=== PATIENT | male | born 1940 | race Caucasian/White ===

== ENCOUNTER 2016-07-12 20:13 | Inpatient (IN) | payer OTHER ==
[~2016-07-12] VITALS: Ht 172.7 cm; Wt 91.6 kg
[~2016-07-12 20:13] MED LIST: ALBUAER2 INH; ASPCH81X PO; ATV5X PO; CLOP1TAB15 PO; DOCU100C31 PO; DULO-24 PO; FLUD0.1T10 PO; FLUT1INH INH; GABA-112 PO; HYDR500C PO; IPRA1AER2 INH; LORA-741 PO; LPT/20 PO; MOML PO; NITR0.4S UT; OMEP20CA9 PO; ONDA8TAB6 PO; OXGN; OXYC-57 PO; PRAM0.129 PO; PROC1TAB5 PO; SALI0.657 NAE; SENN8.6T13 PO; SODIENE PR; SYMIN/8045 INH; TAMS0.4C38 PO; TIOTCAP INH; TRAZ100T29 PO; TRL150 PO; [UNRECOGNIZED DRUG - CODE] PO; dulcolax suppository RE
[2016-07-12] MEDS ORDERED: KETOROLAC TROMETHAMINE 30 MG/ML VIAL IV STA (20:27)
[2016-07-12] MEDS ORDERED: SODIUM CHLORIDE 0.9% 1000ML 500 ML IV STA (20:27)
--- NOTE | 2016-07-12 20:36 | EMERGENCY ROOM VISIT NOTE ---
History Report prepared by Maria Elena: Jennifer Camejo Under the Supervision of: Dr. Jay Jay Carcamo M.D. First contact with patient: 20:21 Chief Complaint: FLANK PAIN Stated Complaint: FLANK PAIN History of Present Illness The patient is a 75 year old male who presents to the Emergency Room with complaints of worsening right-sided flank pain for the past 3 days. He reports that his pain has been mild for the past 3 days, but it worsened today after he lifted some boxes. He rates his current pain as a 9.5/10 in severity. His pain is worse with movement and taking a deep breath. The patient denies shortness of breath, cough, urinary symptoms, chills, and any recent trauma or falls. He denies his pain radiating into his abdomen. He has not felt feverish. He denies any personal history of kidney stones. The patient has been staying at [facility] for rehab for the past 10 months. He was discharged home from there today. He states that he was at home for 3 hours today before his pain became severe. He called an ambulance. 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 He wears 4L of O2 at night. Source of History: patient Onset: 3 days ago Position: other (right flank) Symptom Intensity: 9.5/10 Timing: worsening Modifying Factors (Worsening): breathing, movement Modifying Factors (Relieving): narcotics (Percocet) Associated Symptoms: + fevers, No SOB, No abdominal pain, No chills, No cough, No urinary symptoms Review of Systems See HPI for pertinent positives & negatives. A total of 10 systems reviewed and were otherwise negative. Past Medical & Surgical Medical Problems: (1) ASTHMA, UNSPECIFIED (2) CHRONIC OBSTRUCTIVE ASTHMA, NOS (3) CHRONIC PAIN SYNDROME (4) CORONARY ATHEROSCLEROSIS OF [place] CORONARY VESSEL (5) DEPRESSIVE DISORDER NEC (6) DIAB W NEURO MANIFEST, TYPE II OR UNSPEC TYPE, NOT UNCNTRLD (7) DIVERTICULOSIS COLON (W/O MENT OF HEMORRHAGE) (8) ESOPHAGEAL REFLUX (9) HIP JOINT REPLACEMENT STATUS (10) HYPERTROPHY (BENIGN) OF PROSTATE W/O URINARY OBST & OTH LUTS (11) IRRITABLE BOWEL SYNDROME (12) Lumbar compression fracture (13) LUMBOSACRAL NEURITIS NOS (14) NEUROPATHY IN DIABETES (15) PURE HYPERCHOLESTEROLEM (16) SPINAL STENOSIS, LUMBAR REG, W/OUT NEUROGENIC CLAUDICATION (17) TOBACCO USE DISORDER Family History No pertinent family history Social History Smoking Status: Current Every Day Smoker Alcohol Use: heavy Drug Use: none Marital Status: Housing Status: lives alone Occupation Status: retired Current/Historical Medications Scheduled Aspirin (Aspirin Chewable), 81 MG PO DAILY Atorvastatin (Lipitor), 40 MG PO DAILY Bisacodyl (Dulcolax), 1 SUPP TX PRN UD Clopidogrel (Plavix), 75 MG PO DAILY Duloxetine HCl (Cymbalta), 30 MG PO BID Fluticasone Furoate-Vilanterol (Breo Ellipta), 1 INHA INH DAILY Gabapentin (Neurontin), 600 MG PO TID Ipratropium-Albuterol (Combivent Respimat), 1 PUFFS INH QID Lorazepam (Ativan), 0.5 MG PO TID Oxcarbazepine (Trileptal), 300 MG PO BID Oxycodone/Acetaminophen 5MG/325MG (Percocet 5MG/325MG), 1 TAB PO TID Pramipexole Dihydrochloride (Pramipexole Dihydrochlori), 0.5 MG PO HS Ranitidine (Zantac), 150 MG PO DAILY Senna/Docusate Sod (Senokot S), 2 TABS PO BID Tamsulosin Hcl (Flomax), 0.4 MG PO HS Tiotropium [place] (Spiriva Handihaler), 1 CAP INH DAILY Trazodone Hcl (Trazodone), 100 MG PO HS Scheduled PRN Bismuth Subsalicylate ([place] Bismuth), 30 ML PO Q4 PRN for Indigestion Guaifenesin (Guaifenesin), 20 Q4 PRN for Cough Magnesium Hydroxide (Milk Of Magnesia), 30 ML PO DAILY PRN for Constipation Saline (Sea Soft Nasal Mist), 1 SPRAY HELIO PRN PRN for DRYNESS Sodium Phosphate/Biphosphate (Fleet Enema), 1 EA TX PRN UD PRN for Constipation [Magic Mouthwash], 15-20 ML PO HS PRN for COUGH/SORETHROAT Allergies Coded Allergies: No Known Allergies (Unverified , 05/28/16) Physical Exam Vital Signs Date Time Temp Pulse Resp B/P Pulse Ox O2 Delivery O2 Flow Rate FiO2 1/6/17 23:32 73 20 158/87 95 Room Air 07/12/16 22:07 73 20 166/69 97 Nasal Cannula 4.0 07/12/16 21:33 95 Nasal Cannula 4.0 07/12/16 21:33 89 Room Air 07/12/16 20:54 80 07/12/16 20:32 90 Room Air 07/12/16 20:32 90 Room Air 07/12/16 20:19 37.6 84 128/72 90 Room Air Physical Exam GENERAL: Patient is in no acute distress. HEENT: No acute trauma, normocephalic atraumatic, mucous membranes dry, no nasal congestion, no scleral icterus. NECK: No stridor, no adenopathy, no meningismus, trachea is midline. LUNGS: Clear to auscultation bilaterally, no wheeze, no rhonchi, breath sounds equal. HEART: Irregular without any murmurs, regular rate. ABDOMEN: Soft, nontender, bowel sounds positive, no hernias, no peritonitis. BACK: Right flank pain worsens with movement. EXTREMITIES: Mild bilateral pedal edema. No cyanosis, full range of motion of all the joints without pain or difficulty, no signs for acute trauma. NEUROLOGIC: Oriented x 3, no acute motor or sensory deficits, no focal weakness. SKIN: No rash, no jaundice, no diaphoresis. Medical Decision & Procedures ER Provider Diagnostic Interpretation: Radiology results as stated below per my review and radiologist interpretation: CHEST ONE VIEW PORTABLE CLINICAL HISTORY: Altered mental status. Weakness. Lung cancer. COMPARISON STUDY: Chest CT May 06, 2016. FINDINGS: A left shoulder arthroplasty is incidentally noted. Elevation of the right hemidiaphragm is unchanged. Moderate cardiomegaly is unchanged. There is no pneumothorax. An anterior cervical spine fusion is incidentally noted. Low lung interstitial thickening is unchanged and is likely chronic. There is no lobar consolidation. A 1.6 cm nodular density within the left midlung is noted. This is indeterminate. IMPRESSION: 1. No acute cardiopulmonary findings. 2. 1.6 cm nodular density within the left midlung. This could represent normal structures although a pulmonary nodule could appear similar and attention to this finding on subsequent studies recommended. 2. Stable lower lung interstitial thickening which is likely chronic. 3. Stable mild mediastinal widening. Electronically signed by: Suraj Calhoun M.D. 07/12/2016 9:17 PM Dictated Date/Time: 07/12/2016 9:[address] OF THE ABDOMEN AND PELVIS WITHOUT CONTRAST, STONE PROTOCOL CLINICAL HISTORY: Flank pain. Hematuria. COMPARISON STUDY: CT of the abdomen and pelvis May 06, 2016. TECHNIQUE: Helical axial images of the abdomen and pelvis were obtained without IV or oral contrast according to renal stone protocol. FINDINGS: Visualized portions of the lower lungs demonstrate suspected atelectasis. There is multifocal mucus plugging within the right lower lobe as well as the right middle lobe. No pneumatosis, free air or portal venous gas is present. A 3 mm calcification within the left renal pelvis likely is vascular in etiology. No renal, ureteral or bladder calculi are present with there is no hydronephrosis. Evaluation of the remainder of the abdomen and pelvis is suboptimal on this unenhanced exam. Unenhanced images of liver, adrenal glands and pancreas are unremarkable. There are calcified granulomas within the spleen. There is no evidence for a bowel obstruction. The appendix is not visualized. There is left colon diverticulosis without evidence for acute diverticulitis. Postsurgical findings within the spine as well as the right hip arthroplasty are noted. No suspicious osseous lesions are present. The previously described hepatic metastasis is not well visualized on this unenhanced exam. IMPRESSION: 1. No urinary calculi or hydronephrosis. 2. No acute process within the abdomen or pelvis on unenhanced exam. 3. Left colon diverticulosis without evidence for acute diverticulitis. 4. Airspace opacities within visualized portions of the lungs. Atelectasis is favored although an infectious process would be difficult to exclude. Electronically signed by: Suraj Calhoun M.D. 07/12/2016 9:49 PM Dictated Date/Time: 07/12/2016 9:34 PM Laboratory Results 07/12/16 20:30 Red Blood Count 4.05, Mean Corpuscular Volume 85.7, Mean Corpuscular Hemoglobin 28.1, Mean Corpuscular Hemoglobin Concent 32.9, Mean Platelet Volume 8.9 07/12/16 20:30 Test 07/12/16 20:30 07/12/16 20:31 07/12/16 20:45 White Blood Count 13.93 K/uL (4.8-10.8) Red Blood Count 4.05 M/uL (4.7-6.1) Hemoglobin 11.4 g/dL (14.0-18.0) Hematocrit 34.7 % (42-52) Mean Corpuscular Volume 85.7 fL (80-100) Mean Corpuscular Hemoglobin 28.1 pg (25-34) Mean Corpuscular Hemoglobin Concent 32.9 g/dl (32-36) Platelet Count 266 K/uL (130-400) Mean Platelet Volume 8.9 fL (7.4-10.4) RDW Standard Deviation 63.6 fL (36.4-46.3) RDW Coefficient of Variation 20.4 % (11.5-14.5) Neutrophils % (Manual) 74.8 % Lymphocytes % (Manual) 4.3 % Monocytes % (Manual) 9.6 % Eosinophils % (Manual) 0.9 % Basophils % (Manual) 2.6 % (0-2) Metamyelocytes % 1.7 % Myelocytes % 6.1 % Neutrophils # (Manual) 10.42 K/uL (1.4-6.5) Total Absolute Neutrophils 10.42 K/uL (1.4-6.5) Lymphocytes # (Manual) 0.60 K/uL (1.2-3.4) Total Absolute Lymphocytes 0.60 K/uL (1.2-3.4) Monocytes # (Manual) 1.34 K/uL (0.11-0.59) Eosinophils # (Manual) 0.13 K/uL (0-0.5) Basophils # (Manual) 0.36 K/uL (0-0.2) Metamyelocytes # 0.24 K/uL (0-0) Myelocytes # 0.85 K/uL (0-0) Anisocytosis PRESENT Anion Gap 11.0 mmol/L (3-11) Est Creatinine Clear Calc Drug Dose 102.0 ml/min Estimated GFR () 106.1 Estimated GFR (Non- 91.6 BUN/Creatinine Ratio 12.9 (10-20) Calcium Level 8.9 mg/dl (8.5-10.1) Total Bilirubin 0.5 mg/dl (0.2-1) Aspartate Amino Transf (AST/SGOT) 21 U/L (15-37) Alanine Aminotransferase (ALT/SGPT) 13 U/L (12-78) Alkaline Phosphatase 93 U/L (45-117) Troponin I < 0.015 ng/ml (0-0.045) Total Protein 7.4 gm/dl (6.4-8.2) Albumin 3.5 gm/dl (3.4-5.0) Globulin 3.9 gm/dl (2.5-4.0) Albumin/Globulin Ratio 0.9 (0.9-2) Bedside Lactic Acid Venous 1.23 mmol/L (0.90-1.70) Urine Color YELLOW Urine Appearance CLOUDY (CLEAR) Urine pH 8.5 (4.5-7.5) Urine Specific [place] 1.009 (1.000-1.030) Urine Protein NEG (NEG) Urine Glucose (UA) NEG (NEG) Urine Ketones NEG (NEG) Urine Occult Blood 1+ (NEG) Urine Nitrite POS (NEG) Urine Bilirubin NEG (NEG) Urine Urobilinogen NEG (NEG) Urine Leukocyte Esterase LARGE (NEG) Urine WBC (Auto) >30 /hpf (0-5) Urine RBC (Auto) 5-10 /hpf (0-4) Urine Hyaline Casts (Auto) 1-5 /lpf (0-5) Urine Epithelial Cells (Auto) 0-5 /lpf (0-5) Urine Bacteria (Auto) 4+ (NEG) Laboratory results reviewed by me. Medications Administered Medications (Trade) Dose Ordered Sig/Imtiaz Route Start Time Stop Time Status Last Admin Dose Admin Sodium Chloride (Nss 1000ml) 500 ml @ 999 mls/hr Q31M STAT IV 07/12/16 20:27 07/12/16 20:57 DC 07/12/16 20:57 999 MLS/HR Ketorolac Tromethamine (Toradol Inj) 30 mg NOW STAT IV 07/12/16 20:27 07/12/16 20:31 DC 07/12/16 20:57 30 MG Ceftriaxone Sodium (Rocephin Inj) 1 gm NOW STAT IV 07/12/16 21:45 07/12/16 21:46 DC 07/12/16 22:03 1 GM Morphine Sulfate (MoRPHine SULFATE INJ) 4 mg NOW STAT IV 07/12/16 22:26 07/12/16 22:27 DC 07/12/16 22:39 4 MG ECG Indication: back/shoulder pain Rate (beats per minute): 82 Rhythm: normal sinus Findings: RBBB, no acute ischemic change, no ectopy ED Course 2020: The patient was evaluated in room A9B. A complete history and physical exam was performed. 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 2212: I reassessed the patient at this time. He is resting comfortably. I discussed the results and treatment plan with the patient. I answered all pertaining questions that he had. He expressed understanding and verbalized agreement. 2236: I spoke with Dr. Gama. We discussed the patients results and treatment plan. The patient will be evaluated by the [facility] for further management. Medical Decision Differential diagnoses includes dehydration, weakness, renal failure, electrolyte imbalance, UTI, renal stone, pneumonia, debilitation, musculoskeletal pain. There is a mild leukocytosis which could be consistent with infection. No concerning anemia. No significant electrolyte abnormality, kidney failure or hepatitis. Urinalysis does suggest infection. Urine culture is pending. Lactic acid level is not elevated making severe sepsis less likely. Chest x- ray does not show free air or pneumonia. Abdominal and pelvis CT shows no ureteral obstruction, there was no evidence for an acute surgical process by CT scan. The patient received IV morphine for pain, he received IV saline and IV Toradol. He was given a dose of IV ceftriaxone for antibiotic coverage. I suspect the patient has pyelonephritis, this has caused his right flank pain. Given his findings and situation, admission/observation was warranted. I spoke to the patient and case management. The on-call hospitalist was consulted. Consults Time Called: 2225 Consulting Physician: Dr. Gama Returned Call: [address] Gama. We discussed the patients results and treatment plan. The patient will be evaluated by the [facility] for further management. Impression Primary Impression: Pyelonephritis Additional Impressions: Right flank pain, Leukocytosis Scribe Attestation The scribe's documentation has been prepared under my direction and personally reviewed by me in its entirety. I confirm that the note above accurately reflects all work, treatment, procedures, and medical decision making performed by me. Departure Information Dispostion Being Evaluated By Hospitalist Referrals Eileen Pahceco M.D. (PCP) Patient Instructions A Signature Page, My [facility]
[2016-07-12 20:43] LABS: HEMATOCRIT 34.7 % (42-52); MEAN CELL VOLUME 85.7 fL (80-100); MEAN CORPUSCULAR HEMOGLOBIN 28.1 pg (25-34); MEAN CORPUSCULAR HGB CONC 32.9 g/dl (32-36); MEAN PLATELET VOLUME 8.9 fL (7.4-10.4); PLATELET COUNT 266 K/uL (130-400); RED BLOOD COUNT 4.05 M/uL (4.7-6.1); WHITE BLOOD COUNT 13.93 K/uL (4.8-10.8)
[2016-07-12 21:01] LABS: ALT/SGPT 13 U/L (12-78); BLOOD UREA NITROGEN 9 mg/dl (7-18); BUN/CREATININE RATIO 12.9 (10-20); CALCIUM 8.9 mg/dl (8.5-10.1); CARBON DIOXIDE 30 mmol/L (21-32); CHLORIDE 91 mmol/L (98-107); CREATININE 0.69 mg/dl (0.60-1.40); GLUCOSE 108 mg/dl (70-99); POTASSIUM 4.4 mmol/L (3.5-5.1); SODIUM 132 mmol/L (136-145)
[2016-07-12 21:06] LABS: ALB/GLOB RATIO 0.9 (0.9-2); ALKALINE PHOSPHATASE 93 U/L (45-117); AST/SGOT 21 U/L (15-37)
[2016-07-12] MEDS ORDERED: ATOR-24 PO (21:17)
[2016-07-12] MEDS ORDERED: OXCA300T PO (21:17)
[2016-07-12] MEDS ORDERED: CYM/30 PO (21:17)
[2016-07-12] MEDS ORDERED: PRAM0.5T10 PO (21:17)
[2016-07-12] MEDS ORDERED: ZNTT/150 PO (21:17)
[2016-07-12] MEDS ORDERED: SENN-65 PO (21:17)
[2016-07-12] MEDS ORDERED: MOML PO (21:17)
[2016-07-12 21:19] LABS: ANISOCYTOSIS PRESENT; BASO ABS # 0.36 K/uL (0-0.2); BASOPHIL % 2.6 % (0-2); COMPLETE YES; EOSINOPHIL % 0.9 %; LYMPHOCYTE % 4.3 %; META ABS # 0.24 K/uL (0-0); METAMYELOCYTE % 1.7 %; MYELOCYTE % 6.1 %; NEUTROPHILS % 74.8 %
--- NOTE | 2016-07-12 21:19 | DIAGNOSTIC IMAGING REPORT ---
CHEST ONE VIEW PORTABLE CLINICAL HISTORY: Altered mental status. Weakness. Lung cancer. COMPARISON STUDY: Chest CT May 06, 2016. FINDINGS: A left shoulder arthroplasty is incidentally noted. Elevation of the right hemidiaphragm is unchanged. Moderate cardiomegaly is unchanged. There is no pneumothorax. An anterior cervical spine fusion is incidentally noted. Low lung interstitial thickening is unchanged and is likely chronic. There is no lobar consolidation. A 1.6 cm nodular density within the left midlung is noted. This is indeterminate. IMPRESSION: 1. No acute cardiopulmonary findings. 2. 1.6 cm nodular density within the left midlung. This could represent normal structures although a pulmonary nodule could appear similar and attention to this finding on subsequent studies recommended. 2. Stable lower lung interstitial thickening which is likely chronic. 3. Stable mild mediastinal widening. Electronically signed by: Suraj Calhoun M.D. 07/12/2016 9:17 PM Dictated Date/Time: 07/12/2016 9:13 PM
[2016-07-12 21:22] LABS: URINE APPEARANCE CLOUDY (CLEAR); URINE BILIRUBIN NEG (NEG); URINE COLOR YELLOW; URINE EPITHELIAL CELL AUTO 0-5 /lpf (0-5); URINE NITRITE POS (NEG); URINE PH 8.5 (4.5-7.5); URINE SPECIFIC GRAVITY 1.009 (1.000-1.030); UROBILINOGEN NEG (NEG); ZZUR CULT IF INDIC CLEAN CATCH YES
[2016-07-12 21:23] LABS: MANUAL MICROSCOPIC REQUIRED? NO; REVIEW REQ? NO
[2016-07-12] MEDS ORDERED: GUAI100S16 (21:24)
[2016-07-12] MEDS ORDERED: [UNRECOGNIZED DRUG - CODE] NAE (21:24)
[2016-07-12] MEDS ORDERED: MAGIC MOUTHWASH PO (21:24)
[2016-07-12] MEDS ORDERED: BISA10SU3 PR (21:28)
[2016-07-12] MEDS ORDERED: CEFTRIAXONE SOD INJ 1 GM ADDVIAL IV STA (21:45)
--- NOTE | 2016-07-12 21:52 | DIAGNOSTIC IMAGING REPORT ---
CT OF THE ABDOMEN AND PELVIS WITHOUT CONTRAST, STONE PROTOCOL CLINICAL HISTORY: Flank pain. Hematuria. COMPARISON STUDY: CT of the abdomen and pelvis May 06, 2016. TECHNIQUE: Helical axial images of the abdomen and pelvis were obtained without IV or oral contrast according to renal stone protocol. FINDINGS: Visualized portions of the lower lungs demonstrate suspected atelectasis. There is multifocal mucus plugging within the right lower lobe as well as the right middle lobe. No pneumatosis, free air or portal venous gas is present. A 3 mm calcification within the left renal pelvis likely is vascular in etiology. No renal, ureteral or bladder calculi are present with there is no hydronephrosis. Evaluation of the remainder of the abdomen and pelvis is suboptimal on this unenhanced exam. Unenhanced images of liver, adrenal glands and pancreas are unremarkable. There are calcified granulomas within the spleen. There is no evidence for a bowel obstruction. The appendix is not visualized. There is left colon diverticulosis without evidence for acute diverticulitis. Postsurgical findings within the spine as well as the right hip arthroplasty are noted. No suspicious osseous lesions are present. The previously described hepatic metastasis is not well visualized on this unenhanced exam. IMPRESSION: 1. No urinary calculi or hydronephrosis. 2. No acute process within the abdomen or pelvis on unenhanced exam. 3. Left colon diverticulosis without evidence for acute diverticulitis. 4. Airspace opacities within visualized portions of the lungs. Atelectasis is favored although an infectious process would be difficult to exclude. Electronically signed by: Suraj Calhoun M.D. 07/12/2016 9:49 PM Dictated Date/Time: 07/12/2016 9:34 PM
[2016-07-12] MEDS ORDERED: MoRPHine SULFATE 4 MG/ML 1 ML CARP\\VIAL IV STA (22:26)
[2016-07-13] MEDS ORDERED: MoRPHine SULFATE 4 MG/ML 1 ML CARP\\VIAL IV STA (00:39)
[2016-07-13] MEDS ORDERED: ACETAMINOPHEN 325 MG TAB PO PRN (01:00)
[2016-07-13] MEDS ORDERED: MAGIC MOUTHWASH PO PRN (01:00)
[2016-07-13] MEDS ORDERED: ALUMINUM/MAGNESIUM/SIMETH (MAALOX MAX) 30 ML UDC PO PRN (01:00)
[2016-07-13] MEDS ORDERED: ONDANSETRON INJ 2 MG/ML 2 ML VIAL IV PRN (01:00)
[2016-07-13] MEDS ORDERED: SODIUM CHLORIDE 0.9% 1000ML 1,000 ML IV SCH (01:00)
[2016-07-13] MEDS ORDERED: POLYETHYLENE (MIRALAX) 17 GM PACK PO PRN (01:00)
[2016-07-13] MEDS ORDERED: MAGNESIUM HYDROXIDE SUSP 30 ML UDC PO PRN ×2 (01:00)
[2016-07-13] MEDS ORDERED: SODIUM CHLORIDE 0.65% NA SOLN 45 ML (OCEAN) NAE PRN (01:00)
--- NOTE | 2016-07-13 01:20 | History and Physical ---
History & Physical Date & Time of Service: Jul 13, 2016 at 01:17 Chief Complaint: Flank Pain Primary Care Physician: Balbir Ma M.D. History of Present Illness Source: patient 75 y/o M w/Hx CAD, Lung adenocarcinoma, COPD(3l 02), Spinal stenosis and recent L2 fracture. Pt was D/Cd from rehab earlier in the day and developed R flank pain, fever and weakness. He presented to the ER where a + UA was confirmed. He denies SOB, CP, vomiting. The pt is significantly tender at the R flank with intractable pain and will be admitted for presumed pyelonephritis. He had been at rehab for several months due to back pain and an inability to ambulate independently. He states that he had chemotherapy last 3 weeks prior and is due for a PET scan to reassess his CA. Past Medical/Surgical History Medical Problems: (1) ASTHMA, UNSPECIFIED Status: Chronic (2) CHRONIC OBSTRUCTIVE ASTHMA, NOS Status: Chronic (3) CHRONIC PAIN SYNDROME Status: Chronic (4) CORONARY ATHEROSCLEROSIS OF [place] CORONARY VESSEL Status: Chronic (5) DEPRESSIVE DISORDER NEC Status: Chronic (6) DIAB W NEURO MANIFEST, TYPE II OR UNSPEC TYPE, NOT UNCNTRLD Status: Chronic (7) DIVERTICULOSIS COLON (W/O MENT OF HEMORRHAGE) Status: Chronic (8) ESOPHAGEAL REFLUX Status: Chronic (9) HIP JOINT REPLACEMENT STATUS Status: Chronic (10) HYPERTROPHY (BENIGN) OF PROSTATE W/O URINARY OBST & OTH LUTS Status: Chronic (11) IRRITABLE BOWEL SYNDROME Status: Chronic (12) LUMBOSACRAL NEURITIS NOS Status: Chronic (13) NEUROPATHY IN DIABETES Status: Chronic (14) PURE HYPERCHOLESTEROLEM Status: Chronic (15) SPINAL STENOSIS, LUMBAR REG, W/OUT NEUROGENIC CLAUDICATION Status: Chronic (16) TOBACCO USE DISORDER Status: Chronic 17) Adenocarcinoma L lung - recent chemo/radiation - due for PET scan to reassess - he describes a solitary liver metastasis. Family History No pertinent family history Social History Smoking Status: Current Some Day Smoker Drug Use: none Marital Status: Housing status: lives alone Occupational Status: retired Immunizations History of Influenza Vaccine: N/A Influenza Vaccine Date: Jul 07, 2009 History of Tetanus Vaccine?: Yes Tetanus Immunization Date: Jan 17, 2009 History of Pneumococcal: Yes Pneumococcal Date: Jan 17, 2011 History of Hepatitis B Vaccine: No Allergies Coded Allergies: No Known Allergies (Unverified , 05/28/16) Home Medications Scheduled Aspirin (Aspirin Chewable), 81 MG PO DAILY Atorvastatin (Lipitor), 40 MG PO DAILY Bisacodyl (Dulcolax), [address] PRN UD Clopidogrel (Plavix), 75 MG PO DAILY Duloxetine HCl (Cymbalta), 30 MG PO BID Fluticasone Furoate-Vilanterol (Breo Ellipta), 1 INHA INH DAILY Gabapentin (Neurontin), 600 MG PO TID Ipratropium-Albuterol (Combivent Respimat), 1 PUFFS INH QID Lorazepam (Ativan), 0.5 MG PO TID Oxcarbazepine (Trileptal), 300 MG PO BID Oxycodone/Acetaminophen 5MG/325MG (Percocet 5MG/325MG), 1 TAB PO TID Pramipexole Dihydrochloride (Pramipexole Dihydrochlori), 0.5 MG PO HS Ranitidine (Zantac), 150 MG PO DAILY Senna/Docusate Sod (Senokot S), 2 TABS PO BID Tamsulosin Hcl (Flomax), 0.4 MG PO HS Tiotropium [place] (Spiriva Handihaler), 1 CAP INH DAILY Trazodone Hcl (Trazodone), 100 MG PO HS Scheduled PRN Bismuth Subsalicylate ([place] Bismuth), 30 ML PO Q4 PRN for Indigestion Guaifenesin (Guaifenesin), 20 Q4 PRN for Cough Magnesium Hydroxide (Milk Of Magnesia), 30 ML PO DAILY PRN for Constipation Saline (Sea Soft Nasal Mist), 1 SPRAY HELIO PRN PRN for DRYNESS Sodium Phosphate/Biphosphate (Fleet Enema), [address] PRN UD PRN for Constipation [Magic Mouthwash], 15-20 ML PO HS PRN for COUGH/SORETHROAT Review of Systems Constitutional: + chills, + fever, + sweats, + weakness Eyes: No worsening of vision ENT: No hearing loss, No nasal symptoms, No unusual epistaxis Respiratory: No cough, No shortness of breath, No sputum, No wheezing Cardiovascular: + chest pain, No orthopnea Abdomen: + nausea, + pain, + problem reported (R flank pain - severe) Musculoskeletal: + joint pain, + problem reported (Chronic narcotic-dependent back pain) Genitourinary - Male: + problem reported (Chronic incontenence), No dysuria, No hematuria Neurologic: No memory loss Psychiatric: No depression symptoms Endocrine: + fatigue Hematologic / Lymphatic: No abnormal bleeding/bruising Integumentary: No rash Allergic / Immunologic: No environmental allergies Physical Exam Vital Signs Date Time Temp Pulse Resp B/P Pulse Ox O2 Delivery O2 Flow Rate FiO2 07/13/16 01:04 75 20 153/97 93 Room Air 07/12/16 23:32 73 20 158/87 95 Room Air 07/12/16 22:07 73 20 166/69 97 Nasal Cannula 4.0 07/12/16 21:33 95 Nasal Cannula 4.0 07/12/16 21:33 89 Room Air 07/12/16 20:54 80 07/12/16 20:32 90 Room Air 07/12/16 20:32 90 Room Air 07/12/16 20:19 37.6 84 128/72 90 Room Air General Appearance: WD/WN, no apparent distress, + pertinent finding (PLeasant elderly male - sugnificant discomfort due to back and flank pain - no distress) Head: normocephalic, atraumatic Eyes: normal inspection ENT: normal ENT inspection, hearing grossly normal Neck: supple, no JVD Respiratory/Chest: chest non-tender, lungs clear, + pertinent finding (Poor b/ l air entry - no crackles or wheezing noted) Cardiovascular: regular rate, rhythm, no edema, no gallop, no JVD, no murmur, normal peripheral pulses Abdomen/GI: normal bowel sounds, non tender, soft, + pertinent finding (Severe tenderness to palpation of R flank) Genitourinary - Male: + pertinent finding (Severe tenderness to palpation of R flank - poor mobility) Extremities/Musculoskelatal: normal inspection, no calf tenderness, normal capillary refill 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, no motor/sensory deficits, alert, normal mood/affect, oriented x 3, + pertinent finding (Chronic LE weakness - decreased light touch) Diagnostics Laboratory Results Results Past 24 Hours Test 07/12/16 20:30 07/12/16 20:31 07/12/16 20:45 Range/Units White Blood Count 13.93 4.8-10.8 K/uL Red Blood Count 4.05 4.7-6.1 M/uL Hemoglobin 11.4 14.0-18.0 g/dL Hematocrit 34.7 42-52 % Mean Corpuscular Volume 85.7 80-100 fL Mean Corpuscular Hemoglobin 28.1 25-34 pg Mean Corpuscular Hemoglobin Concent 32.9 32-36 g/dl Platelet Count 266 130-400 K/uL Mean Platelet Volume 8.9 7.4-10.4 fL RDW Standard Deviation 63.6 36.4-46.3 fL RDW Coefficient of Variation 20.4 11.5-14.5 % Neutrophils % (Manual) 74.8 % Lymphocytes % (Manual) 4.3 % Monocytes % (Manual) 9.6 % Eosinophils % (Manual) 0.9 % Basophils % (Manual) 2.6 0-2 % Metamyelocytes % 1.7 % Myelocytes % 6.1 % Neutrophils # (Manual) 10.42 1.4-6.5 K/uL Total Absolute Neutrophils 10.42 1.4-6.5 K/uL Lymphocytes # (Manual) 0.60 1.2-3.4 K/uL Total Absolute Lymphocytes 0.60 1.2-3.4 K/uL Monocytes # (Manual) 1.34 0.11-0.59 K/uL Eosinophils # (Manual) 0.13 0-0.5 K/uL Basophils # (Manual) 0.36 0-0.2 K/uL Metamyelocytes # 0.24 0-0 K/uL Myelocytes # 0.85 0-0 K/uL Anisocytosis PRESENT Sodium Level 132 136-145 mmol/L Potassium Level 4.4 3.5-5.1 mmol/L Chloride Level 91 98-107 mmol/L Carbon Dioxide Level 30 21-32 mmol/L Anion Gap 11.0 3-11 mmol/L Blood Urea Nitrogen 9 7-18 mg/dl Creatinine 0.69 0.60-1.40 mg/dl Est Creatinine Clear Calc Drug Dose 102.0 ml/min Estimated GFR () 106.1 Estimated GFR (Non- 91.6 BUN/Creatinine Ratio 12.9 10-20 Random Glucose 108 70-99 mg/dl Calcium Level 8.9 8.5-10.1 mg/dl Total Bilirubin 0.5 0.2-1 mg/dl Aspartate Amino Transf (AST/SGOT) 21 15-37 U/L Alanine Aminotransferase (ALT/SGPT) 13 12-78 U/L Alkaline Phosphatase 93 45-117 U/L Troponin I < 0.015 0-0.045 ng/ml Total Protein 7.4 6.4-8.2 gm/dl Albumin 3.5 3.4-5.0 gm/dl Globulin 3.9 2.5-4.0 gm/dl Albumin/Globulin Ratio 0.9 0.9-2 Bedside Lactic Acid Venous 1.23 0.90-1.70 mmol/L Urine Color YELLOW Urine Appearance CLOUDY CLEAR Urine pH 8.5 4.5-7.5 Urine Specific [place] 1.009 1.000-1.030 Urine Protein NEG NEG Urine Glucose (UA) NEG NEG Urine Ketones NEG NEG Urine Occult Blood 1+ NEG Urine Nitrite POS NEG Urine Bilirubin NEG NEG Urine Urobilinogen NEG NEG Urine Leukocyte Esterase LARGE NEG Urine WBC (Auto) >30 0-5 /hpf Urine RBC (Auto) 5-10 0-4 /hpf Urine Hyaline Casts (Auto) 1-5 0-5 /lpf Urine Epithelial Cells (Auto) 0-5 0-5 /lpf Urine Bacteria (Auto) 4+ NEG Microbiology Results 07/12/16 Blood Culture, Received Pending 07/12/16 Blood Culture, Received Pending 07/12/16 Urine Culture, Received Pending Diagnostic Radiology No evidence of pfelo on CT Impression Assessment and Plan 75 y/o M w/Hx CAD, Lung adenocarcinoma, COPD(3l 02), Spinal stenosis and recent L2 fracture. Pt was D/Cd from rehab earlier in the day and developed R flank pain, fever and weakness. He presented to the ER where a + UA was confirmed. He denies SOB, CP, vomiting. The pt is significantly tender at the R flank with intractable pain and will be admitted for presumed pyelonephritis. 1) Pyelonephritis - clinical diagnosis despite normal CT - pt placed on Ceftriaxone pending culture results. Provided with IVF, antiemetics and narcotics PRN. 2) Back pain - will receive home dose of Percocet in addition to IV narcotics PRN - we will request a PT/OT eval as he was D/Cd from rehab one day prior. 3) COPD - cont home inhalers and 3L 02 - no evidence of acute exacerbation. 4) DM - not currently treated - may have been steroid related 5) Lung adenocarcinoma - F/U as outpt 6) CAD - no evidence of ACS - cont ASA, statin Full code - heparin prophylaxis Total time for this admit including chart review - review of meds, imaging, labs - discussion with ER attending and pt - 38 min Level of Care Med/Surg Resuscitation Status FULL RESUSCITATION VTE Prophylaxis VTE Risk Assessment Done? Y/N: Yes Risk Level: Moderate Given or contraindicated: Unfractionated heparin SQ
[2016-07-13 01:45] VITALS: BP 175/78; PULSE 73; TEMP 36.6; O2SAT 98
[2016-07-13 02:10] VITALS: Ht 172.7 cm; Wt 91.6 kg
[2016-07-13 02:39] VITALS: BP 143/80
[2016-07-13] MEDS ORDERED: DEXAMETHASONE CONC SOLN 3.75 MG, NYSTATIN SUSP 30 ML, DiphenhydrAMINE HCL SYRUP 300 MG,... PO PRN ×5 (03:00)
[2016-07-13] MEDS ORDERED: LORAZEPAM 0.5 MG TAB ONE (03:09)
[2016-07-13] MEDS: LORAZEPAM 0.5 MG TAB PO SCH ×4 (03:11→20:28)
[2016-07-13] MEDS ORDERED: OXYCODONE/ACETAMINOPHEN 5-325 TAB PO PRN ×2 (03:30→09:00)
[2016-07-13] MEDS ORDERED: PNEUMOCOCCAL POLYSACCHARIDES 25 MCG/0.5 ML VIAL/SYR IM. ONE (05:45)
[2016-07-13] MEDS ORDERED: PNEUMOCOCCAL ADMINISTRATION CHARGE ONE (05:45)
[2016-07-13] MEDS: HYDROmorphone INJ 0.5 MG/0.5 ML SYR IV PRN ×3 (06:18→13:23)
[2016-07-13 06:58] VITALS: BP 147/69; PULSE 74; TEMP 36.4; O2SAT 91
[2016-07-13 07:15] LABS: PROTHROMBIN TIME (PATIENT) 10.4 SECONDS (9.0-12.0)
[2016-07-13] MEDS ORDERED: KETOROLAC TROMETHAMINE 30 MG/ML VIAL IV STA (08:28)
[2016-07-13] MEDS ORDERED: OXYCODONE HCL IR 5 MG TAB (IMMEDIATE RELEASE) PO PRN (08:30)
[2016-07-13] MEDS ORDERED: KETOROLAC TROMETHAMINE 30 MG/ML VIAL ONE (08:35)
[2016-07-13] MEDS: IPRATROPIUM BROMIDE/ALBUTEROL respimat INH INH SCH ×4 (08:46→20:30)
[2016-07-13] MEDS: TIOTROPIUM BROMIDE 5 PUFF/90 MCG INH INH SCH (08:48)
[2016-07-13] MEDS: DULOXETINE (CYMBALTA) 30 MG CAP PO SCH ×2 (08:50→20:29)
[2016-07-13] MEDS: ASPIRIN 81 MG ECTAB PO SCH (08:51)
[2016-07-13] MEDS: ATORVASTATIN 40 MG TAB PO SCH (08:51)
[2016-07-13] MEDS: DOCUSATE SODIUM/SENNA 50/8.6MG TAB PO SCH ×2 (08:52→20:29)
[2016-07-13] MEDS: GABAPENTIN 600 MG TAB PO SCH ×3 (08:52→20:30)
[2016-07-13] MEDS: CLOPIDOGREL BISULFATE 75 MG TAB PO SCH (08:52)
[2016-07-13] MEDS: RANITIDINE HCL 150 MG TAB PO SCH (08:54)
[2016-07-13] MEDS: OXCARBAZEPINE 150 MG TAB PO SCH ×2 (08:54→20:32)
[2016-07-13] MEDS: ACETAMINOPHEN 500 MG TAB PO SCH ×2 (08:55→17:38)
[2016-07-13] MEDS: HEPARIN SOD 5000 UNIT/0.5 ML CARP SQ SCH ×2 (13:43→21:32)
[2016-07-13 14:55] LABS: BUN/CREATININE RATIO 15.3 (10-20); CALCIUM 8.5 mg/dl (8.5-10.1); CREATININE 0.69 mg/dl (0.60-1.40); POTASSIUM 4.4 mmol/L (3.5-5.1)
[2016-07-13 15:20] VITALS: BP 126/69; PULSE 74; TEMP 36.8; O2SAT 94
[2016-07-13 15:29] VITALS: O2SAT 91
[2016-07-13] MEDS ORDERED: OXYCODONE HCL IR 5 MG TAB (IMMEDIATE RELEASE) ONE (15:29)
[2016-07-13] MEDS ORDERED: OPTIRAY 320 IV PRN (16:30)
--- NOTE | 2016-07-13 16:59 | Progress Note ---
Subjective Date of Service: Jul 13, 2016. Subjective Pt evaluation today including: conversation w/ patient, physical exam, chart review, lab review, review of studies (CT abd/pelvis ), review of inpatient medication list Pain: right flank/right lower back, slightly pleuritic PO Intake: improved today Voiding: voiding difficulty (slow stream, takes a while for it to start; no dysuria ) Problem List Medical Problems: (1) Fall Status: Acute (2) Head injury Status: Acute (3) Intractable pain Status: Acute (4) Leg swelling Status: Acute (5) Leukocytosis Status: Acute (6) Pyelonephritis Status: Acute (7) Right flank pain Status: Acute (8) Thoracolumbar back pain Status: Acute (9) Vertebral fracture Status: Acute Review of Systems Constitutional: No chills, No fever Respiratory: + dyspnea on exertion (baseline), No dyspnea at rest Cardiac: + chest pain, + see HPI, No orthopnea Abdomen: + pain, No nausea, No vomiting Objective Vital Signs Date Time Temp Pulse Resp B/P Pulse Ox O2 Delivery O2 Flow Rate FiO2 07/13/16 15:29 91 07/13/16 15:20 36.8 74 18 126/69 94 Room Air 07/13/16 07:31 Room Air 07/13/16 06:58 36.4 74 17 147/69 91 Room Air 07/13/16 02:39 143/80 07/13/16 02:10 Nasal Cannula 4.0 07/13/16 01:45 36.6 73 18 175/78 98 Room Air 07/13/16 01:04 75 20 153/97 93 Room Air 07/12/16 23:32 73 20 158/87 95 Room Air 07/12/16 22:07 73 20 166/69 97 Nasal Cannula 4.0 07/12/16 21:33 95 Nasal Cannula 4.0 07/12/16 21:33 89 Room Air 07/12/16 20:54 80 07/12/16 20:32 90 Room Air 07/12/16 20:32 90 Room Air 07/12/16 20:19 37.6 84 128/72 90 Room Air Physical Exam General Appearance: no apparent distress ENT: pharynx normal Neck: no JVD Respiratory/Chest: no respiratory distress, no accessory muscle use, + decreased breath sounds (left base) Cardiovascular: regular rate, rhythm, no gallop, no murmur Abdomen: normal bowel sounds, soft, no organomegaly, + tenderness (right flank/ CVA) Extremities: no pedal edema Neurologic/Psychiatric: alert, oriented x 3 Skin: no rash, + pallor Laboratory Results Last 24 Hours Test 07/12/16 20:30 07/12/16 20:31 07/12/16 20:45 07/13/16 05:55 White Blood Count 13.93 K/uL Red Blood Count 4.05 M/uL Hemoglobin 11.4 g/dL Hematocrit 34.7 % Mean Corpuscular Volume 85.7 fL Mean Corpuscular Hemoglobin 28.1 pg Mean Corpuscular Hemoglobin Concent 32.9 g/dl Platelet Count 266 K/uL Mean Platelet Volume 8.9 fL RDW Standard Deviation 63.6 fL RDW Coefficient of Variation 20.4 % Neutrophils % (Manual) 74.8 % Lymphocytes % (Manual) 4.3 % Monocytes % (Manual) 9.6 % Eosinophils % (Manual) 0.9 % Basophils % (Manual) 2.6 % Metamyelocytes % 1.7 % Myelocytes % 6.1 % Neutrophils # (Manual) 10.42 K/uL Total Absolute Neutrophils 10.42 K/uL Lymphocytes # (Manual) 0.60 K/uL Total Absolute Lymphocytes 0.60 K/uL Monocytes # (Manual) 1.34 K/uL Eosinophils # (Manual) 0.13 K/uL Basophils # (Manual) 0.36 K/uL Metamyelocytes # 0.24 K/uL Myelocytes # 0.85 K/uL Anisocytosis PRESENT Sodium Level 132 mmol/L Potassium Level 4.4 mmol/L Chloride Level 91 mmol/L Carbon Dioxide Level 30 mmol/L Anion Gap 11.0 mmol/L Blood Urea Nitrogen 9 mg/dl Creatinine 0.69 mg/dl Est Creatinine Clear Calc Drug Dose 102.0 ml/min Estimated GFR () 106.1 Estimated GFR (Non- 91.6 BUN/Creatinine Ratio 12.9 Random Glucose 108 mg/dl Calcium Level 8.9 mg/dl Total Bilirubin 0.5 mg/dl Aspartate Amino Transf (AST/SGOT) 21 U/L Alanine Aminotransferase (ALT/SGPT) 13 U/L Alkaline Phosphatase 93 U/L Troponin I < 0.015 ng/ml Total Protein 7.4 gm/dl Albumin 3.5 gm/dl Globulin 3.9 gm/dl Albumin/Globulin Ratio 0.9 Bedside Lactic Acid Venous 1.23 mmol/L Urine Color YELLOW Urine Appearance CLOUDY Urine pH 8.5 Urine Specific [place] 1.009 Urine Protein NEG Urine Glucose (UA) NEG Urine Ketones NEG Urine Occult Blood 1+ Urine Nitrite POS Urine Bilirubin NEG Urine Urobilinogen NEG Urine Leukocyte Esterase LARGE Urine WBC (Auto) >30 /hpf Urine RBC (Auto) 5-10 /hpf Urine Hyaline Casts (Auto) 1-5 /lpf Urine Epithelial Cells (Auto) 0-5 /lpf Urine Bacteria (Auto) 4+ Prothrombin Time 10.4 SECONDS Prothromb Time International Ratio 1.0 Test 07/13/16 08:43 07/13/16 11:46 07/13/16 14:23 Bedside Glucose 118 mg/dl 140 mg/dl Sodium Level 129 mmol/L Potassium Level 4.4 mmol/L Chloride Level 95 mmol/L Carbon Dioxide Level 28 mmol/L Anion Gap 6.0 mmol/L Blood Urea Nitrogen 11 mg/dl Creatinine 0.69 mg/dl Est Creatinine Clear Calc Drug Dose 98.5 ml/min Estimated GFR () 106.1 Estimated GFR (Non- 91.6 BUN/Creatinine Ratio 15.3 Random Glucose 150 mg/dl Calcium Level 8.5 mg/dl Assessment and Plan 75yo male with: 1. UTI, with suspected right-sided pyelonephritis - urine culture already with e. coli. Continue rocephin. Check ADRIAN tomorrow to exclude prostatitis as well. 2. right flank/back pain - hopefully all the pain is due to pyelonephritis. However, in light of his cancer, will check CTA chest to exclude PE. 3. left lung adenocarcinoma - s/p chemo/xrt. CXR yesterday pm with 1.6cm left lung nodule. CTA chest will determine if he has cancer recurrence. 4. chronic resp failure - on home O2. 5. hyponatremia - despite hydration his Na is not any better. SIADH from #3? check serum osm, urine osm, urine Na. 6. chronic leukocytosis - myeloproliferative disorder? 7. chronic pain syndrome - continue outpatient meds; adjust as needed. 8. COPD - not in exacerbation. Cont home inhalers, etc. 9. CAD - no ischemic symptoms at this time. 10. DVT proph - heparin TID. PT, OT sarah (he had been in [facility] for 3 months, then returned home just yesterday!). Continued [facility] stay due to: multiple IV medications needed Discharge planning: uncertain
--- NOTE | 2016-07-13 17:18 | DIAGNOSTIC IMAGING REPORT ---
CHEST CTA for PULMONARY ARTERIES CT DOSE: 767.83 mGy.cm HISTORY: Short of breath. TECHNIQUE: Multiaxial CT images of the chest were performed following the intravenous administration of contrast to evaluate the pulmonary arteries. Maximal intensity projection images were also obtained. COMPARISON STUDY: Chest CT 05/06/2016. FINDINGS: Punctate calcified granulomas within the spleen. The visualized liver and adrenal glands are unremarkable. No pleural or pericardial effusions. A few small calcified left pleural plaques. Anterior cervical spine fusion is again noted. The heart is normal in size. Normal caliber thoracic aorta with no evidence for dissection. The mediastinal lymphadenopathy has improved in the interval. Dominant prevascular lymph node previously measured 2.3 cm and currently measures 1 cm in short axis diameter. Additional mediastinal lymph nodes have also decreased in size. There is mild soft tissue thickening at the right hilum. Trace mucoid material within the trachea and right middle lobe bronchi. Calcified granuloma the left lower lobe. Moderate emphysema. No pneumothorax. Right basilar densities. The lingular density is continue to decrease in size. The surrounding a small linear focus remaining. No suspicious lytic or blastic osseous lesions. Old right ninth and 10th rib fractures. No filling defects within the pulmonary arteries to suggest pulmonary embolus. IMPRESSION: 1. No evidence for pulmonary embolus. 2. Continued improvement in the mediastinal lymphadenopathy with near complete resolution of the lingular density/mass. 3. Right basilar densities have progressed. There is also mild soft tissue thickening at the right hilum. This could be due to a pneumonia. However, one month chest CT follow-up is recommended to ensure resolution of these findings and exclude the possibility of developing neoplasm. 4. Emphysema. Electronically signed by: Jorge Fine M.D. 07/13/2016 5:16 PM Dictated Date/Time: 07/13/2016 5:05 PM
[2016-07-13] MEDS: TAMSULOSIN HCL 0.4 MG CAP PO SCH (20:28)
[2016-07-13] MEDS: PRAMIPEXOLE DIHYDROCHLORIDE 0.5 MG TAB PO SCH (20:30)
[2016-07-13] MEDS: TRAZODONE HCL 100 MG TAB PO SCH (20:31)
[2016-07-13] MEDS: OXYCODONE HCL IR 5 MG TAB (IMMEDIATE RELEASE) PO PRN (20:33)
[2016-07-13] MEDS: CEFTRIAXONE SOD INJ 1 GM in DEXTROSE 5% ADD-VANTAGE 50ML 50 ML IV SCH (21:31)
[2016-07-13 23:34] VITALS: BP 135/73; PULSE 98; TEMP 37.7; O2SAT 93
[2016-07-14] MEDS ORDERED: LORAZEPAM INJ 0.5 MG in SYRINGE 0.25 ML IV STA (01:16)
[2016-07-14] MEDS: ACETAMINOPHEN 500 MG TAB PO SCH ×3 (01:29→17:14)
[2016-07-14 05:43] LABS: HEMATOCRIT 30.7 % (42-52); MEAN CORPUSCULAR HEMOGLOBIN 28.6 pg (25-34); MEAN CORPUSCULAR HGB CONC 33.2 g/dl (32-36); MEAN PLATELET VOLUME 8.4 fL (7.4-10.4); PLATELET COUNT 189 K/uL (130-400); RED BLOOD COUNT 3.57 M/uL (4.7-6.1); WHITE BLOOD COUNT 11.71 K/uL (4.8-10.8)
[2016-07-14] MEDS: HEPARIN SOD 5000 UNIT/0.5 ML CARP SQ SCH ×3 (06:04→20:59)
[2016-07-14 06:14] LABS: ANISOCYTOSIS PRESENT; BASO ABS # 0.11 K/uL (0-0.2); BASOPHIL % 0.9 % (0-2); COMPLETE YES; LYMPH ABS # 0.61 K/uL (1.2-3.4); LYMPHOCYTE % 5.2 %; METAMYELOCYTE % 2.6 %; MYELOCYTE % 1.7 %; NEUTROPHILS % 83.6 %
[2016-07-14 06:27] LABS: BUN/CREATININE RATIO 13.6 (10-20); CALCIUM 8.6 mg/dl (8.5-10.1); CREATININE 0.68 mg/dl (0.60-1.40); POTASSIUM 4.3 mmol/L (3.5-5.1)
[2016-07-14 07:36] VITALS: BP 112/73; PULSE 84; TEMP 36.5; O2SAT 91
[2016-07-14] MEDS ORDERED: NURSING DECISION MEDICATION ORDER SCH (08:00)
[2016-07-14] MEDS: CLOPIDOGREL BISULFATE 75 MG TAB PO SCH (08:32)
[2016-07-14] MEDS: RANITIDINE HCL 150 MG TAB PO SCH (08:32)
[2016-07-14] MEDS: DOCUSATE SODIUM/SENNA 50/8.6MG TAB PO SCH ×2 (08:32→20:53)
[2016-07-14] MEDS: ASPIRIN 81 MG ECTAB PO SCH (08:32)
[2016-07-14] MEDS: ATORVASTATIN 40 MG TAB PO SCH (08:32)
[2016-07-14] MEDS: TIOTROPIUM BROMIDE 5 PUFF/90 MCG INH INH SCH (08:32)
[2016-07-14] MEDS: GABAPENTIN 600 MG TAB PO SCH ×3 (08:33→20:54)
[2016-07-14] MEDS: OXCARBAZEPINE 150 MG TAB PO SCH ×2 (08:33→20:54)
[2016-07-14] MEDS: DULOXETINE (CYMBALTA) 30 MG CAP PO SCH ×2 (08:33→20:54)
[2016-07-14] MEDS: IPRATROPIUM BROMIDE/ALBUTEROL respimat INH INH SCH ×4 (08:34→20:52)
[2016-07-14] MEDS: OXYCODONE HCL IR 5 MG TAB (IMMEDIATE RELEASE) PO PRN ×4 (08:39→22:21)
[2016-07-14] MEDS: LORAZEPAM 0.5 MG TAB PO SCH ×3 (08:39→21:00)
[2016-07-14] MEDS ORDERED: AZITHROMYCIN 250 MG TAB PO ONE (10:15)
[2016-07-14] MEDS: GUAIFENESIN SUGAR FREE 100 MG/5 ML UDC PO PRN ×3 (12:15→20:51)
[2016-07-14 14:45] VITALS: BP 100/61; PULSE 80; TEMP 36.4; O2SAT 93
[2016-07-14 16:00] VITALS: O2SAT 93
--- NOTE | 2016-07-14 20:03 | Progress Note ---
Subjective Date of Service: Jul 14, 2016. Subjective Pt evaluation today including: conversation w/ patient, physical exam, chart review, lab review, review of studies (CTA chest ), review of inpatient medication list Pain: right flank pain is improved PO Intake: improved today Voiding: no voiding problems Pt "feels much better today" with improved appetite & energy. Right flank pain is better. He is, however, now coughing and it is productive of sputum (started late yesterday pm). Requests cough syrup for such. Denies sob or dyspnea. Problem List Medical Problems: (1) Fall Status: Acute (2) Head injury Status: Acute (3) Intractable pain Status: Acute (4) Leg swelling Status: Acute (5) Leukocytosis Status: Acute (6) Pyelonephritis Status: Acute (7) Right flank pain Status: Acute (8) Thoracolumbar back pain Status: Acute (9) Vertebral fracture Status: Acute Review of Systems Constitutional: No fever Respiratory: + cough, + sputum, No shortness of breath, No wheezing Cardiac: No chest pain, No orthopnea Abdomen: + see HPI, No nausea, No vomiting Objective Vital Signs Date Time Temp Pulse Resp B/P Pulse Ox O2 Delivery O2 Flow Rate FiO2 07/14/16 16:00 93 Nasal Cannula 2.0 07/14/16 14:45 36.4 80 18 100/61 93 Nasal Cannula 2.0 07/14/16 08:12 Nasal Cannula 4.0 07/14/16 07:36 36.5 84 18 112/73 91 Nasal Cannula 2.0 07/13/16 23:34 37.7 98 18 135/73 93 Room Air 07/13/16 20:20 Room Air 4.0 Physical Exam General Appearance: no apparent distress ENT: pharynx normal Neck: no JVD Respiratory/Chest: no respiratory distress, no accessory muscle use, + rales ( fine, right base only), + wheezing (scant end-exp) Cardiovascular: regular rate, rhythm, no gallop, no murmur Abdomen: normal bowel sounds, soft, no organomegaly, + tenderness (minimal, right flank ) Extremities: no pedal edema Neurologic/Psychiatric: alert, oriented x 3 Laboratory Results Last 24 Hours Test 07/13/16 20:53 07/13/16 22:00 07/14/16 05:05 07/14/16 08:28 Bedside Glucose 108 mg/dl 129 mg/dl Urine Osmolality 318 mOms/kg Urine Random Sodium 96 mEq/L White Blood Count 11.71 K/uL Red Blood Count 3.57 M/uL Hemoglobin 10.2 g/dL Hematocrit 30.7 % Mean Corpuscular Volume 86.0 fL Mean Corpuscular Hemoglobin 28.6 pg Mean Corpuscular Hemoglobin Concent 33.2 g/dl Platelet Count 189 K/uL Mean Platelet Volume 8.4 fL RDW Standard Deviation 62.9 fL RDW Coefficient of Variation 20.1 % Neutrophils % (Manual) 83.6 % Lymphocytes % (Manual) 5.2 % Monocytes % (Manual) 6.0 % Basophils % (Manual) 0.9 % Metamyelocytes % 2.6 % Myelocytes % 1.7 % Neutrophils # (Manual) 9.79 K/uL Total Absolute Neutrophils 9.79 K/uL Lymphocytes # (Manual) 0.61 K/uL Total Absolute Lymphocytes 0.61 K/uL Monocytes # (Manual) 0.70 K/uL Basophils # (Manual) 0.11 K/uL Metamyelocytes # 0.30 K/uL Myelocytes # 0.20 K/uL Anisocytosis PRESENT Sodium Level 136 mmol/L Potassium Level 4.3 mmol/L Chloride Level 98 mmol/L Carbon Dioxide Level 29 mmol/L Anion Gap 9.0 mmol/L Blood Urea Nitrogen 9 mg/dl Creatinine 0.68 mg/dl Est Creatinine Clear Calc Drug Dose 100.0 ml/min Estimated GFR () 106.8 Estimated GFR (Non- 92.1 BUN/Creatinine Ratio 13.6 Random Glucose 112 mg/dl Osmolality 276 mOsm/kg Calcium Level 8.6 mg/dl Test 07/14/16 12:14 07/14/16 16:45 Bedside Glucose 118 mg/dl 127 mg/dl Assessment and Plan 75yo male with: 1. e. coli UTI, with suspected right-sided pyelonephritis - e. coli sens to rocephin and ancef. Continue rocephin for now. day # 3 . Check ADRIAN while here to exclude prostatitis as well. 2. right flank/back pain - could be combination of pyelonephritis and RLL pneumonia. CTA chest with right basilar opacities, and now he has cough productive of sputum. Either way the pain is improved. 3. left lung adenocarcinoma - s/p chemo/xrt. CTA chest done to exclude PE -- neg for such. however, shows RLL opacities. If these do not clear in 4-6 weeks this would be concerning for cancer recurrence. original left-sided lingular lung ca is essentially absent on imaging now. 4. chronic resp failure - on home O2. Stable. 5. hyponatremia - resolved. checked serum osm, urine osm, urine Na - could be suggestive of SIADH, but his Na corrected with fluids arguing against SIADH. Monitor serum Na every few days for stability. 6. chronic leukocytosis - myeloproliferative disorder? 7. chronic pain syndrome - continue outpatient meds; pain is controlled today. 8. COPD - might have very, very early exacerbation but hold off on steroids for now. Cont home inhalers, etc. 9. CAD - no ischemic symptoms at this time. 10. DVT proph - heparin TID. 11. possible RLL pneumonia - he technically should be treated for gram negatives/nosocomial etiology but he is clinically improving with community- acquired antibiotic coverage only. will leave rocephin as is; add zithromax for atypicals. broaden the rocephin if he worsens. PT, OT sarah (he had been in [facility] for 3 months, then returned home on the day of hospital admission!). Continued [facility] stay due to: multiple IV medications needed Discharge planning: uncertain
[2016-07-14] MEDS: TRAZODONE HCL 100 MG TAB PO SCH (20:53)
[2016-07-14] MEDS: PRAMIPEXOLE DIHYDROCHLORIDE 0.5 MG TAB PO SCH (20:53)
[2016-07-14] MEDS: OLANZAPINE ZYDIS 5 MG ORALLY DIS. TAB PO SCH (20:54)
[2016-07-14] MEDS: TAMSULOSIN HCL 0.4 MG CAP PO SCH (20:55)
[2016-07-14] MEDS: CEFTRIAXONE SOD INJ 1 GM in DEXTROSE 5% ADD-VANTAGE 50ML 50 ML IV SCH (20:56)
[2016-07-14 22:52] VITALS: BP 131/67; PULSE 69; TEMP 36.4; O2SAT 94
[2016-07-15] MEDS: ACETAMINOPHEN 500 MG TAB PO SCH ×3 (00:05→18:30)
[2016-07-15] MEDS: OXYCODONE HCL IR 5 MG TAB (IMMEDIATE RELEASE) PO PRN ×4 (04:21→18:33)
[2016-07-15] MEDS: HEPARIN SOD 5000 UNIT/0.5 ML CARP SQ SCH ×3 (05:47→21:34)
[2016-07-15 06:55] VITALS: BP 135/89; PULSE 74; TEMP 36.3; O2SAT 91
[2016-07-15] MEDS: GUAIFENESIN SUGAR FREE 100 MG/5 ML UDC PO PRN ×2 (06:58→20:14)
[2016-07-15 08:20] LABS: BUN/CREATININE RATIO 13.2 (10-20); CALCIUM 9.1 mg/dl (8.5-10.1); CREATININE 0.82 mg/dl (0.60-1.40); POTASSIUM 4.3 mmol/L (3.5-5.1)
[2016-07-15] MEDS: ATORVASTATIN 40 MG TAB PO SCH (08:34)
[2016-07-15] MEDS: IPRATROPIUM BROMIDE/ALBUTEROL respimat INH INH SCH ×4 (08:34→21:31)
[2016-07-15] MEDS: DULOXETINE (CYMBALTA) 30 MG CAP PO SCH ×2 (08:35→20:18)
[2016-07-15] MEDS: OXCARBAZEPINE 150 MG TAB PO SCH ×2 (08:35→20:16)
[2016-07-15] MEDS: GABAPENTIN 600 MG TAB PO SCH ×3 (08:35→20:17)
[2016-07-15] MEDS: RANITIDINE HCL 150 MG TAB PO SCH (08:35)
[2016-07-15] MEDS: ASPIRIN 81 MG ECTAB PO SCH (08:36)
[2016-07-15] MEDS: CLOPIDOGREL BISULFATE 75 MG TAB PO SCH (08:36)
[2016-07-15] MEDS: TIOTROPIUM BROMIDE 5 PUFF/90 MCG INH INH SCH (08:36)
[2016-07-15] MEDS: DOCUSATE SODIUM/SENNA 50/8.6MG TAB PO SCH ×2 (08:36→20:18)
[2016-07-15] MEDS: LORAZEPAM 0.5 MG TAB PO SCH ×3 (08:41→20:21)
[2016-07-15] MEDS: AZITHROMYCIN 250 MG TAB PO SCH (09:26)
[2016-07-15 15:13] VITALS: BP 114/69; PULSE 82; TEMP 36.2; O2SAT 95
--- NOTE | 2016-07-15 16:11 | Progress Note ---
Subjective Date of Service: Jul 15, 2016. Subjective pt states he feels improved but has some concerns about walking with walker, less cough and less weakness Problem List Medical Problems: (1) Fall Status: Acute (2) Head injury Status: Acute (3) Intractable pain Status: Acute (4) Leg swelling Status: Acute (5) Leukocytosis Status: Acute (6) Pyelonephritis Status: Acute (7) Right flank pain Status: Acute (8) Thoracolumbar back pain Status: Acute (9) Vertebral fracture Status: Acute Review of Systems Constitutional: No chills, No fever Respiratory: + cough, + dyspnea on exertion, + shortness of breath, No sputum Cardiac: No PND, No chest pain, No edema Abdomen: No diarrhea, No nausea, No pain, No vomiting Psychiatric: No anhedonism, No depression symptoms Objective Vital Signs Date Time Temp Pulse Resp B/P Pulse Ox O2 Delivery O2 Flow Rate FiO2 07/15/16 07:27 Nasal Cannula 3.0 07/14/16 23:50 Nasal Cannula 2.0 07/14/16 22:52 36.4 69 16 131/67 94 Nasal Cannula 2.0 07/14/16 16:00 93 Nasal Cannula 2.0 07/14/16 14:45 36.4 80 18 100/61 93 Nasal Cannula 2.0 Physical Exam General Appearance: WD/WN, + mild distress Neck: supple, no JVD Respiratory/Chest: chest non-tender, lungs clear, normal breath sounds Cardiovascular: regular rate, rhythm, no murmur Abdomen: normal bowel sounds, non tender, soft Extremities: no pedal edema, no calf tenderness Neurologic/Psychiatric: alert, oriented x 3 Laboratory Results Last 24 Hours Test 07/14/16 12:14 07/14/16 16:45 07/14/16 20:32 07/15/16 07:02 Bedside Glucose 118 mg/dl 127 mg/dl 215 mg/dl 106 mg/dl Test 07/15/16 07:27 Sodium Level 141 mmol/L Potassium Level 4.3 mmol/L Chloride Level 101 mmol/L Carbon Dioxide Level 31 mmol/L Anion Gap 9.0 mmol/L Blood Urea Nitrogen 11 mg/dl Creatinine 0.82 mg/dl Est Creatinine Clear Calc Drug Dose 82.9 ml/min Estimated GFR () 98.9 Estimated GFR (Non- 85.3 BUN/Creatinine Ratio 13.2 Random Glucose 109 mg/dl Calcium Level 9.1 mg/dl Assessment and Plan 75yo male with flank pain and E Coli uti, copd and lung cancer, developed pulmonary symptoms for pneumonia E. coli UTI, with suspected right-sided pyelonephritis - e. coli sens to rocephin and ancef. Continue rocephin for now. continue 14 days total Right flank/back pain - could be combination of pyelonephritis and RLL pneumonia. CTA chest with right basilar opacities, and now he has cough productive of sputum add zithromax for atypicals.. Left lung adenocarcinoma - s/p chemo/xrt. CTA chest done to exclude PE -- neg for such will have follow up CT once infection resolves COPD/chronic resp failure - on home O2. Stable. hyponatremia - resolved. chronic leukocytosis - myeloproliferative disorder? DVT proph - heparin TID. Continued [facility] stay due to: multiple IV medications needed Discharge planning: uncertain
[2016-07-15 16:30] VITALS: O2SAT 94
[2016-07-15] MEDS: TRAZODONE HCL 100 MG TAB PO SCH (20:16)
[2016-07-15] MEDS: OLANZAPINE ZYDIS 5 MG ORALLY DIS. TAB PO SCH (20:17)
[2016-07-15] MEDS: PRAMIPEXOLE DIHYDROCHLORIDE 0.5 MG TAB PO SCH (20:17)
[2016-07-15] MEDS: TAMSULOSIN HCL 0.4 MG CAP PO SCH (20:22)
[2016-07-15] MEDS: CEFTRIAXONE SOD INJ 1 GM in DEXTROSE 5% ADD-VANTAGE 50ML 50 ML IV SCH (21:31)
[2016-07-16 00:12] VITALS: BP 121/70; PULSE 101; TEMP 36.3; O2SAT 97
[2016-07-16] MEDS: ACETAMINOPHEN 500 MG TAB PO SCH ×3 (00:19→18:35)
[2016-07-16] MEDS: GUAIFENESIN SUGAR FREE 100 MG/5 ML UDC PO PRN ×2 (04:35→21:10)
[2016-07-16] MEDS: OXYCODONE HCL IR 5 MG TAB (IMMEDIATE RELEASE) PO PRN ×3 (04:35→18:41)
[2016-07-16] MEDS: HEPARIN SOD 5000 UNIT/0.5 ML CARP SQ SCH ×3 (05:32→21:17)
[2016-07-16 07:21] LABS: HEMATOCRIT 35.1 % (42-52); MEAN CORPUSCULAR HEMOGLOBIN 27.4 pg (25-34); MEAN CORPUSCULAR HGB CONC 30.5 g/dl (32-36); MEAN PLATELET VOLUME 8.7 fL (7.4-10.4); PLATELET COUNT 171 K/uL (130-400); WHITE BLOOD COUNT 11.89 K/uL (4.8-10.8)
[2016-07-16 07:23] VITALS: BP 136/67; PULSE 82; TEMP 36.3; O2SAT 93
[2016-07-16] MEDS: LORAZEPAM 0.5 MG TAB PO SCH ×3 (07:43→21:10)
[2016-07-16] MEDS: AZITHROMYCIN 250 MG TAB PO SCH (08:49)
[2016-07-16] MEDS: OXCARBAZEPINE 150 MG TAB PO SCH ×2 (08:50→21:11)
[2016-07-16] MEDS: GABAPENTIN 600 MG TAB PO SCH ×3 (08:50→21:13)
[2016-07-16] MEDS: DULOXETINE (CYMBALTA) 30 MG CAP PO SCH ×2 (08:50→21:15)
[2016-07-16] MEDS: ASPIRIN 81 MG ECTAB PO SCH (08:52)
[2016-07-16] MEDS: RANITIDINE HCL 150 MG TAB PO SCH (08:52)
[2016-07-16] MEDS: ATORVASTATIN 40 MG TAB PO SCH (08:52)
[2016-07-16] MEDS: TIOTROPIUM BROMIDE 5 PUFF/90 MCG INH INH SCH (08:54)
[2016-07-16] MEDS: IPRATROPIUM BROMIDE/ALBUTEROL respimat INH INH SCH ×4 (08:55→21:10)
[2016-07-16] MEDS: CLOPIDOGREL BISULFATE 75 MG TAB PO SCH (08:56)
[2016-07-16] MEDS: DOCUSATE SODIUM/SENNA 50/8.6MG TAB PO SCH ×2 (08:56→21:16)
--- NOTE | 2016-07-16 11:23 | Discharge Instructions ---
Discharge Instructions Admission Reason for Admission: Pyelonephritis Discharge Discharge Diagnosis / Problem: pneumonia Discharge Goals Goal(s): Diagnostic testing, Therapeutic intervention Activity Recommendations Activity Limitations: resume your previous activity . Current Hospital Diet Patient's current hospital diet: Diabetes Type 2 Diet Discharge Diet Recommended Diet: Regular Diet Pending Studies Studies pending at discharge: no Medical Emergencies . Who to Call and When: Medical Emergencies: If at any time you feel your situation is an emergency, please call 911 immediately. . Non-Emergent Contact Non-Emergency issues call your: Primary Care Provider Call Non-Emergent contact if: you have a fever . . "Provider Documentation" section prepared by Jose Grant. VTE Core Measure Inpt VTE Proph given/why not?: Unfractionated heparin SQ
[2016-07-16] MEDS ORDERED: CEFU250T15 PO (11:26)
[2016-07-16] MEDS ORDERED: OXGN (11:26)
[2016-07-16] MEDS ORDERED: BISACODYL 10 MG SUPP PR PRN (11:30)
[2016-07-16 14:37] VITALS: BP 130/70; PULSE 62; TEMP 36.7; O2SAT 95
--- NOTE | 2016-07-16 15:49 | Progress Note ---
Subjective Date of Service: Jul 16, 2016. Subjective pt is constipated, otherwise is stable with chronically respiratory failure, requiring oxygen Problem List Medical Problems: (1) Fall Status: Acute (2) Head injury Status: Acute (3) Intractable pain Status: Acute (4) Leg swelling Status: Acute (5) Leukocytosis Status: Acute (6) Pyelonephritis Status: Acute (7) Right flank pain Status: Acute (8) Thoracolumbar back pain Status: Acute (9) Vertebral fracture Status: Acute Review of Systems Constitutional: + fatigue, + weakness, No chills, No fever Respiratory: + cough, + dyspnea on exertion, + shortness of breath, No sputum Cardiac: No chest pain, No edema Abdomen: No diarrhea, No nausea, No pain, No vomiting Male : No dysuria, No incontinence, No urinary frequency Psychiatric: No anhedonism, No depression symptoms Objective Vital Signs Date Time Temp Pulse Resp B/P Pulse Ox O2 Delivery O2 Flow Rate FiO2 07/16/16 14:37 36.7 62 17 130/70 95 Nasal Cannula 4.0 07/16/16 07:36 Nasal Cannula 4.0 07/16/16 07:23 36.3 82 16 136/67 93 Nasal Cannula 4.0 07/16/16 00:15 Nasal Cannula 4.0 07/16/16 00:12 36.3 101 20 121/70 97 Nasal Cannula 4.0 07/15/16 16:30 94 Nasal Cannula 4.0 Physical Exam General Appearance: WD/WN, + mild distress Neck: supple, no JVD Respiratory/Chest: + decreased breath sounds, + accessory muscle use, + rhonchi Cardiovascular: regular rate, rhythm, + systolic murmur Abdomen: normal bowel sounds, non tender, soft Extremities: + pedal edema, + swelling Neurologic/Psychiatric: alert, oriented x 3 Laboratory Results Last 24 Hours Test 07/15/16 16:48 07/15/16 20:54 07/16/16 06:24 07/16/16 07:26 Bedside Glucose 141 mg/dl 131 mg/dl 119 mg/dl White Blood Count 11.89 K/uL Red Blood Count 3.90 M/uL Hemoglobin 10.7 g/dL Hematocrit 35.1 % Mean Corpuscular Volume 90.0 fL Mean Corpuscular Hemoglobin 27.4 pg Mean Corpuscular Hemoglobin Concent 30.5 g/dl RDW Standard Deviation 65.9 fL RDW Coefficient of Variation 20.4 % Platelet Count 171 K/uL Mean Platelet Volume 8.7 fL Nucleated RBC Absolute Count (auto) 0.04 K/uL Nucleated Red Blood Cells % 0.3 % Test 07/16/16 11:22 Bedside Glucose 178 mg/dl Assessment and Plan 75yo male with flank pain and E Coli uti, copd and lung cancer, developed pulmonary symptoms for pneumonia E. coli UTI, with suspected right-sided pyelonephritis - e. coli sens to rocephin and ancef. Continue rocephin for now. continue 14 days total will use ceftin at discharge Right flank/back pain - could be combination of pyelonephritis and RLL pneumonia. CTA chest with right basilar opacities, and now he has cough productive of sputum .. Left lung adenocarcinoma - s/p chemo/xrt. CTA chest done to exclude PE -- neg for such will have follow up CT once infection resolves COPD/chronic resp failure - on home O2. 2 step reveals 2 liters at rest, 4 liters with ambulation hyponatremia - resolved. chronic leukocytosis - myeloproliferative disorder? DVT proph - heparin TID. Continued [facility] stay due to: multiple IV medications needed Discharge planning: uncertain
[2016-07-16] MEDS: PRAMIPEXOLE DIHYDROCHLORIDE 0.5 MG TAB PO SCH (21:12)
[2016-07-16] MEDS: TAMSULOSIN HCL 0.4 MG CAP PO SCH (21:13)
[2016-07-16] MEDS: OLANZAPINE ZYDIS 5 MG ORALLY DIS. TAB PO SCH (21:14)
[2016-07-16] MEDS: TRAZODONE HCL 100 MG TAB PO SCH (21:15)
[2016-07-16] MEDS: CEFTRIAXONE SOD INJ 1 GM in DEXTROSE 5% ADD-VANTAGE 50ML 50 ML IV SCH (21:18)
[2016-07-16 23:03] VITALS: BP 136/72; PULSE 77; TEMP 36.8; O2SAT 97
[2016-07-17] MEDS: ACETAMINOPHEN 500 MG TAB PO SCH ×2 (00:14→09:38)
[2016-07-17] MEDS: HEPARIN SOD 5000 UNIT/0.5 ML CARP SQ SCH ×2 (05:14→13:38)
[2016-07-17] MEDS: TIOTROPIUM BROMIDE 5 PUFF/90 MCG INH INH SCH (09:37)
[2016-07-17] MEDS: LORAZEPAM 0.5 MG TAB PO SCH ×2 (09:37→13:38)
[2016-07-17] MEDS: IPRATROPIUM BROMIDE/ALBUTEROL respimat INH INH SCH ×2 (09:37→13:38)
[2016-07-17] MEDS: OXCARBAZEPINE 150 MG TAB PO SCH (09:37)
[2016-07-17] MEDS: AZITHROMYCIN 250 MG TAB PO SCH (09:38)
[2016-07-17] MEDS: GABAPENTIN 600 MG TAB PO SCH ×2 (09:38→13:38)
[2016-07-17] MEDS: DULOXETINE (CYMBALTA) 30 MG CAP PO SCH (09:39)
[2016-07-17] MEDS: RANITIDINE HCL 150 MG TAB PO SCH (09:39)
[2016-07-17] MEDS: DOCUSATE SODIUM/SENNA 50/8.6MG TAB PO SCH (09:39)
[2016-07-17] MEDS: CLOPIDOGREL BISULFATE 75 MG TAB PO SCH (09:39)
[2016-07-17] MEDS: ATORVASTATIN 40 MG TAB PO SCH (09:39)
[2016-07-17] MEDS: ASPIRIN 81 MG ECTAB PO SCH (09:39)
[2016-07-17 10:46] VITALS: O2SAT 95
--- NOTE | 2016-07-17 11:04 | Discharge Summary ---
Discharge Summary Admission Date: Jul 13, 2016 at 01:03 Discharge Date: Jul 17, 2016 Discharge Disposition: Home with services Principal Diagnosis: pneumonia, chronic hypoxic respiratory failure Immunizations: Have You Had Influenza Vaccine: N/A Influenza Vaccine Date: Jul 07, 2009 History of Tetanus Vaccine?: Yes Tetanus Immunization Date: Jan 17, 2009 History of Pneumococcal: Yes Pneumococcal Date: Jan 17, 2011 History of Hepatitis B Vaccine: No Medication Reconciliation New Medications: Cefuroxime Axetil (Ceftin) 250 Mg Tab 250 MG PO BID, #14 TAB Oxygen (Oxygen) Gas 2 LITERS NA CONTINOUS for 365 Days, #1 Continued Medications: Aspirin (Aspirin Chewable) 81 Mg Chew 81 MG PO DAILY Atorvastatin (Lipitor) 40 Mg Tab 40 MG PO DAILY, TAB Bisacodyl (Dulcolax) 10 Mg Sup 1 SUPP PA PRN UD, SUP PRN IF NO RESULTS FROM MOM Bismuth Subsalicylate ([place] Bismuth) 262 Mg/15 Ml Isabel 30 ML PO Q4 PRN for Indigestion Clopidogrel (Plavix) 75 Mg Tab 75 MG PO DAILY, TAB Duloxetine HCl (Cymbalta) 30 Mg Cap 30 MG PO BID, CAP Fluticasone Furoate-Vilanterol (Breo Ellipta) 1 Inh Inh 1 INHA INH DAILY Gabapentin (Neurontin) 100 Mg Cap 600 MG PO TID, CAP Guaifenesin (Guaifenesin) 100 Mg/5 Ml Syp 20 Q4 PRN for Cough Ipratropium-Albuterol (Combivent Respimat) 1 Aer Aer 1 PUFFS INH QID, INH Lorazepam (Ativan) 0.5 Mg Tab 0.5 MG PO TID, TAB Magnesium Hydroxide (Milk Of Magnesia) 30 Ml Susp 30 ML PO DAILY PRN for Constipation, ML Oxcarbazepine (Trileptal) 300 Mg Tab 300 MG PO BID, TAB Oxycodone/Acetaminophen 5MG/325MG (Percocet 5MG/325MG) Tab 1 TAB PO TID for 30 Days, #90 TAB PAIN Pramipexole Dihydrochloride (Pramipexole Dihydrochlori) 0.5 Mg Tab 0.5 MG PO HS Ranitidine (Zantac) 150 Mg Tab 150 MG PO DAILY, TAB Saline (Sea Soft Nasal Mist) 0.65 % Spr 1 SPRAY HELIO PRN PRN for DRYNESS Senna/Docusate Sod (Senokot S) 1 Tab Tab 2 TABS PO BID, TAB Sodium Phosphate/Biphosphate (Fleet Enema) Kristine 1 EA PA PRN UD PRN for Constipation, BTL PRN IF NO RESULTS BAILEY DULCOLAX Tamsulosin Hcl (Flomax) 0.4 Mg Cap 0.4 MG PO HS, CAP Tiotropium Guston (Spiriva Handihaler) 18 Mcg/ Aerp 1 CAP INH DAILY, INHALER Trazodone Hcl (Trazodone) 100 Mg Tab 100 MG PO HS, TAB [Magic Mouthwash] () 15-20 ML PO HS PRN for COUGH/SORETHROAT Discharge Exam Review of Systems: Constitutional: + weakness, No chills, No fever Respiratory: + cough, + dyspnea on exertion, No dyspnea at rest, No shortness of breath, No sputum, No wheezing Cardiovascular: No chest pain, No orthopnea Abdomen: + constipation, No nausea, No pain, No vomiting Physical Exam: General Appearance: WD/WN, + mild distress Eyes: PERRL, EOMI Neck: supple, no JVD Respiratory/Chest: + decreased breath sounds, + accessory muscle use Cardiovascular: regular rate, rhythm, + systolic murmur Abdomen / GI: normal bowel sounds, non tender, soft Neurologic/Psychiatric: alert, oriented x 3 Hospital Course 75yo male with flank pain and E Coli uti, copd and lung cancer, developed pulmonary symptoms for pneumonia E. coli UTI, with suspected right-sided pyelonephritis - e. coli sens to rocephin and ancef. 14 days total will use ceftin at discharge Right flank/back pain - could be combination of pyelonephritis and RLL pneumonia. CTA chest with right basilar opacities, and now he has cough productive of sputum .. Left lung adenocarcinoma - s/p chemo/xrt. CTA chest done to exclude PE -- neg for such will have follow up CT once infection resolves COPD/chronic hypoxic respiratory failure - on home O2. 2 step reveals 2 liters at rest, 4 liters with ambulation. Pt needs head of bed elevated 30 degrees for breathing due to respiratory failure, will need hospital bed to meet criteria hyponatremia - resolved. chronic leukocytosis - myeloproliferative disorder? pt will need wheelchair to help increase his MRADL's at home, as has mobility limitation that cannot be sufficiently resolved with walker Total Time Spent: Greater than 30 minutes This includes examination of the patient, discharge planning, medication reconciliation, and communication with other providers. Discharge Instructions Please refer to the electronic Patient Visit Report (Discharge Instructions) for additional information.
[2016-07-17 14:58] VITALS: BP 160/73; PULSE 90; TEMP 37; O2SAT 98
[2016-09-10] MEDS ORDERED: DIVA250T PO (11:03)
[2016-09-10] MEDS ORDERED: HYDR25CA PO (11:03)
[2016-09-10] MEDS ORDERED: TRAZ50TA35 PO (11:03)
== END 2016-07-17 15:17 | disposition home health service (06) | DRG 689 ==
LOC: ENRESERVTM → ENRESERVDT → EDBD 20:13 → C.EDA 20:14 → C.MSN 07-13 01:03 → C.MSW 07-13 20:38
PROVIDERS: ADMIT Internal Medicine; ATTEND Internal Medicine
DX: N39.0 Urinary tract infection, site not specified (principal); J18.9 Pneumonia, unspecified organism; J96.11 Chronic respiratory failure with hypoxia; E22.2 Syndrome of inappropriate secretion of antidiuretic hormone; J44.1 Chronic obstructive pulmonary disease with (acute) exacerbation; C34.90 Malignant neoplasm of unspecified part of unspecified bronchus or lung; C96.4 Sarcoma of dendritic cells (accessory cells); N12 Tubulo-interstitial nephritis, not specified as acute or chronic; K21.9 Gastro-esophageal reflux disease without esophagitis; N40.0 Benign prostatic hyperplasia without lower urinary tract symptoms; M48.06 Spinal stenosis, lumbar region; G89.4 Chronic pain syndrome; M54.9 Dorsalgia, unspecified; B96.20 Unspecified Escherichia coli [E. coli] as the cause of diseases classified elsewhere; I25.10 Atherosclerotic heart disease of native coronary artery without angina pectoris; E78.00 Pure hypercholesterolemia, unspecified; R91.1 Solitary pulmonary nodule; F17.210 Nicotine dependence, cigarettes, uncomplicated; E11.40 Type 2 diabetes mellitus with diabetic neuropathy, unspecified; F41.9 Anxiety disorder, unspecified; Y95 Nosocomial condition; K59.00 Constipation, unspecified; Z92.21 Personal history of antineoplastic chemotherapy; Z92.3 Personal history of irradiation; Z99.81 Dependence on supplemental oxygen; Z23 Encounter for immunization; Z87.19 Personal history of other diseases of the digestive system; Z79.82 Long term (current) use of aspirin; Z79.02 Long term (current) use of antithrombotics/antiplatelets; Z79.899 Other long term (current) drug therapy; Z79.891 Long term (current) use of opiate analgesic; Z79.51 Long term (current) use of inhaled steroids

== ENCOUNTER → 2016-07-25 | Outpatient (CLI) | payer OTHER ==
[~2016-07-25] MED LIST changes: +ACET-1311 PO; -ALBUAER2 INH; +ATOR-24 PO; -ATV5X PO; +BISA10SU3 PR; +BISA10SU38 PR; +CEFT1INJ57 IM; +CEFU250T15 PO; +CYM/30 PO; +DIVA250T PO; -DOCU100C31 PO; +DPKSR500 PO; -DULO-24 PO; +FLM4 PO; -FLUD0.1T10 PO; +GUAI100S16; +HALO0.5T9 PO; +HLD1 PO; +HYDR25CA PO; -HYDR500C PO; +KFL500 PO; -LPT/20 PO; +MAGIC MOUTHWASH PO; -NITR0.4S UT; -OMEP20CA9 PO; -ONDA8TAB6 PO; +OXCA300T PO; +OXYC1TAB3 PO; -PRAM0.129 PO; +PRAM0.5T10 PO; +PRED50TA PO; -PROC1TAB5 PO; +PRS5 PO; +RANI1TAB13 PO; -SALI0.657 NAE; +SENN-65 PO; -SENN8.6T13 PO; +SENN8.6T9 PO; +SPRIN/30 INH; -SYMIN/8045 INH; +TRAZ50TA35 PO; -TRL150 PO; +VNCS125 PO; +ZNTT/150 PO; +[UNRECOGNIZED DRUG - CODE] NAE; -dulcolax suppository RE
--- NOTE | 2016-07-25 11:56 | DIAGNOSTIC IMAGING REPORT ---
CT OF THE CHEST WITH IV CONTRAST CLINICAL HISTORY: Lung carcinoma COMPARISON STUDY: 07/13/2016 TECHNIQUE: Following the IV administration of 92 mL of Optiray-320, CT of the thorax was performed from the thoracic inlet to the lung bases. Images are reviewed in the axial, sagittal, and coronal planes. IV contrast was administered without complication. CT DOSE: FINDINGS: Thyroid: Imaged portions of the thyroid gland are normal in appearance. Thoracic aorta: There is mild ectasia of the a sitting thoracic aorta which measures 4 cm. Pulmonary vasculature: The pulmonary trunk is normal in caliber. There are no central filling defects identified to suggest pulmonary embolus. Note that this examination was not protocoled for the evaluation of pulmonary emboli. HEART: The heart is normal in size and configuration, without pericardial effusion. Lungs and pleural spaces: There is pulmonary emphysema. There are right middle and lower lobe opacities, likely atelectatic. There is a calcified left lower lobe granuloma. There is thickening of the right lower lobe bronchovascular bundles. There is right lower lobe mucus plugging. Mediastinum: There is mild mediastinal lymphadenopathy. The largest right paratracheal lymph node measures 14 mm in diameter. Denise: Hilar lymph nodes are at the upper limits of normal in size Axilla: Clear. Upper abdomen: Partially visualized upper abdominal viscera is within normal limits. Skeletal structures: The right 10th rib fractures again visualized. There is an old right ninth rib fracture. There are postsurgical changes present within the cervical spine. There are postsurgical changes involving the left shoulder. IMPRESSION: 1. Mild mediastinal lymphadenopathy similar to the prior study 2. Moderately severe emphysema 3. Right middle and lower lobe atelectasis with mild thickening of the right lower lobe bronchovascular bundle and right lower lobe mucus plugging. There is a small amount of debris within the bronchus intermedius. Electronically signed by: Eladio Gee M.D. 07/25/2016 11:54 AM Dictated Date/Time: 07/25/2016 11:47 AM
--- NOTE | 2016-07-25 12:56 | DIAGNOSTIC IMAGING REPORT ---
CT ABD/PELVIS IV AND ORAL CONT CLINICAL HISTORY: Lung carcinoma COMPARISON STUDY: 07/12/2016, 05/06/2016 TECHNIQUE: Following the IV administration of 92 mL of Optiray-320, CT scan of the abdomen and pelvis was performed from the lung bases to the proximal femurs. Images are reviewed in the axial, sagittal, and coronal planes. IV contrast was administered without complication. CT DOSE: 1196.75 mGy.cm FINDINGS: Lower chest: There is respiratory motion artifact. There are bibasilar opacities, likely atelectatic. There is mild thickening of the right lower lobe bronchovascular bundles. Liver: The contrast-enhanced liver is normal in size, contour, and attenuation. There is no intrahepatic biliary ductal dilatation. The hepatic veins and portal veins are patent. Gallbladder: Unremarkable. Spleen: There is mild splenomegaly. The spleen measures 14 cm in length. Pancreas: Unremarkable. Adrenal glands: Unremarkable. Kidneys: There is a nonobstructing 2.5 mm left renal calculus. Bowel: There are no transition zones indicate bowel obstruction. There are scattered colonic diverticula present. There are no acute peridiverticular inflammatory changes. Peritoneum: There is no intraperitoneal free air or abdominal ascites. Vasculature: The abdominal aorta is normal in course and caliber. Adenopathy: None. Pelvic viscera: The bladder, and pelvic viscera are unremarkable. Skeletal structures: There are postsurgical changes of a total right hip arthroplasty. There are postsurgical changes of the spine. IMPRESSION: 1. The previously identified right lobe hepatic mass is no longer visualized 2. Mild splenomegaly 3. No visible metastatic disease within the abdomen or pelvis Electronically signed by: Eladio Gee M.D. 07/25/2016 12:54 PM Dictated Date/Time: 07/25/2016 12:49 PM
== END | disposition home or self-care (01) ==
LOC: C.CTS 09:30
PROVIDERS: ATTEND Internal Medicine Hematology & Oncology
DX: C34.32 Malignant neoplasm of lower lobe, left bronchus or lung (principal); J43.9 Emphysema, unspecified

== ENCOUNTER → 2016-09-04 | Outpatient (CLI) | payer OTHER ==
[~2016-09-04] MED LIST changes: -CEFU250T15 PO
--- NOTE | 2016-09-04 12:32 | DIAGNOSTIC IMAGING REPORT ---
TWO VIEW CHEST CLINICAL HISTORY: Small cell lung cancer. FINDINGS: PA and lateral chest radiographs are compared to study dated 07/12/2016 and correlated with chest CT dated 07/25/2016. The heart is mildly enlarged and there is atherosclerotic calcification of the thoracic aorta. The pulmonary vasculature is noncongested. Emphysema and chronic interstitial thickening is similar to previous. There are bibasilar airspace opacities. No pleural effusion is seen. Apical scarring is observed. A large calcified granuloma is noted at the left lung base. There is no pneumothorax. The skeletal structures are osteopenic. Degenerative change is noted throughout the thoracic spine. Fusion hardware is seen in the lower cervical spine. A Left shoulder arthroplasty is partially imaged. IMPRESSION: 1. Cardiomegaly and emphysema. 2. There are bibasilar airspace opacities. This findings is nonspecific, and could represent atelectasis, scarring/fibrosis, and/or an infectious/inflammatory pneumonitis. Clinical correlation will be required. Electronically signed by: Jay Jay Caro M.D. 09/04/2016 12:31 PM Dictated Date/Time: 09/04/2016 12:28 PM
== END | disposition home or self-care (01) ==
LOC: C.RAD 11:37
PROVIDERS: ATTEND Internal Medicine Hematology & Oncology
DX: C34.90 Malignant neoplasm of unspecified part of unspecified bronchus or lung (principal); I51.7 Cardiomegaly; J43.9 Emphysema, unspecified; R91.8 Other nonspecific abnormal finding of lung field; D75.81 Myelofibrosis

== ENCOUNTER → 2016-09-30 | Outpatient (CLI) | payer OTHER ==
[~2016-09-30] MED LIST changes: +GADAVIST IV PRN; -TRAZ100T29 PO
--- NOTE | 2016-09-30 22:10 | DIAGNOSTIC IMAGING REPORT ---
MRI OF THE BRAIN WITHOUT AND WITH IV CONTRAST CLINICAL HISTORY: *THIN SLICE*HX OF LUNG CA COMPARISON STUDY: 03/08/2016 TECHNIQUE: Utilizing a 1.5 [place] magnet and dedicated coil, multiplanar, multiecho imaging of the brain was performed pre and postcontrast administration. IV administration of 10 mL of Gadavist contrast was uneventful. FINDINGS: Similar study compared to the prior exam. 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 This is unchanged. Signal characteristics otherwise indicate a component of mild chronic small vessel change. No evidence for acute intracranial hemorrhage. No midline shift. No significant postcontrast enhancement. Sella and parasellar regions are noted are unremarkable internal artery canals are symmetric. IMPRESSION: 1. Unchanged exam compared to the prior study dated 03/08/2016. 2. 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 This is unchanged. 3. Mild chronic small vessel change of aging. 4. Study is otherwise negative UNCHANGED FROM THE PRIOR STUDY. Electronically signed by: Ab Sotomayor M.D. 09/30/2016 10:08 PM Dictated Date/Time: 09/30/2016 10:02 PM
== END | disposition home or self-care (01) ==
LOC: C.MRI 19:21
PROVIDERS: ATTEND Physician Assistant Medical
DX: C34.32 Malignant neoplasm of lower lobe, left bronchus or lung (principal)

== ENCOUNTER 2016-11-20 11:43 | Emergency (ER) | payer OTHER ==
[~2016-11-20] VITALS: Ht 167.6 cm; Wt 86.5 kg
[~2016-11-20 11:43] MED LIST changes: -ACET-1311 PO; -BISA10SU38 PR; -CEFT1INJ57 IM; -DPKSR500 PO; -FLM4 PO; -GADAVIST IV PRN; -HALO0.5T9 PO; -HLD1 PO; -KFL500 PO; -OXYC1TAB3 PO; -PRED50TA PO; -PRS5 PO; -RANI1TAB13 PO; -SENN8.6T9 PO; -SPRIN/30 INH; -VNCS125 PO
[2016-11-20 11:59] VITALS: TEMP 36.5; Ht 167.6 cm; Wt 86.5 kg
[2016-11-20] MEDS ORDERED: ALBUT/IPRATROP 3MG/0.5MG NEB 3 ML VIAL INH STA ×2 (12:38→13:14)
[2016-11-20 12:41] VITALS: O2SAT 95
[2016-11-20 12:52] LABS: BASO % 0.5 %; BASO ABS # 0.05 K/uL (0-0.2); EOS % 0.5 %; HEMATOCRIT 43.8 % (42-52); IG% 1.5 %; LYMPH % 13.1 %; LYMPH ABS # 1.22 K/uL (1.2-3.4); MEAN CELL VOLUME 85.7 fL (80-100); MEAN CORPUSCULAR HEMOGLOBIN 27.8 pg (25-34); MEAN CORPUSCULAR HGB CONC 32.4 g/dl (32-36); MEAN PLATELET VOLUME 8.8 fL (7.4-10.4); NEUT % 78.4 %; PLATELET COUNT 179 K/uL (130-400); RED BLOOD COUNT 5.11 M/uL (4.7-6.1); WHITE BLOOD COUNT 9.34 K/uL (4.8-10.8)
[2016-11-20 13:07] LABS: CREATININE 0.85 mg/dl (0.60-1.40); PARTIAL THROMBOPLASTIN RATIO 1.1; POTASSIUM 3.8 mmol/L (3.5-5.1); PROTHROMBIN TIME (PATIENT) 10.9 SECONDS (9.0-12.0)
[2016-11-20 13:08] LABS: CALCIUM 9.1 mg/dl (8.5-10.1)
--- NOTE | 2016-11-20 13:10 | DIAGNOSTIC IMAGING REPORT ---
CHEST ONE VIEW PORTABLE CLINICAL HISTORY: Shortness of breath COMPARISON STUDY: 09/04/2016 FINDINGS: There is mild elevation right hemidiaphragm. There are bibasilar opacities likely atelectatic. There is no failure. There are no pleural effusions.[ IMPRESSION: Bibasilar opacities, likely representing atelectasis/scarring. Electronically signed by: Eladio Gee M.D. 11/20/2016 1:09 PM Dictated Date/Time: 11/20/2016 1:08 PM
[2016-11-20] MEDS ORDERED: METHYLPREDNISOLONE 125 MG VIAL IV STA (13:14)
[2016-11-20] MEDS ORDERED: SODIUM CHLORIDE 0.9% 500ML 500 ML IV STA (13:21)
[2016-11-20 13:24] LABS: ANISOCYTOSIS PRESENT; COMPLETE YES; OVALOCYTES 1+
--- NOTE | 2016-11-20 14:22 | DIAGNOSTIC IMAGING REPORT ---
LUMBAR SPINE 5 VIEWS HISTORY: Pain 10/11/2014 COMPARISON: 10/11/2014 FINDINGS: There is no fracture. No subluxation. Moderate degenerative disc changes throughout. Stable posterior laminectomy and fusion from L3 through L5. No evidence for subluxation. IMPRESSION: Stable degenerative and postoperative change. No acute process. Electronically signed by: Ab Sotomayor M.D. 11/20/2016 2:20 PM Dictated Date/Time: 11/20/2016 2:19 PM
[2016-11-20] MEDS ORDERED: SPRIN/30 INH (14:30)
[2016-11-20] MEDS ORDERED: PRS5 PO (14:30)
[2016-11-20] MEDS ORDERED: FLM4 PO (14:30)
[2016-11-20] MEDS ORDERED: SENN8.6T9 PO (14:30)
[2016-11-20] MEDS ORDERED: RANI1TAB13 PO (14:30)
[2016-11-20] MEDS ORDERED: PRED50TA PO (16:57)
[2016-11-20 17:15] VITALS: BP 127/77; PULSE 78; O2SAT 96
--- NOTE | 2016-11-20 20:21 | EMERGENCY ROOM VISIT NOTE ---
History Report prepared by Maria Elena: Ra Robbins Under the Supervision of: Dr. Zach Sow M.D. First contact with patient: 12:53 Chief Complaint: SHORTNESS OF BREATH Stated Complaint: SHORTNESS OF BREATH Nursing Triage Summary: Patient arrived via ALS from home with complaints of worsening SOB that started first thing this morning. Patient was diagnosed 1 year ago with lung cancer and has been getting treatments over the past year. Lungs diminished. Patient typically uses 2-4L NC O2 at home History of Present Illness The patient is a 76 year old male who presents to the Emergency Room with complaints of constant spinal pain beginning a few years ago. The patient states that his pain starts in his lower back and works its way to his legs. He complains of shortness of breath beginning prior to arrival that has not changed yet. The patient states that his pain has worsened since he has arrived. He reports that he has not taken his pain medication yet, and states that he takes Percocet. The patient notes that he just finished radiation for lung cancer and the cancer did not spread to his bones. He reports that he has a history of COPD and back surgery, but denies a history of emphysema. He also notes that he has neck pain and a decreased appetite. Pt denies LOC, headache, fevers, chills, diaphoresis, visual changes, chest pain, nausea, vomiting, abdominal pain, melena, hematochezia, urinary symptoms, numbness, weakness, lymphadenopathy, rash, or other complaints. Source of History: patient Onset: a few years ago Position: back (lower) Timing: constant Associated Symptoms: + SOB, + neck pain Note: Associated symptoms: decreased appetite Review of Systems See HPI for pertinent positives and negatives. A total of ten systems were reviewed and were otherwise negative. Past Medical & Surgical Medical Problems: (1) ASTHMA, UNSPECIFIED (2) CHRONIC OBSTRUCTIVE ASTHMA, NOS (3) CHRONIC PAIN SYNDROME (4) CORONARY ATHEROSCLEROSIS OF HOPI CORONARY VESSEL (5) DEPRESSIVE DISORDER NEC (6) DIAB W NEURO MANIFEST, TYPE II OR UNSPEC TYPE, NOT UNCNTRLD (7) DIVERTICULOSIS COLON (W/O MENT OF HEMORRHAGE) (8) ESOPHAGEAL REFLUX (9) HIP JOINT REPLACEMENT STATUS (10) HYPERTROPHY (BENIGN) OF PROSTATE W/O URINARY OBST & OTH LUTS (11) IRRITABLE BOWEL SYNDROME (12) Lumbar compression fracture (13) LUMBOSACRAL NEURITIS NOS (14) NEUROPATHY IN DIABETES (15) PURE HYPERCHOLESTEROLEM (16) SPINAL STENOSIS, LUMBAR REG, W/OUT NEUROGENIC CLAUDICATION (17) TOBACCO USE DISORDER Family History No pertinent family history Social History Smoking Status: Former Smoker Alcohol Use: heavy Drug Use: none Marital Status: Housing Status: lives alone Occupation Status: retired Current/Historical Medications Scheduled Aspirin (Aspirin Chewable), 81 MG PO DAILY Atorvastatin (Lipitor), 40 MG PO DAILY Clopidogrel (Plavix), 75 MG PO DAILY Divalproex Sodium (Depakote Er), 1 TAB PO HS Duloxetine HCl (Cymbalta), 30 MG PO BID Finasteride (Finasteride), 1 TAB PO DAILY Fluticasone Furoate-Vilanterol (Breo Ellipta), 1 INHA INH DAILY Gabapentin (Neurontin), 600 MG PO TID Ipratropium-Albuterol (Combivent Respimat), 1 PUFFS INH QID Lorazepam (Ativan), 0.5 MG PO TID Oxcarbazepine (Trileptal), 300 MG PO BID Oxycodone/Acetaminophen 5MG/325MG (Percocet 5MG/325MG), 1 TAB PO QID Oxygen (Oxygen), 2 LITERS NA CONTINOUS Pramipexole Dihydrochloride (Pramipexole Dihydrochlori), 0.5 MG PO HS Prednisone (Prednisone), 50 MG PO DAILY Ranitidine (Zantac), 150 MG PO DAILY Ranitidine Hcl (Acid All Terrain Vehicle Racer), 1 TAB PO Q12 Sennosides (Senexon), 1-2 TAB PO BID Tamsulosin HCl (Tamsulosin HCl), 1 TAB PO HS Tiotropium [place] (Spiriva Handihaler), 1 CAP INH DAILY Scheduled PRN Guaifenesin (Guaifenesin), 20 Q4 PRN for Cough Hydroxyzine Pamoate (Vistaril), 1 CAP PO HS PRN for Insomnia Magnesium Hydroxide (Milk Of Magnesia), 30 ML PO DAILY PRN for Constipation Miscellaneous Medications Trazodone Hcl (Trazodone), 50 MG PO Allergies Coded Allergies: No Known Allergies (Unverified , 11/20/16) Physical Exam Vital Signs Date Time Temp Pulse Resp B/P Pulse Ox O2 Delivery O2 Flow Rate FiO2 11/20/16 17:15 78 18 127/77 96 11/20/16 16:32 105 20 157/111 95 Nasal Cannula 4.0 11/20/16 15:33 91 20 159/84 96 Room Air 11/20/16 15:01 90 20 148/82 97 Nasal Cannula 4.0 11/20/16 14:26 92 18 140/82 95 Nasal Cannula 4.0 11/20/16 13:46 88 22 129/78 97 Nasal Cannula 4.0 11/20/16 12:41 95 Nasal Cannula 2.0 11/20/16 12:40 95 Nasal Cannula 2.0 11/20/16 12:14 102 11/20/16 11:59 94 Nasal Cannula 2.0 11/20/16 11:59 36.5 89 20 158/66 91 Room Air 11/20/16 11:59 94 Nasal Cannula 2.0 Physical Exam GENERAL: Awake, alert, well-appearing, mildly anxious HENT: Normocephalic, atraumatic. Oropharynx unremarkable. EYES: Normal conjunctiva. Sclera non-icteric. NECK: Supple. No nuchal rigidity. FROM. No JVD. RESPIRATORY: Scattered bronchi. CARDIAC: Regular rate, normal rhythm. Extremities warm and well perfused. Pulses equal. ABDOMEN: Soft, non-distended. No tenderness to palpation. No rebound or guarding. No masses. RECTAL: Deferred. MUSCULOSKELETAL: Chest examination reveals no tenderness. The back is symmetrical on inspection without obvious abnormality. There is no CVA tenderness to palpation. No joint edema. LOWER EXTREMITIES: Calves are equal size bilaterally and non-tender. No edema. No discoloration. NEURO: Normal sensorium. No sensory or motor deficits noted. SKIN: No rash or jaundice noted. Medical Decision & Procedures ER Provider Diagnostic Interpretation: X-ray: Per my interpretation, radiologist review. CHEST ONE VIEW PORTABLE CLINICAL HISTORY: Shortness of breath COMPARISON STUDY: 09/04/2016 FINDINGS: There is mild elevation right hemidiaphragm. There are bibasilar opacities likely atelectatic. There is no failure. There are no pleural effusions.[ IMPRESSION: Bibasilar opacities, likely representing atelectasis/scarring. Electronically signed by: Eladio Gee M.D. 11/20/2016 1:09 PM Dictated Date/Time: 11/20/2016 1:08 PM LUMBAR SPINE 5 VIEWS HISTORY: Pain 10/11/2014 COMPARISON: 10/11/2014 FINDINGS: There is no fracture. No subluxation. Moderate degenerative disc changes throughout. Stable posterior laminectomy and fusion from L3 through L5. No evidence for subluxation. IMPRESSION: Stable degenerative and postoperative change. No acute process. Electronically signed by: Ab Sotomayor M.D. 11/20/2016 2:20 PM Dictated Date/Time: 11/20/2016 2:19 PM Laboratory Results 11/20/16 12:21 Red Blood Count 5.11, Mean Corpuscular Volume 85.7, Mean Corpuscular Hemoglobin 27.8, Mean Corpuscular Hemoglobin Concent 32.4, Mean Platelet Volume 8.8, Neutrophils (%) (Auto) 78.4, Lymphocytes (%) (Auto) 13.1, Monocytes (%) (Auto) 6.0, Eosinophils (%) (Auto) 0.5, Basophils (%) (Auto) 0.5, Neutrophils # (Auto) 7.32, Lymphocytes # (Auto) 1.22, Monocytes # (Auto) 0.56, Eosinophils # (Auto) 0.05, Basophils # (Auto) 0.05 11/20/16 12:21 Test 11/20/16 12:21 11/20/16 12:44 White Blood Count 9.34 K/uL (4.8-10.8) Red Blood Count 5.11 M/uL (4.7-6.1) Hemoglobin 14.2 g/dL (14.0-18.0) Hematocrit 43.8 % (42-52) Mean Corpuscular Volume 85.7 fL (80-100) Mean Corpuscular Hemoglobin 27.8 pg (25-34) Mean Corpuscular Hemoglobin Concent 32.4 g/dl (32-36) Platelet Count 179 K/uL (130-400) Mean Platelet Volume 8.8 fL (7.4-10.4) Neutrophils (%) (Auto) 78.4 % Lymphocytes (%) (Auto) 13.1 % Monocytes (%) (Auto) 6.0 % Eosinophils (%) (Auto) 0.5 % Basophils (%) (Auto) 0.5 % Neutrophils # (Auto) 7.32 K/uL (1.4-6.5) Lymphocytes # (Auto) 1.22 K/uL (1.2-3.4) Monocytes # (Auto) 0.56 K/uL (0.11-0.59) Eosinophils # (Auto) 0.05 K/uL (0-0.5) Basophils # (Auto) 0.05 K/uL (0-0.2) RDW Standard Deviation 64.6 fL (36.4-46.3) RDW Coefficient of Variation 20.7 % (11.5-14.5) Immature Granulocyte % (Auto) 1.5 % Immature Granulocyte # (Auto) 0.14 K/uL (0.00-0.02) Anisocytosis PRESENT Ovalocytes 1+ Prothrombin Time 10.9 SECONDS (9.0-12.0) Prothromb Time International Ratio 1.0 (0.9-1.1) Activated Partial Thromboplast Time 27.3 SECONDS (21.0-31.0) Partial Thromboplastin Ratio 1.1 Anion Gap 8.0 mmol/L (3-11) Est Creatinine Clear Calc Drug Dose 73.8 ml/min Estimated GFR () 96.7 Estimated GFR (Non- 83.5 BUN/Creatinine Ratio 16.0 (10-20) Calcium Level 9.1 mg/dl (8.5-10.1) Total Bilirubin 0.7 mg/dl (0.2-1) Aspartate Amino Transf (AST/SGOT) 21 U/L (15-37) Alanine Aminotransferase (ALT/SGPT) 16 U/L (12-78) Alkaline Phosphatase 71 U/L (45-117) Total Protein 7.5 gm/dl (6.4-8.2) Albumin 3.8 gm/dl (3.4-5.0) Globulin 3.7 gm/dl (2.5-4.0) Albumin/Globulin Ratio 1.0 (0.9-2) Bedside Troponin I 0.000 ng/ml (0-0.045) Laboratory results reviewed by me Medications Administered Medications (Trade) Dose Ordered Sig/Imtiaz Route Start Time Stop Time Status Last Admin Dose Admin Albuterol/ Ipratropium (Duoneb) 3 ml NOW STAT INH 11/20/16 12:38 11/20/16 12:40 DC 11/20/16 12:51 3 ML Albuterol/ Ipratropium (Duoneb) 3 ml NOW STAT INH 11/20/16 13:14 11/20/16 13:16 DC 11/20/16 14:25 3 ML Methylprednisolone Sodium Succinate 125 mg 125 mg NOW STAT IV 11/20/16 13:14 11/20/16 13:16 DC 11/20/16 13:46 125 MG Sodium Chloride (Nss 500ml) 500 ml @ 999 mls/hr Q31M STAT IV 11/20/16 13:21 11/20/16 13:51 DC 11/20/16 13:46 999 MLS/HR Prednisone (PredniSONE TAB) 60 mg NOW STAT PO 11/20/16 16:57 11/20/16 16:59 DC 11/20/16 17:11 60 MG ECG Indication: chest pain Rate (beats per minute): 87 Rhythm: normal sinus Findings: RBBB, no acute ischemic change, no ectopy ED Course 1238: Ordered Duoneb 3ml INH 1310: The patient was evaluated in room C11B. A complete history and physical exam was performed. 1314: Ordered Solu-Medrol IV 125mg IV, Duoneb 3ml INH 1321: Ordered Sodium Chloride 500 ml @ 999 mls/hr IV 1405: I reevaluated the patient and he is doing better 1525: I reevaluated the patient and he is resting easy. He asked to stay in the hospital because he would feel better in the event he would have another anxiety attack. Case management is going to speak with him. 1557: Case management spoke with the patient and discussed options for at home treatment. 1600: I spoke with his nephew and he will make arrangements with the patient's PCP for his follow up. 1657: Ordered Prednisone 60mg PO 1721: I reevaluated the patient and he verbalized complete understanding of the treatment plan. He is ready to go home. Medical Decision Triage Nursing notes reviewed. The patient's presentation and history were concerning for shortness of breath. Etiologies such as pneumonia, COPD, reactive airway disease, anxiety, CHF, cardiac ischemia, pulmonary embolism, pneumothorax, musculoskeletal, infections , gastrointestinal, as well as others were entertained. The patient was evaluated. He has a history of COPD and is being treated with radiation for lung cancer. He is a former smoker. His ECG was nonischemic. The patient's CBC, coags, troponin, and LFTs were unremarkable. The patient took his regular home medications. He was given a DuoNeb treatment here. On reassessment he was feeling better. He was given a second treatment and Solu- Medrol. The patient states that he feels anxious. His family notes that he has had episodes like this in the past when he becomes anxious and has COPD issues they feet off each other and he gets worse. The patient was reassured and his favorable results on testing. He initially requested to stay in the hospital as she was fearful he may have another anxiety like issue. At this point there is not a clear indication to keep them in the hospital but I did offer him to be with case management. After meeting with case management the patient felt more relieved and feels comfortable going home. I did discuss this with his nephew who helps the patient out at his home residence. Patient and family feel comfortable with him being at home as he has been through a lot lately and they would like to try to keep him home as opposed to any other place or in the hospital. By the evaluation outlined above other emergent etiologies such as those listed in the differential, as well as others, were deemed relatively unlikely. The patient and family were informed about the findings as listed above. All questions were answered and they were pleased with the treatment. Return instructions were outlined and the patient was discharged in stable condition. The patient was referred to his primary physician for follow-up for a recheck of the current condition. The chart was completed utilizing [employer] Speech voice recognition software. Grammatical errors, random word insertions, pronoun errors, and incomplete sentences are an occasional consequence of this system due to software limitations, ambient noise, and hardware issues. Any formal questions or concerns about the content, text, or information contained within the body of this dictation should be directly addressed to the physician for clarification. Impression Primary Impression: Shortness of breath Additional Impression: Anxiety Scribe Attestation The scribe's documentation has been prepared under my direction and personally reviewed by me in its entirety. I confirm that the note above accurately reflects all work, treatment, procedures, and medical decision making performed by me. Departure Information Dispostion Home / Self-Care Prescriptions Prednisone (Prednisone) 50 Mg Tab 50 MG PO DAILY for 4 Days, #4 TAB Prov: Zach Sow MD 5/17/17 Referrals Balbir Ma M.D. (PCP) Forms HOME CARE DOCUMENTATION FORM, IMPORTANT VISIT INFORMATION Patient Instructions My [facility] Additional Instructions Continue current medications including oxygen and breathing inhalers Prednisone 50 Mg: Once daily until the prescription is finished. Call Dr. Ma's office tomorrow to discuss a follow-up. Follow-up with cancer treatment as scheduled. Return to the ER for worsening anxiety, chest pain, difficulty breathing, fevers , vomiting, worsening of your condition, or as needed. Problem Qualifiers
== END 2016-11-20 17:21 | disposition home or self-care (01) ==
LOC: EDBD 11:43 → C.EDC 11:45
DX: R06.02 Shortness of breath (principal); F41.9 Anxiety disorder, unspecified; M54.5 Low back pain; M79.604 Pain in right leg; M79.605 Pain in left leg; M54.2 Cervicalgia; I45.10 Unspecified right bundle-branch block; I25.10 Atherosclerotic heart disease of native coronary artery without angina pectoris; E11.9 Type 2 diabetes mellitus without complications; F32.9 Major depressive disorder, single episode, unspecified; K21.9 Gastro-esophageal reflux disease without esophagitis; C34.90 Malignant neoplasm of unspecified part of unspecified bronchus or lung; J44.9 Chronic obstructive pulmonary disease, unspecified; Z79.82 Long term (current) use of aspirin; Z79.02 Long term (current) use of antithrombotics/antiplatelets; Z79.899 Other long term (current) drug therapy; Z99.81 Dependence on supplemental oxygen

== ENCOUNTER 2016-11-27 17:24 | Inpatient (IN) | payer OTHER ==
[~2016-11-27] VITALS: Ht 175.3 cm; Wt 81.5 kg
[~2016-11-27 17:24] MED LIST changes: -BISA10SU3 PR; +FLM4 PO; -MAGIC MOUTHWASH PO; +PRS5 PO; +RANI1TAB13 PO; -SENN-65 PO; +SENN8.6T9 PO; -SODIENE PR; +SPRIN/30 INH; -TAMS0.4C38 PO; -TIOTCAP INH; -[UNRECOGNIZED DRUG - CODE] NAE; -[UNRECOGNIZED DRUG - CODE] PO
[2016-11-27] MEDS ORDERED: SODIUM CHLORIDE 0.9% 1000ML 1,000 ML IV STA (17:42)
[2016-11-27] MEDS ORDERED: SODIUM CHLORIDE 0.9% 1000ML 500 ML IV STA (17:42)
[2016-11-27 17:53] LABS: HEMATOCRIT 47.9 % (42-52); MEAN CELL VOLUME 86.3 fL (80-100); MEAN CORPUSCULAR HEMOGLOBIN 28.8 pg (25-34); MEAN CORPUSCULAR HGB CONC 33.4 g/dl (32-36); PLATELET COUNT 192 K/uL (130-400); RED BLOOD COUNT 5.55 M/uL (4.7-6.1); WHITE BLOOD COUNT 13.92 K/uL (4.8-10.8)
--- NOTE | 2016-11-27 17:54 | EMERGENCY ROOM VISIT NOTE ---
History Report prepared by Maria Elena: Abdirahman Harvey Under the Supervision of: Dr. Jay Jay Carcamo M.D. First contact with patient: 17:36 Chief Complaint: LETHARGIC Stated Complaint: LETHARGIC/POSS. PRESCIBED DRUG OVERDOSE History of Present Illness The patient is a 76 year old male who presents to the Emergency Room with complaints of an overdose occurring prior to arrival at an unknown time. Per the nursing staff, the patient lives alone, and his nurse came for a scheduled visit. She found him lethargic, and his medications for the rest of the week were gone, and they think that he might have taken them. The nursing staff states that his glucose was 124, and he had normal vitals when he was first found. The patient states that he did not vomit, and he denies any pain. History is limited secondary to change in mental status. Source of History: patient, nursing staff History Limited By: AMS Onset: prior to arrival at an unknown time Position: other (global) Quality: other (overdose) Associated Symptoms: No vomiting Note: Associated symptoms: Lethargic Review of Systems ROS is limited secondary to change in mental status Past Medical & Surgical Medical Problems: (1) ASTHMA, UNSPECIFIED (2) CHRONIC OBSTRUCTIVE ASTHMA, NOS (3) CHRONIC PAIN SYNDROME (4) CORONARY ATHEROSCLEROSIS OF [place] CORONARY VESSEL (5) DEPRESSIVE DISORDER NEC (6) DIAB W NEURO MANIFEST, TYPE II OR UNSPEC TYPE, NOT UNCNTRLD (7) DIVERTICULOSIS COLON (W/O MENT OF HEMORRHAGE) (8) ESOPHAGEAL REFLUX (9) HIP JOINT REPLACEMENT STATUS (10) HYPERTROPHY (BENIGN) OF PROSTATE W/O URINARY OBST & OTH LUTS (11) Intentional overdose of drug in tablet form (12) IRRITABLE BOWEL SYNDROME (13) Lumbar compression fracture (14) LUMBOSACRAL NEURITIS NOS (15) NEUROPATHY IN DIABETES (16) PURE HYPERCHOLESTEROLEM (17) SPINAL STENOSIS, LUMBAR REG, W/OUT NEUROGENIC CLAUDICATION (18) TOBACCO USE DISORDER Family History No pertinent family history Social History Smoking Status: Former Smoker Alcohol Use: heavy Drug Use: none Marital Status: Housing Status: lives alone Occupation Status: retired Current/Historical Medications Scheduled Aspirin (Aspirin Chewable), 81 MG PO DAILY Atorvastatin (Lipitor), 40 MG PO DAILY Clopidogrel (Plavix), 75 MG PO DAILY Divalproex Sodium (Depakote Er), 1 TAB PO HS Duloxetine HCl (Cymbalta), 30 MG PO BID Finasteride (Finasteride), 1 TAB PO DAILY Fluticasone Furoate-Vilanterol (Breo Ellipta), 1 INHA INH DAILY Gabapentin (Neurontin), 600 MG PO TID Ipratropium-Albuterol (Combivent Respimat), 1 PUFFS INH QID Lorazepam (Ativan), 0.5 MG PO TID Oxcarbazepine (Trileptal), 300 MG PO BID Oxycodone/Acetaminophen 5MG/325MG (Percocet 5MG/325MG), 1 TAB PO QID Oxygen (Oxygen), 2 LITERS NA CONTINOUS Pramipexole Dihydrochloride (Pramipexole Dihydrochlori), 0.5 MG PO HS Ranitidine (Zantac), 150 MG PO DAILY Ranitidine Hcl (Acid Acquisition Manager), 1 TAB PO Q12 Sennosides (Senexon), 1-2 TAB PO BID Tamsulosin HCl (Tamsulosin HCl), 1 TAB PO HS Tiotropium [place] (Spiriva Handihaler), 1 CAP INH DAILY Scheduled PRN Guaifenesin (Guaifenesin), 20 Q4 PRN for Cough Hydroxyzine Pamoate (Vistaril), 1 CAP PO HS PRN for Insomnia Magnesium Hydroxide (Milk Of Magnesia), 30 ML PO DAILY PRN for Constipation Miscellaneous Medications Trazodone Hcl (Trazodone), 50 MG PO Allergies Coded Allergies: No Known Allergies (Unverified , 11/20/16) Physical Exam Vital Signs Date Time Temp Pulse Resp B/P Pulse Ox O2 Delivery O2 Flow Rate FiO2 11/27/16 19:43 78 14 93 11/27/16 19:38 159/86 97 Room Air 11/27/16 19:31 11/27/16 19:30 73 20 98 Room Air 11/27/16 19:01 149/77 11/27/16 19:00 68 19 98 11/27/16 18:28 76 20 140/87 97 Room Air 11/27/16 18:24 74 20 94 11/27/16 17:59 96 Room Air 11/27/16 17:59 96 Room Air 11/27/16 17:54 36 11/27/16 17:38 88 5/24/17 17:32 127/97 11/27/16 17:24 37.1 86 20 127/97 96 Room Air Physical Exam GENERAL: Patient is in no acute distress. HEENT: Mucous membranes are dry. Abrasion to the frontal scalp with mild redness. Concerning for possible early cellulitis. Pupils are equal, normal size , and reactive. NECK: No stridor, no adenopathy, no meningismus, trachea is midline. LUNGS: Clear to auscultation bilaterally, no wheeze, no rhonchi, breath sounds equal. HEART: Without murmurs gallops or rubs, regular rate and rhythm. ABDOMEN: Soft, nontender, bowel sounds positive, no hernias, no peritonitis. EXTREMITIES: Mild bilateral pedal edema. No cyanosis, full range of motion of all the joints without pain or difficulty, no signs for acute trauma. NEUROLOGIC: Awake, somewhat confused. Moving all extremities. Seemed somewhat somnolent. No focal motor deficits. SKIN: No rash, no jaundice, no diaphoresis. Medical Decision & Procedures ER Provider Diagnostic Interpretation: Radiology results as stated below per my review and radiologist interpretation: CT OF THE HEAD WITHOUT CONTRAST CLINICAL HISTORY: Altered mental status. Weakness. COMPARISON STUDY: Head CT October 30, 2015 and MRI of the brain September 30, 2016. CT DOSE: 729.78 mGycm TECHNIQUE: Helical axial images of the head were obtained without IV contrast. Automated exposure control was utilized for the study. FINDINGS: No acute intracranial hemorrhage, midline shift or mass effect is present. Ventricular system is stable. Basilar cisterns are patent. There are no extra axial collections. White matter hypodensity suggests small vessel disease. There are no findings to suggest acute dural sinus thrombosis or acute territorial infarct. 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 There are no significant calvarial abnormalities. Visualized portions of the sinuses and mastoid air cells are clear. IMPRESSION: 1. No acute intracranial findings. 2. 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 Electronically signed by: Suraj Calhoun M.D. 11/27/2016 6:22 PM Dictated Date/Time: 11/27/2016 6:16 PM CHEST ONE VIEW PORTABLE CLINICAL HISTORY: Altered mental status. Weakness. COMPARISON STUDY: Chest CT July 25, 2016 and chest radiograph November 20, 2016. FINDINGS: Left shoulder arthroplasty is incidentally noted. There is no pneumothorax or pleural effusion. There is no evidence of pulmonary edema. Lung volumes are diminished. Bibasilar opacities are present. IMPRESSION: Diminished lung volumes with bibasilar opacities which favor atelectasis over pneumonia. Electronically signed by: Suraj Calhoun M.D. 11/27/2016 6:08 PM Dictated Date/Time: 11/27/2016 6:06 PM Laboratory Results Test 11/27/16 17:38 11/27/16 18:00 11/27/16 18:22 11/27/16 19:52 RDW Standard Deviation 64.8 fL (36.4-46.3) RDW Coefficient of Variation 20.6 % (11.5-14.5) White Blood Count 13.92 K/uL (4.8-10.8) Red Blood Count 5.55 M/uL (4.7-6.1) Hemoglobin 16.0 g/dL (14.0-18.0) Hematocrit 47.9 % (42-52) Mean Corpuscular Volume 86.3 fL (80-100) Mean Corpuscular Hemoglobin 28.8 pg (25-34) Mean Corpuscular Hemoglobin Concent 33.4 g/dl (32-36) Platelet Count 192 K/uL (130-400) Mean Platelet Volume 9.0 fL (7.4-10.4) Neutrophils % (Manual) 81.8 % Lymphocytes % (Manual) 6.9 % Monocytes % (Manual) 5.2 % Basophils % (Manual) 0.9 % (0-2) Metamyelocytes % 1.7 % Myelocytes % 1.7 % Promyelocytes % 0.9 % Blast Cells % 0.9 % Neutrophils # (Manual) 11.39 K/uL (1.4-6.5) Total Absolute Neutrophils 11.39 K/uL (1.4-6.5) Lymphocytes # (Manual) 0.96 K/uL (1.2-3.4) Total Absolute Lymphocytes 0.96 K/uL (1.2-3.4) Monocytes # (Manual) 0.72 K/uL (0.11-0.59) Basophils # (Manual) 0.13 K/uL (0-0.2) Metamyelocytes # 0.24 K/uL (0-0) Myelocytes # 0.24 K/uL (0-0) Promyelocytes # 0.13 K/uL (0-0) Blast Cells # 0.13 K/uL (0-0) Blood Smear Review Polychromasia 1+ Anisocytosis PRESENT Prothrombin Time 10.9 SECONDS (9.0-12.0) Prothromb Time International Ratio 1.0 (0.9-1.1) Activated Partial Thromboplast Time 22.8 SECONDS (21.0-31.0) Partial Thromboplastin Ratio 0.9 Total Creatine Kinase 358 U/L (39-308) Troponin I < 0.015 ng/ml (0-0.045) Globulin 3.5 gm/dl (2.5-4.0) Albumin/Globulin Ratio 1.1 (0.9-2) Thyroid Stimulating Hormone (TSH) 0.684 uIu/ml (0.300-4.500) Free Thyroxine 0.91 ng/dl (0.80-1.60) Salicylates Level 2.4 mg/dl (2.8-20) Acetaminophen Level < 2 ug/ml (10-30) Valproic Acid (Depakene) Level 26 mcg/ml (50-100) Urine Color YELLOW Urine Appearance CLEAR (CLEAR) Urine pH 8.0 (4.5-7.5) Urine Specific [place] 1.019 (1.000-1.030) Urine Protein NEG (NEG) Urine Glucose (UA) NEG (NEG) Urine Ketones TRACE (NEG) Urine Occult Blood NEG (NEG) Urine Nitrite NEG (NEG) Urine Bilirubin NEG (NEG) Urine Urobilinogen NEG (NEG) Urine Leukocyte Esterase NEG (NEG) Urine Opiates Screen POS (NEG) Urine Methadone, Qualitative NEG (NEG) Urine Barbiturates NEG (NEG) Urine Phencyclidine (PCP) Level NEG (NEG) Ur Amphetamine/Methamphetamine NEG (NEG) MDMA (Ecstasy) Screen NEG (NEG) Urine Benzodiazepines Screen NEG (NEG) Urine Cocaine Metabolite NEG (NEG) Urine Marijuana (THC) NEG (NEG) Ethyl Alcohol mg/dL < 3.0 mg/dl (0-3) Venous Blood pH 7.42 (7.36-7.41) Venous Blood Partial Pressure CO2 49 mmHg (38.0-50.0) Venous Blood Partial Pressure O2 36 mmHg Venous Blood HCO3 31 mmol/L Venous Blood Oxygen Saturation 66.5 % Venous Blood Base Excess 5.1 mmol/L Laboratory results reviewed by me. Medications Administered Medications (Trade) Dose Ordered Sig/Imtiaz Route Start Time Stop Time Status Last Admin Dose Admin Sodium Chloride 500 ml @ 999 mls/hr Q31M STAT IV 11/27/16 17:42 11/27/16 18:12 DC 11/27/16 18:25 999 MLS/HR Sodium Chloride (Nss 1000ml) 1,000 ml @ 125 mls/hr Q8H STAT IV 11/27/16 17:42 11/27/16 21:22 DC 11/27/16 18:25 125 MLS/HR ECG Indication: other (overdose) Rate (beats per minute): 70 Rhythm: normal sinus Findings: RBBB, no acute ischemic change, no ectopy Comparison ECG Date: 11/20/16 Change: no significant change ED Course 1735: The patient was evaluated in room B1. A complete history and physical exam was performed. 1741: Sodium Chloride 1000 ml @ 125 mls/hr IV, Sodium Chloride 500 ml @ 999 mls/ hr IV 1914: I discussed the patient's case with Dr. Gama, [facility]. He is going to evaluate the patient for further treatment. Medical Decision The patient is a 76 year old male who presents to the ED with complaints of an overdose. Differential diagnoses considered include medication overdose, infection, dehydration, intracranial bleed, stroke, electrolyte imbalance, and anemia. There is a mild leukocytosis, there is a left shift-this could be consistent with infection or possibly his malignancy. No worrisome anemia. No significant electrolyte abnormality, kidney failure or hepatitis. The patient is not in rhabdomyolysis. The patient appears to be in a euthyroid state. There is no coagulopathy. Brain CT shows no acute bleed or mass effect. Chest x-ray does not show CHF or pneumonia. EKG shows a normal sinus rhythm with a right bundle-branch block, no acute ischemia. Cardiac enzyme testing times one is not consistent with acute cardiac injury. Urine tox shows opiates. Aspirin , Tylenol and alcohol levels are basically undetectable. Valproic acid level was low. Blood gas did not show evidence for acidosis or CO2 retention. The patient presents with a possible intentional or accidental overdose of medication. Infection was thought a possibility for his presentation as well, stroke was thought possible. The patient received IV saline, he has remained arousable to stimulation, his airway is intact. Admission/observation is warranted. I spoke to case management. The on-call hospitalist was consulted. Consults Time Called: [id number] Consulting Physician: Dr. Gama Returned Call: [phone] I discussed the patient's case with Dr. Gama, [facility]. He is going to evaluate the patient for further treatment Impression Primary Impression: Change in mental status Scribe Attestation The scribe's documentation has been prepared under my direction and personally reviewed by me in its entirety. I confirm that the note above accurately reflects all work, treatment, procedures, and medical decision making performed by me. Departure Information Dispostion Being Evaluated By Hospitalist Referrals Balbir Ma M.D. (PCP) Patient Instructions [facility]
[2016-11-27 18:04] LABS: PARTIAL THROMBOPLASTIN RATIO 0.9; PROTHROMBIN TIME (PATIENT) 10.9 SECONDS (9.0-12.0)
[2016-11-27 18:10] LABS: URINE APPEARANCE CLEAR (CLEAR); URINE BILIRUBIN NEG (NEG); URINE COLOR YELLOW; URINE NITRITE NEG (NEG); URINE SPECIFIC GRAVITY 1.019 (1.000-1.030); UROBILINOGEN NEG (NEG); ZZURINE CULT IF INDIC CATH NO
--- NOTE | 2016-11-27 18:10 | DIAGNOSTIC IMAGING REPORT ---
CHEST ONE VIEW PORTABLE CLINICAL HISTORY: Altered mental status. Weakness. COMPARISON STUDY: Chest CT July 25, 2016 and chest radiograph November 20, 2016. FINDINGS: Left shoulder arthroplasty is incidentally noted. There is no pneumothorax or pleural effusion. There is no evidence of pulmonary edema. Lung volumes are diminished. Bibasilar opacities are present. IMPRESSION: Diminished lung volumes with bibasilar opacities which favor atelectasis over pneumonia. Electronically signed by: Suraj Calhoun M.D. 11/27/2016 6:08 PM Dictated Date/Time: 11/27/2016 6:06 PM
[2016-11-27 18:12] LABS: MANUAL MICROSCOPIC REQUIRED? NO; REVIEW REQ? NO
--- NOTE | 2016-11-27 18:23 | DIAGNOSTIC IMAGING REPORT ---
CT OF THE HEAD WITHOUT CONTRAST CLINICAL HISTORY: Altered mental status. Weakness. COMPARISON STUDY: Head CT October 30, 2015 and MRI of the brain September 30, 2016. CT DOSE: 729.78 mGycm TECHNIQUE: Helical axial images of the head were obtained without IV contrast. Automated exposure control was utilized for the study. FINDINGS: No acute intracranial hemorrhage, midline shift or mass effect is present. Ventricular system is stable. Basilar cisterns are patent. There are no extra axial collections. White matter hypodensity suggests small vessel disease. There are no findings to suggest acute dural sinus thrombosis or acute territorial infarct. 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 There are no significant calvarial abnormalities. Visualized portions of the sinuses and mastoid air cells are clear. IMPRESSION: 1. No acute intracranial findings. 2. 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 Electronically signed by: Suraj Calhoun M.D. 11/27/2016 6:22 PM Dictated Date/Time: 11/27/2016 6:16 PM
[2016-11-27 18:24] LABS: ALB/GLOB RATIO 1.1 (0.9-2); ALKALINE PHOSPHATASE 68 U/L (45-117); ALT/SGPT 19 U/L (12-78); AST/SGOT 23 U/L (15-37); BLOOD UREA NITROGEN 16 mg/dl (7-18); BUN/CREATININE RATIO 20.5 (10-20); CALCIUM 9.1 mg/dl (8.5-10.1); CARBON DIOXIDE 33 mmol/L (21-32); CHLORIDE 101 mmol/L (98-107); CREATININE 0.78 mg/dl (0.60-1.40); GLUCOSE 116 mg/dl (70-99); MAGNESIUM 2.3 mg/dl (1.8-2.4); POTASSIUM 4.2 mmol/L (3.5-5.1); SODIUM 140 mmol/L (136-145)
[2016-11-27 18:26] LABS: ACETAMINOPHEN < 2 ug/ml (10-30); THYROID STIMULATING HORMONE 0.684 uIu/ml (0.300-4.500)
[2016-11-27 18:42] LABS: ANISOCYTOSIS PRESENT; POLYCHROMASIA 1+
[2016-11-27 18:50] LABS: BASO ABS # 0.13 K/uL (0-0.2); BASOPHIL % 0.9 % (0-2); LYMPH ABS # 0.96 K/uL (1.2-3.4); LYMPHOCYTE % 6.9 %; META ABS # 0.24 K/uL (0-0); METAMYELOCYTE % 1.7 %; MYELOCYTE % 1.7 %; NEUTROPHILS % 81.8 %
[2016-11-27 19:07] LABS: BENZODIAZEPINE, URINE NEG (NEG); COCAINE,URINE NEG (NEG); PHENCYCLIDINE, URINE NEG (NEG)
--- NOTE | 2016-11-27 19:45 | History and Physical ---
History & Physical Date & Time of Service: November 27, 2016 at 19:41 Chief Complaint: Lethargic/Poss. Prescibed Drug Overdose Primary Care Physician: Balbir Ma M.D. History of Present Illness Source: hospital records, EMS, other 75 y/o M w/Hx CAD, Lung adenocarcinoma, COPD(3l 02), Spinal stenosis and recent L2 fracture. He was recently being treated with chemotherapy and radiation. He had been at rehab for several months due to back pain and an inability to ambulate independently. The pt is currently home with home care. His visiting nurse entered the house today and noted that the pt was very lethargic and that his medication bottles were empty. It was suspected that he might have taken all of them and he was sent to the hospital. The pt is lethargic at the time of admission and unable to provide an adequate history or confirm the above. Past Medical/Surgical History Past Medical/Surgical History (1) ASTHMA, UNSPECIFIED Status: Chronic (2) CHRONIC OBSTRUCTIVE ASTHMA, NOS Status: Chronic (3) CHRONIC PAIN SYNDROME Status: Chronic (4) CORONARY ATHEROSCLEROSIS OF [place] CORONARY VESSEL Status: Chronic (5) DEPRESSIVE DISORDER NEC Status: Chronic (6) DIAB W NEURO MANIFEST, TYPE II OR UNSPEC TYPE, NOT UNCNTRLD Status: Chronic (7) DIVERTICULOSIS COLON (W/O MENT OF HEMORRHAGE) Status: Chronic (8) ESOPHAGEAL REFLUX Status: Chronic (9) HIP JOINT REPLACEMENT STATUS Status: Chronic (10) HYPERTROPHY (BENIGN) OF PROSTATE W/O URINARY OBST & OTH LUTS Status: Chronic (11) IRRITABLE BOWEL SYNDROME Status: Chronic (12) LUMBOSACRAL NEURITIS NOS Status: Chronic (13) NEUROPATHY IN DIABETES Status: Chronic (14) PURE HYPERCHOLESTEROLEM Status: Chronic (15) SPINAL STENOSIS, LUMBAR REG, W/OUT NEUROGENIC CLAUDICATION Status: Chronic (16) TOBACCO USE DISORDER Status: Chronic 17) Adenocarcinoma L lung - recent chemo/radiation - he describes a solitary liver metastasis. Family History No pertinent family history Cannot obtain Social History Smoking Status: Former Smoker Drug Use: none Marital Status: Housing status: lives alone Occupational Status: retired Immunizations History of Influenza Vaccine: N/A Influenza Vaccine Date: Jul 07, 2009 History of Tetanus Vaccine?: Yes Tetanus Immunization Date: Jan 17, 2009 History of Pneumococcal: Yes Pneumococcal Date: Jan 17, 2011 History of Hepatitis B Vaccine: No Allergies Coded Allergies: No Known Allergies (Unverified , 11/20/16) Home Medications Scheduled Aspirin (Aspirin Chewable), 81 MG PO DAILY Atorvastatin (Lipitor), 40 MG PO DAILY Clopidogrel (Plavix), 75 MG PO DAILY Divalproex Sodium (Depakote Er), 1 TAB PO HS Duloxetine HCl (Cymbalta), 30 MG PO BID Finasteride (Finasteride), 1 TAB PO DAILY Fluticasone Furoate-Vilanterol (Breo Ellipta), 1 INHA INH DAILY Gabapentin (Neurontin), 600 MG PO TID Ipratropium-Albuterol (Combivent Respimat), 1 PUFFS INH QID Lorazepam (Ativan), 0.5 MG PO TID Oxcarbazepine (Trileptal), 300 MG PO BID Oxycodone/Acetaminophen 5MG/325MG (Percocet 5MG/325MG), 1 TAB PO QID Oxygen (Oxygen), 2 LITERS NA CONTINOUS Pramipexole Dihydrochloride (Pramipexole Dihydrochlori), 0.5 MG PO HS Ranitidine (Zantac), 150 MG PO DAILY Ranitidine Hcl (Acid Director Of Distribution), 1 TAB PO Q12 Sennosides ([place]), 1-2 TAB PO BID Tamsulosin HCl (Tamsulosin HCl), 1 TAB PO HS Tiotropium [place] (Spiriva Handihaler), 1 CAP INH DAILY Scheduled PRN Guaifenesin (Guaifenesin), 20 Q4 PRN for Cough Hydroxyzine Pamoate (Vistaril), 1 CAP PO HS PRN for Insomnia Magnesium Hydroxide (Milk Of Magnesia), 30 ML PO DAILY PRN for Constipation Miscellaneous Medications Trazodone Hcl (Trazodone), 50 MG PO Review of Systems Cannot obtain Physical Exam Vital Signs Date Time Temp Pulse Resp B/P Pulse Ox O2 Delivery O2 Flow Rate FiO2 11/27/16 18:28 76 20 140/87 97 Room Air 11/27/16 18:24 74 20 94 11/27/16 17:59 96 Room Air 11/27/16 17:59 96 Room Air 11/27/16 17:54 36 11/27/16 17:38 88 11/27/16 17:32 127/97 11/27/16 17:24 37.1 86 20 127/97 96 Room Air General Appearance: + pertinent finding (Lthargic elderly male - cannot respnd to questioning or assist in exam at present- no distress ids apparent) Head: normocephalic, atraumatic Eyes: normal inspection, EOMI ENT: + pertinent finding (thrush is present over tongue) Neck: supple, no JVD Respiratory/Chest: chest non-tender, lungs clear, + pertinent finding (poor effirt - no audible crackles or wheezing) Cardiovascular: regular rate, rhythm, no edema, no JVD Abdomen/GI: normal bowel sounds, non tender, soft Back: normal inspection, no CVA tenderness, no muscle spasm, normal range of motion Extremities/Musculoskelatal: normal inspection, normal range of motion Neurologic/Psych: + pertinent finding (Exam is limited - pupils are equal - he moves all extremeties occasionally and begins to answer questions) Skin: normal color, warm/dry, no rash Diagnostics Laboratory Results Results Past 24 Hours Test 11/27/16 17:38 11/27/16 17:53 11/27/16 18:00 11/27/16 18:22 Range/Units White Blood Count 13.92 4.8-10.8 K/uL Red Blood Count 5.55 4.7-6.1 M/uL Hemoglobin 16.0 14.0-18.0 g/dL Hematocrit 47.9 42-52 % Mean Corpuscular Volume 86.3 80-100 fL Mean Corpuscular Hemoglobin 28.8 25-34 pg Mean Corpuscular Hemoglobin Concent 33.4 32-36 g/dl Platelet Count 192 130-400 K/uL Mean Platelet Volume 9.0 7.4-10.4 fL RDW Standard Deviation 64.8 36.4-46.3 fL RDW Coefficient of Variation 20.6 11.5-14.5 % Neutrophils % (Manual) 81.8 % Lymphocytes % (Manual) 6.9 % Monocytes % (Manual) 5.2 % Basophils % (Manual) 0.9 0-2 % Metamyelocytes % 1.7 % Myelocytes % 1.7 % Promyelocytes % 0.9 % Blast Cells % 0.9 % Neutrophils # (Manual) 11.39 1.4-6.5 K/uL Total Absolute Neutrophils 11.39 1.4-6.5 K/uL Lymphocytes # (Manual) 0.96 1.2-3.4 K/uL Total Absolute Lymphocytes 0.96 1.2-3.4 K/uL Monocytes # (Manual) 0.72 0.11-0.59 K/uL Basophils # (Manual) 0.13 0-0.2 K/uL Metamyelocytes # 0.24 0-0 K/uL Myelocytes # 0.24 0-0 K/uL Promyelocytes # 0.13 0-0 K/uL Blast Cells # 0.13 0-0 K/uL Polychromasia 1+ Anisocytosis PRESENT Prothrombin Time 10.9 9.0-12.0 SECONDS Prothromb Time International Ratio 1.0 0.9-1.1 Activated Partial Thromboplast Time 22.8 21.0-31.0 SECONDS Partial Thromboplastin Ratio 0.9 Sodium Level 140 136-145 mmol/L Potassium Level 4.2 3.5-5.1 mmol/L Chloride Level 101 98-107 mmol/L Carbon Dioxide Level 33 21-32 mmol/L Anion Gap 6.0 3-11 mmol/L Blood Urea Nitrogen 16 7-18 mg/dl Creatinine 0.78 0.60-1.40 mg/dl Est Creatinine Clear Calc Drug Dose 84.8 ml/min Estimated GFR () 100.2 Estimated GFR (Non- 86.5 BUN/Creatinine Ratio 20.5 10-20 Random Glucose 116 70-99 mg/dl Calcium Level 9.1 8.5-10.1 mg/dl Magnesium Level 2.3 1.8-2.4 mg/dl Total Bilirubin 0.9 0.2-1 mg/dl Aspartate Amino Transf (AST/SGOT) 23 15-37 U/L Alanine Aminotransferase (ALT/SGPT) 19 12-78 U/L Alkaline Phosphatase 68 45-117 U/L Total Creatine Kinase 358 39-308 U/L Troponin I < 0.015 0-0.045 ng/ml Total Protein 7.4 6.4-8.2 gm/dl Albumin 3.9 3.4-5.0 gm/dl Globulin 3.5 2.5-4.0 gm/dl Albumin/Globulin Ratio 1.1 0.9-2 Thyroid Stimulating Hormone (TSH) 0.684 0.300-4.500 uIu/ml Free Thyroxine 0.91 0.80-1.60 ng/dl Salicylates Level 2.4 2.8-20 mg/dl Acetaminophen Level < 2 10-30 ug/ml Valproic Acid (Depakene) Level 26 50-100 mcg/ml Urine Color YELLOW Urine Appearance CLEAR CLEAR Urine pH 8.0 4.5-7.5 Urine Specific [place] 1.019 1.000-1.030 Urine Protein NEG NEG Urine Glucose (UA) NEG NEG Urine Ketones TRACE NEG Urine Occult Blood NEG NEG Urine Nitrite NEG NEG Urine Bilirubin NEG NEG Urine Urobilinogen NEG NEG Urine Leukocyte Esterase NEG NEG Urine Opiates Screen POS NEG Urine Methadone, Qualitative NEG NEG Urine Barbiturates NEG NEG Urine Phencyclidine (PCP) Level NEG NEG Ur Amphetamine/Methamphetamine NEG NEG MDMA (Ecstasy) Screen NEG NEG Urine Benzodiazepines Screen NEG NEG Urine Cocaine Metabolite NEG NEG Urine Marijuana (THC) NEG NEG Ethyl Alcohol mg/dL < 3.0 0-3 mg/dl Microbiology Results 11/27/16 Blood Culture, Received Pending 11/27/16 Blood Culture, Received Pending Diagnostic Radiology CT head 1. No acute intracranial findings. 2. 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 He was recently being treated with chemotherapy and radiation. He had been at rehab for several months due to back pain and an inability to ambulate independently. The pt is currently home with home care. His visiting nurse entered the house today and noted that the pt was very lethargic and that his medication bottles were empty. It was suspected that he might have taken all of them and he was sent to the hospital. The pt is lethargic at the time of admission and unable to provide an adequate history or confirm the above. 1) AMS - suspected overdose - unclear if this was intentional although it appears he was not discriminating with what he ingested. He cannot currently confirm the above. The time frame for the ingestion is also unclear. Pt placed on telemetry with one to one precautions. Psychiatry service consulted. Will provide IVF overnight, avoid sedating medications aside from narcotics to be provided as needed. Weather or not this ingestion was intentional, the pt may be better off in a care facility for the time being. 2) COPD - cont o2 protocol - duonebs Q6H as needed in addition to his home inhalers. 3) CAD - no evidence of ACS - monitor on telemetry. Resume Statin, ASA, Plavix. 4) AdenoCA - f/u as outpt - no recent staging in chart 5) Thrush - impressive degree of thrush on exam - PO Diflucan x 3 days provided. Full code - Heparin prophylaxis Total time for this admit including review of labs, meds, EKG, imaging - discussion with pt and ER MD - 38 min Level of Care Telemetry Resuscitation Status FULL RESUSCITATION VTE Prophylaxis Given or contraindicated: Unfractionated heparin SQ
[2016-11-27] MEDS ORDERED: ONDANSETRON INJ 2 MG/ML 2 ML VIAL IV PRN (20:00)
[2016-11-27] MEDS ORDERED: POLYETHYLENE (MIRALAX) 17 GM PACK PO PRN (20:00)
[2016-11-27] MEDS ORDERED: ALUMINUM/MAGNESIUM/SIMETH (MAALOX MAX) 30 ML UDC PO PRN (20:00)
[2016-11-27] MEDS ORDERED: ACETAMINOPHEN 325 MG TAB PO PRN (20:00)
[2016-11-27] MEDS ORDERED: MAGNESIUM HYDROXIDE SUSP 30 ML UDC PO PRN (20:00)
[2016-11-27 20:03] LABS: VEN BLD GAS O2 SATURATION 66.5 %; VEN BLOOD GAS BASE EXCESS 5.1 mmol/L
[2016-11-27 20:40] LABS: COMPLETE YES
[2016-11-27] MEDS: OXCARBAZEPINE 150 MG TAB PO SCH (21:00)
[2016-11-27] MEDS: SENNA 8.6 MG TAB PO SCH (21:00)
[2016-11-27] MEDS: TAMSULOSIN HCL 0.4 MG CAP PO SCH (21:00)
[2016-11-27] MEDS: GABAPENTIN 600 MG TAB PO SCH (21:00)
[2016-11-27] MEDS: PRAMIPEXOLE DIHYDROCHLORIDE 0.5 MG TAB PO SCH (21:00)
[2016-11-27 21:21] VITALS: BP 121/82; PULSE 73; TEMP 36.6; O2SAT 99; Ht 175.3 cm; Wt 81.5 kg
[2016-11-27] MEDS: SODIUM CHLORIDE 0.9% 1000ML 1,000 ML IV SCH (22:45)
[2016-11-27] MEDS: HEPARIN SOD 5000 UNIT/0.5 ML CARP SQ SCH (22:59)
[2016-11-27 23:00] VITALS: BP 167/82; PULSE 85; TEMP 37.1; O2SAT 97
[2016-11-28 00:01] VITALS: O2SAT 99
[2016-11-28 03:05] VITALS: BP 125/61; PULSE 89; TEMP 36.9; O2SAT 97
[2016-11-28] MEDS: SODIUM CHLORIDE 0.9% 1000ML 1,000 ML IV SCH (05:27)
[2016-11-28] MEDS: HEPARIN SOD 5000 UNIT/0.5 ML CARP SQ SCH ×3 (05:31→21:41)
[2016-11-28 07:29] LABS: BUN/CREATININE RATIO 19.3 (10-20); CALCIUM 8.7 mg/dl (8.5-10.1); CREATININE 0.63 mg/dl (0.60-1.40); POTASSIUM 3.8 mmol/L (3.5-5.1)
[2016-11-28 07:47] VITALS: BP 140/91; PULSE 101; TEMP 37; O2SAT 97
[2016-11-28] MEDS: TIOTROPIUM BROMIDE 5 PUFF/90 MCG INH INH SCH (07:50)
[2016-11-28] MEDS: RANITIDINE HCL 150 MG TAB PO SCH (07:50)
[2016-11-28] MEDS: PRAMIPEXOLE DIHYDROCHLORIDE 0.5 MG TAB PO SCH (07:50)
[2016-11-28] MEDS: SENNA 8.6 MG TAB PO SCH ×2 (07:50→19:40)
[2016-11-28] MEDS: FINASTERIDE 5 MG TAB PO SCH (07:50)
[2016-11-28] MEDS: ASPIRIN 81 MG ECTAB PO SCH (07:51)
[2016-11-28] MEDS: OXCARBAZEPINE 150 MG TAB PO SCH ×2 (07:51→19:42)
[2016-11-28] MEDS: ATORVASTATIN 40 MG TAB PO SCH (07:51)
[2016-11-28] MEDS: GABAPENTIN 600 MG TAB PO SCH ×3 (07:51→19:42)
[2016-11-28] MEDS: FLUCONAZOLE 100 MG TAB PO SCH (07:51)
[2016-11-28] MEDS: CLOPIDOGREL BISULFATE 75 MG TAB PO SCH (07:51)
--- NOTE | 2016-11-28 08:19 | Clinical Documentation Query ---
LÓPEZ Jensen : CLINICAL DOCUMENTATION QUERY Patient is a 76 year old male admitted for evaluation of an altered mental status in the setting of suspected multidrug overdose. An alteration in mental status is the hallmark symptom of encephalopathy. He had a CT scan of his head, is being monitored on telemetry with 1:1 observation, IVF, holding of sedating medications, and psychiatric consultation. In your clinical opinion is this patient being managed for: ( x ) Toxic encephalopathy secondary to multidrug overdose ( ) Other explanation of clinical findings (Please Explain) ( ) Unable to determine (Please Define) ( ) Need to Discuss ( ) Not Agree The medical record reflects the following clinical findings, treatment, and risk factors. Clinical Indicators: AMS in the setting of multidrug overdose Treatment:He had a CT scan of his head, is being monitored on telemetry with 1:1 observation, IVF, holding of sedating medications, and psychiatric consultation. Risk Factors: Multidrug overdose Please clarify and document your clinical opinion in the progress notes and discharge summary. Terms such as "probable", "suspected", "likely", "questionable", "possible", or "still to be ruled out" are acceptable. IF IN AGREEMENT, YOU MUST DOCUMENT ABOVE DIAGNOSTIC STATEMENT IN DAILY PROGRESS NOTES AND DISCHARGE SUMMARY. This document is not part of the patient's record. Thank You, Darius Shelton RN [phone]
[2016-11-28 11:30] VITALS: BP 128/77; PULSE 85; O2SAT 96
[2016-11-28] MEDS ORDERED: HALOPERIDOL 1 MG TAB PO PRN (12:15)
[2016-11-28 12:51] LABS: BASO % 0.6 %; BASO ABS # 0.07 K/uL (0-0.2); EOS % 0.5 %; HEMATOCRIT 43.5 % (42-52); IG% 4.4 %; LYMPH % 8.1 %; LYMPH ABS # 0.93 K/uL (1.2-3.4); MEAN CELL VOLUME 85.5 fL (80-100); MEAN CORPUSCULAR HEMOGLOBIN 28.7 pg (25-34); MEAN CORPUSCULAR HGB CONC 33.6 g/dl (32-36); MEAN PLATELET VOLUME 9.9 fL (7.4-10.4); MONO % 11.5 %; NEUT % 74.9 %; PLATELET COUNT 194 K/uL (130-400); RED BLOOD COUNT 5.09 M/uL (4.7-6.1); WHITE BLOOD COUNT 11.46 K/uL (4.8-10.8)
--- NOTE | 2016-11-28 13:00 | Hospitalist Progress Note ---
Hospitalist Progress Note Date of Service November 28, 2016. (Charlotte Farfan PA-C) Subjective Pt evaluation today including: conversation w/ patient, conversation w/ family (cousin at bedside), physical exam, chart review, lab review, review of studies , review of inpatient medication list Voiding: flores catheter in place Unable to obtain reliable ROS from patient due to mental status. Per nursing, pt has been combative and hostile, cursing and throwing punches at staff and attempting to pull out Flores. Additional Comments: Unable to obtain reliable ROS from patient due to mental status. (Charlotte Farfan PA-C) Objective Vital Signs Date Time Temp Pulse Resp B/P Pulse Ox O2 Delivery O2 Flow Rate FiO2 11/28/16 12:00 Room Air 11/28/16 11:30 85 20 128/77 96 Room Air 11/28/16 08:00 Room Air 11/28/16 07:47 37.0 101 20 140/91 97 Room Air 11/28/16 04:00 Room Air 11/28/16 03:05 36.9 89 20 125/61 97 Room Air 11/28/16 00:01 99 Room Air 11/27/16 23:00 37.1 85 18 167/82 97 Room Air 11/27/16 21:21 36.6 73 16 121/82 99 Room Air 11/27/16 20:46 143/99 11/27/16 20:43 83 27 95 11/27/16 20:13 73 19 98 11/27/16 19:43 78 14 93 11/27/16 19:38 159/86 97 Room Air 11/27/16 19:31 11/27/16 19:30 73 20 98 Room Air 11/27/16 19:01 149/77 11/27/16 19:00 68 19 98 11/27/16 18:28 76 20 140/87 97 Room Air 11/27/16 18:24 74 20 94 11/27/16 17:59 96 Room Air 11/27/16 17:59 96 Room Air 11/27/16 17:54 36 11/27/16 17:38 88 11/27/16 17:32 127/97 11/27/16 17:24 37.1 86 20 127/97 96 Room Air (Farfan, Charlotte ., PA-C) Physical Exam Notes: General appearance: +Restless. Well-developed, well-nourished, no apparent distress Head: Normocephalic, atraumatic Eyes: Normal inspection, PERRL, EOMI ENT: +Exam limited as pt uncooperative. Normal ENT inspection, hearing grossly normal, pharynx normal Neck: Supple, no JVD, trachea midline Respiratory/Chest: +Exam limited by poor respiratory effort. Lungs clear to auscultation, normal breath sounds, no respiratory distress Cardiovascular: Regular rate & rhythm, no gallop, no murmur Abdomen/GI: Normal bowel sounds, non-tender, soft Extremities/Musculoskeletal: Normal inspection, no calf tenderness, no pedal edema Neurological/Psych: Alert, normal mood/affect, oriented x 3 Skin: Normal color, warm/dry, no rash (Charlotte Farfan ., PA-C) Laboratory Results Last 24 Hours Test 11/27/16 17:38 11/27/16 18:00 11/27/16 18:22 11/27/16 19:52 White Blood Count 13.92 K/uL Red Blood Count 5.55 M/uL Hemoglobin 16.0 g/dL Hematocrit 47.9 % Mean Corpuscular Volume 86.3 fL Mean Corpuscular Hemoglobin 28.8 pg Mean Corpuscular Hemoglobin Concent 33.4 g/dl Platelet Count 192 K/uL Mean Platelet Volume 9.0 fL RDW Standard Deviation 64.8 fL RDW Coefficient of Variation 20.6 % Neutrophils % (Manual) 81.8 % Lymphocytes % (Manual) 6.9 % Monocytes % (Manual) 5.2 % Basophils % (Manual) 0.9 % Metamyelocytes % 1.7 % Myelocytes % 1.7 % Promyelocytes % 0.9 % Blast Cells % 0.9 % Neutrophils # (Manual) 11.39 K/uL Total Absolute Neutrophils 11.39 K/uL Lymphocytes # (Manual) 0.96 K/uL Total Absolute Lymphocytes 0.96 K/uL Monocytes # (Manual) 0.72 K/uL Basophils # (Manual) 0.13 K/uL Metamyelocytes # 0.24 K/uL Myelocytes # 0.24 K/uL Promyelocytes # 0.13 K/uL Blast Cells # 0.13 K/uL Blood Smear Review Polychromasia 1+ Anisocytosis PRESENT Prothrombin Time 10.9 SECONDS Prothromb Time International Ratio 1.0 Activated Partial Thromboplast Time 22.8 SECONDS Partial Thromboplastin Ratio 0.9 Sodium Level 140 mmol/L Potassium Level 4.2 mmol/L Chloride Level 101 mmol/L Carbon Dioxide Level 33 mmol/L Anion Gap 6.0 mmol/L Blood Urea Nitrogen 16 mg/dl Creatinine 0.78 mg/dl Est Creatinine Clear Calc Drug Dose 84.8 ml/min Estimated GFR () 100.2 Estimated GFR (Non- 86.5 BUN/Creatinine Ratio 20.5 Random Glucose 116 mg/dl Calcium Level 9.1 mg/dl Magnesium Level 2.3 mg/dl Total Bilirubin 0.9 mg/dl Aspartate Amino Transf (AST/SGOT) 23 U/L Alanine Aminotransferase (ALT/SGPT) 19 U/L Alkaline Phosphatase 68 U/L Total Creatine Kinase 358 U/L Troponin I < 0.015 ng/ml Total Protein 7.4 gm/dl Albumin 3.9 gm/dl Globulin 3.5 gm/dl Albumin/Globulin Ratio 1.1 Thyroid Stimulating Hormone (TSH) 0.684 uIu/ml Free Thyroxine 0.91 ng/dl Salicylates Level 2.4 mg/dl Acetaminophen Level < 2 ug/ml Valproic Acid (Depakene) Level 26 mcg/ml Urine Color YELLOW Urine Appearance CLEAR Urine pH 8.0 Urine Specific [place] 1.019 Urine Protein NEG Urine Glucose (UA) NEG Urine Ketones TRACE Urine Occult Blood NEG Urine Nitrite NEG Urine Bilirubin NEG Urine Urobilinogen NEG Urine Leukocyte Esterase NEG Urine Opiates Screen POS Urine Methadone, Qualitative NEG Urine Barbiturates NEG Urine Phencyclidine (PCP) Level NEG Ur Amphetamine/Methamphetamine NEG MDMA (Ecstasy) Screen NEG Urine Benzodiazepines Screen NEG Urine Cocaine Metabolite NEG Urine Marijuana (THC) NEG Ethyl Alcohol mg/dL < 3.0 mg/dl Venous Blood pH 7.42 Venous Blood Partial Pressure CO2 49 mmHg Venous Blood Partial Pressure O2 36 mmHg Venous Blood HCO3 31 mmol/L Venous Blood Oxygen Saturation 66.5 % Venous Blood Base Excess 5.1 mmol/L Test 11/28/16 06:25 Sodium Level 141 mmol/L Potassium Level 3.8 mmol/L Chloride Level 104 mmol/L Carbon Dioxide Level 28 mmol/L Anion Gap 9.0 mmol/L Blood Urea Nitrogen 12 mg/dl Creatinine 0.63 mg/dl Est Creatinine Clear Calc Drug Dose 96.7 ml/min Estimated GFR () 109.4 Estimated GFR (Non- 94.4 BUN/Creatinine Ratio 19.3 Random Glucose 96 mg/dl Calcium Level 8.7 mg/dl Magnesium Level 2.0 mg/dl Total Bilirubin 1.1 mg/dl Direct Bilirubin 0.2 mg/dl Aspartate Amino Transf (AST/SGOT) 41 U/L Alanine Aminotransferase (ALT/SGPT) 18 U/L Alkaline Phosphatase 58 U/L Total Protein 6.3 gm/dl Albumin 3.3 gm/dl (Charlotte Farfan ., [place]) Assessment and Plan 75 y/o male with a history CAD, 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 The patient was found by his cousin lethargic and with empty pillboxes. The cousin called the patient's home health agency who is nurse then sent the patient to the hospital. It unclear if the patient overdosed on his medications/which medications. Altered mental status--overdose vs metabolic encephalopathy. Per patient's cousin, the patient is usually alert and oriented and able to carry conversation , although he has been altered/combative in the past when he was in the long term in [place] -Admit to telemetry. Patient remained in sinus rhythm with heart rate between 80s to 90s -Continue one-to-one sitter -Psychiatry consult appreciate recs -Start Haldol 2 mg PO TID prn agitation -H/o lung cancer with liver mets. Had received prophylactic radiation to head -Check MRI of the brain combo -Consult neurology appreciate recs COPD--stable. On chronic O2 at home, but oxygenating 96% on room air here -O2 by protocol -Continue Spiriva and Combivent Oral candidiasis--could not appreciate as pt not cooperative with exam -Continue Diflucan 100 mg PO x 3 days. Day #1 CAD -Continue atorvastatin 40 mg PO qd, ASA, Plavix Small cell lung cancer -Consult heme/onc, appreciate recs Anxiety/depression -Continue Cymbalta 30 mg PO BID H/o seizures -Continue Depakote 250 mg PO qhs and Trileptal 300 mg PO BID DVT prophylaxis -Heparin 5000 units SC q8h Code Status -Level I, FULL RESUSCITATION STATUS (Charlotte Farfan PA-C) Reviewed: Pt Seen/Exam by Me (María Nair MD) History Physician Machine Fastener Supervision Note: I interviewed and examined the patient. Discussed with EDY Farfan and agree with findings and plan as documented in the note. Any exceptions or clarifications are listed here: Pt was less agitated when I saw him today after receiving some po Haldol. He apparently has become more confused over the course of the last 1-2 months as per Heme/Onc notes as pt is known to them. He completed whole brain radiation 2 months ago. It is unclear how many pills he took of his meds but cousin thinks it was about 1-2 days worth as reported to the RN. Pt awake and talking, follow most commands, but still confused. Most likely Toxic encephalopathy superimposed on background dementia, need to r/ o acute CVA. Agitation may be limiting to obtaining MRI. RRR no mgr CTAB breathing unlabored follows commands, confused, disoriented, moving all extremities, no facial droop , EOMI, PERRL Abd +BS soft NT ND Ext no edema -repeated ECG to assess for prolonged QT given overdose possibility of multiple meds that could cause this -repeat APAP, salicylate, valproic acid levels, as well as LFTs and PRP--> all normal -needs repeat MRI brain to assess for mass vs acute CVA as cause of his encephalopathy -continue ASA, Plavix, statin -Consult to Neuro and Stroke orders placed -PT/OT/ST evals -continue telemetry monitoring -Seizure precautions Documented By: María Nair (María Nair MD)
[2016-11-28 13:39] LABS: ANISOCYTOSIS PRESENT; COMPLETE YES
[2016-11-28 15:06] VITALS: BP 163/73; PULSE 96; TEMP 37.2; O2SAT 93
--- NOTE | 2016-11-28 15:54 | Oncology Consultation ---
Oncology/Heme Consultation Date of Consultation: November 28, 2016. Attending Physician: María Nair MD Reason for Consultation: History of small cell lung carcinoma History of Present Illness Mr. Perez was admitted and has been confused and combative. He has a history of 2 neoplastic processes. I first met Mr. 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 He's really never needed any sort of therapy for this other than a brief course of eyedrops urea More recently in 2015 he was found to have a lung carcinoma status post resection and he was felt to be a small cell lung carcinoma. By the time we were able to treat him with carboplatinum atop aside he was found to have liver metastasis. He is finished systemic chemotherapy in June of last year with CT scans done in July showed resolution of the known recently found liver metastasis. He is also completed prophylactic cranial radiation. He is now admitted with confusion and change in mentation. I'm not able to really gather an accurate review of systems. We have noticed however in phone calls and such with Mr. Perez over the past month or 2 that there has been an impression of marked increased confusion. Past Medical/Surgical History Medical Problems: (1) Change in mental status Status: Acute (2) Fall Status: Acute (3) Head injury Status: Acute (4) Intractable pain Status: Acute (5) Leg swelling Status: Acute (6) Leukocytosis Status: Acute (7) Pyelonephritis Status: Acute (8) Right flank pain Status: Acute (9) Thoracolumbar back pain Status: Acute (10) Vertebral fracture Status: Acute Family History No pertinent family history Social History Smoking Status: Former Smoker Drug Use: none Marital Status: Housing Status: lives alone Occupation Status: retired Allergies Coded Allergies: No Known Allergies (Unverified , 11/20/16) Home Medications Scheduled Aspirin (Aspirin Chewable), 81 MG PO DAILY Atorvastatin (Lipitor), 40 MG PO DAILY Clopidogrel (Plavix), 75 MG PO DAILY Divalproex Sodium (Depakote Er), 1 TAB PO HS Duloxetine HCl (Cymbalta), 30 MG PO BID Finasteride (Finasteride), 1 TAB PO DAILY Fluticasone Furoate-Vilanterol (Breo Ellipta), 1 INHA INH DAILY Gabapentin (Neurontin), 600 MG PO TID Ipratropium-Albuterol (Combivent Respimat), 1 PUFFS INH QID Lorazepam (Ativan), 0.5 MG PO TID Oxcarbazepine (Trileptal), 300 MG PO BID Oxycodone/Acetaminophen 5MG/325MG (Percocet 5MG/325MG), 1 TAB PO QID Oxygen (Oxygen), 2 LITERS NA CONTINOUS Pramipexole Dihydrochloride (Pramipexole Dihydrochlori), 0.5 MG PO HS Ranitidine (Zantac), 150 MG PO DAILY Ranitidine Hcl (Acid Emt Basic), 1 TAB PO Q12 Sennosides (Senexon), 1-2 TAB PO BID Tamsulosin HCl (Tamsulosin HCl), 1 TAB PO HS Tiotropium [place] (Spiriva Handihaler), 1 CAP INH DAILY Scheduled PRN Guaifenesin (Guaifenesin), 20 Q4 PRN for Cough Hydroxyzine Pamoate (Vistaril), 1 CAP PO HS PRN for Insomnia Magnesium Hydroxide (Milk Of Magnesia), 30 ML PO DAILY PRN for Constipation Miscellaneous Medications Trazodone Hcl (Trazodone), 50 MG PO Current Inpatient Medications Current Inpatient Medications Medications (Trade) Dose Ordered Sig/Imtiaz Route Start Time Stop Time Status Last Admin Dose Admin Aspirin (Ecotrin Tab) 81 mg DAILY PO 11/28/16 09:00 12/28/16 08:59 11/28/16 07:51 81 MG Atorvastatin Calcium (Lipitor Tab) 40 mg DAILY PO 11/28/16 09:00 12/28/16 08:59 11/28/16 07:51 40 MG Clopidogrel Bisulfate (plAVix TAB) 75 mg DAILY PO 11/28/16 09:00 12/28/16 08:59 11/28/16 07:51 75 MG Finasteride (Proscar Tab) 5 mg DAILY PO 11/28/16 09:00 12/28/16 08:59 11/28/16 07:50 5 MG Gabapentin (Neurontin Tab) 600 mg TID PO 11/27/16 21:00 12/27/16 20:59 11/28/16 14:14 600 MG Oxcarbazepine (Trileptal Tab) 300 mg BID PO 11/27/16 21:00 12/27/16 20:59 11/28/16 07:51 300 MG Pramipexole Dihydrochloride (miraPEX TAB) 0.5 mg HS PO 11/27/16 21:00 12/27/16 20:59 11/28/16 07:50 0.5 MG Ranitidine HCl (zANTac TAB) 150 mg DAILY PO 11/28/16 09:00 12/28/16 08:59 11/28/16 07:50 150 MG Senna (Senokot Tab) 8.6 mg BID PO 11/27/16 21:00 12/27/16 20:59 11/28/16 07:50 8.6 MG Tamsulosin HCl (Flomax Cap) 0.4 mg HS PO 11/27/16 21:00 12/27/16 20:59 Tiotropium [place] (Spiriva Handihaler Inhaler) 1 puff DAILY INH 11/28/16 09:00 12/28/16 08:59 11/28/16 07:50 1 PUFF Miscellaneous Information (Order Awaiting Action) 1 ea QS N/A 11/28/16 08:00 12/28/16 07:59 Heparin Sodium (Porcine) (Heparin Sq 5000 Unit/0.5ml) 5,000 unit Q8 SQ 11/27/16 22:00 12/27/16 21:59 11/28/16 14:14 5,000 UNIT Acetaminophen (Tylenol Tab) 650 mg Q4H PRN PO 11/27/16 20:00 12/27/16 19:59 Al Hydrox/Mg Hydrox/Simethicone (Maalox Max Susp) 15 ml Q4H PRN PO 11/27/16 20:00 12/27/16 19:59 Magnesium Hydroxide (Milk Of Magnesia Susp) 30 ml Q12H PRN PO 11/27/16 20:00 12/27/16 19:59 Ondansetron HCl (Zofran Inj) 4 mg Q6H PRN IV 11/27/16 20:00 12/27/16 19:59 Polyethylene (Miralax Powder Packet) 17 gm DAILY PRN PO 11/27/16 20:00 12/27/16 19:59 Morphine Sulfate (MoRPHine SULFATE INJ) 4 mg Q3H PRN IV 11/27/16 20:15 12/11/16 20:14 Fluconazole (Diflucan Tab) 100 mg QAM PO 11/28/16 09:00 12/08/16 08:59 11/28/16 07:51 100 MG Haloperidol (Haldol Tab) 2 mg TID PRN PO 11/28/16 12:15 12/28/16 12:14 11/28/16 14:14 2 MG Divalproex Sodium (Depakote Extended Rel Tab) 250 mg HS PO 11/28/16 21:00 12/28/16 20:59 Duloxetine HCl (Cymbalta Cap) 30 mg BID PO 11/28/16 21:00 12/28/16 20:59 Review of Systems Unable to really obtain and accurate review of systems. He does complain of pain within his abdomen but then he points also to his chest. Physical Exam Date Time Temp Pulse Resp B/P Pulse Ox O2 Delivery O2 Flow Rate FiO2 11/28/16 15:06 37.2 96 19 163/73 93 Room Air 11/28/16 12:00 Room Air 11/28/16 11:30 85 20 128/77 96 Room Air 11/28/16 08:00 Room Air 11/28/16 07:47 37.0 101 20 140/91 97 Room Air 11/28/16 04:00 Room Air 11/28/16 03:05 36.9 89 20 125/61 97 Room Air 11/28/16 00:01 99 Room Air 11/27/16 23:00 37.1 85 18 167/82 97 Room Air 11/27/16 21:21 36.6 73 16 121/82 99 Room Air 11/27/16 20:46 143/99 11/27/16 20:43 83 27 95 11/27/16 20:13 73 19 98 11/27/16 19:43 78 14 93 11/27/16 19:38 159/86 97 Room Air 11/27/16 19:31 11/27/16 19:30 73 20 98 Room Air 11/27/16 19:01 149/77 11/27/16 19:00 68 19 98 11/27/16 18:28 76 20 140/87 97 Room Air 11/27/16 18:24 74 20 94 11/27/16 17:59 96 Room Air 11/27/16 17:59 96 Room Air 11/27/16 17:54 36 11/27/16 17:38 88 11/27/16 17:32 127/97 11/27/16 17:24 37.1 86 20 127/97 96 Room Air Constitutional: vitals are stable. He knew me as "Doctor" but otherwise it's unclear as to how oriented he is Eyes: Eyes are TOR EOMI without conjuctival erythema or icterus. ENT: External examination was negative for masses. Neck: Negative for masses or palpable thyromegaly Respiratory: Lung sounds were generally clear bilaterally Cardiovascular: Heart was RRR without significant murmur, gallops aoe rubs Gastrointestinal: No palpable hepatic or splenomegaly. The abdomen was soft with normal bowel sounds. Lymphatic system: there was no palpable peripheral lymphadenopathy Musculoskeletal System: The musculoskeletal system seemed concordant with age. Skin: The skin was negative for jaundice. Neurologic exam: The exam was negative for any focal findings. Deep tendon reflexes were equal and symmetrical. Psychiatric exam: Marked confusion. Extremities: Negative for significant edema erythema Laboratory Results Last 24 Hours Test 11/27/16 17:38 11/27/16 18:00 11/27/16 18:22 11/27/16 19:52 White Blood Count 13.92 K/uL Red Blood Count 5.55 M/uL Hemoglobin 16.0 g/dL Hematocrit 47.9 % Mean Corpuscular Volume 86.3 fL Mean Corpuscular Hemoglobin 28.8 pg Mean Corpuscular Hemoglobin Concent 33.4 g/dl Platelet Count 192 K/uL Mean Platelet Volume 9.0 fL RDW Standard Deviation 64.8 fL RDW Coefficient of Variation 20.6 % Neutrophils % (Manual) 81.8 % Lymphocytes % (Manual) 6.9 % Monocytes % (Manual) 5.2 % Basophils % (Manual) 0.9 % Metamyelocytes % 1.7 % Myelocytes % 1.7 % Promyelocytes % 0.9 % Blast Cells % 0.9 % Neutrophils # (Manual) 11.39 K/uL Total Absolute Neutrophils 11.39 K/uL Lymphocytes # (Manual) 0.96 K/uL Total Absolute Lymphocytes 0.96 K/uL Monocytes # (Manual) 0.72 K/uL Basophils # (Manual) 0.13 K/uL Metamyelocytes # 0.24 K/uL Myelocytes # 0.24 K/uL Promyelocytes # 0.13 K/uL Blast Cells # 0.13 K/uL Blood Smear Review Polychromasia 1+ Anisocytosis PRESENT Prothrombin Time 10.9 SECONDS Prothromb Time International Ratio 1.0 Activated Partial Thromboplast Time 22.8 SECONDS Partial Thromboplastin Ratio 0.9 Sodium Level 140 mmol/L Potassium Level 4.2 mmol/L Chloride Level 101 mmol/L Carbon Dioxide Level 33 mmol/L Anion Gap 6.0 mmol/L Blood Urea Nitrogen 16 mg/dl Creatinine 0.78 mg/dl Est Creatinine Clear Calc Drug Dose 84.8 ml/min Estimated GFR () 100.2 Estimated GFR (Non- 86.5 BUN/Creatinine Ratio 20.5 Random Glucose 116 mg/dl Calcium Level 9.1 mg/dl Magnesium Level 2.3 mg/dl Total Bilirubin 0.9 mg/dl Aspartate Amino Transf (AST/SGOT) 23 U/L Alanine Aminotransferase (ALT/SGPT) 19 U/L Alkaline Phosphatase 68 U/L Total Creatine Kinase 358 U/L Troponin I < 0.015 ng/ml Total Protein 7.4 gm/dl Albumin 3.9 gm/dl Globulin 3.5 gm/dl Albumin/Globulin Ratio 1.1 Thyroid Stimulating Hormone (TSH) 0.684 uIu/ml Free Thyroxine 0.91 ng/dl Salicylates Level 2.4 mg/dl Acetaminophen Level < 2 ug/ml Valproic Acid (Depakene) Level 26 mcg/ml Urine Color YELLOW Urine Appearance CLEAR Urine pH 8.0 Urine Specific [place] 1.019 Urine Protein NEG Urine Glucose (UA) NEG Urine Ketones TRACE Urine Occult Blood NEG Urine Nitrite NEG Urine Bilirubin NEG Urine Urobilinogen NEG Urine Leukocyte Esterase NEG Urine Opiates Screen POS Urine Methadone, Qualitative NEG Urine Barbiturates NEG Urine Phencyclidine (PCP) Level NEG Ur Amphetamine/Methamphetamine NEG MDMA (Ecstasy) Screen NEG Urine Benzodiazepines Screen NEG Urine Cocaine Metabolite NEG Urine Marijuana (THC) NEG Ethyl Alcohol mg/dL < 3.0 mg/dl Venous Blood pH 7.42 Venous Blood Partial Pressure CO2 49 mmHg Venous Blood Partial Pressure O2 36 mmHg Venous Blood HCO3 31 mmol/L Venous Blood Oxygen Saturation 66.5 % Venous Blood Base Excess 5.1 mmol/L Test 11/28/16 06:25 White Blood Count 11.46 K/uL Red Blood Count 5.09 M/uL Hemoglobin 14.6 g/dL Hematocrit 43.5 % Mean Corpuscular Volume 85.5 fL Mean Corpuscular Hemoglobin 28.7 pg Mean Corpuscular Hemoglobin Concent 33.6 g/dl Platelet Count 194 K/uL Mean Platelet Volume 9.9 fL Neutrophils (%) (Auto) 74.9 % Lymphocytes (%) (Auto) 8.1 % Monocytes (%) (Auto) 11.5 % Eosinophils (%) (Auto) 0.5 % Basophils (%) (Auto) 0.6 % Neutrophils # (Auto) 8.58 K/uL Lymphocytes # (Auto) 0.93 K/uL Monocytes # (Auto) 1.32 K/uL Eosinophils # (Auto) 0.06 K/uL Basophils # (Auto) 0.07 K/uL RDW Standard Deviation 64.4 fL RDW Coefficient of Variation 20.5 % Immature Granulocyte % (Auto) 4.4 % Immature Granulocyte # (Auto) 0.50 K/uL Anisocytosis PRESENT Sodium Level 141 mmol/L Potassium Level 3.8 mmol/L Chloride Level 104 mmol/L Carbon Dioxide Level 28 mmol/L Anion Gap 9.0 mmol/L Blood Urea Nitrogen 12 mg/dl Creatinine 0.63 mg/dl Est Creatinine Clear Calc Drug Dose 96.7 ml/min Estimated GFR () 109.4 Estimated GFR (Non- 94.4 BUN/Creatinine Ratio 19.3 Random Glucose 96 mg/dl Calcium Level 8.7 mg/dl Magnesium Level 2.0 mg/dl Total Bilirubin 1.1 mg/dl Direct Bilirubin 0.2 mg/dl Aspartate Amino Transf (AST/SGOT) 41 U/L Alanine Aminotransferase (ALT/SGPT) 18 U/L Alkaline Phosphatase 58 U/L Total Protein 6.3 gm/dl Albumin 3.3 gm/dl Assessment & Plan The patient has a history of small cell lung carcinoma with liver metastasis. He was treated to radiographic resolution (by an abdominal scan dated July 25 of this year). He also has a history of underlying myeloproliferative syndrome primary thrombocythemia that has not been a clinical issue. 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 Head CT scan was really unremarkable. His lab work is really unremarkable. At this time we have little to offer as far as any care recommendations beyond supportive care. I don't believe that this confusion represents or is a result of leptomeningeal disease. Cranial nerves appear to be intact. There is no other focal neurologic deficit. If possible it would be warranted to update a CT of his abdomen while he is in the hospital but I don't believe he would be able to cooperate for that at this juncture and frankly he doesn't appear to be someone who we would give further systemic therapy should we identify recurrent neoplasm.
[2016-11-28] MEDS ORDERED: HALOPERIDOL LACTATE 5 MG/ML 1 ML VIAL IM PRN (18:45)
[2016-11-28 19:03] LABS: PROTHROMBIN TIME (PATIENT) 10.9 SECONDS (9.0-12.0)
[2016-11-28 19:05] VITALS: BP 122/70; PULSE 71; TEMP 36.8; O2SAT 97
[2016-11-28 19:20] LABS: BUN/CREATININE RATIO 15.5 (10-20); CALCIUM 8.4 mg/dl (8.5-10.1); CREATININE 0.66 mg/dl (0.60-1.40); POTASSIUM 3.7 mmol/L (3.5-5.1)
[2016-11-28 19:34] LABS: ACETAMINOPHEN 4 ug/ml (10-30)
[2016-11-28] MEDS: DIVALPROEX 250 MG EXTENDED REL TAB PO SCH (19:42)
[2016-11-28] MEDS: DULOXETINE (CYMBALTA) 30 MG CAP PO SCH (19:42)
[2016-11-28] MEDS: TAMSULOSIN HCL 0.4 MG CAP PO SCH (19:42)
[2016-11-28] MEDS ORDERED: PHARMACIST DISCHARGE MED REC CONSULT PRN (23:30)
[2016-11-29] VITALS (7 sets, daily range): BP systolic 88–145; BP diastolic 60–79; PULSE 67–107; TEMP 36.4–37.1; O2SAT 93–97
[2016-11-29] MEDS: HEPARIN SOD 5000 UNIT/0.5 ML CARP SQ SCH ×3 (05:55→20:17)
[2016-11-29 06:40] LABS: BASO % 0.3 %; BASO ABS # 0.03 K/uL (0-0.2); EOS % 0.9 %; HEMATOCRIT 42.8 % (42-52); LYMPH % 7.6 %; MEAN CELL VOLUME 84.8 fL (80-100); MEAN CORPUSCULAR HEMOGLOBIN 28.3 pg (25-34); MEAN CORPUSCULAR HGB CONC 33.4 g/dl (32-36); MEAN PLATELET VOLUME 9.4 fL (7.4-10.4); MONO % 15.9 %; NEUT % 71.3 %; PLATELET COUNT 177 K/uL (130-400); RED BLOOD COUNT 5.05 M/uL (4.7-6.1); WHITE BLOOD COUNT 9.24 K/uL (4.8-10.8)
[2016-11-29 07:13] LABS: ESTIMATED AVERAGE GLUCOSE 117 mg/dl; HA1C FLAG Normal (Normal)
[2016-11-29 07:19] LABS: BUN/CREATININE RATIO 11.6 (10-20); CALCIUM 8.6 mg/dl (8.5-10.1); CREATININE 0.71 mg/dl (0.60-1.40); MAGNESIUM 2.1 mg/dl (1.8-2.4); POTASSIUM 3.4 mmol/L (3.5-5.1)
[2016-11-29 07:20] LABS: CHOLESTEROL/HDL RATIO 3.4
[2016-11-29 07:49] LABS: ANISOCYTOSIS PRESENT; COMPLETE YES; ECHINOCYTES 1+
[2016-11-29] MEDS: GABAPENTIN 600 MG TAB PO SCH ×3 (08:17→20:15)
[2016-11-29] MEDS: DULOXETINE (CYMBALTA) 30 MG CAP PO SCH ×2 (08:17→20:13)
[2016-11-29] MEDS: FLUCONAZOLE 100 MG TAB PO SCH (08:17)
[2016-11-29] MEDS: TIOTROPIUM BROMIDE 5 PUFF/90 MCG INH INH SCH (08:17)
[2016-11-29] MEDS: ASPIRIN 81 MG ECTAB PO SCH (08:18)
[2016-11-29] MEDS: CLOPIDOGREL BISULFATE 75 MG TAB PO SCH (08:18)
[2016-11-29] MEDS: OXCARBAZEPINE 150 MG TAB PO SCH ×2 (08:18→20:16)
[2016-11-29] MEDS: SENNA 8.6 MG TAB PO SCH ×2 (08:18→20:15)
[2016-11-29] MEDS: RANITIDINE HCL 150 MG TAB PO SCH (08:18)
[2016-11-29] MEDS: ATORVASTATIN 40 MG TAB PO SCH (08:18)
[2016-11-29] MEDS: FINASTERIDE 5 MG TAB PO SCH (08:18)
--- NOTE | 2016-11-29 10:44 | Neurology Consultation ---
Neurology Consultation Date of Consultation: November 29, 2016. Attending Physician: María Nair MD Primary Care Physician: Balbir Ma M.D. Reason for Consultation: Change in mental status History of Present Illness Source: hospital records The patient is a 76-year-old male who was admitted to the hospital with a change in mental status in the setting of a suspected intentional prescription medication overdose. The patient is not a reliable historian and following information has been taken largely from the available medical records. The patient was apparently found by a visiting home nurse. He was lethargic. The remainder of his prescription medications for the week seem to have been taken. Past medical history is notable for metastatic lung cancer with metastases to the liver, history of treatment with chemotherapy as well as rarely recent whole brain radiation. Past medical history also notable for diabetic peripheral neuropathy, ongoing tobacco use, spinal stenosis, and chronic pain. He has outpatient prescriptions for a variety of medications including Depakote , gabapentin, Trileptal, oxycodone, Cymbalta, and Mirapex. A brain MRI completed previously, on 09/30/2016 was generally unremarkable. No evidence of metastatic disease. 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 A recently completed CT of the head was unremarkable. No evidence of hemorrhage or acute process. The 5 mm aneurysm was again observed. I reviewed the images and radiologist's interpretation of both of these studies. Electrocardiogram reveals a normal sinus rhythm, 70 bpm. Past Medical/Surgical History Medical Problems: (1) Change in mental status Status: Acute (2) Fall Status: Acute (3) Head injury Status: Acute (4) Intractable pain Status: Acute (5) Leg swelling Status: Acute (6) Leukocytosis Status: Acute (7) Pyelonephritis Status: Acute (8) Right flank pain Status: Acute (9) Thoracolumbar back pain Status: Acute (10) Vertebral fracture Status: Acute Family History Noncontributory and unable to obtain from patient Social History Smoking Status: Former smoker Drug Use: none Marital Status: Housing Status: lives alone Occupation Status: retired Allergies Coded Allergies: No Known Allergies (Unverified , 11/20/16) Current Inpatient Medications Current Inpatient Medications Medications (Trade) Dose Ordered Sig/Imtiaz Route Start Time Stop Time Status Last Admin Dose Admin Aspirin (Ecotrin Tab) 81 mg DAILY PO 11/28/16 09:00 12/28/16 08:59 11/29/16 08:18 81 MG Atorvastatin Calcium (Lipitor Tab) 40 mg DAILY PO 11/28/16 09:00 12/28/16 08:59 11/29/16 08:18 40 MG Clopidogrel Bisulfate (plAVix TAB) 75 mg DAILY PO 11/28/16 09:00 12/28/16 08:59 11/29/16 08:18 75 MG Finasteride (Proscar Tab) 5 mg DAILY PO 11/28/16 09:00 12/28/16 08:59 11/29/16 08:18 5 MG Gabapentin (Neurontin Tab) 600 mg TID PO 11/27/16 21:00 12/27/16 20:59 11/29/16 08:17 600 MG Oxcarbazepine (Trileptal Tab) 300 mg BID PO 11/27/16 21:00 12/27/16 20:59 11/29/16 08:18 300 MG Pramipexole Dihydrochloride (miraPEX TAB) 0.5 mg HS PO 11/27/16 21:00 12/27/16 20:59 11/28/16 07:50 0.5 MG Ranitidine HCl (zANTac TAB) 150 mg DAILY PO 11/28/16 09:00 12/28/16 08:59 11/29/16 08:18 150 MG Senna (Senokot Tab) 8.6 mg BID PO 11/27/16 21:00 12/27/16 20:59 11/29/16 08:18 8.6 MG Tamsulosin HCl (Flomax Cap) 0.4 mg HS PO 11/27/16 21:00 12/27/16 20:59 11/28/16 19:42 0.4 MG Tiotropium [place] (Spiriva Handihaler Inhaler) 1 puff DAILY INH 11/28/16 09:00 12/28/16 08:59 11/29/16 08:17 1 PUFF Miscellaneous Information (Order Awaiting Action) 1 ea QS N/A 11/28/16 08:00 12/28/16 07:59 Heparin Sodium (Porcine) (Heparin Sq 5000 Unit/0.5ml) 5,000 unit Q8 SQ 11/27/16 22:00 12/27/16 21:59 11/29/16 05:55 5,000 UNIT Acetaminophen (Tylenol Tab) 650 mg Q4H PRN PO 11/27/16 20:00 12/27/16 19:59 Al Hydrox/Mg Hydrox/Simethicone (Maalox Max Susp) 15 ml Q4H PRN PO 11/27/16 20:00 12/27/16 19:59 Magnesium Hydroxide (Milk Of Magnesia Susp) 30 ml Q12H PRN PO 11/27/16 20:00 12/27/16 19:59 Ondansetron HCl (Zofran Inj) 4 mg Q6H PRN IV 11/27/16 20:00 12/27/16 19:59 Polyethylene (Miralax Powder Packet) 17 gm DAILY PRN PO 11/27/16 20:00 12/27/16 19:59 Morphine Sulfate (MoRPHine SULFATE INJ) 4 mg Q3H PRN IV 11/27/16 20:15 12/11/16 20:14 Fluconazole (Diflucan Tab) 100 mg QAM PO 11/28/16 09:00 12/08/16 08:59 11/29/16 08:17 100 MG Divalproex Sodium (Depakote Extended Rel Tab) 250 mg HS PO 11/28/16 21:00 12/28/16 20:59 11/28/16 19:42 250 MG Duloxetine HCl (Cymbalta Cap) 30 mg BID PO 11/28/16 21:00 12/28/16 20:59 11/29/16 08:17 30 MG Haloperidol (Haldol Tab) 2 mg Q6H PRN PO 11/28/16 20:00 12/28/16 19:59 Haloperidol Lactate (Haldol Inj) 5 mg DAILY PRN IM 11/28/16 18:45 12/28/16 18:44 Miscellaneous Information (Pharmacist Discharge Med Rec Consult) 1 ea UD PRN N/A 11/28/16 23:30 12/28/16 23:29 Review of Systems The patient does not participate well with evaluation this morning. I am unable to obtain a reliable or valid review of systems. Physical Exam Vital Signs (Past 24 Hrs): Date Time Temp Pulse Resp B/P Pulse Ox O2 Delivery O2 Flow Rate FiO2 11/29/16 08:04 36.8 107 18 88/60 96 Room Air 11/29/16 08:00 Room Air 11/29/16 04:00 Room Air 11/29/16 04:00 37.1 98 20 108/70 93 11/29/16 00:03 37.1 92 20 145/79 95 Room Air 11/28/16 23:59 Room Air 11/28/16 20:00 Room Air 11/28/16 19:05 36.8 71 19 122/70 97 Room Air 11/28/16 16:00 Room Air 11/28/16 15:06 37.2 96 19 163/73 93 Room Air 11/28/16 12:00 Room Air 11/28/16 11:30 85 20 128/77 96 Room Air The patient is currently on one-to-one observation. He is observed sitting up in a bedside chair. He appears not agitated at this time. He is in no acute distress. Patient is alert and oriented to person and hospital only. Attention is mildly diminished. Recent memory impaired. Remote memory intact. Patient has modest difficulty with object naming, reading, and repeating phrases. Vocabulary normal. Visual moore full to confrontation. Visual acuity grossly intact. Pupils equal round reactive to light and accommodation. Eye movements intact. No nystagmus. Facial sensation intact. There is no facial weakness or facial droop. Palate elevates to midline. Tongue protrudes to midline. Shoulder shrug and hearing intact. And station diminished to vibration and light touch for the distal aspects of both lower limbs. Temperature sensation diminished distally as well. Deep tendon reflexes are diffusely diminished. Plantar responses are silent bilaterally. There is no dysmetria with finger to nose or heel to simental bilaterally. Ophthalmoscopic examination is difficult due to poor patient cooperation. Unable to adequately visualize the optic nerves or posterior elements. Carotid pulses normal bilaterally, no bruits to auscultation. Musculoskeletal examination reveals normal strength and tone in all 4 limbs proximally and distally. No atrophy. No abnormal movements. Station normal. Gait not tested due to safety concerns. Laboratory Results Past 24 Hours: 11/29/16 05:59 Red Blood Count 5.05, Mean Corpuscular Volume 84.8, Mean Corpuscular Hemoglobin 28.3, Mean Corpuscular Hemoglobin Concent 33.4, Mean Platelet Volume 9.4, Neutrophils (%) (Auto) 71.3, Lymphocytes (%) (Auto) 7.6, Monocytes (%) (Auto) 15.9, Eosinophils (%) (Auto) 0.9, Basophils (%) (Auto) 0.3, Neutrophils # (Auto ) 6.59, Lymphocytes # (Auto) 0.70, Monocytes # (Auto) 1.47, Eosinophils # (Auto ) 0.08, Basophils # (Auto) 0.03 11/29/16 05:59 Test 11/28/16 18:43 11/29/16 05:59 Prothrombin Time 10.9 SECONDS (9.0-12.0) Prothromb Time International Ratio 1.0 (0.9-1.1) Total Bilirubin 1.2 mg/dl (0.2-1) Direct Bilirubin 0.2 mg/dl (0-0.2) Aspartate Amino Transf (AST/SGOT) 37 U/L (15-37) Alanine Aminotransferase (ALT/SGPT) 18 U/L (12-78) Alkaline Phosphatase 55 U/L (45-117) Total Protein 6.2 gm/dl (6.4-8.2) Albumin 3.1 gm/dl (3.4-5.0) Salicylates Level < 1.7 mg/dl (2.8-20) Acetaminophen Level 4 ug/ml (10-30) Valproic Acid (Depakene) Level 8 mcg/ml (50-100) White Blood Count 9.24 K/uL (4.8-10.8) Red Blood Count 5.05 M/uL (4.7-6.1) Hemoglobin 14.3 g/dL (14.0-18.0) Hematocrit 42.8 % (42-52) Mean Corpuscular Volume 84.8 fL (80-100) Mean Corpuscular Hemoglobin 28.3 pg (25-34) Mean Corpuscular Hemoglobin Concent 33.4 g/dl (32-36) Platelet Count 177 K/uL (130-400) Mean Platelet Volume 9.4 fL (7.4-10.4) Neutrophils (%) (Auto) 71.3 % Lymphocytes (%) (Auto) 7.6 % Monocytes (%) (Auto) 15.9 % Eosinophils (%) (Auto) 0.9 % Basophils (%) (Auto) 0.3 % Neutrophils # (Auto) 6.59 K/uL (1.4-6.5) Lymphocytes # (Auto) 0.70 K/uL (1.2-3.4) Monocytes # (Auto) 1.47 K/uL (0.11-0.59) Eosinophils # (Auto) 0.08 K/uL (0-0.5) Basophils # (Auto) 0.03 K/uL (0-0.2) RDW Standard Deviation 63.4 fL (36.4-46.3) RDW Coefficient of Variation 20.4 % (11.5-14.5) Immature Granulocyte % (Auto) 4.0 % Immature Granulocyte # (Auto) 0.37 K/uL (0.00-0.02) Anisocytosis PRESENT Echinocytes 1+ Anion Gap 10.0 mmol/L (3-11) Est Creatinine Clear Calc Drug Dose 92.7 ml/min Estimated GFR () 104.2 Estimated GFR (Non- 89.9 BUN/Creatinine Ratio 11.6 (10-20) Estimated Average Glucose 117 mg/dl Hemoglobin A1c 5.7 % (4.5-5.6) Calcium Level 8.6 mg/dl (8.5-10.1) Magnesium Level 2.1 mg/dl (1.8-2.4) Triglycerides Level 150 mg/dl (0-150) Cholesterol Level 148 mg/dl (0-200) HDL Cholesterol 44 mg/dl LDL Cholesterol, Calculated 74 mg/dl VLDL Cholesterol, Calculated 30 mg/dl Cholesterol/HDL Ratio 3.4 Impression Encephalopathy occurring in the context of suspected prescription medication overdose. Persistent confusion. May have an underlying dementia. History of chemotherapy and whole brain radiation therapy in the context of metastatic lung cancer likely contributory factors as well. Plan Patient should have a brain MRI completed with and without contrast to exclude subacute stroke, metastatic disease, and other potential interval pathology not identified on his previous brain MRI. Continue supportive care. I would not start treatment for a suspected dementia at this point in time. No further immediate recommendations.
--- NOTE | 2016-11-29 10:55 | Hematology/Oncology Prog Note ---
Hematology/Onc Progress Note Date of Service November 29, 2016. Diagnoses History of small cell lung carcinoma Prior history of a myeloproliferative lesion essential thrombocytosis Medications Medications Administered Medications (Trade) Dose Ordered Sig/Imtiaz Route Start Time Stop Time Status Last Admin Dose Admin Sodium Chloride 500 ml @ 999 mls/hr Q31M STAT IV 11/27/16 17:42 11/27/16 18:12 DC 11/27/16 18:25 999 MLS/HR Sodium Chloride (Nss 1000ml) 1,000 ml @ 125 mls/hr Q8H STAT IV 11/27/16 17:42 11/27/16 21:22 DC 11/27/16 18:25 125 MLS/HR Aspirin (Ecotrin Tab) 81 mg DAILY PO 11/28/16 09:00 12/28/16 08:59 11/29/16 08:18 81 MG Atorvastatin Calcium (Lipitor Tab) 40 mg DAILY PO 11/28/16 09:00 12/28/16 08:59 11/29/16 08:18 40 MG Clopidogrel Bisulfate (plAVix TAB) 75 mg DAILY PO 11/28/16 09:00 12/28/16 08:59 11/29/16 08:18 75 MG Finasteride (Proscar Tab) 5 mg DAILY PO 11/28/16 09:00 12/28/16 08:59 11/29/16 08:18 5 MG Gabapentin (Neurontin Tab) 600 mg TID PO 11/27/16 21:00 12/27/16 20:59 11/29/16 08:17 600 MG Oxcarbazepine (Trileptal Tab) 300 mg BID PO 11/27/16 21:00 12/27/16 20:59 11/29/16 08:18 300 MG Pramipexole Dihydrochloride (miraPEX TAB) 0.5 mg HS PO 11/27/16 21:00 12/27/16 20:59 11/28/16 07:50 0.5 MG Ranitidine HCl (zANTac TAB) 150 mg DAILY PO 11/28/16 09:00 12/28/16 08:59 11/29/16 08:18 150 MG Senna (Senokot Tab) 8.6 mg BID PO 11/27/16 21:00 12/27/16 20:59 11/29/16 08:18 8.6 MG Tamsulosin HCl (Flomax Cap) 0.4 mg HS PO 11/27/16 21:00 12/27/16 20:59 11/28/16 19:42 0.4 MG Tiotropium [place] (Spiriva Handihaler Inhaler) 1 puff DAILY INH 11/28/16 09:00 12/28/16 08:59 11/29/16 08:17 1 PUFF Heparin Sodium (Porcine) 5000 unit 5,000 unit Q8 SQ 11/27/16 22:00 12/27/16 21:59 11/29/16 05:55 5,000 UNIT Sodium Chloride (Nss 1000ml) 1,000 ml @ 125 mls/hr Q8H IV 11/27/16 20:30 11/28/16 12:29 DC 11/28/16 05:27 125 MLS/HR Fluconazole (Diflucan Tab) 100 mg QAM PO 11/28/16 09:00 12/08/16 08:59 11/29/16 08:17 100 MG Haloperidol (Haldol Tab) 2 mg TID PRN PO 11/28/16 12:15 11/28/16 18:42 DC 11/28/16 14:14 2 MG Divalproex Sodium (Depakote Extended Rel Tab) 250 mg HS PO 11/28/16 21:00 12/28/16 20:59 11/28/16 19:42 250 MG Duloxetine HCl (Cymbalta Cap) 30 mg BID PO 11/28/16 21:00 12/28/16 20:59 11/29/16 08:17 30 MG Subjective Seems much more alert today oriented 2-3. Really offers no new complaints. He states his back is bothering him but this has been a chronic complaint Review of Systems: Constitutional: Negative for night sweats, or fever Eyes: Negative for event change of vision ENT: Negative for epistaxis, nasal discharge, sore throat, or deafness Cardiovascular: Negative for chest pain, palpitations, dizziness, diaphoresis Respiratory: Negative for new shortness of breath,hemoptysis, or purulent cough Gastrointestinal: Negative for diarrhea, hematemesis, melena, nausea, vomiting , or dyspepsia Integumentary (skin): Negative for rash or jaundice discoloration Genitourinary: Negative for urinary frequency, hematuria, or dysuria Neurological: Negative for weakness, seizure activity, headache, or dizziness Lymphatic/Hematologic: Negative for petechiae, bleeding or new adenopathy Musculoskeletal: Low back pain is been a problem Allergic/Immunologic: Negative for unusual rash or pruritis. Vital Signs Vital Signs Past 12 Hours Date Time Temp Pulse Resp B/P Pulse Ox O2 Delivery O2 Flow Rate FiO2 11/29/16 08:04 36.8 107 18 88/60 96 Room Air 11/29/16 08:00 Room Air 11/29/16 04:00 Room Air 11/29/16 04:00 37.1 98 20 108/70 93 11/29/16 00:03 37.1 92 20 145/79 95 Room Air 11/28/16 23:59 Room Air Physical Exam Constitutional: vitals are stable. Eyes: Eyes are TOR EOMI without conjuctival erythema or icterus. ENT: External examination was negative for masses. Neck: Negative for masses or palpable thyromegaly Respiratory: Lung sounds were generally clear bilaterally Cardiovascular: Heart was RRR without significant murmur, gallops aoe rubs Gastrointestinal: No palpable hepatic or splenomegaly. The abdomen was soft with normal bowel sounds. Lymphatic system: there was no palpable peripheral lymphadenopathy Musculoskeletal System: The musculoskeletal system seemed concordant with age. Skin: The skin was negative for jaundice. Neurologic exam: The exam was negative for any focal findings. Deep tendon reflexes were equal and symmetrical. Psychiatric exam: Was essentially negative with normal mood and effect. Much more oriented today Extremities: Negative for edema erythema Laboratory Last 24 Hours Test 11/28/16 18:43 11/29/16 05:59 Prothrombin Time 10.9 SECONDS Prothromb Time International Ratio 1.0 Sodium Level 139 mmol/L 140 mmol/L Potassium Level 3.7 mmol/L 3.4 mmol/L Chloride Level 105 mmol/L 105 mmol/L Carbon Dioxide Level 29 mmol/L 25 mmol/L Anion Gap 5.0 mmol/L 10.0 mmol/L Blood Urea Nitrogen 10 mg/dl 8 mg/dl Creatinine 0.66 mg/dl 0.71 mg/dl Est Creatinine Clear Calc Drug Dose 92.3 ml/min 92.7 ml/min Estimated GFR () 107.3 104.2 Estimated GFR (Non- 92.6 89.9 BUN/Creatinine Ratio 15.5 11.6 Random Glucose 123 mg/dl 116 mg/dl Calcium Level 8.4 mg/dl 8.6 mg/dl Total Bilirubin 1.2 mg/dl Direct Bilirubin 0.2 mg/dl Aspartate Amino Transf (AST/SGOT) 37 U/L Alanine Aminotransferase (ALT/SGPT) 18 U/L Alkaline Phosphatase 55 U/L Total Protein 6.2 gm/dl Albumin 3.1 gm/dl Salicylates Level < 1.7 mg/dl Acetaminophen Level 4 ug/ml Valproic Acid (Depakene) Level 8 mcg/ml White Blood Count 9.24 K/uL Red Blood Count 5.05 M/uL Hemoglobin 14.3 g/dL Hematocrit 42.8 % Mean Corpuscular Volume 84.8 fL Mean Corpuscular Hemoglobin 28.3 pg Mean Corpuscular Hemoglobin Concent 33.4 g/dl Platelet Count 177 K/uL Mean Platelet Volume 9.4 fL Neutrophils (%) (Auto) 71.3 % Lymphocytes (%) (Auto) 7.6 % Monocytes (%) (Auto) 15.9 % Eosinophils (%) (Auto) 0.9 % Basophils (%) (Auto) 0.3 % Neutrophils # (Auto) 6.59 K/uL Lymphocytes # (Auto) 0.70 K/uL Monocytes # (Auto) 1.47 K/uL Eosinophils # (Auto) 0.08 K/uL Basophils # (Auto) 0.03 K/uL RDW Standard Deviation 63.4 fL RDW Coefficient of Variation 20.4 % Immature Granulocyte % (Auto) 4.0 % Immature Granulocyte # (Auto) 0.37 K/uL Anisocytosis PRESENT Echinocytes 1+ Estimated Average Glucose 117 mg/dl Hemoglobin A1c 5.7 % Magnesium Level 2.1 mg/dl Triglycerides Level 150 mg/dl Cholesterol Level 148 mg/dl HDL Cholesterol 44 mg/dl LDL Cholesterol, Calculated 74 mg/dl VLDL Cholesterol, Calculated 30 mg/dl Cholesterol/HDL Ratio 3.4 Assessment & Plan History of small cell lung carcinoma with liver metastasis. He is much more oriented today. Perhaps the confusion was better characterized as an encephalopathy and perhaps it is drug-related. In any case I will be asking for a sonogram of his abdomen just to relook at the liver while he is here since his last scan was in July.
[2016-11-29] MEDS ORDERED: POTASSIUM CHLORIDE 20 MEQ TABCR PO ONE (12:30)
--- NOTE | 2016-11-29 13:13 | Psychiatric Consultation ---
Consultation Date of Consultation November 29, 2016. Identifying Data Venkat Ceballos is a 76-year-old male who currently lives in [place] alone. Venkat Ceballos was admitted to the medical floor after being found lethargic at home with empty pill minder. Chief Complaint "I'll learn to use the pill minder, they are charging me $35". History of Present Illness Mr. Ceballos admits that he has been having difficulties with his memory lately. He doesn't remember taking extra pills and states that in general his mood is good and he smiles while discussing wanting to live "until 88". He is somewhat in denial with regards to ability to care for self at home. He relies on his 1st cousin Arcadio Espinal (also POA) to shop for him and patient microwaves his own meals. He has difficult relating why he has a home nurse or the reason for many of his medications. He has delayed responses at times during which he appears distracted but denies hallucinations. He states that it is Friday but won't guess at the month or the year. He admits that he mainly watches "the idiot box" meaning the tv to pass his time. He again denies any intent or plan to harm himself. He is apologetic re: his agitated behavior though clearly doesn't remember it. Neurology consult reviewed. No recs re: seizure meds. MRI recommended. PDMP queried re: Ativan, confirmed rx's by Dr. Ma. Last fill 10/31, #90 of 0.5 mg pills. Also rx Oxycodone. Past Psychiatric History Access to a Gun: No Suicide Attempts: No Past Medical/Surgical History History of Concussion/Seizure: Yes (hx of head trauma/subdural hematoma) (1) CHRONIC OBSTRUCTIVE ASTHMA, NOS (2) CHRONIC PAIN SYNDROME (3) CORONARY ATHEROSCLEROSIS OF [place] CORONARY VESSEL (4) DIAB W NEURO MANIFEST, TYPE II OR UNSPEC TYPE, NOT UNCNTRLD (5) DIVERTICULOSIS COLON (W/O MENT OF HEMORRHAGE) (6) ESOPHAGEAL REFLUX (7) HYPERTROPHY (BENIGN) OF PROSTATE W/O URINARY OBST & OTH LUTS (8) PURE HYPERCHOLESTEROLEM (9) Altered mental status Allergies Allergies: Coded Allergies: No Known Allergies (Unverified , 11/20/16) Home Medications Scheduled Aspirin (Aspirin Chewable), 81 MG PO DAILY Atorvastatin (Lipitor), 40 MG PO DAILY Clopidogrel (Plavix), 75 MG PO DAILY Divalproex Sodium (Depakote Er), 1 TAB PO HS Duloxetine HCl (Cymbalta), 30 MG PO BID Finasteride (Finasteride), 1 TAB PO DAILY Fluticasone Furoate-Vilanterol (Breo Ellipta), 1 INHA INH DAILY Gabapentin (Neurontin), 600 MG PO TID Ipratropium-Albuterol (Combivent Respimat), 1 PUFFS INH QID Lorazepam (Ativan), 0.5 MG PO TID Oxcarbazepine (Trileptal), 300 MG PO BID Oxycodone/Acetaminophen 5MG/325MG (Percocet 5MG/325MG), 1 TAB PO QID Oxygen (Oxygen), 2 LITERS NA CONTINOUS Pramipexole Dihydrochloride (Pramipexole Dihydrochlori), 0.5 MG PO HS Ranitidine (Zantac), 150 MG PO DAILY Ranitidine Hcl (Acid Business Development Associate), 1 TAB PO Q12 Sennosides ([place]), 1-2 TAB PO BID Tamsulosin HCl (Tamsulosin HCl), 1 TAB PO HS Tiotropium [place] (Spiriva Handihaler), 1 CAP INH DAILY Scheduled PRN Guaifenesin (Guaifenesin), 20 Q4 PRN for Cough Hydroxyzine Pamoate (Vistaril), 1 CAP PO HS PRN for Insomnia Magnesium Hydroxide (Milk Of Magnesia), 30 ML PO DAILY PRN for Constipation Miscellaneous Medications Trazodone Hcl (Trazodone), 50 MG PO Family History No pertinent family history History of Suicide: No History of Substance Abuse: No Psychiatric History: No Alcohol Use Alcohol Use In Past 12 Months: No Smoking Use Smoking Status: Former Smoker Substance History denied Personal History Lives in: [place] Education: started high school (11th grade) Work History: retired Relationship History: Children: no contact with daughter Legal History: none Review of Systems Psych: denies symptoms other than stated above Constitutional: denied Cardiovascular: denied GI: denied Neurologic: denied Remainder of 10 body systems also reviewed and denied other than noted above. Examination Vital Signs Vital Signs Past 12 Hours Date Time Temp Pulse Resp B/P Pulse Ox O2 Delivery O2 Flow Rate FiO2 11/29/16 11:09 36.6 77 16 97/61 94 Room Air 11/29/16 08:04 36.8 107 18 88/60 96 Room Air 11/29/16 08:00 Room Air 11/29/16 04:00 Room Air 11/29/16 04:00 37.1 98 20 108/70 93 Laboratory Results Last 24 Hours Test 11/28/16 18:43 11/29/16 05:59 11/29/16 11:51 Prothrombin Time 10.9 SECONDS Prothromb Time International Ratio 1.0 Sodium Level 139 mmol/L 140 mmol/L Potassium Level 3.7 mmol/L 3.4 mmol/L Chloride Level 105 mmol/L 105 mmol/L Carbon Dioxide Level 29 mmol/L 25 mmol/L Anion Gap 5.0 mmol/L 10.0 mmol/L Blood Urea Nitrogen 10 mg/dl 8 mg/dl Creatinine 0.66 mg/dl 0.71 mg/dl Est Creatinine Clear Calc Drug Dose 92.3 ml/min 92.7 ml/min Estimated GFR () 107.3 104.2 Estimated GFR (Non- 92.6 89.9 BUN/Creatinine Ratio 15.5 11.6 Random Glucose 123 mg/dl 116 mg/dl Calcium Level 8.4 mg/dl 8.6 mg/dl Total Bilirubin 1.2 mg/dl Direct Bilirubin 0.2 mg/dl Aspartate Amino Transf (AST/SGOT) 37 U/L Alanine Aminotransferase (ALT/SGPT) 18 U/L Alkaline Phosphatase 55 U/L Total Protein 6.2 gm/dl Albumin 3.1 gm/dl Salicylates Level < 1.7 mg/dl Acetaminophen Level 4 ug/ml Valproic Acid (Depakene) Level 8 mcg/ml White Blood Count 9.24 K/uL Red Blood Count 5.05 M/uL Hemoglobin 14.3 g/dL Hematocrit 42.8 % Mean Corpuscular Volume 84.8 fL Mean Corpuscular Hemoglobin 28.3 pg Mean Corpuscular Hemoglobin Concent 33.4 g/dl Platelet Count 177 K/uL Mean Platelet Volume 9.4 fL Neutrophils (%) (Auto) 71.3 % Lymphocytes (%) (Auto) 7.6 % Monocytes (%) (Auto) 15.9 % Eosinophils (%) (Auto) 0.9 % Basophils (%) (Auto) 0.3 % Neutrophils # (Auto) 6.59 K/uL Lymphocytes # (Auto) 0.70 K/uL Monocytes # (Auto) 1.47 K/uL Eosinophils # (Auto) 0.08 K/uL Basophils # (Auto) 0.03 K/uL RDW Standard Deviation 63.4 fL RDW Coefficient of Variation 20.4 % Immature Granulocyte % (Auto) 4.0 % Immature Granulocyte # (Auto) 0.37 K/uL Anisocytosis PRESENT Echinocytes 1+ Estimated Average Glucose 117 mg/dl Hemoglobin A1c 5.7 % Magnesium Level 2.1 mg/dl Triglycerides Level 150 mg/dl Cholesterol Level 148 mg/dl HDL Cholesterol 44 mg/dl LDL Cholesterol, Calculated 74 mg/dl VLDL Cholesterol, Calculated 30 mg/dl Cholesterol/HDL Ratio 3.4 Mental Examination During interview pt is: cooperative Appearance: appropriately groomed Eye contact is: fair Motor behavior is: no abnormal motor movements Speech: other (slow at times despite being alert mainly due to word finding difficulties) Affect: euthymic Mood is: other (euthymic) Thought process: concrete Thought content: reality based without delusions Suicidal thought are: denied Homicidal thoughts are: denied Hallucinations: denies auditory, denies visual Cognition: other (attention and memory impaired) Intelligence estimated to be: consistent with level of education Insight: limited Judgement: limited Impression / Recommendations Impression 76 yo male with seemingly unintentional OD on prescription meds which included narcotics and benzodiazepines. He hasn't previously been diagnosed with dementia but exam is consistent (though likely some degree of resolving delirium ). He denies suicidal intent or ideation. Recommendations AAA is involved with adult protective services, POA is medical decision maker would advise against any restart of benzodiazepines given age, fall risk, and risks of respiratory depression in combo with pain meds agree with MRI to rule out stroke no indication for psychiatric admission at this time liaison to contact POA to confirm patient reports of his baseline he is currently stating that he would agree to go to an assisted living or other nursing facility if recommended, regardless currently lacks capacity
--- NOTE | 2016-11-29 13:33 | Hospitalist Progress Note ---
Hospitalist Progress Note Date of Service November 29, 2016. (Shalini Valero PA-C) Subjective Pt evaluation today including: conversation w/ patient, physical exam, chart review, lab review, review of studies, review of inpatient medication list Voiding: flores catheter in place Patient seen and evaluated. He is alert and oriented to name and place but thinks it is September. He is pleasant and easily follows commands. Only complaint is of low back pain "not anything new" but states it is manageable at this time. Hypotensive this AM however is more alert and repeat BP improved slightly. Eyes: + problem reported (chronic visual changes - states has glass that do not help - currently not wearing glasses) Respiratory: No shortness of breath Cardiovascular: No chest pain Abdomen: No nausea, No pain, No vomiting Musculoskeletal: + problem reported (low back pain (chronic)) Neurologic: + memory loss Skin: No rash (Shalini Valero PA-C) Medications Current Inpatient Medications Medications (Trade) Dose Ordered Sig/Imtiaz Route Start Time Stop Time Status Last Admin Dose Admin Aspirin (Ecotrin Tab) 81 mg DAILY PO 11/28/16 09:00 12/28/16 08:59 11/29/16 08:18 81 MG Atorvastatin Calcium (Lipitor Tab) 40 mg DAILY PO 11/28/16 09:00 12/28/16 08:59 11/29/16 08:18 40 MG Clopidogrel Bisulfate (plAVix TAB) 75 mg DAILY PO 11/28/16 09:00 12/28/16 08:59 11/29/16 08:18 75 MG Finasteride (Proscar Tab) 5 mg DAILY PO 11/28/16 09:00 12/28/16 08:59 11/29/16 08:18 5 MG Gabapentin (Neurontin Tab) 600 mg TID PO 11/27/16 21:00 12/27/16 20:59 11/29/16 08:17 600 MG Oxcarbazepine (Trileptal Tab) 300 mg BID PO 11/27/16 21:00 12/27/16 20:59 11/29/16 08:18 300 MG Pramipexole Dihydrochloride (miraPEX TAB) 0.5 mg HS PO 11/27/16 21:00 12/27/16 20:59 11/28/16 07:50 0.5 MG Ranitidine HCl (zANTac TAB) 150 mg DAILY PO 11/28/16 09:00 12/28/16 08:59 11/29/16 08:18 150 MG Senna (Senokot Tab) 8.6 mg BID PO 11/27/16 21:00 12/27/16 20:59 11/29/16 08:18 8.6 MG Tamsulosin HCl (Flomax Cap) 0.4 mg HS PO 11/27/16 21:00 12/27/16 20:59 11/28/16 19:42 0.4 MG Tiotropium [place] (Spiriva Handihaler Inhaler) 1 puff DAILY INH 11/28/16 09:00 12/28/16 08:59 11/29/16 08:17 1 PUFF Miscellaneous Information (Order Awaiting Action) 1 ea QS N/A 11/28/16 08:00 12/28/16 07:59 Heparin Sodium (Porcine) (Heparin Sq 5000 Unit/0.5ml) 5,000 unit Q8 SQ 11/27/16 22:00 12/27/16 21:59 11/29/16 05:55 5,000 UNIT Acetaminophen (Tylenol Tab) 650 mg Q4H PRN PO 11/27/16 20:00 12/27/16 19:59 Al Hydrox/Mg Hydrox/Simethicone (Maalox Max Susp) 15 ml Q4H PRN PO 11/27/16 20:00 12/27/16 19:59 Magnesium Hydroxide (Milk Of Magnesia Susp) 30 ml Q12H PRN PO 11/27/16 20:00 12/27/16 19:59 Ondansetron HCl (Zofran Inj) 4 mg Q6H PRN IV 11/27/16 20:00 12/27/16 19:59 Polyethylene (Miralax Powder Packet) 17 gm DAILY PRN PO 11/27/16 20:00 12/27/16 19:59 Morphine Sulfate (MoRPHine SULFATE INJ) 4 mg Q3H PRN IV 11/27/16 20:15 12/11/16 20:14 Fluconazole (Diflucan Tab) 100 mg QAM PO 11/28/16 09:00 12/08/16 08:59 11/29/16 08:17 100 MG Divalproex Sodium (Depakote Extended Rel Tab) 250 mg HS PO 11/28/16 21:00 12/28/16 20:59 11/28/16 19:42 250 MG Duloxetine HCl (Cymbalta Cap) 30 mg BID PO 11/28/16 21:00 12/28/16 20:59 11/29/16 08:17 30 MG Haloperidol (Haldol Tab) 2 mg Q6H PRN PO 11/28/16 20:00 12/28/16 19:59 Haloperidol Lactate (Haldol Inj) 5 mg DAILY PRN IM 11/28/16 18:45 12/28/16 18:44 Miscellaneous Information (Pharmacist Discharge Med Rec Consult) 1 ea UD PRN N/A 11/28/16 23:30 12/28/16 23:29 (Shalini Valero PA-C) Objective Vital Signs Date Time Temp Pulse Resp B/P Pulse Ox O2 Delivery O2 Flow Rate FiO2 11/29/16 11:09 36.6 77 16 97/61 94 Room Air 11/29/16 08:04 36.8 107 18 88/60 96 Room Air 11/29/16 08:00 Room Air 11/29/16 04:00 Room Air 11/29/16 04:00 37.1 98 20 108/70 93 11/29/16 00:03 37.1 92 20 145/79 95 Room Air 11/28/16 23:59 Room Air 11/28/16 20:00 Room Air 11/28/16 19:05 36.8 71 19 122/70 97 Room Air 11/28/16 16:00 Room Air 11/28/16 15:06 37.2 96 19 163/73 93 Room Air (Shalini Valero PA-C) Physical Exam General Appearance: WD/WN, no apparent distress Eyes: sclerae normal Neck: supple, no JVD, trachea midline Respiratory/Chest: lungs clear, no respiratory distress, no accessory muscle use Cardiovascular: regular rate, rhythm, no gallop, no murmur Abdomen: normal bowel sounds, non tender, soft Extremities: no pedal edema, no calf tenderness Neurologic/Psychiatric: alert, + pertinent finding (oriented to person and place but not time) Skin: normal color (Shalini Valero PA-C) Laboratory Results Last 24 Hours Test 11/28/16 18:43 11/29/16 05:59 11/29/16 11:51 Prothrombin Time 10.9 SECONDS Prothromb Time International Ratio 1.0 Sodium Level 139 mmol/L 140 mmol/L Potassium Level 3.7 mmol/L 3.4 mmol/L Chloride Level 105 mmol/L 105 mmol/L Carbon Dioxide Level 29 mmol/L 25 mmol/L Anion Gap 5.0 mmol/L 10.0 mmol/L Blood Urea Nitrogen 10 mg/dl 8 mg/dl Creatinine 0.66 mg/dl 0.71 mg/dl Est Creatinine Clear Calc Drug Dose 92.3 ml/min 92.7 ml/min Estimated GFR () 107.3 104.2 Estimated GFR (Non- 92.6 89.9 BUN/Creatinine Ratio 15.5 11.6 Random Glucose 123 mg/dl 116 mg/dl Calcium Level 8.4 mg/dl 8.6 mg/dl Total Bilirubin 1.2 mg/dl Direct Bilirubin 0.2 mg/dl Aspartate Amino Transf (AST/SGOT) 37 U/L Alanine Aminotransferase (ALT/SGPT) 18 U/L Alkaline Phosphatase 55 U/L Total Protein 6.2 gm/dl Albumin 3.1 gm/dl Salicylates Level < 1.7 mg/dl Acetaminophen Level 4 ug/ml Valproic Acid (Depakene) Level 8 mcg/ml White Blood Count 9.24 K/uL Red Blood Count 5.05 M/uL Hemoglobin 14.3 g/dL Hematocrit 42.8 % Mean Corpuscular Volume 84.8 fL Mean Corpuscular Hemoglobin 28.3 pg Mean Corpuscular Hemoglobin Concent 33.4 g/dl Platelet Count 177 K/uL Mean Platelet Volume 9.4 fL Neutrophils (%) (Auto) 71.3 % Lymphocytes (%) (Auto) 7.6 % Monocytes (%) (Auto) 15.9 % Eosinophils (%) (Auto) 0.9 % Basophils (%) (Auto) 0.3 % Neutrophils # (Auto) 6.59 K/uL Lymphocytes # (Auto) 0.70 K/uL Monocytes # (Auto) 1.47 K/uL Eosinophils # (Auto) 0.08 K/uL Basophils # (Auto) 0.03 K/uL RDW Standard Deviation 63.4 fL RDW Coefficient of Variation 20.4 % Immature Granulocyte % (Auto) 4.0 % Immature Granulocyte # (Auto) 0.37 K/uL Anisocytosis PRESENT Echinocytes 1+ Estimated Average Glucose 117 mg/dl Hemoglobin A1c 5.7 % Magnesium Level 2.1 mg/dl Triglycerides Level 150 mg/dl Cholesterol Level 148 mg/dl HDL Cholesterol 44 mg/dl LDL Cholesterol, Calculated 74 mg/dl VLDL Cholesterol, Calculated 30 mg/dl Cholesterol/HDL Ratio 3.4 Lactate Dehydrogenase 220 U/L (Shalini Valero PA-C) Assessment and Plan 75 y/o male with a history CAD, 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 The patient was found by his cousin lethargic and with empty pillboxes. The cousin called the patient's home health agency who is nurse then sent the patient to the hospital. It unclear if the patient overdosed on his medications/which medications. Probably 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: IMPROVING - Per cousin and Heme/Onc who follows patient - he has progressively had memory/ confusion issues - Continue 1:1 due to agitation - MRI Combo - pending - Haldol 5 mg IM PRN and 2 mg po Q6H PRN - Psychiatry following - recommendations reviewed - avoid benzos but be mindful of withdrawal symptoms - Neurology following - recommendations reviewed - awaiting further imaging 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 - Liver Mets - Prophylactic Cranial Radiation: STABLE - Heme/Onc following - recommendations reviewed - abdominal imaging pending COPD: STABLE -On chronic O2 at home, but oxygenating 96% on room air here - Continue Spiriva - Breo Ellipta non-formulary Oral Candidiasis: IMPROVING - Diflucan 100 mg PO x 3 days. Day #2 CAD: STABLE - ASA 81 mg daily, Plavix 75 mg daily, and Lipitor 40 mg daily Anxiety/Depression/History of Seizures: STABLE - Cymbalta 30 mg PO BID - Depakote 250 mg daily and Trileptal 300 mg BID - Gabapentin 600 mg TID DVT Prophylaxis: - Heparin 5000 units SC q8h Code Status: FULL RESUSCITATION Disposition: - Will monitor on tele today and await MRI - if unremarkable CVA protocols can be D/c'd and can move from tele - Cousin is POA and plan for placement - Laura Lux referral placed (Shalini Valero PA-C) Reviewed: Pt Seen/Exam by Me (María Nair MD) History Physician Stroke Program Coordinator Supervision Note: I interviewed and examined the patient. Discussed with EDY Valero and agree with findings and plan as documented in the note. Any exceptions or clarifications are listed here: Much improved today. Is now off 1:1. Answers questions appropriately, has no recollection of events leading to admission. Is agreeable to SNF placement Most likely Toxic encephalopathy superimposed on background dementia, need to r/ o acute CVA. MRI delayed due to trouble getting a hold of cousin/POA for questionnaire. RRR no mgr CTAB breathing unlabored Abd +BS soft NT ND Ext no edema - ECGs ok, no evidence of prolonged QT given possible overdose -repeat APAP, salicylate, valproic acid levels, as well as LFTs and PRP--> all normal -awaiting MRI brain to assess for mass vs acute CVA as cause of his encephalopathy -continue ASA, Plavix, statin -Consult to Neuro and Stroke orders placed--> appreciate neuro recommendations for CVA workup and no need to treat for dementia at this time -PT/OT/ST evals and SNF placement -continue telemetry monitoring -Seizure precautions in case of withdrawal from ativan Documented By: María Nair (María Nair MD)
[2016-11-29] MEDS ORDERED: LORAZEPAM 2 MG/ML 1 ML VIAL IV PRN (16:45)
[2016-11-29] MEDS ORDERED: SODIUM CHLORIDE 0.9% 500ML 500 ML IV SCH (17:00)
[2016-11-29] MEDS ORDERED: NURSING VERBAL MED ORDER ONE (17:00)
--- NOTE | 2016-11-29 19:47 | DIAGNOSTIC IMAGING REPORT ---
ABDOMEN COMPLETE (US) CLINICAL HISTORY: History of lung cancer with prior liver involvement now s/p tx COMPARISON STUDY: CT of the abdomen and pelvis July 25, 2016. FINDINGS: No hepatic lesions are identified by sonography. This study is mildly compromised by suboptimal penetration. There is no biliary ductal dilatation. The pancreatic body is normal. The head and tail are obscured. There are no gallstones. The right kidney measures 10.5 cm in maximal dimension and the left measures 10.7 cm. There is no hydronephrosis. The size of the spleen is at the upper limits of normal. No ascites is identified. Caliber of the abdominal aorta is normal. IMPRESSION: 1. No hepatic lesions identified. 2. No gallstones or biliary ductal dilatation. 3. No hydronephrosis. 4. Study mildly compromised by suboptimal penetration. Electronically signed by: Suraj Calhoun M.D. 11/29/2016 7:46 PM Dictated Date/Time: 11/29/2016 7:44 PM
[2016-11-29] MEDS: TAMSULOSIN HCL 0.4 MG CAP PO SCH (20:14)
[2016-11-29] MEDS: DIVALPROEX 250 MG EXTENDED REL TAB PO SCH (20:14)
[2016-11-29] MEDS: PRAMIPEXOLE DIHYDROCHLORIDE 0.5 MG TAB PO SCH (20:14)
[2016-11-30] VITALS (10 sets, daily range): BP systolic 108–139; BP diastolic 64–75; PULSE 68–94; TEMP 36.7–37.2; O2SAT 93–96
[2016-11-30] MEDS: HEPARIN SOD 5000 UNIT/0.5 ML CARP SQ SCH ×3 (05:29→21:43)
[2016-11-30] MEDS: OXCARBAZEPINE 150 MG TAB PO SCH ×2 (07:41→21:41)
[2016-11-30] MEDS: RANITIDINE HCL 150 MG TAB PO SCH (07:41)
[2016-11-30] MEDS: GABAPENTIN 600 MG TAB PO SCH ×3 (07:41→21:40)
[2016-11-30] MEDS: SENNA 8.6 MG TAB PO SCH ×2 (07:41→21:41)
[2016-11-30] MEDS: PRAMIPEXOLE DIHYDROCHLORIDE 0.5 MG TAB PO SCH (07:41)
[2016-11-30] MEDS: ATORVASTATIN 40 MG TAB PO SCH (07:42)
[2016-11-30] MEDS: ASPIRIN 81 MG ECTAB PO SCH (07:42)
[2016-11-30] MEDS: CLOPIDOGREL BISULFATE 75 MG TAB PO SCH (07:42)
[2016-11-30] MEDS: FLUCONAZOLE 100 MG TAB PO SCH (07:42)
[2016-11-30] MEDS: FINASTERIDE 5 MG TAB PO SCH (07:42)
[2016-11-30] MEDS: TIOTROPIUM BROMIDE 5 PUFF/90 MCG INH INH SCH (07:43)
[2016-11-30] MEDS: DULOXETINE (CYMBALTA) 30 MG CAP PO SCH ×2 (07:43→21:41)
--- NOTE | 2016-11-30 10:53 | Hospitalist Progress Note ---
Hospitalist Progress Note Date of Service November 30, 2016. (Shalini Valero, HARSHADC) Subjective Pt evaluation today including: conversation w/ patient, physical exam, chart review, lab review, review of studies, conversation w/ consultant rn (Dr. Dooley) , review of inpatient medication list Patient seen and evaluated. Patient experienced a fall this AM that appears mechanical in nature. Vital signs are stable and no precipitating events reported such as lightheadedness/dizziness, SOB, CP, palpitations Patient has been ambulating without difficulty prior to this morning. He reports using the bedside table to help him stand up from the chair. The bedside table moved out from underneath him causing him to fall on his R hip. He denies hitting his head or LOC. He denies any new pain, still complains of chronic back pain with radiculopathy that radiates down the R thigh and stops at the knee. Performed active and passive ROM exercises without grimacing or reported pain. No tenderness to palpation of joints and abdomen. He is alert and oriented to self and place but does have intermittent confusion and difficulty with recall. He verbalizes no other complaints. Constitutional: No chills, No fever Eyes: No worsening of vision (H/O chronic visual deficits) Respiratory: + cough, No shortness of breath Cardiovascular: No chest pain Abdomen: No constipation, No diarrhea, No nausea, No pain, No vomiting Musculoskeletal: + problem reported (low back pain with radiculopathy to R leg that stops at knee) Male : No dysuria Neurologic: + memory loss, No vertigo (Shalini Valero, EDY-C) Medications Current Inpatient Medications Medications (Trade) Dose Ordered Sig/Imtiaz Route Start Time Stop Time Status Last Admin Dose Admin Aspirin (Ecotrin Tab) 81 mg DAILY PO 11/28/16 09:00 12/28/16 08:59 11/30/16 07:42 81 MG Atorvastatin Calcium (Lipitor Tab) 40 mg DAILY PO 11/28/16 09:00 12/28/16 08:59 11/30/16 07:42 40 MG Clopidogrel Bisulfate (plAVix TAB) 75 mg DAILY PO 11/28/16 09:00 12/28/16 08:59 11/30/16 07:42 75 MG Finasteride (Proscar Tab) 5 mg DAILY PO 11/28/16 09:00 12/28/16 08:59 11/30/16 07:42 5 MG Gabapentin (Neurontin Tab) 600 mg TID PO 11/27/16 21:00 12/27/16 20:59 11/30/16 07:41 600 MG Oxcarbazepine (Trileptal Tab) 300 mg BID PO 11/27/16 21:00 12/27/16 20:59 11/30/16 07:41 300 MG Pramipexole Dihydrochloride (miraPEX TAB) 0.5 mg HS PO 11/27/16 21:00 12/27/16 20:59 11/30/16 07:41 0.5 MG Ranitidine HCl (zANTac TAB) 150 mg DAILY PO 11/28/16 09:00 12/28/16 08:59 11/30/16 07:41 150 MG Senna (Senokot Tab) 8.6 mg BID PO 11/27/16 21:00 12/27/16 20:59 11/30/16 07:41 8.6 MG Tamsulosin HCl (Flomax Cap) 0.4 mg HS PO 11/27/16 21:00 12/27/16 20:59 11/29/16 20:14 0.4 MG Tiotropium [place] (Spiriva Handihaler Inhaler) 1 puff DAILY INH 11/28/16 09:00 12/28/16 08:59 11/30/16 07:43 1 PUFF Miscellaneous Information (Order Awaiting Action) 1 ea QS N/A 11/28/16 08:00 12/28/16 07:59 Heparin Sodium (Porcine) (Heparin Sq 5000 Unit/0.5ml) 5,000 unit Q8 SQ 11/27/16 22:00 12/27/16 21:59 11/30/16 05:29 5,000 UNIT Acetaminophen (Tylenol Tab) 650 mg Q4H PRN PO 11/27/16 20:00 12/27/16 19:59 Al Hydrox/Mg Hydrox/Simethicone (Maalox Max Susp) 15 ml Q4H PRN PO 11/27/16 20:00 12/27/16 19:59 Magnesium Hydroxide (Milk Of Magnesia Susp) 30 ml Q12H PRN PO 11/27/16 20:00 12/27/16 19:59 Ondansetron HCl (Zofran Inj) 4 mg Q6H PRN IV 11/27/16 20:00 12/27/16 19:59 Polyethylene (Miralax Powder Packet) 17 gm DAILY PRN PO 11/27/16 20:00 12/27/16 19:59 Morphine Sulfate (MoRPHine SULFATE INJ) 4 mg Q3H PRN IV 11/27/16 20:15 12/11/16 20:14 Fluconazole (Diflucan Tab) 100 mg QAM PO 11/28/16 09:00 12/08/16 08:59 11/30/16 07:42 100 MG Divalproex Sodium (Depakote Extended Rel Tab) 250 mg HS PO 11/28/16 21:00 12/28/16 20:59 11/29/16 20:14 250 MG Duloxetine HCl (Cymbalta Cap) 30 mg BID PO 11/28/16 21:00 12/28/16 20:59 11/30/16 07:43 30 MG Haloperidol (Haldol Tab) 2 mg Q6H PRN PO 11/28/16 20:00 12/28/16 19:59 Haloperidol Lactate (Haldol Inj) 5 mg DAILY PRN IM 11/28/16 18:45 12/28/16 18:44 Miscellaneous Information (Pharmacist Discharge Med Rec Consult) 1 ea UD PRN N/A 11/28/16 23:30 12/28/16 23:29 Lorazepam (Ativan Inj) 1 mg Q4H PRN IV 11/29/16 16:45 12/29/16 16:44 (Shalini Valero, HARSHADC) Objective Vital Signs Date Time Temp Pulse Resp B/P Pulse Ox O2 Delivery O2 Flow Rate FiO2 11/30/16 08:00 94 Room Air 11/30/16 07:47 36.8 93 20 108/67 95 Room Air 11/30/16 04:59 37.2 94 18 112/68 95 Room Air 11/30/16 04:00 94 Room Air 11/30/16 00:01 94 Room Air 11/29/16 23:41 36.8 89 18 109/72 94 Room Air 11/29/16 20:00 Room Air 11/29/16 19:39 36.4 80 20 130/78 95 Room Air 11/29/16 16:00 Room Air 11/29/16 15:48 36.5 67 20 110/68 97 Room Air 11/29/16 12:00 Room Air 11/29/16 11:09 36.6 77 16 97/61 94 Room Air (Shalini Valero, HARSHADC) Physical Exam General Appearance: WD/WN, no apparent distress Eyes: sclerae normal Neck: supple, no JVD, trachea midline Respiratory/Chest: lungs clear, normal breath sounds, no respiratory distress, no accessory muscle use Cardiovascular: regular rate, rhythm, no gallop, no murmur Abdomen: normal bowel sounds, non tender, soft Extremities: no pedal edema, no calf tenderness Neurologic/Psychiatric: alert, + pertinent finding (oriented to self and place ; difficulty with recalling) Skin: normal color, warm/dry, + pertinent finding (multiple scattered ecchymosis of upper extremities) (Shalini Valero, HARSHADC) Laboratory Results Last 24 Hours Test 11/29/16 11:51 Lactate Dehydrogenase 220 U/L (Shalini Valero PA-C) Assessment and Plan 75 y/o male with a history CAD, 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 The patient was found by his cousin lethargic and with empty pillboxes. The cousin called the patient's home health agency who is nurse then sent the patient to the hospital. It unclear if the patient overdosed on his medications/which medications. Probably 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 Superimposed on Dementia: IMPROVING - Per cousin and Heme/Onc who follows patient - he has progressively had memory/ confusion issues - will confirm baseline mentation when family arrives - MRI Combo - pending - awaiting questionnaire from family member/POA - Haldol 5 mg IM PRN and 2 mg po Q6H PRN - Psychiatry following - recommendations reviewed - avoid benzos but be mindful of withdrawal symptoms - none documented - PRN medications available - Neurology following - recommendations reviewed - awaiting further imaging Mechanical Fall on 11/30: - Active and Passive ROM performed on bilateral shoulders, elbows, wrists, hips , knees, ankles without tenderness - palpation of all joints unremarkable - No further imaging warranted at this time - have patient ring for assistance, bed alarm, and fall precautions 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 Day #3 and will D/C CAD: STABLE - ASA 81 mg daily, Plavix 75 mg daily, and Lipitor 40 mg daily Anxiety/Depression/History of Seizures: STABLE - Cymbalta 30 mg PO BID - Depakote 250 mg daily and Trileptal 300 mg BID - Gabapentin 600 mg TID DVT Prophylaxis: - Heparin 5000 units SC q8h Code Status: FULL RESUSCITATION Disposition: - Will monitor on tele today and await MRI - if unremarkable CVA protocols can be D/C'd and can move from tele - Cousin is POA and plan for placement - [facility] referral placed - [facility] planning involvement Continued [facility] stay due to: home environment unsafe for pt (Shalini Valero, PAPau) Reviewed: Pt Seen/Exam by Me (María Nair MD) History Physician Acid Extractor Supervision Note: I interviewed and examined the patient. Discussed with EDY Valero and agree with findings and plan as documented in the note. Any exceptions or clarifications are listed here: Had fall this AM but clearly recalls everything that happened and denies any pain, feels fine. Had diarrhea today. Still unable to get MRI questionnaire filled out so MRI brain not done. Otherwise much clearer today than has been RRR no mgr CTAB breathing unlabored Abd +BS soft NT ND Ext no edema - ECGs ok, no evidence of prolonged QT given possible overdose -initial and repeat APAP, salicylate, valproic acid levels, as well as LFTs and PRP--> all normal -awaiting MRI brain to assess for mass vs acute CVA as cause of his encephalopathy -continue ASA, Plavix, statin -Consult to Neuro and Stroke orders placed--> appreciate neuro recommendations for CVA workup and no need to treat for dementia at this time -PT/OT/ST evals and SNF placement -continue telemetry monitoring -Seizure precautions in case of withdrawal from ativan -hopeful for dc to SNF soon as soon as MRI brain obtained and is normal Documented By: María Nair (María Nair MD)
--- NOTE | 2016-11-30 10:56 | Hematology/Oncology Prog Note ---
Hematology/Onc Progress Note Date of Service November 30, 2016. Diagnoses History of small cell lung carcinoma Prior history of a myeloproliferative lesion essential thrombocytosis Medications Medications Administered Medications (Trade) Dose Ordered Sig/Imtiaz Route Start Time Stop Time Status Last Admin Dose Admin Sodium Chloride 500 ml @ 999 mls/hr Q31M STAT IV 11/27/16 17:42 11/27/16 18:12 DC 11/27/16 18:25 999 MLS/HR Sodium Chloride (Nss 1000ml) 1,000 ml @ 125 mls/hr Q8H STAT IV 11/27/16 17:42 11/27/16 21:22 DC 11/27/16 18:25 125 MLS/HR Aspirin (Ecotrin Tab) 81 mg DAILY PO 11/28/16 09:00 12/28/16 08:59 11/30/16 07:42 81 MG Atorvastatin Calcium (Lipitor Tab) 40 mg DAILY PO 11/28/16 09:00 12/28/16 08:59 11/30/16 07:42 40 MG Clopidogrel Bisulfate (plAVix TAB) 75 mg DAILY PO 11/28/16 09:00 12/28/16 08:59 11/30/16 07:42 75 MG Finasteride (Proscar Tab) 5 mg DAILY PO 11/28/16 09:00 12/28/16 08:59 11/30/16 07:42 5 MG Gabapentin (Neurontin Tab) 600 mg TID PO 11/27/16 21:00 12/27/16 20:59 11/30/16 07:41 600 MG Oxcarbazepine (Trileptal Tab) 300 mg BID PO 11/27/16 21:00 12/27/16 20:59 11/30/16 07:41 300 MG Pramipexole Dihydrochloride (miraPEX TAB) 0.5 mg HS PO 11/27/16 21:00 12/27/16 20:59 11/30/16 07:41 0.5 MG Ranitidine HCl (zANTac TAB) 150 mg DAILY PO 11/28/16 09:00 12/28/16 08:59 11/30/16 07:41 150 MG Senna (Senokot Tab) 8.6 mg BID PO 11/27/16 21:00 12/27/16 20:59 11/30/16 07:41 8.6 MG Tamsulosin HCl (Flomax Cap) 0.4 mg HS PO 11/27/16 21:00 12/27/16 20:59 11/29/16 20:14 0.4 MG Tiotropium [place] (Spiriva Handihaler Inhaler) 1 puff DAILY INH 11/28/16 09:00 12/28/16 08:59 11/30/16 07:43 1 PUFF Heparin Sodium (Porcine) 5000 unit 5,000 unit Q8 SQ 11/27/16 22:00 12/27/16 21:59 11/30/16 05:29 5,000 UNIT Sodium Chloride (Nss 1000ml) 1,000 ml @ 125 mls/hr Q8H IV 11/27/16 20:30 11/28/16 12:29 DC 11/28/16 05:27 125 MLS/HR Fluconazole (Diflucan Tab) 100 mg QAM PO 11/28/16 09:00 12/08/16 08:59 11/30/16 07:42 100 MG Haloperidol (Haldol Tab) 2 mg TID PRN PO 11/28/16 12:15 11/28/16 18:42 DC 11/28/16 14:14 2 MG Divalproex Sodium (Depakote Extended Rel Tab) 250 mg HS PO 11/28/16 21:00 12/28/16 20:59 11/29/16 20:14 250 MG Duloxetine HCl (Cymbalta Cap) 30 mg BID PO 11/28/16 21:00 12/28/16 20:59 11/30/16 07:43 30 MG Potassium Chloride 40 meq 40 meq NOW ONCE PO 11/29/16 12:30 11/29/16 12:44 DC 11/29/16 13:04 40 MEQ Sodium Chloride (Nss 500ml) 500 ml @ 250 mls/hr Q2H IV 11/29/16 17:00 11/29/16 18:59 DC 11/29/16 17:19 250 MLS/HR Subjective Mentation about the same as yesterday. Oriented 1-2 today Review of Systems: Constitutional: Negative for night sweats, or fever Eyes: Negative for event change of vision ENT: Negative for epistaxis, nasal discharge, sore throat, or deafness Cardiovascular: Negative for chest pain, palpitations, dizziness, diaphoresis Respiratory: Negative for new shortness of breath,hemoptysis, or purulent cough Gastrointestinal: Negative for diarrhea, hematemesis, melena, nausea, vomiting , or dyspepsia Integumentary (skin): Negative for rash or jaundice discoloration Genitourinary: Negative for urinary frequency, hematuria, or dysuria Neurological: Negative for weakness, seizure activity, headache, or dizziness Lymphatic/Hematologic: Negative for petechiae, bleeding or new adenopathy Musculoskeletal: Negative for new joint or back pain Allergic/Immunologic: Negative for unusual rash or pruritis. Vital Signs Vital Signs Past 12 Hours Date Time Temp Pulse Resp B/P Pulse Ox O2 Delivery O2 Flow Rate FiO2 11/30/16 08:00 94 Room Air 11/30/16 07:47 36.8 93 20 108/67 95 Room Air 11/30/16 04:59 37.2 94 18 112/68 95 Room Air 11/30/16 04:00 94 Room Air 11/30/16 00:01 94 Room Air 11/29/16 23:41 36.8 89 18 109/72 94 Room Air Physical Exam Constitutional: vitals are stable. Eyes: Eyes are TOR EOMI without conjuctival erythema or icterus. ENT: External examination was negative for masses. Neck: Negative for masses or palpable thyromegaly Respiratory: Lung sounds were generally clear bilaterally Cardiovascular: Heart was RRR without significant murmur, gallops aoe rubs Gastrointestinal: No palpable hepatic or splenomegaly. The abdomen was soft with normal bowel sounds. Lymphatic system: there was no palpable peripheral lymphadenopathy Musculoskeletal System: The musculoskeletal system seemed concordant with age. Skin: The skin was negative for jaundice. Neurologic exam: The exam was negative for any focal findings. Deep tendon reflexes were equal and symmetrical. Psychiatric exam: Was essentially negative with normal mood and effect. Extremities: Negative for edema or erythema Laboratory Last 24 Hours Test 11/29/16 11:51 Lactate Dehydrogenase 220 U/L Assessment & Plan History of small cell lung carcinoma with liver metastasis. Liver sonogram or abdominal sonogram assay was really unremarkable and he was informed of this. No defects were definitely seen in the liver. With that then we will sign off. He remains mildly confused/demented. He will follow-up in our clinic. Please reconsult is necessary
[2016-11-30] MEDS: DIVALPROEX 250 MG EXTENDED REL TAB PO SCH (21:39)
[2016-11-30] MEDS: TAMSULOSIN HCL 0.4 MG CAP PO SCH (21:40)
[2016-11-30 23:24] LABS: COD UR NEGATIVE NG/ML (CUTOFF=50); HYDROCOD UR NEGATIVE NG/ML (CUTOFF=50); HYDROMOR UR NEGATIVE NG/ML (CUTOFF=50); MORPHINE UR NEGATIVE NG/ML (CUTOFF=50); NORHYDROCODONE CONF UR NEGATIVE NG/ML (CUTOFF=50); OXYMORPH UR NEGATIVE NG/ML (CUTOFF=50)
[2016-12-01 03:28] VITALS: BP 99/52; PULSE 90; TEMP 36.7; O2SAT 90
[2016-12-01] MEDS: HEPARIN SOD 5000 UNIT/0.5 ML CARP SQ SCH ×3 (05:53→21:03)
[2016-12-01 06:25] LABS: BASO % 0.3 %; BASO ABS # 0.03 K/uL (0-0.2); HEMATOCRIT 40.2 % (42-52); LYMPH % 6.7 %; LYMPH ABS # 0.69 K/uL (1.2-3.4); MEAN CELL VOLUME 85.2 fL (80-100); MEAN CORPUSCULAR HEMOGLOBIN 28.4 pg (25-34); MEAN CORPUSCULAR HGB CONC 33.3 g/dl (32-36); MONO % 14.2 %; NEUT % 74.8 %; PLATELET COUNT 193 K/uL (130-400); RED BLOOD COUNT 4.72 M/uL (4.7-6.1); WHITE BLOOD COUNT 10.37 K/uL (4.8-10.8)
[2016-12-01 06:59] LABS: CALCIUM 8.9 mg/dl (8.5-10.1); CREATININE 0.68 mg/dl (0.60-1.40); MAGNESIUM 2.2 mg/dl (1.8-2.4)
[2016-12-01 07:05] LABS: ANISOCYTOSIS PRESENT; COMPLETE YES
[2016-12-01] MEDS: OXCARBAZEPINE 150 MG TAB PO SCH ×2 (07:27→21:01)
[2016-12-01] MEDS: TIOTROPIUM BROMIDE 5 PUFF/90 MCG INH INH SCH (07:27)
[2016-12-01] MEDS: FLUCONAZOLE 100 MG TAB PO SCH (07:28)
[2016-12-01] MEDS: DULOXETINE (CYMBALTA) 30 MG CAP PO SCH ×2 (07:28→20:59)
[2016-12-01] MEDS: SENNA 8.6 MG TAB PO SCH ×2 (07:28→21:01)
[2016-12-01] MEDS: CLOPIDOGREL BISULFATE 75 MG TAB PO SCH (07:28)
[2016-12-01] MEDS: FINASTERIDE 5 MG TAB PO SCH (07:28)
[2016-12-01] MEDS: HALOPERIDOL 1 MG TAB PO PRN (07:28)
[2016-12-01] MEDS: RANITIDINE HCL 150 MG TAB PO SCH (07:28)
[2016-12-01] MEDS: ASPIRIN 81 MG ECTAB PO SCH (07:29)
[2016-12-01] MEDS: ATORVASTATIN 40 MG TAB PO SCH (07:29)
[2016-12-01 07:36] VITALS: BP 110/71; PULSE 89; TEMP 36.9; O2SAT 90
[2016-12-01] MEDS: GABAPENTIN 600 MG TAB PO SCH ×3 (09:05→21:00)
--- NOTE | 2016-12-01 11:33 | DIAGNOSTIC IMAGING REPORT ---
CT OF THE HEAD WITHOUT CONTRAST CLINICAL HISTORY: Altered mental status. Evaluate for cerebrovascular accident. COMPARISON STUDY: Head CT November 27, 2016. CT DOSE: 638.84 mGy.cm TECHNIQUE: Helical axial images of the head were obtained without IV contrast. Automated exposure control was utilized for the study. FINDINGS: No acute intracranial hemorrhage, midline shift or mass effect is present. Ventricular system is stable. Basilar cisterns are patent. There are no extra-axial collections. White matter hypodensities suggest small vessel disease. These are unchanged. There are no findings to suggest acute dural sinus thrombosis or acute territorial infarct. There are no significant calvarial abnormalities. Visualized portions of the sinuses and mastoid air cells are clear. IMPRESSION: No acute intracranial findings. Electronically signed by: Suraj Calhoun M.D. 12/01/2016 11:32 AM Dictated Date/Time: 12/01/2016 11:29 AM
[2016-12-01 11:40] VITALS: BP 123/74; PULSE 88; TEMP 36.9; O2SAT 93
[2016-12-01] MEDS ORDERED: HLD1 PO (12:16)
[2016-12-01] MEDS ORDERED: OXYC-57 PO (12:16)
[2016-12-01 12:48] VITALS: BP 123/74; PULSE 88; TEMP 36.9; O2SAT 93
--- NOTE | 2016-12-01 13:26 | Hospitalist Progress Note ---
Hospitalist Progress Note Date of Service December 01, 2016. (Shalini Valero, PA-C) Subjective Pt evaluation today including: conversation w/ patient, physical exam, chart review, lab review, review of inpatient medication list Patient seen and evaluated. No acute events overnight. Reporting that he feels well. Continues to have back pain that radiates to his R knee that is unchanged. Continues to be pleasantly confused but oriented to self and place. Unable to get in contact with POA. MRI from September 2016 reviewed with concerns for an aneurysm but not evidence of metastasis and is S/P cranial radiation for prophylaxis Will obtain repeat head CT as we are unable to obtain MRI for suggestion of stroke. Constitutional: No chills, No fever Respiratory: No shortness of breath Cardiovascular: No chest pain Abdomen: + diarrhea, No constipation, No nausea, No pain, No vomiting Musculoskeletal: + joint pain (back pain with radiation down R leg to knee) , No calf pain Neurologic: + memory loss Skin: + problem reported (scattered ecchymosis of arms and feet) (Shalini Valero, EDY-C) Medications Current Inpatient Medications Medications (Trade) Dose Ordered Sig/Imtiaz Route Start Time Stop Time Status Last Admin Dose Admin Aspirin (Ecotrin Tab) 81 mg DAILY PO 11/28/16 09:00 12/28/16 08:59 12/01/16 07:29 81 MG Atorvastatin Calcium (Lipitor Tab) 40 mg DAILY PO 11/28/16 09:00 12/28/16 08:59 12/01/16 07:29 40 MG Clopidogrel Bisulfate (plAVix TAB) 75 mg DAILY PO 11/28/16 09:00 12/28/16 08:59 12/01/16 07:28 75 MG Finasteride (Proscar Tab) 5 mg DAILY PO 11/28/16 09:00 12/28/16 08:59 12/01/16 07:28 5 MG Gabapentin (Neurontin Tab) 600 mg TID PO 11/27/16 21:00 12/27/16 20:59 12/01/16 09:05 600 MG Oxcarbazepine (Trileptal Tab) 300 mg BID PO 11/27/16 21:00 12/27/16 20:59 12/01/16 07:27 300 MG Pramipexole Dihydrochloride (miraPEX TAB) 0.5 mg HS PO 11/27/16 21:00 12/27/16 20:59 11/30/16 07:41 0.5 MG Ranitidine HCl (zANTac TAB) 150 mg DAILY PO 11/28/16 09:00 12/28/16 08:59 12/01/16 07:28 150 MG Senna (Senokot Tab) 8.6 mg BID PO 11/27/16 21:00 12/27/16 20:59 12/01/16 07:28 8.6 MG Tamsulosin HCl (Flomax Cap) 0.4 mg HS PO 11/27/16 21:00 12/27/16 20:59 11/30/16 21:40 0.4 MG Tiotropium [place] (Spiriva Handihaler Inhaler) 1 puff DAILY INH 11/28/16 09:00 12/28/16 08:59 12/01/16 07:27 1 PUFF Miscellaneous Information (Order Awaiting Action) 1 ea QS N/A 11/28/16 08:00 12/28/16 07:59 Heparin Sodium (Porcine) (Heparin Sq 5000 Unit/0.5ml) 5,000 unit Q8 SQ 11/27/16 22:00 12/27/16 21:59 12/01/16 05:53 5,000 UNIT Acetaminophen (Tylenol Tab) 650 mg Q4H PRN PO 11/27/16 20:00 12/27/16 19:59 Al Hydrox/Mg Hydrox/Simethicone (Maalox Max Susp) 15 ml Q4H PRN PO 11/27/16 20:00 12/27/16 19:59 Magnesium Hydroxide (Milk Of Magnesia Susp) 30 ml Q12H PRN PO 11/27/16 20:00 12/27/16 19:59 Ondansetron HCl (Zofran Inj) 4 mg Q6H PRN IV 11/27/16 20:00 12/27/16 19:59 Polyethylene (Miralax Powder Packet) 17 gm DAILY PRN PO 11/27/16 20:00 12/27/16 19:59 Morphine Sulfate (MoRPHine SULFATE INJ) 4 mg Q3H PRN IV 11/27/16 20:15 12/11/16 20:14 Divalproex Sodium (Depakote Extended Rel Tab) 250 mg HS PO 11/28/16 21:00 12/28/16 20:59 11/30/16 21:39 250 MG Duloxetine HCl (Cymbalta Cap) 30 mg BID PO 11/28/16 21:00 12/28/16 20:59 12/01/16 07:28 30 MG Haloperidol (Haldol Tab) 2 mg Q6H PRN PO 11/28/16 20:00 12/28/16 19:59 12/01/16 07:28 2 MG Haloperidol Lactate (Haldol Inj) 5 mg DAILY PRN IM 11/28/16 18:45 12/28/16 18:44 Miscellaneous Information (Pharmacist Discharge Med Rec Consult) 1 ea UD PRN N/A 11/28/16 23:30 12/28/16 23:29 Lorazepam (Ativan Inj) 1 mg Q4H PRN IV 11/29/16 16:45 12/29/16 16:44 (Shalini Valero PA-C) Objective Vital Signs Date Time Temp Pulse Resp B/P Pulse Ox O2 Delivery O2 Flow Rate FiO2 12/01/16 12:48 36.9 88 22 93 12/01/16 12:06 Room Air 12/01/16 11:40 36.9 88 22 123/74 93 Room Air 12/01/16 08:05 Room Air 12/01/16 07:36 36.9 89 22 110/71 90 Room Air 12/01/16 04:00 Room Air 12/01/16 03:28 36.7 90 19 99/52 90 Room Air 11/30/16 23:59 Room Air 11/30/16 23:21 37.2 73 18 113/65 93 Room Air 11/30/16 20:00 Room Air 11/30/16 19:53 36.9 70 18 139/75 96 Room Air 11/30/16 16:20 36.7 68 20 121/64 96 Room Air 11/30/16 16:00 94 Room Air (Shalini Valero PA-C) Physical Exam General Appearance: WD/WN, no apparent distress Eyes: sclerae normal Neck: supple, no JVD, trachea midline Respiratory/Chest: lungs clear, normal breath sounds, no respiratory distress, no accessory muscle use Cardiovascular: regular rate, rhythm, no gallop, no murmur Abdomen: normal bowel sounds, non tender, soft Extremities: no pedal edema, no calf tenderness Neurologic/Psychiatric: alert, + pertinent finding (oriented to person and place) Skin: + pertinent finding (scattered ecchymosis of upper extremities and dorsum of feet bilat - multiple stages of healing) (Shalini Valero PA-C) Laboratory Results Last 24 Hours Test 12/01/16 06:05 White Blood Count 10.37 K/uL Red Blood Count 4.72 M/uL Hemoglobin 13.4 g/dL Hematocrit 40.2 % Mean Corpuscular Volume 85.2 fL Mean Corpuscular Hemoglobin 28.4 pg Mean Corpuscular Hemoglobin Concent 33.3 g/dl Platelet Count 193 K/uL Mean Platelet Volume 9.0 fL Neutrophils (%) (Auto) 74.8 % Lymphocytes (%) (Auto) 6.7 % Monocytes (%) (Auto) 14.2 % Eosinophils (%) (Auto) 2.0 % Basophils (%) (Auto) 0.3 % Neutrophils # (Auto) 7.76 K/uL Lymphocytes # (Auto) 0.69 K/uL Monocytes # (Auto) 1.47 K/uL Eosinophils # (Auto) 0.21 K/uL Basophils # (Auto) 0.03 K/uL RDW Standard Deviation 63.6 fL RDW Coefficient of Variation 20.1 % Immature Granulocyte % (Auto) 2.0 % Immature Granulocyte # (Auto) 0.21 K/uL Anisocytosis PRESENT Sodium Level 137 mmol/L Potassium Level 4.0 mmol/L Chloride Level 103 mmol/L Carbon Dioxide Level 26 mmol/L Anion Gap 8.0 mmol/L Blood Urea Nitrogen 8 mg/dl Creatinine 0.68 mg/dl Est Creatinine Clear Calc Drug Dose 89.6 ml/min Estimated GFR () 106.0 Estimated GFR (Non- 91.5 BUN/Creatinine Ratio 12.0 Random Glucose 119 mg/dl Calcium Level 8.9 mg/dl Magnesium Level 2.2 mg/dl (Shalini Valero PA-C) Assessment and Plan 75 y/o male with a history CAD, 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 The patient was found by his cousin lethargic and with empty pillboxes. The cousin called the patient's home health agency who is nurse then sent the patient to the hospital. It unclear if the patient overdosed on his medications/which medications. 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 Superimposed on Dementia: LIKELY AT BASELINE MENTATION - Per cousin and Heme/Onc who follows patient - he has progressively had memory/ confusion issues - will confirm baseline mentation when family arrives - MRI Combo - pending - awaiting questionnaire from family member/POA - Repeat Head CT - image and report reviewed - evidence of stable small vessel ischemic changes but no acute findings suggestive of CVA -- Reviewed MRI (Sep 2016) with no evidence of metastasis or tumors - mention of unchanged aneurysm - Haldol 5 mg IM PRN and 2 mg po Q6H PRN - Psychiatry following - recommendations reviewed - avoid benzos but be mindful of withdrawal symptoms - none documented - PRN medications available - Neurology following - recommendations reviewed - no further workup/treatment at this time for dementia Mechanical Fall on 11/30: - Active and Passive ROM performed on bilateral shoulders, elbows, wrists, hips , knees, ankles without tenderness - palpation of all joints unremarkable - with no appreciated findings on 12/01 - no new ecchymosis appreciated 2/2 fall - Deferred imaging - have patient ring for assistance, bed alarm, and fall precautions 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 - Liver Mets - Prophylactic Cranial Radiation: STABLE - Heme/Onc - recommendations reviewed - abdominal imaging performed with no hepatic lesions appreciated - signed off COPD: STABLE - On chronic O2 at home, but oxygenating adequately on RA - Continue Spiriva - Breo Ellipta non-formulary Oral Candidiasis: RESOLVED - Diflucan x 3 Days Completed CAD: STABLE - ASA 81 mg daily, Plavix 75 mg daily, and Lipitor 40 mg daily Anxiety/Depression/History of Seizures: STABLE - Cymbalta 30 mg PO BID - Depakote 250 mg daily and Trileptal 300 mg BID - Gabapentin 600 mg TID DVT Prophylaxis: - Heparin 5000 units SC q8h Code Status: FULL RESUSCITATION Disposition: - Suitable for transfer to Med/Surg - medically optimal for D/C to [facility] when authorization and arrangements made - Cousin is POA and plan for placement - [facility] referral placed - [facility] planning involvement Continued [facility] stay due to: home environment unsafe for pt Discharge planning: long-term facility (Shalini Valero PA-C) Reviewed: Pt Seen/Exam by Me (María Nair MD) History Physician [employer] Dispatcher Supervision Note: I interviewed and examined the patient. Discussed with EDY Valero and agree with findings and plan as documented in the note. Any exceptions or clarifications are listed here: Never did get MRI questionnaire filled out so repeated head CT today and neg for acute or subacute CVA. Otherwise no complaints RRR no mgr CTAB breathing unlabored Abd +BS soft NT ND Ext no edema - ECGs ok, no evidence of prolonged QT given possible overdose -initial and repeat APAP, salicylate, valproic acid levels, as well as LFTs and PRP--> all normal -repeat head CT no evidence of CVA as cause of encephalopathy -continue ASA, Plavix, statin -Consult to Neuro and Stroke orders placed--> appreciate neuro recommendations for CVA workup and no need to treat for dementia at this time -PT/OT/ST evals and SNF placement -continue telemetry monitoring -Seizure precautions in case of withdrawal from ativan-no longer needed as is beyond time of withdrawal -hopeful for dc to SNF as soon as able. Was ready to go today but not able to due to Holiday weekend Documented By: María Nair (María Nair MD)
[2016-12-01 14:00] VITALS: BP 131/89; PULSE 74; TEMP 37.5; O2SAT 92
--- NOTE | 2016-12-01 14:47 | Discharge Instructions ---
Discharge Instructions Date of Service December 01, 2016. Admission Reason for Admission: Intentional Overdose Of Drug In Tablet Form Discharge Discharge Diagnosis / Problem: Toxic Encephalopathy due to Unintentional Overdose Discharge Goals Goal(s): Decrease discomfort, Improve function, Increase independence Activity Recommendations Activity Level: Assistance Required Therapies: Physical Therapy, Occupational Therapy . 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 Superimposed on Dementia: LIKELY AT BASELINE MENTATION - Per cousin and Heme/Onc who follows patient - he has progressively had memory/ confusion issues - Head CT with evidence of small vessel ischemic changes that are stable without evidence of new infarct -- Unable to obtain MRI due to inability to contact family for questionnaire but performed repeat Head CT without evidence of acute CVA -- Reviewed MRI (Sep 2016) with no evidence of metastasis or tumors - mention of unchanged aneurysm - Haldol 2 mg po Q6H PRN for anxiety and agitation - was needed initially during hospitalization but has not required but provided if needed at new facility - Psychiatry recommendations - avoid benzos but be mindful of withdrawal symptoms - none documented - did not require PRN benzodiazepines for withdrawal and will D/C home medication - Neurology recommendations - no further workup/treatment at this time for dementia Mechanical Fall on 11/30 on L Hip/Side: - Attempted to use bedside table that is on wheels to get out of chair resulting in fall - did not hit his head and no LOC - no precipitating symptoms of CP, SOB, lightheadedness/dizziness, palpitations - Active and Passive ROM performed on bilateral shoulders, elbows, wrists, hips , knees, ankles without tenderness - palpation of all joints unremarkable - with no appreciated findings on 12/01 - no new ecchymosis appreciated /2 fall - Deferred imaging as no new complaints surfaced and no worsening of chronic back pain with L radiculopathy to his knee - Does have chronic back pain and history of back surgery - Rx for pain medication provided as this can be controlled in SNF setting but would use caution with use in regards to altered mental status and fall risk - Has not required the use of pain medication in hospital setting 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 Dooley COPD: STABLE - On chronic O2 at home, but oxygenating adequately on RA - Continue Spiriva, Combivent, and Breo Ellipta Oral Candidiasis: RESOLVED - Diflucan x 3 Days Completed CAD: STABLE - ASA 81 mg daily, Plavix 75 mg daily, and Lipitor 40 mg daily Anxiety/Depression/History of Seizures: STABLE - Cymbalta 30 mg PO BID - Depakote 250 mg daily and Trileptal 300 mg BID - Gabapentin 600 mg TID Code Status: FULL RESUSCITATION Disposition: - [facility] involved as patient is not safe to live alone - was found with AMS and weekly pill container in front of him with all medications gone - possibly took weeks worth of medication Current Hospital Diet Patient's current hospital diet: Regular Diet Discharge Diet Recommended Diet: Regular Diet Pending Studies Studies pending at discharge: yes List of pending studies: Final Blood Culture result Physician Orders On Transfer Special Precautions: Fall Risk Dressing Changes: None IV Therapy: None Vital Signs: Routine Weigh: Routine Additional Orders: Follow up with Oncology within 1 month Follow up with PCP after discharge from [facility] Discussion: Not Applicable Laboratory Results Hemoglobin A1c Test 11/29/16 05:59 Range/Units Estimated Average Glucose 117 mg/dl Hemoglobin A1c 5.7 H 4.5-5.6 % Lipid Panel Test 11/29/16 05:59 Range/Units Triglycerides Level 150 0-150 mg/dl Cholesterol Level 148 0-200 mg/dl HDL Cholesterol 44 mg/dl Cholesterol/HDL Ratio 3.4 LDL Cholesterol, Calculated 74 mg/dl Medical Emergencies . Who to Call and When: Medical Emergencies: If at any time you feel your situation is an emergency, please call 911 immediately. . Non-Emergent Contact Non-Emergency issues call your: Primary Care Provider Call Non-Emergent contact if: you have a fever, your pain is concerning you, you have any medication questions . . "Provider Documentation" section prepared by Shalini Valero. . Core Measure Problem Core Measures: None
[2016-12-01] MEDS: DIVALPROEX 250 MG EXTENDED REL TAB PO SCH (20:59)
[2016-12-01] MEDS: TAMSULOSIN HCL 0.4 MG CAP PO SCH (21:00)
[2016-12-01] MEDS: PRAMIPEXOLE DIHYDROCHLORIDE 0.5 MG TAB PO SCH (21:00)
[2016-12-01 23:02] VITALS: BP 130/73; PULSE 86; TEMP 37.1; O2SAT 92
[2016-12-02] MEDS: HEPARIN SOD 5000 UNIT/0.5 ML CARP SQ SCH ×4 (06:00→21:47)
[2016-12-02 07:02] VITALS: BP 91/54; PULSE 91; TEMP 36.7; O2SAT 92
[2016-12-02 07:04] VITALS: O2SAT 88
[2016-12-02] MEDS: ASPIRIN 81 MG ECTAB PO SCH (07:36)
[2016-12-02] MEDS: CLOPIDOGREL BISULFATE 75 MG TAB PO SCH (07:36)
[2016-12-02] MEDS: ATORVASTATIN 40 MG TAB PO SCH (07:36)
[2016-12-02] MEDS: DULOXETINE (CYMBALTA) 30 MG CAP PO SCH ×2 (07:36→20:50)
[2016-12-02] MEDS: GABAPENTIN 600 MG TAB PO SCH ×3 (07:37→20:51)
[2016-12-02] MEDS: FINASTERIDE 5 MG TAB PO SCH (07:37)
[2016-12-02] MEDS: SENNA 8.6 MG TAB PO SCH ×2 (07:37→20:51)
[2016-12-02] MEDS: RANITIDINE HCL 150 MG TAB PO SCH (07:37)
[2016-12-02] MEDS: OXCARBAZEPINE 150 MG TAB PO SCH ×2 (07:37→20:50)
[2016-12-02] MEDS: TIOTROPIUM BROMIDE 5 PUFF/90 MCG INH INH SCH (07:38)
--- NOTE | 2016-12-02 13:47 | Hospitalist Progress Note ---
Hospitalist Progress Note Date of Service December 02, 2016. (Shalini Valero PA-C) Subjective Pt evaluation today including: conversation w/ patient, physical exam, chart review, review of inpatient medication list Voiding: no voiding problems Patient seen and evaluated. No acute events overnight. Continues to be pleasantly confused. No further falls during admission. Continues to complain of chronic back pain but nothing acute. Awaiting placement with referral to [facility]. Open with protective services through [facility]. Medically suitable for discharge to facility but unsafe to return home. Constitutional: No chills, No fever ENT: No sore throat Respiratory: + cough, No shortness of breath Cardiovascular: No chest pain Abdomen: No constipation, No diarrhea, No nausea, No pain, No vomiting Musculoskeletal: + problem reported (chronic back pain with R radiculopathy - sciatica distribution) Male : No dysuria Neurologic: + memory loss Skin: No itch, No rash (Shalini Valero PA-C) Medications Current Inpatient Medications Medications (Trade) Dose Ordered Sig/Imtiaz Route Start Time Stop Time Status Last Admin Dose Admin Aspirin (Ecotrin Tab) 81 mg DAILY PO 11/28/16 09:00 12/28/16 08:59 12/02/16 07:36 81 MG Atorvastatin Calcium (Lipitor Tab) 40 mg DAILY PO 11/28/16 09:00 12/28/16 08:59 12/02/16 07:36 40 MG Clopidogrel Bisulfate (plAVix TAB) 75 mg DAILY PO 11/28/16 09:00 12/28/16 08:59 12/02/16 07:36 75 MG Finasteride (Proscar Tab) 5 mg DAILY PO 11/28/16 09:00 12/28/16 08:59 12/02/16 07:37 5 MG Gabapentin (Neurontin Tab) 600 mg TID PO 11/27/16 21:00 12/27/16 20:59 12/02/16 13:23 600 MG Oxcarbazepine (Trileptal Tab) 300 mg BID PO 11/27/16 21:00 12/27/16 20:59 12/02/16 07:37 300 MG Pramipexole Dihydrochloride (miraPEX TAB) 0.5 mg HS PO 11/27/16 21:00 12/27/16 20:59 12/01/16 21:00 0.5 MG Ranitidine HCl (zANTac TAB) 150 mg DAILY PO 11/28/16 09:00 12/28/16 08:59 12/02/16 07:37 150 MG Senna (Senokot Tab) 8.6 mg BID PO 11/27/16 21:00 12/27/16 20:59 12/02/16 07:37 8.6 MG Tamsulosin HCl (Flomax Cap) 0.4 mg HS PO 11/27/16 21:00 12/27/16 20:59 12/01/16 21:00 0.4 MG Tiotropium [place] (Spiriva Handihaler Inhaler) 1 puff DAILY INH 11/28/16 09:00 12/28/16 08:59 12/02/16 07:38 1 PUFF Miscellaneous Information (Order Awaiting Action) 1 ea QS N/A 11/28/16 08:00 12/28/16 07:59 Heparin Sodium (Porcine) (Heparin Sq 5000 Unit/0.5ml) 5,000 unit Q8 SQ 11/27/16 22:00 12/27/16 21:59 12/02/16 13:24 5,000 UNIT Acetaminophen (Tylenol Tab) 650 mg Q4H PRN PO 11/27/16 20:00 12/27/16 19:59 12/02/16 08:16 650 MG Al Hydrox/Mg Hydrox/Simethicone (Maalox Max Susp) 15 ml Q4H PRN PO 11/27/16 20:00 12/27/16 19:59 Magnesium Hydroxide (Milk Of Magnesia Susp) 30 ml Q12H PRN PO 11/27/16 20:00 12/27/16 19:59 Ondansetron HCl (Zofran Inj) 4 mg Q6H PRN IV 11/27/16 20:00 12/27/16 19:59 Polyethylene (Miralax Powder Packet) 17 gm DAILY PRN PO 11/27/16 20:00 12/27/16 19:59 Morphine Sulfate (MoRPHine SULFATE INJ) 4 mg Q3H PRN IV 11/27/16 20:15 12/11/16 20:14 Divalproex Sodium (Depakote Extended Rel Tab) 250 mg HS PO 11/28/16 21:00 12/28/16 20:59 12/01/16 20:59 250 MG Duloxetine HCl (Cymbalta Cap) 30 mg BID PO 11/28/16 21:00 12/28/16 20:59 12/02/16 07:36 30 MG Haloperidol (Haldol Tab) 2 mg Q6H PRN PO 11/28/16 20:00 12/28/16 19:59 12/01/16 07:28 2 MG Haloperidol Lactate (Haldol Inj) 5 mg DAILY PRN IM 11/28/16 18:45 12/28/16 18:44 Lorazepam (Ativan Inj) 1 mg Q4H PRN IV 11/29/16 16:45 12/29/16 16:44 (Shalini Valero, HARSHADC) Objective Vital Signs Date Time Temp Pulse Resp B/P Pulse Ox O2 Delivery O2 Flow Rate FiO2 12/02/16 08:00 Nasal Cannula 3.0 12/02/16 07:04 88 Room Air 12/02/16 07:02 36.7 91 20 91/54 92 Nasal Cannula 2.0 12/02/16 00:00 Room Air 12/01/16 23:02 37.1 86 20 130/73 92 Room Air 12/01/16 19:50 Room Air 12/01/16 16:00 Room Air 12/01/16 14:00 37.5 74 18 131/89 92 Room Air (Shalini Valero, EDY-C) Physical Exam General Appearance: WD/WN, no apparent distress Eyes: sclerae normal ENT: pharynx normal Neck: supple, no JVD, trachea midline Respiratory/Chest: lungs clear, no respiratory distress, no accessory muscle use, + decreased breath sounds Cardiovascular: regular rate, rhythm, no gallop, no murmur Abdomen: normal bowel sounds, non tender, soft Extremities: no pedal edema, no calf tenderness Neurologic/Psychiatric: alert Skin: normal color, warm/dry, + pertinent finding (scattered ecchymosis mostly of upper extremities) (Shalini Valero, HARSHADC) Assessment and Plan 75 y/o male with a history CAD, 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 The patient was found by his cousin lethargic and with empty pillboxes. The cousin called the patient's home health agency who is nurse then sent the patient to the hospital. It unclear if the patient overdosed on his medications/which medications. 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 Superimposed on Dementia: LIKELY AT BASELINE MENTATION - Per cousin and Heme/Onc who follows patient - he has progressively had memory/ confusion issues - will confirm baseline mentation when family arrives - MRI Combo - pending - awaiting questionnaire from family member/POA - Repeat Head CT - evidence of stable small vessel ischemic changes but no acute findings suggestive of CVA -- Reviewed MRI (Sep 2016) with no evidence of metastasis or tumors - mention of unchanged aneurysm - Haldol 5 mg IM PRN and 2 mg po Q6H PRN - Psychiatry following - recommendations reviewed - avoid benzos but be mindful of withdrawal symptoms - none documented - PRN medications available - Neurology following - recommendations reviewed - no further workup/treatment at this time for dementia Mechanical Fall on 11/30: - Continues to have no acute symptoms since fall and continues to be weightbaring without issue - No imaging warranted at this time - have patient ring for assistance, bed alarm, and fall precautions 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 - Liver Mets - Prophylactic Cranial Radiation: STABLE - Heme/Onc - abdominal imaging performed with no hepatic lesions appreciated - signed off COPD: STABLE - On chronic O2 at home, but oxygenating adequately on RA - did have one episode at 88% overnight - resolved - Continue Spiriva - Breo Ellipta non-formulary Oral Candidiasis: RESOLVED - Diflucan x 3 Days Completed CAD: STABLE - ASA 81 mg daily, Plavix 75 mg daily, and Lipitor 40 mg daily Anxiety/Depression/History of Seizures: STABLE - Cymbalta 30 mg PO BID - Depakote 250 mg daily and Trileptal 300 mg BID - Gabapentin 600 mg TID DVT Prophylaxis: - Heparin 5000 units SC q8h Code Status: FULL RESUSCITATION Disposition: - Medically optimal for D/C to [facility] when authorization and arrangements made - Cousin is POA and plan for placement - [facility] referral placed - [facility] planning involvement under protective services Continued [facility] stay due to: home environment unsafe for pt Discharge planning: jail facility (Shalini Valero, PAJoaquinaC) i personally examined pt and verified all guevara points w Aayush Valero PAC no new complaints vitals noted resting comfortably no distress progressive dementia - for placement, hopefully tomorrow chronic back pain - appearing reasonably well controlled, clinically appears comfortable DVT proph - heparin SQ otherwise as above (Maldonado Hairston D.O.)
[2016-12-02 15:13] VITALS: BP 116/69; PULSE 79; TEMP 36.3; O2SAT 95
[2016-12-02] MEDS: MoRPHine SULFATE 4 MG/ML 1 ML CARP\\VIAL IV PRN ×2 (15:27→20:56)
[2016-12-02] MEDS: DIVALPROEX 250 MG EXTENDED REL TAB PO SCH (20:50)
[2016-12-02] MEDS: TAMSULOSIN HCL 0.4 MG CAP PO SCH (20:51)
[2016-12-02] MEDS: PRAMIPEXOLE DIHYDROCHLORIDE 0.5 MG TAB PO SCH (20:51)
[2016-12-03] VITALS: BP 165/57; PULSE 67; TEMP 36.8; O2SAT 93
[2016-12-03] MEDS: HEPARIN SOD 5000 UNIT/0.5 ML CARP SQ SCH ×3 (05:32→20:55)
[2016-12-03 07:31] VITALS: BP 108/72; PULSE 81; TEMP 36.7; O2SAT 90
[2016-12-03 08:00] VITALS: O2SAT 90
[2016-12-03] MEDS: FINASTERIDE 5 MG TAB PO SCH (08:25)
[2016-12-03] MEDS: SENNA 8.6 MG TAB PO SCH ×2 (08:26→20:53)
[2016-12-03] MEDS: ATORVASTATIN 40 MG TAB PO SCH (08:26)
[2016-12-03] MEDS: OXCARBAZEPINE 150 MG TAB PO SCH ×2 (08:26→20:52)
[2016-12-03] MEDS: GABAPENTIN 600 MG TAB PO SCH ×3 (08:26→20:53)
[2016-12-03] MEDS: TIOTROPIUM BROMIDE 5 PUFF/90 MCG INH INH SCH (08:26)
[2016-12-03] MEDS: RANITIDINE HCL 150 MG TAB PO SCH (08:26)
[2016-12-03] MEDS: DULOXETINE (CYMBALTA) 30 MG CAP PO SCH ×2 (08:26→20:54)
[2016-12-03] MEDS: CLOPIDOGREL BISULFATE 75 MG TAB PO SCH (08:26)
[2016-12-03] MEDS: ASPIRIN 81 MG ECTAB PO SCH (08:26)
--- NOTE | 2016-12-03 11:53 | Hospitalist Progress Note ---
Hospitalist Progress Note Date of Service December 03, 2016. (Wendy Appiah ., [place]) Subjective Pt evaluation today including: conversation w/ patient, physical exam, chart review, lab review, review of studies, review of inpatient medication list Voiding: no voiding problems, no incontinence Patient states he is feeling well. Admits to left hand discomfort secondary to sleeping on hand. He is eating and drinking OK. Patient denies any fever, chills , sweats, lightheadedness, dizziness, vision changes, CP, palpitations, edema, SOB, wheezing, cough, abdominal pain, nausea, vomiting, diarrhea, urinary symptoms, melena, numbness/tingling, weakness, anxiety/depression, active bleeding, or new skin discoloration/changes. (Wendy Appiah ., [facility]) Medications Current Inpatient Medications Medications (Trade) Dose Ordered Sig/Imtiaz Route Start Time Stop Time Status Last Admin Dose Admin Aspirin (Ecotrin Tab) 81 mg DAILY PO 11/28/16 09:00 12/28/16 08:59 12/03/16 08:26 81 MG Atorvastatin Calcium (Lipitor Tab) 40 mg DAILY PO 11/28/16 09:00 12/28/16 08:59 12/03/16 08:26 40 MG Clopidogrel Bisulfate (plAVix TAB) 75 mg DAILY PO 11/28/16 09:00 12/28/16 08:59 12/03/16 08:26 75 MG Finasteride (Proscar Tab) 5 mg DAILY PO 11/28/16 09:00 12/28/16 08:59 12/03/16 08:25 5 MG Gabapentin (Neurontin Tab) 600 mg TID PO 11/27/16 21:00 12/27/16 20:59 12/03/16 08:26 600 MG Oxcarbazepine (Trileptal Tab) 300 mg BID PO 11/27/16 21:00 12/27/16 20:59 12/03/16 08:26 300 MG Pramipexole Dihydrochloride (miraPEX TAB) 0.5 mg HS PO 11/27/16 21:00 12/27/16 20:59 12/02/16 20:51 0.5 MG Ranitidine HCl (zANTac TAB) 150 mg DAILY PO 11/28/16 09:00 6/24/17 08:59 12/03/16 08:26 150 MG Senna (Senokot Tab) 8.6 mg BID PO 11/27/16 21:00 12/27/16 20:59 12/03/16 08:26 8.6 MG Tamsulosin HCl (Flomax Cap) 0.4 mg HS PO 11/27/16 21:00 12/27/16 20:59 12/02/16 20:51 0.4 MG Tiotropium [place] (Spiriva Handihaler Inhaler) 1 puff DAILY INH 11/28/16 09:00 12/28/16 08:59 12/03/16 08:26 1 PUFF Miscellaneous Information (Order Awaiting Action) 1 ea QS N/A 11/28/16 08:00 12/28/16 07:59 Heparin Sodium (Porcine) (Heparin Sq 5000 Unit/0.5ml) 5,000 unit Q8 SQ 11/27/16 22:00 12/27/16 21:59 12/03/16 05:32 5,000 UNIT Acetaminophen (Tylenol Tab) 650 mg Q4H PRN PO 11/27/16 20:00 12/27/16 19:59 12/02/16 08:16 650 MG Al Hydrox/Mg Hydrox/Simethicone (Maalox Max Susp) 15 ml Q4H PRN PO 11/27/16 20:00 12/27/16 19:59 Magnesium Hydroxide (Milk Of Magnesia Susp) 30 ml Q12H PRN PO 11/27/16 20:00 12/27/16 19:59 Ondansetron HCl (Zofran Inj) 4 mg Q6H PRN IV 11/27/16 20:00 12/27/16 19:59 Polyethylene (Miralax Powder Packet) 17 gm DAILY PRN PO 11/27/16 20:00 12/27/16 19:59 Morphine Sulfate (MoRPHine SULFATE INJ) 4 mg Q3H PRN IV 11/27/16 20:15 12/11/16 20:14 12/02/16 20:56 4 MG Divalproex Sodium (Depakote Extended Rel Tab) 250 mg HS PO 11/28/16 21:00 12/28/16 20:59 12/02/16 20:50 250 MG Duloxetine HCl (Cymbalta Cap) 30 mg BID PO 11/28/16 21:00 12/28/16 20:59 12/03/16 08:26 30 MG Haloperidol (Haldol Tab) 2 mg Q6H PRN PO 11/28/16 20:00 12/28/16 19:59 12/01/16 07:28 2 MG Haloperidol Lactate (Haldol Inj) 5 mg DAILY PRN IM 11/28/16 18:45 12/28/16 18:44 Lorazepam (Ativan Inj) 1 mg Q4H PRN IV 11/29/16 16:45 12/29/16 16:44 (Wendy Appiah ., PA-C) Objective Vital Signs Date Time Temp Pulse Resp B/P Pulse Ox O2 Delivery O2 Flow Rate FiO2 12/03/16 08:00 90 Nasal Cannula 3.0 12/03/16 07:31 36.7 81 16 108/72 90 Nasal Cannula 3.0 12/03/16 00:00 36.8 67 18 165/57 93 Nasal Cannula 3.0 12/03/16 00:00 Nasal Cannula 3.0 12/02/16 16:05 Nasal Cannula 3.0 12/02/16 15:13 36.3 79 20 116/69 95 (Wendy Appiah ., PA-C) Physical Exam General Appearance: no apparent distress Eyes: normal inspection, PERRL ENT: hearing grossly normal Neck: supple Respiratory/Chest: lungs clear, no respiratory distress, no accessory muscle use Cardiovascular: regular rate, rhythm Abdomen: normal bowel sounds, non tender, soft Extremities: no pedal edema, no calf tenderness Neurologic/Psychiatric: alert, normal mood/affect, oriented x 3 Skin: normal color, warm/dry, no rash (Wendy Appiah ., PA-C) Assessment and Plan 75 y/o male with a history CAD, 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 The patient was found by his cousin lethargic and with empty pillboxes. The cousin called the patient's home health agency who is nurse then sent the patient to the hospital. It unclear if the patient overdosed on his medications/which medications. 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 Superimposed on Dementia: - Per cousin and Heme/Onc who follows patient - he has progressively had memory/ confusion issues - will confirm baseline mentation when family arrives - MRI Combo - pending - awaiting questionnaire from family member/POA - Repeat Head CT - evidence of stable small vessel ischemic changes but no acute findings suggestive of CVA - Haldol 5 mg IM PRN and 2 mg po Q6H PRN - Psychiatry following - recommendations reviewed - avoid benzos but be mindful of withdrawal symptoms - none documented - PRN medications available - Neurology following - recommendations reviewed - no further workup/treatment at this time for dementia Mechanical Fall on 11/30: No imaging warranted at this time - have patient ring for assistance, bed alarm, and fall precautions 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 - Liver Mets - Prophylactic Cranial Radiation- STABLE: - Heme/Onc - abdominal imaging performed with no hepatic lesions appreciated - signed off COPD- STABLE: - On chronic O2 at home - Continue Spiriva - Breo Ellipta non-formulary Oral Candidiasis: RESOLVED - Diflucan x 3 Days Completed CAD- STABLE: ASA 81 mg daily, Plavix 75 mg daily, and Lipitor 40 mg daily Anxiety/Depression/History of Seizures- STABLE: Cymbalta 30 mg PO BID, Depakote 250 mg daily and Trileptal 300 mg BID, Gabapentin 600 mg TID BPH: Flomax 0.4 HS GI Prophylaxis: Zantac, Maalox PRN, IV Zofran PRN, Colace and/or Milk of Mag PRN DVT Prophylaxis: Heparin 5000 units SC q8h Code Status: FULL RESUSCITATION Dispo: Medically optimal for D/C to [facility] when authorization and arrangements made (Wendy Appiah, PA-C) i personally examined pt and verified all guevara points kathryn Appiah PAC no complaints, waiting on SNF. later nursing noted that he was more agitated, but able to be talked down ros othewrise negative except for as above, vitals noted nad breathing unlabored no pallor or icterus accidental od - doing well progressive dementia/functional decline - for SNF placement agitation - likely relates to dementia/hospitalization - screen for other delirogenic factors - follow vitals, CBC, BMP. DVT proph - heparin SQ (Maldonado Hairston D.O.)
[2016-12-03 15:04] VITALS: BP 109/71; PULSE 106; TEMP 36.8; O2SAT 95
[2016-12-03] MEDS ORDERED: HALOPERIDOL LACTATE 5 MG/ML 1 ML VIAL IM PRN (15:30)
[2016-12-03] MEDS: DIVALPROEX 250 MG EXTENDED REL TAB PO SCH (20:53)
[2016-12-03] MEDS: PRAMIPEXOLE DIHYDROCHLORIDE 0.5 MG TAB PO SCH (20:53)
[2016-12-03] MEDS: TAMSULOSIN HCL 0.4 MG CAP PO SCH (20:54)
[2016-12-03 23:41] VITALS: BP 124/76; PULSE 79; TEMP 36.8; O2SAT 95
[2016-12-03] MEDS: HALOPERIDOL 1 MG TAB PO PRN (23:58)
[2016-12-04] MEDS: MoRPHine SULFATE 4 MG/ML 1 ML CARP\\VIAL IV PRN ×2 (00:21→22:19)
[2016-12-04] MEDS: HEPARIN SOD 5000 UNIT/0.5 ML CARP SQ SCH ×3 (05:44→21:10)
[2016-12-04 06:59] VITALS: BP 149/76; PULSE 82; TEMP 36.8; O2SAT 96
[2016-12-04 07:11] LABS: BASO % 0.2 %; BASO ABS # 0.02 K/uL (0-0.2); HEMATOCRIT 39.1 % (42-52); IG% 1.3 %; LYMPH % 7.9 %; MEAN CELL VOLUME 86.5 fL (80-100); MEAN CORPUSCULAR HEMOGLOBIN 27.9 pg (25-34); MEAN CORPUSCULAR HGB CONC 32.2 g/dl (32-36); MEAN PLATELET VOLUME 8.8 fL (7.4-10.4); MONO % 16.6 %; PLATELET COUNT 234 K/uL (130-400); RED BLOOD COUNT 4.52 M/uL (4.7-6.1); WHITE BLOOD COUNT 10.08 K/uL (4.8-10.8)
[2016-12-04 08:00] VITALS: O2SAT 96
[2016-12-04 08:03] LABS: ANISOCYTOSIS PRESENT; COMPLETE YES; HYPERSEGMENTED POLYS 1+; LARGE PLATELETS 1+
[2016-12-04 08:04] LABS: BUN/CREATININE RATIO 11.9 (10-20); CALCIUM 8.8 mg/dl (8.5-10.1); CREATININE 0.81 mg/dl (0.60-1.40); POTASSIUM 4.1 mmol/L (3.5-5.1)
[2016-12-04] MEDS: DULOXETINE (CYMBALTA) 30 MG CAP PO SCH ×2 (08:31→21:08)
[2016-12-04] MEDS: ATORVASTATIN 40 MG TAB PO SCH (08:31)
[2016-12-04] MEDS: CLOPIDOGREL BISULFATE 75 MG TAB PO SCH (08:31)
[2016-12-04] MEDS: ASPIRIN 81 MG ECTAB PO SCH (08:31)
[2016-12-04] MEDS: OXCARBAZEPINE 150 MG TAB PO SCH ×2 (08:31→21:07)
[2016-12-04] MEDS: SENNA 8.6 MG TAB PO SCH ×2 (08:31→21:08)
[2016-12-04] MEDS: FINASTERIDE 5 MG TAB PO SCH (08:32)
[2016-12-04] MEDS: RANITIDINE HCL 150 MG TAB PO SCH (08:32)
[2016-12-04] MEDS: TIOTROPIUM BROMIDE 5 PUFF/90 MCG INH INH SCH (08:32)
[2016-12-04] MEDS: GABAPENTIN 600 MG TAB PO SCH ×3 (08:32→21:08)
[2016-12-04] MEDS ORDERED: KETOROLAC TROMETHAMINE 15 MG/ML VIAL IV ONE (11:15)
--- NOTE | 2016-12-04 11:35 | Hospitalist Progress Note ---
Hospitalist Progress Note Date of Service December 04, 2016. (Wendy Appiah ., PA-C) Subjective Pt evaluation today including: conversation w/ patient, physical exam, chart review, lab review, review of inpatient medication list Voiding: no voiding problems, no incontinence Patient states he is feeling well. Complains of L thumb discomfort; worsening since yesterday- worse in the morning. He denies a h/o gout. He is eating and drinking OK. Patient denies any fever, chills, sweats, lightheadedness, dizziness, vision changes, CP, palpitations, edema, SOB, wheezing, cough, abdominal pain, nausea, vomiting, diarrhea, urinary symptoms, melena, numbness/ tingling, weakness, muscle pain, anxiety/depression, active bleeding, or new skin discoloration/changes. Patient experiencing delirium last evening. Given Haldol, likely secondary to dementia and hospital environment vs infection vs gout. CBC and PRP reviewed- no signs of infection or remarkable abnormalities. When interviewed patient this AM, appeared at baseline. (Wendy Appiah ., PA-C) Medications Current Inpatient Medications Medications (Trade) Dose Ordered Sig/Imtiaz Route Start Time Stop Time Status Last Admin Dose Admin Aspirin (Ecotrin Tab) 81 mg DAILY PO 11/28/16 09:00 12/28/16 08:59 12/04/16 08:31 81 MG Atorvastatin Calcium (Lipitor Tab) 40 mg DAILY PO 11/28/16 09:00 12/28/16 08:59 12/04/16 08:31 40 MG Clopidogrel Bisulfate (plAVix TAB) 75 mg DAILY PO 11/28/16 09:00 12/28/16 08:59 12/04/16 08:31 75 MG Finasteride (Proscar Tab) 5 mg DAILY PO 11/28/16 09:00 12/28/16 08:59 12/04/16 08:32 5 MG Gabapentin (Neurontin Tab) 600 mg TID PO 11/27/16 21:00 12/27/16 20:59 12/04/16 08:32 600 MG Oxcarbazepine (Trileptal Tab) 300 mg BID PO 11/27/16 21:00 12/27/16 20:59 12/04/16 08:31 300 MG Pramipexole Dihydrochloride (miraPEX TAB) 0.5 mg HS PO 11/27/16 21:00 12/27/16 20:59 12/03/16 20:53 0.5 MG Ranitidine HCl (zANTac TAB) 150 mg DAILY PO 11/28/16 09:00 12/28/16 08:59 12/04/16 08:32 150 MG Senna (Senokot Tab) 8.6 mg BID PO 11/27/16 21:00 12/27/16 20:59 12/04/16 08:31 8.6 MG Tamsulosin HCl (Flomax Cap) 0.4 mg HS PO 11/27/16 21:00 12/27/16 20:59 12/03/16 20:54 0.4 MG Tiotropium [place] (Spiriva Handihaler Inhaler) 1 puff DAILY INH 11/28/16 09:00 12/28/16 08:59 12/04/16 08:32 1 PUFF Miscellaneous Information (Order Awaiting Action) 1 ea QS N/A 11/28/16 08:00 12/28/16 07:59 Heparin Sodium (Porcine) (Heparin Sq 5000 Unit/0.5ml) 5,000 unit Q8 SQ 11/27/16 22:00 12/27/16 21:59 12/04/16 05:44 5,000 UNIT Acetaminophen (Tylenol Tab) 650 mg Q4H PRN PO 11/27/16 20:00 12/27/16 19:59 12/02/16 08:16 650 MG Al Hydrox/Mg Hydrox/Simethicone (Maalox Max Susp) 15 ml Q4H PRN PO 11/27/16 20:00 12/27/16 19:59 Magnesium Hydroxide (Milk Of Magnesia Susp) 30 ml Q12H PRN PO 11/27/16 20:00 12/27/16 19:59 Ondansetron HCl (Zofran Inj) 4 mg Q6H PRN IV 11/27/16 20:00 12/27/16 19:59 Polyethylene (Miralax Powder Packet) 17 gm DAILY PRN PO 11/27/16 20:00 12/27/16 19:59 Morphine Sulfate (MoRPHine SULFATE INJ) 4 mg Q3H PRN IV 11/27/16 20:15 12/11/16 20:14 12/04/16 00:21 4 MG Divalproex Sodium (Depakote Extended Rel Tab) 250 mg HS PO 11/28/16 21:00 12/28/16 20:59 12/03/16 20:53 250 MG Duloxetine HCl (Cymbalta Cap) 30 mg BID PO 11/28/16 21:00 12/28/16 20:59 12/04/16 08:31 30 MG Haloperidol (Haldol Tab) 2 mg Q6H PRN PO 11/28/16 20:00 12/28/16 19:59 12/03/16 23:58 2 MG Lorazepam (Ativan Inj) 1 mg Q4H PRN IV 11/29/16 16:45 12/29/16 16:44 Haloperidol Lactate (Haldol Inj) 5 mg BID PRN IM 12/03/16 15:30 01/02/17 15:29 (Wendy Appiah, PA-C) Objective Vital Signs Date Time Temp Pulse Resp B/P Pulse Ox O2 Delivery O2 Flow Rate FiO2 12/04/16 08:00 96 Nasal Cannula 2.0 12/04/16 06:59 36.8 82 18 149/76 96 Nasal Cannula 2.0 12/04/16 00:00 Nasal Cannula 3.0 12/03/16 23:41 36.8 79 20 124/76 95 Nasal Cannula 2.0 12/03/16 16:00 Nasal Cannula 3.0 12/03/16 15:04 36.8 106 16 109/71 95 Room Air (Wendy Appiah, PA-C) Physical Exam General Appearance: no apparent distress Eyes: normal inspection, PERRL ENT: hearing grossly normal Neck: supple Respiratory/Chest: lungs clear, no respiratory distress, no accessory muscle use, + decreased breath sounds (throughout) Cardiovascular: regular rate, rhythm Abdomen: normal bowel sounds, non tender, soft Extremities: no pedal edema, no calf tenderness, + swelling (L thumb with noted swelling and warmth; decreased range of motion ) Neurologic/Psychiatric: alert, normal mood/affect, + disoriented Skin: normal color, warm/dry, no rash (Wendy Appiah, PA-C) Laboratory Results Last 24 Hours Test 12/04/16 06:39 12/04/16 11:07 White Blood Count 10.08 K/uL Red Blood Count 4.52 M/uL Hemoglobin 12.6 g/dL Hematocrit 39.1 % Mean Corpuscular Volume 86.5 fL Mean Corpuscular Hemoglobin 27.9 pg Mean Corpuscular Hemoglobin Concent 32.2 g/dl Platelet Count 234 K/uL Mean Platelet Volume 8.8 fL Neutrophils (%) (Auto) 72.0 % Lymphocytes (%) (Auto) 7.9 % Monocytes (%) (Auto) 16.6 % Eosinophils (%) (Auto) 2.0 % Basophils (%) (Auto) 0.2 % Neutrophils # (Auto) 7.26 K/uL Lymphocytes # (Auto) 0.80 K/uL Monocytes # (Auto) 1.67 K/uL Eosinophils # (Auto) 0.20 K/uL Basophils # (Auto) 0.02 K/uL RDW Standard Deviation 63.9 fL RDW Coefficient of Variation 20.0 % Immature Granulocyte % (Auto) 1.3 % Immature Granulocyte # (Auto) 0.13 K/uL Hypersegmented Polys 1+ Large Platelets 1+ Anisocytosis PRESENT Sodium Level 138 mmol/L Potassium Level 4.1 mmol/L Chloride Level 102 mmol/L Carbon Dioxide Level 30 mmol/L Anion Gap 6.0 mmol/L Blood Urea Nitrogen 10 mg/dl Creatinine 0.81 mg/dl Est Creatinine Clear Calc Drug Dose 75.2 ml/min Estimated GFR () 98.7 Estimated GFR (Non- 85.1 BUN/Creatinine Ratio 11.9 Random Glucose 101 mg/dl Calcium Level 8.8 mg/dl Chemistry Specimen Hemolysis (Wendy Appiah, PA-C) Assessment and Plan 75 y/o male with a history CAD, 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 The patient was found by his cousin lethargic and with empty pillboxes. The cousin called the patient's home health agency who is nurse then sent the patient to the hospital. It unclear if the patient overdosed on his medications/which medications. 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 Superimposed on Dementia: - Per cousin and Heme/Onc who follows patient - he has progressively had memory/ confusion issues - will confirm baseline mentation when family arrives - MRI Combo - pending - awaiting questionnaire from family member/POA - Repeat Head CT - evidence of stable small vessel ischemic changes but no acute findings suggestive of CVA - Haldol 5 mg IM PRN and 2 mg po Q6H PRN - Psychiatry following - recommendations reviewed - avoid benzos but be mindful of withdrawal symptoms - none documented - PRN medications available - Neurology following - recommendations reviewed - no further workup/treatment at this time for dementia L thumb discomfort, ?gout vs infectious process vs arthritic pain: - Check uric acid- denies h/o gout - IV Toradol 15 mg x1 dose - Colchicine 1.2 mg x1, then 1 hr later 0.6 mg x1 Mechanical Fall on 11/30: No imaging warranted at this time - have patient ring for assistance, bed alarm, and fall precautions 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 - Liver Mets - Prophylactic Cranial Radiation- STABLE: - Heme/Onc - abdominal imaging performed with no hepatic lesions appreciated - signed off COPD- STABLE: - On chronic O2 at home - Continue Spiriva - Breo Ellipta non-formulary Oral Candidiasis: RESOLVED - Diflucan x 3 Days Completed CAD- STABLE: ASA 81 mg daily, Plavix 75 mg daily, and Lipitor 40 mg daily Anxiety/Depression/History of Seizures- STABLE: Cymbalta 30 mg PO BID, Depakote 250 mg daily and Trileptal 300 mg BID, Gabapentin 600 mg TID BPH: Flomax 0.4 HS GI Prophylaxis: Zantac, Maalox PRN, IV Zofran PRN, Colace and/or Milk of Mag PRN DVT Prophylaxis: Heparin 5000 units SC q8h Code Status: FULL RESUSCITATION Dispo: Medically optimal for D/C pending placement (Wendy Appiah, PA-C) i personally examined pt and verified all guevara points w Daphne Appiah PAC feeling better w thumb - pt seen after toradol given. no other acute complaints. target for placement issues. ros otherwise negative except for as above vitals noted nad L thumb dull erythema mildly tender but much improved compared to Td's descriptions thumb pain - gout vs severe OA flare - agree w management (especially w acuity most c/w gout)- continue to follow - doesn't appear infectious delirium on dementia - yesterday's worsening - ?likely due to gout starting to act up but he was unable to voice it until things became totally evident. otherwise as above (Maldonado Hairston D.O.)
[2016-12-04] MEDS ORDERED: COLCHICINE 0.6 MG TAB PO ONE ×2 (13:30→14:30)
[2016-12-04 15:40] VITALS: BP 105/66; PULSE 80; TEMP 36.5; O2SAT 96
[2016-12-04] MEDS: PRAMIPEXOLE DIHYDROCHLORIDE 0.5 MG TAB PO SCH (21:07)
[2016-12-04] MEDS: TAMSULOSIN HCL 0.4 MG CAP PO SCH (21:08)
[2016-12-04] MEDS: DIVALPROEX 250 MG EXTENDED REL TAB PO SCH (21:09)
[2016-12-04 23:02] VITALS: BP 133/58; PULSE 74; TEMP 36.8; O2SAT 100
[2016-12-05] MEDS: MoRPHine SULFATE 4 MG/ML 1 ML CARP\\VIAL IV PRN ×2 (00:59→21:01)
[2016-12-05] MEDS: HEPARIN SOD 5000 UNIT/0.5 ML CARP SQ SCH ×3 (05:33→21:05)
[2016-12-05 07:21] VITALS: BP 107/61; PULSE 83; TEMP 36.6; O2SAT 95
[2016-12-05 08:00] VITALS: O2SAT 96
[2016-12-05] MEDS: ASPIRIN 81 MG ECTAB PO SCH (09:29)
[2016-12-05] MEDS: GABAPENTIN 600 MG TAB PO SCH ×3 (09:29→21:05)
[2016-12-05] MEDS: FINASTERIDE 5 MG TAB PO SCH (09:29)
[2016-12-05] MEDS: SENNA 8.6 MG TAB PO SCH ×2 (09:29→21:05)
[2016-12-05] MEDS: ATORVASTATIN 40 MG TAB PO SCH (09:29)
[2016-12-05] MEDS: RANITIDINE HCL 150 MG TAB PO SCH (09:29)
[2016-12-05] MEDS: DULOXETINE (CYMBALTA) 30 MG CAP PO SCH ×2 (09:29→21:03)
[2016-12-05] MEDS: CLOPIDOGREL BISULFATE 75 MG TAB PO SCH (09:29)
[2016-12-05] MEDS: OXCARBAZEPINE 150 MG TAB PO SCH ×2 (09:30→21:05)
[2016-12-05] MEDS: TIOTROPIUM BROMIDE 5 PUFF/90 MCG INH INH SCH (14:29)
[2016-12-05 15:05] VITALS: BP 123/73; PULSE 79; TEMP 37; O2SAT 96
--- NOTE | 2016-12-05 15:43 | Progress Note ---
Subjective Date of Service: Dec 05, 2016. Subjective Pt evaluation today including: conversation w/ patient, physical exam, chart review, lab review, review of inpatient medication list feeling better w thumb - still a little swollen but not nearly as painful no other complaints waiting on placement, HPI and ROS otherwise negative except for as above Problem List Medical Problems: (1) Change in mental status Status: Acute (2) Fall Status: Acute (3) Head injury Status: Acute (4) Intractable pain Status: Acute (5) Leg swelling Status: Acute (6) Leukocytosis Status: Acute (7) Pyelonephritis Status: Acute (8) Right flank pain Status: Acute (9) Thoracolumbar back pain Status: Acute (10) Vertebral fracture Status: Acute Review of Systems Respiratory: No shortness of breath Cardiac: No chest pain Abdomen: No pain, No nausea Musculoskeletal: + see HPI ros otherwise negaitve excpt for as above Objective Vital Signs Date Time Temp Pulse Resp B/P (MAP) Pulse Ox O2 Delivery O2 Flow Rate FiO2 12/05/16 15:05 37.0 79 16 123/73 (90) 96 Nasal Cannula 4.0 12/05/16 08:00 96 Nasal Cannula 2.0 12/05/16 07:21 36.6 83 16 107/61 (76) 95 Nasal Cannula 4.0 12/05/16 00:00 Nasal Cannula 3.0 12/04/16 23:02 36.8 74 18 133/58 (83) 100 Nasal Cannula 3.0 12/04/16 20:00 Nasal Cannula 3.0 12/04/16 16:00 Nasal Cannula 3.0 Physical Exam General Appearance: no apparent distress Eyes: EOMI ENT: hearing grossly normal Neck: trachea midline Respiratory/Chest: no respiratory distress, no accessory muscle use Extremities: normal range of motion, + pertinent finding (thumb MP still swollen but nontender not hot no painful ROM PROM or AROM, does not feel restricted) Neurologic/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 The patient was found by his cousin lethargic and with empty pillboxes. The cousin called the patient's home health agency who is nurse then sent the patient to the hospital. It unclear if the patient overdosed on his medications/which medications. 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 Superimposed on Dementia: - Per cousin and Heme/Onc who follows patient - he has progressively had memory/ confusion issues - MRI Combo - due to uncertainty about prior metal and no urgency in getting this done - can be pursued either later this stay if information becomes available or as outpt - Repeat Head CT --> evidence of stable small vessel ischemic changes but no acute findings suggestive of CVA - Haldol 5 mg IM PRN and 2 mg po Q6H PRN - Psychiatry following - recommendations reviewed - avoid benzos but be mindful of withdrawal symptoms - none documented - PRN medications available - Neurology following - recommendations reviewed - no further workup/treatment at this time for dementia L thumb discomfort, gout most likely - improving. no further treatment needed at this time Mechanical Fall on 11/30: appearing OK 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 - Liver Mets - Prophylactic Cranial Radiation- STABLE: - Heme/Onc - abdominal imaging performed with no hepatic lesions appreciated - signed off COPD- STABLE: - On chronic O2 at home - Continue Spiriva - Breo Ellipta non-formulary -no sx no sob Oral Candidiasis: RESOLVED - Diflucan x 3 Days Completed CAD- STABLE: ASA 81 mg daily, Plavix 75 mg daily, and Lipitor 40 mg daily Anxiety/Depression/History of Seizures- STABLE: Cymbalta 30 mg PO BID, Depakote 250 mg daily and Trileptal 300 mg BID, Gabapentin 600 mg TID BPH: Flomax 0.4 HS GI Prophylaxis: Zantac, Maalox PRN, IV Zofran PRN, Colace and/or Milk of Mag PRN DVT Prophylaxis: Heparin 5000 units SC q8h Code Status: FULL RESUSCITATION Dispo: Medically optimal for D/C pending placement Continued [facility] stay due to: home environment unsafe for pt Discharge planning: care home facility
[2016-12-05] MEDS: PRAMIPEXOLE DIHYDROCHLORIDE 0.5 MG TAB PO SCH (21:03)
[2016-12-05] MEDS: TAMSULOSIN HCL 0.4 MG CAP PO SCH (21:03)
[2016-12-05] MEDS: DIVALPROEX 250 MG EXTENDED REL TAB PO SCH (21:04)
[2016-12-05 23:00] VITALS: BP 108/58; PULSE 70; TEMP 36.8; O2SAT 90
[2016-12-06] MEDS: MoRPHine SULFATE 4 MG/ML 1 ML CARP\\VIAL IV PRN (01:14)
[2016-12-06] MEDS: HEPARIN SOD 5000 UNIT/0.5 ML CARP SQ SCH ×2 (05:35→15:17)
[2016-12-06 07:37] VITALS: BP 108/67; PULSE 94; TEMP 36.5; O2SAT 92
[2016-12-06 08:00] VITALS: O2SAT 92
[2016-12-06] MEDS: RANITIDINE HCL 150 MG TAB PO SCH (08:54)
[2016-12-06] MEDS: SENNA 8.6 MG TAB PO SCH (08:54)
[2016-12-06] MEDS: CLOPIDOGREL BISULFATE 75 MG TAB PO SCH (08:54)
[2016-12-06] MEDS: ATORVASTATIN 40 MG TAB PO SCH (08:54)
[2016-12-06] MEDS: ASPIRIN 81 MG ECTAB PO SCH (08:54)
[2016-12-06] MEDS: OXCARBAZEPINE 150 MG TAB PO SCH (08:55)
[2016-12-06] MEDS: GABAPENTIN 600 MG TAB PO SCH ×2 (08:55→15:17)
[2016-12-06] MEDS: DULOXETINE (CYMBALTA) 30 MG CAP PO SCH (08:55)
[2016-12-06] MEDS: FINASTERIDE 5 MG TAB PO SCH (08:55)
--- NOTE | 2016-12-06 10:38 | Hospitalist Progress Note ---
Hospitalist Progress Note Date of Service Dec 06, 2016. Subjective Pt evaluation today including: conversation w/ patient, physical exam, chart review, lab review, review of inpatient medication list Voiding: no voiding problems, no incontinence Patient states he is feeling well this AM. He is eating and drinking OK. L thumb discomfort is continuing to improve. Patient denies any fever, chills, sweats, lightheadedness, dizziness, vision changes, CP, palpitations, edema, SOB , wheezing, cough, abdominal pain, nausea, vomiting, diarrhea, urinary symptoms , melena, numbness/tingling, weakness, muscle/joint pain, anxiety/depression, active bleeding, or new skin discoloration/changes. Medications Current Inpatient Medications Medications (Trade) Dose Ordered Sig/Imtiaz Route Start Time Stop Time Status Last Admin Dose Admin Aspirin (Ecotrin Tab) 81 mg DAILY PO 11/28/16 09:00 12/28/16 08:59 12/06/16 08:54 81 MG Atorvastatin Calcium (Lipitor Tab) 40 mg DAILY PO 11/28/16 09:00 12/28/16 08:59 12/06/16 08:54 40 MG Clopidogrel Bisulfate (plAVix TAB) 75 mg DAILY PO 11/28/16 09:00 12/28/16 08:59 12/06/16 08:54 75 MG Finasteride (Proscar Tab) 5 mg DAILY PO 11/28/16 09:00 12/28/16 08:59 12/06/16 08:55 5 MG Gabapentin (Neurontin Tab) 600 mg TID PO 11/27/16 21:00 12/27/16 20:59 12/06/16 08:55 600 MG Oxcarbazepine (Trileptal Tab) 300 mg BID PO 11/27/16 21:00 12/27/16 20:59 12/06/16 08:55 300 MG Pramipexole Dihydrochloride (miraPEX TAB) 0.5 mg HS PO 11/27/16 21:00 12/27/16 20:59 12/05/16 21:03 0.5 MG Ranitidine HCl (zANTac TAB) 150 mg DAILY PO 11/28/16 09:00 12/28/16 08:59 12/06/16 08:54 150 MG Senna (Senokot Tab) 8.6 mg BID PO 11/27/16 21:00 12/27/16 20:59 12/06/16 08:54 8.6 MG Tamsulosin HCl (Flomax Cap) 0.4 mg HS PO 11/27/16 21:00 12/27/16 20:59 12/05/16 21:03 0.4 MG Tiotropium [place] (Spiriva Handihaler Inhaler) 1 puff DAILY INH 11/28/16 09:00 12/28/16 08:59 12/05/16 14:29 1 PUFF Miscellaneous Information (Order Awaiting Action) 1 ea QS N/A 11/28/16 08:00 12/28/16 07:59 Heparin Sodium (Porcine) (Heparin Sq 5000 Unit/0.5ml) 5,000 unit Q8 SQ 11/27/16 22:00 12/27/16 21:59 12/06/16 05:35 5,000 UNIT Acetaminophen (Tylenol Tab) 650 mg Q4H PRN PO 11/27/16 20:00 12/27/16 19:59 12/02/16 08:16 650 MG Al Hydrox/Mg Hydrox/Simethicone (Maalox Max Susp) 15 ml Q4H PRN PO 11/27/16 20:00 12/27/16 19:59 Magnesium Hydroxide (Milk Of Magnesia Susp) 30 ml Q12H PRN PO 11/27/16 20:00 12/27/16 19:59 Ondansetron HCl (Zofran Inj) 4 mg Q6H PRN IV 11/27/16 20:00 12/27/16 19:59 Polyethylene (Miralax Powder Packet) 17 gm DAILY PRN PO 11/27/16 20:00 12/27/16 19:59 Morphine Sulfate (MoRPHine SULFATE INJ) 4 mg Q3H PRN IV 11/27/16 20:15 12/11/16 20:14 12/06/16 01:14 4 MG Divalproex Sodium (Depakote Extended Rel Tab) 250 mg HS PO 11/28/16 21:00 12/28/16 20:59 12/05/16 21:04 250 MG Duloxetine HCl (Cymbalta Cap) 30 mg BID PO 11/28/16 21:00 12/28/16 20:59 12/06/16 08:55 30 MG Haloperidol (Haldol Tab) 2 mg Q6H PRN PO 11/28/16 20:00 12/28/16 19:59 12/03/16 23:58 2 MG Lorazepam (Ativan Inj) 1 mg Q4H PRN IV 11/29/16 16:45 12/29/16 16:44 12/06/16 01:14 1 MG Haloperidol Lactate (Haldol Inj) 5 mg BID PRN IM 12/03/16 15:30 01/02/17 15:29 Objective Vital Signs Date Time Temp Pulse Resp B/P (MAP) Pulse Ox O2 Delivery O2 Flow Rate FiO2 12/06/16 07:37 36.5 94 18 108/67 (81) 92 Nasal Cannula 4.0 12/06/16 00:00 Nasal Cannula 3.0 12/05/16 23:00 36.8 70 19 108/58 (75) 90 Nasal Cannula 4.0 12/05/16 16:00 Nasal Cannula 3.0 12/05/16 15:05 37.0 79 16 123/73 (90) 96 Nasal Cannula 4.0 Physical Exam General Appearance: no apparent distress, + pertinent finding (O2 supplement on ) Eyes: normal inspection, PERRL ENT: hearing grossly normal Neck: supple Respiratory/Chest: lungs clear, no respiratory distress, no accessory muscle use, + decreased breath sounds (throughout) Cardiovascular: regular rate, rhythm Abdomen: normal bowel sounds, non tender, soft Extremities: no pedal edema, no calf tenderness, + swelling (mild L thumb swelling- improving; no warmth or erythema; limited ROM due to pain ) Neurologic/Psychiatric: alert, normal mood/affect, + disoriented Skin: normal color, warm/dry, no rash Assessment and Plan 75 y/o male with a history CAD, 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 The patient was found by his cousin lethargic and with empty pillboxes. The cousin called the patient's home health agency who is nurse then sent the patient to the hospital. It unclear if the patient overdosed on his medications/which medications. 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 Superimposed on Dementia: - Per cousin and Heme/Onc who follows patient - he has progressively had memory/ confusion issues - will confirm baseline mentation when family arrives - MRI Combo - pending - due to uncertainty about prior mental status, no urgency in getting this done - can be pursued either later this stay if information becomes available or as outpt - Repeat Head CT - evidence of stable small vessel ischemic changes but no acute findings suggestive of CVA - Haldol 5 mg IM PRN and 2 mg po Q6H PRN - Psychiatry following - recommendations reviewed - avoid benzos but be mindful of withdrawal symptoms - none documented - PRN medications available - Neurology following - recommendations reviewed - no further workup/treatment at this time for dementia L thumb discomfort, ?gout vs infectious process vs arthritic pain: - Uric acid WNL- denies h/o gout - IV Toradol 15 mg x1 dose + Colchicine 1.2 mg x1, then 1 hr later 0.6 mg x1- improvement in symptoms Mechanical Fall on 11/30: No imaging warranted at this time - have patient ring for assistance, bed alarm, and fall precautions 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 - Liver Mets - Prophylactic Cranial Radiation- STABLE: - Heme/Onc - abdominal imaging performed with no hepatic lesions appreciated - signed off COPD- STABLE: - On chronic O2 at home - Continue Spiriva - Breo Ellipta non-formulary Oral Candidiasis: RESOLVED - Diflucan x 3 Days Completed CAD- STABLE: ASA 81 mg daily, Plavix 75 mg daily, and Lipitor 40 mg daily Anxiety/Depression/History of Seizures- STABLE: Cymbalta 30 mg PO BID, Depakote 250 mg daily and Trileptal 300 mg BID, Gabapentin 600 mg TID BPH: Flomax 0.4 HS GI Prophylaxis: Zantac, Maalox PRN, IV Zofran PRN, Colace and/or Milk of Mag PRN DVT Prophylaxis: Heparin 5000 units SC q8h Code Status: FULL RESUSCITATION Dispo: Medically optimal for D/C pending placement
--- NOTE | 2016-12-06 12:08 | Discharge Instructions ---
Discharge Instructions Date of Service Dec 06, 2016. Admission Reason for Admission: Intentional Overdose Of Drug In Tablet Form Discharge Discharge Diagnosis / Problem: Toxic Encephalopathy due to Unintentional Overdose Discharge Goals Goal(s): Decrease discomfort, Improve function, Increase independence Activity Recommendations Activity Level: Assistance Required Therapies: Physical Therapy, Occupational Therapy . 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 Superimposed on Dementia: - Per cousin and Heme/Onc who follows patient - he has progressively had memory/ confusion issues - will confirm baseline mentation when family arrives - MRI Combo - pending - due to uncertainty about prior mental status, no urgency in getting this done - can be pursued either later this stay if information becomes available or as outpt - Repeat Head CT - evidence of stable small vessel ischemic changes but no acute findings suggestive of CVA - Haldol 5 mg IM BID PRN (not needed during stay) and 2 mg po Q6H PRN - Psychiatry following - recommendations reviewed - avoid benzos but be mindful of withdrawal symptoms - none documented - PRN medications available - Neurology following - recommendations reviewed - no further workup/treatment at this time for dementia L thumb discomfort, ?gout vs infectious process vs arthritic pain: - Uric acid WNL- denies h/o gout - IV Toradol 15 mg x1 dose + Colchicine 1.2 mg x1, then 1 hr later 0.6 mg x1- improvement in symptoms Mechanical Fall on 11/30: No imaging warranted at this time - have patient ring for assistance, bed alarm, and fall precautions 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 - Liver Mets - Prophylactic Cranial Radiation- STABLE: - Heme/Onc - abdominal imaging performed with no hepatic lesions appreciated - signed off- continue f/u w/ Dr. Dooley COPD- STABLE: - On chronic O2 at home - Continue Spiriva - Breo Ellipta non-formulary Oral Candidiasis: RESOLVED - Diflucan x 3 Days Completed CAD- STABLE: ASA 81 mg daily, Plavix 75 mg daily, and Lipitor 40 mg daily Anxiety/Depression/History of Seizures- STABLE: Cymbalta 30 mg PO BID, Depakote 250 mg daily and Trileptal 300 mg BID, Gabapentin 600 mg TID BPH: Flomax 0.4 HS Code Status: FULL RESUSCITATION Dispo: [facility] involved as patient is not safe to live alone - was found with AMS and weekly pill container in front of him with all medications gone - possibly took weeks worth of medication Current Hospital Diet Patient's current hospital diet: Regular Diet Discharge Diet Recommended Diet: Regular Diet Pending Studies Studies pending at discharge: no Physician Orders On Transfer Special Precautions: Fall risk Dressing Changes: none IV Therapy: none Vital Signs: routine Additional Orders: Follow up with Oncology within 1 month Follow up with PCP after discharge from [facility] Discussion: Not Applicable Laboratory Results Last Resulted CBC 12/04/16 06:39 Red Blood Count 4.52, Mean Corpuscular Volume 86.5, Mean Corpuscular Hemoglobin 27.9, Mean Corpuscular Hemoglobin Concent 32.2, Mean Platelet Volume 8.8, Neutrophils (%) (Auto) 72.0, Lymphocytes (%) (Auto) 7.9, Monocytes (%) (Auto) 16.6, Eosinophils (%) (Auto) 2.0, Basophils (%) (Auto) 0.2, Neutrophils # (Auto ) 7.26, Lymphocytes # (Auto) 0.80, Monocytes # (Auto) 1.67, Eosinophils # (Auto ) 0.20, Basophils # (Auto) 0.02 Last Resulted BMP 12/04/16 06:39 Hemoglobin A1c Test 11/29/16 05:59 Range/Units Estimated Average Glucose 117 mg/dl Hemoglobin A1c 5.7 H 4.5-5.6 % Lipid Panel Test 11/29/16 05:59 Range/Units Triglycerides Level 150 0-150 mg/dl Cholesterol Level 148 0-200 mg/dl HDL Cholesterol 44 mg/dl Cholesterol/HDL Ratio 3.4 LDL Cholesterol, Calculated 74 mg/dl Medical Emergencies . Who to Call and When: Medical Emergencies: If at any time you feel your situation is an emergency, please call 911 immediately. . Non-Emergent Contact Non-Emergency issues call your: Primary Care Provider . . "Provider Documentation" section prepared by Wendy Appiah. . Core Measure Problem Core Measures: None
--- NOTE | 2016-12-06 12:18 | Discharge Summary ---
Discharge Summary Date of Service Dec 06, 2016. 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 Superimposed on Dementia L thumb discomfort, likely gout Mechanical Fall on 11/30 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 - Liver Mets - Prophylactic Cranial Radiation COPD Oral Candidiasis CAD Anxiety/Depression History of Seizures BPH Immunizations: Have You Had Influenza Vaccine: N/A Influenza Vaccine Date: Jul 07, 2009 History of Tetanus Vaccine?: Yes Tetanus Immunization Date: Jan 17, 2009 History of Pneumococcal: Yes Pneumococcal Date: Jan 17, 2011 History of Hepatitis B Vaccine: No Procedures: CT OF THE HEAD WITHOUT CONTRAST CLINICAL HISTORY: Altered mental status. Weakness. COMPARISON STUDY: Head CT October 30, 2015 and MRI of the brain September 30, 2016. CT DOSE: 729.78 mGycm TECHNIQUE: Helical axial images of the head were obtained without IV contrast. Automated exposure control was utilized for the study. FINDINGS: No acute intracranial hemorrhage, midline shift or mass effect is present. Ventricular system is stable. Basilar cisterns are patent. There are no extra axial collections. White matter hypodensity suggests small vessel disease. There are no findings to suggest acute dural sinus thrombosis or acute territorial infarct. 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 There are no significant calvarial abnormalities. Visualized portions of the sinuses and mastoid air cells are clear. IMPRESSION: 1. No acute intracranial findings. 2. 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 Electronically signed by: Suraj Calhoun M.D. 11/27/2016 6:22 PM Dictated Date/Time: 11/27/2016 6:16 PM The status of this report is Signed. Draft = Not yet reviewed or approved by Radiologist. Signed = Reviewed and approved by Radiologist CHEST ONE VIEW PORTABLE CLINICAL HISTORY: Altered mental status. Weakness. COMPARISON STUDY: Chest CT July 25, 2016 and chest radiograph November 20, 2016. FINDINGS: Left shoulder arthroplasty is incidentally noted. There is no pneumothorax or pleural effusion. There is no evidence of pulmonary edema. Lung volumes are diminished. Bibasilar opacities are present. IMPRESSION: Diminished lung volumes with bibasilar opacities which favor atelectasis over pneumonia. Electronically signed by: Suraj Calhoun M.D. 11/27/2016 6:08 PM Dictated Date/Time: 11/27/2016 6:06 PM The status of this report is Signed. Draft = Not yet reviewed or approved by Radiologist. Signed = Reviewed and approved by Radiologist. ABDOMEN COMPLETE (US) CLINICAL HISTORY: History of lung cancer with prior liver involvement now s/p tx COMPARISON STUDY: CT of the abdomen and pelvis July 25, 2016. FINDINGS: No hepatic lesions are identified by sonography. This study is mildly compromised by suboptimal penetration. There is no biliary ductal dilatation. The pancreatic body is normal. The head and tail are obscured. There are no gallstones. The right kidney measures 10.5 cm in maximal dimension and the left measures 10.7 cm. There is no hydronephrosis. The size of the spleen is at the upper limits of normal. No ascites is identified. Caliber of the abdominal aorta is normal. IMPRESSION: 1. No hepatic lesions identified. 2. No gallstones or biliary ductal dilatation. 3. No hydronephrosis. 4. Study mildly compromised by suboptimal penetration. Electronically signed by: Suraj Calhoun M.D. 11/29/2016 7:46 PM Dictated Date/Time: 11/29/2016 7:44 PM The status of this report is Signed. Draft = Not yet reviewed or approved by Radiologist. Signed = Reviewed and approved by Radiologist CT OF THE HEAD WITHOUT CONTRAST CLINICAL HISTORY: Altered mental status. Evaluate for cerebrovascular accident. COMPARISON STUDY: Head CT November 27, 2016. CT DOSE: 638.84 mGy.cm TECHNIQUE: Helical axial images of the head were obtained without IV contrast. Automated exposure control was utilized for the study. FINDINGS: No acute intracranial hemorrhage, midline shift or mass effect is present. Ventricular system is stable. Basilar cisterns are patent. There are no extra-axial collections. White matter hypodensities suggest small vessel disease. These are unchanged. There are no findings to suggest acute dural sinus thrombosis or acute territorial infarct. There are no significant calvarial abnormalities. Visualized portions of the sinuses and mastoid air cells are clear. IMPRESSION: No acute intracranial findings. Electronically signed by: Suraj Calhoun M.D. 12/01/2016 11:32 AM Dictated Date/Time: 12/01/2016 11:29 AM The status of this report is Signed. Draft = Not yet reviewed or approved by Radiologist. Signed = Reviewed and approved by Radiologist Consultations: Oncology Psychiatry Neurology (Wendy Appiah, [place]) Discharge Disposition: [facility] (Maldonado Hairston D.O.) Medication Reconciliation New Medications: Haloperidol (Haloperidol) 1 Mg Tab 2 MG PO Q6H PRN for Agitation for 14 Days, #112 TAB Continued Medications: Aspirin (Aspirin Chewable) 81 Mg Chew 81 MG PO DAILY Atorvastatin (Lipitor) 40 Mg Tab 40 MG PO DAILY, TAB Clopidogrel (Plavix) 75 Mg Tab 75 MG PO DAILY, TAB Divalproex Sodium (Depakote Er) 250 Mg Tab 1 TAB PO HS for 30 Days, #30 TAB 2 Refills Duloxetine HCl (Cymbalta) 30 Mg Cap 30 MG PO BID, CAP Finasteride (Finasteride) 5 Mg Tab 1 TAB PO DAILY Fluticasone Furoate-Vilanterol (Breo Ellipta) 1 Inh Inh 1 INHA INH DAILY Gabapentin (Neurontin) 100 Mg Cap 600 MG PO TID, CAP Ipratropium-Albuterol (Combivent Respimat) 1 Aer Aer 1 PUFFS INH QID, INH Lorazepam (Ativan) 0.5 Mg Tab 0.5 MG PO TID, TAB Magnesium Hydroxide (Milk Of Magnesia) 30 Ml Susp 30 ML PO DAILY PRN for Constipation, ML Oxcarbazepine (Trileptal) 300 Mg Tab 300 MG PO BID, TAB Oxygen (Oxygen) Gas 2 LITERS NA CONTINOUS for 365 Days, #1 Pramipexole Dihydrochloride (Pramipexole Dihydrochlori) 0.5 Mg Tab 0.5 MG PO HS Ranitidine (Zantac) 150 Mg Tab 150 MG PO DAILY, TAB Sennosides (Senexon) 8.6 Mg Tab 1-2 TAB PO BID, #120 Tamsulosin HCl (Tamsulosin HCl) 0.4 Mg Cap 1 TAB PO HS Tiotropium [place] (Spiriva Handihaler) 30 Puff/540 Mcg Aerp 1 CAP INH DAILY Discontinued Medications: Guaifenesin (Guaifenesin) 100 Mg/5 Ml Syp 20 Q4 PRN for Cough Hydroxyzine Pamoate (Vistaril) 25 Mg Cap 1 CAP PO HS PRN for Insomnia for 30 Days, CAP 1 Refill Ranitidine Hcl (Acid [employer] Day Worker) 75 Mg Tab 1 TAB PO Q12 Trazodone Hcl (Trazodone) 50 Mg Tab 50 MG PO, TAB Discharge Exam Review of Systems: Constitutional: No fever, No chills, No sweats, No weakness, No fatigue Respiratory: No cough, No shortness of breath, No hemoptysis Cardiovascular: No chest pain, No edema, No palpitations Abdomen: No pain, No nausea, No vomiting, No diarrhea, No constipation Musculoskeletal: + joint pain (L thumb), No muscle pain, No swelling, No calf pain Genitourinary - Male: No hematuria, No dysuria Neurologic: No weakness, No numbness/tingling Psychiatric: No depression symptoms, No anxiety Hematologic / Lymphatic: No abnormal bleeding/bruising Integumentary: No rash, No itch, No new/changing skin lesions Physical Exam: General Appearance: no apparent distress, + pertinent finding (O2 supplement on ) Eyes: normal inspection, PERRL ENT: hearing grossly normal Neck: supple Respiratory/Chest: lungs clear, no respiratory distress, no accessory muscle use, + decreased breath sounds (throughout) Cardiovascular: regular rate, rhythm Abdomen / GI: normal bowel sounds, non tender, soft Extremities: no calf tenderness, no pedal edema, + swelling (mild L thumb swelling- improving; no warmth or erythema; limited ROM due to pain) Neurologic/Psychiatric: alert, normal mood/affect, + disoriented Skin: normal color, warm/dry, no rash (Wendy Appiah, PA-C) Physical Exam: General Appearance: no apparent distress (Maldonado Hairston, Kev.Gustavo) Hospital Course 75 y/o male with a history CAD, 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 The patient was found by his cousin lethargic and with empty pillboxes. The cousin called the patient's home health agency who is nurse then sent the patient to the hospital. It unclear if the patient overdosed on his medications/which medications. 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 Superimposed on Dementia: - Per cousin and Heme/Onc who follows patient - he has progressively had memory/ confusion issues - MRI Combo - pending - due to uncertainty about prior mental status, no urgency in getting this done - can be pursued either later this stay if information becomes available or as outpt - Repeat head CT - evidence of stable small vessel ischemic changes but no acute findings suggestive of CVA - Haldol 5 mg IM PRN (did not use) and 2 mg po Q6H PRN - Psychiatry following - recommendations reviewed - avoid benzos but be mindful of withdrawal symptoms - none documented - PRN medications available - Neurology following - recommendations reviewed - no further workup/treatment at this time for dementia L thumb discomfort, ?gout vs infectious process vs arthritic pain- IMPROVING: - Uric acid WNL- denies h/o gout - Treated w/ IV Toradol 15 mg x1 dose + Colchicine 1.2 mg x1, then 1 hr later 0.6 mg x1- improvement in symptoms Mechanical Fall on 11/30: No imaging warranted at this time - have patient ring for assistance, bed alarm, and fall precautions 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 - Liver Mets - Prophylactic Cranial Radiation- STABLE: - Heme/Onc - abdominal imaging performed with no hepatic lesions appreciated - signed off- f/u outpatient COPD- STABLE: - On chronic O2 at home- 2L - Continue Spiriva - Breo Ellipta non-formulary Oral Candidiasis: RESOLVED - Diflucan x 3 Days Completed CAD- STABLE: ASA 81 mg daily, Plavix 75 mg daily, and Lipitor 40 mg daily Anxiety/Depression/History of Seizures- STABLE: Cymbalta 30 mg PO BID, Depakote 250 mg daily and Trileptal 300 mg BID, Gabapentin 600 mg TID BPH: Flomax 0.4 HS GI Prophylaxis: Zantac, Maalox PRN, IV Zofran PRN, Colace and/or Milk of Mag PRN DVT Prophylaxis: Heparin 5000 units SC q8h Code Status: FULL RESUSCITATION Dispo: Discharge to [facility] Total Time Spent: Greater than 30 minutes This includes examination of the patient, discharge planning, medication reconciliation, and communication with other providers. (Wendy Appiah ., PA-C) i personally examined pt and verified all guevara points kathryn Appiah PAC feeling better thumb better for [facility] today vitals noted nad thumb improving, no pallor or icterus, good spirits progressive dementia - for SNF placement gout thumb - improved stable for transfer to snf (Maldonado Hairston D.O.) Discharge Instructions Please refer to the electronic Patient Visit Report (Discharge Instructions) for additional information. (Wendy Appiah PA-C) Follow-Up Follow-up with [facility] provider within 24-48 hrs Follow-up with PCP within 1 week after discharge from [facility] Follow-up with Oncology in 1 month Please follow-up/keep all of your subspecialty appointments (Wendy Appiah PA-C) Additional Copies To Bev Ac
[2016-12-06 15:17] VITALS: BP 126/78; PULSE 91; TEMP 36.6; O2SAT 100
--- NOTE | 2016-12-06 15:49 | Psychiatric Progress Notes ---
Psychiatric Progress Note Date of Service Dec 06, 2016. Notes ID: Patient reviewed with liaison nurse. Seen as f/u to initial consult for delirium/dementia. CC: "I like it here", endorses liking the attention HPI: essentially awaiting placement at this time. Has made some inappropriate comments to female staff but readily redirectible and not combative by any means. ROS: denied physical complaints at this time MSE: alert, oriented to self, thoughts concrete, bright affect, denied SI/HI/ da silva. Imp: delirium s/p ingestion that was due to confusion/poor memory, no evidence of suicide attempt. Plan: patient is psychiatrically stable for discharge to recommended level of nursing care.
== END 2016-12-06 17:00 | DRG 917 ==
LOC: ENRESERVTM → ENRESERVDT → EDBD 17:24 → C.EDB 17:25 → C.2T 19:52 → EDBEDREQ 19:55 → C.2T 11-28 16:14 → C.MS2W 12-01 13:55
PROVIDERS: ADMIT Internal Medicine; ATTEND Family Medicine
DX: T50.901A Poisoning by unspecified drugs, medicaments and biological substances, accidental (unintentional), initial encounter (principal); G92 Toxic encephalopathy; C34.92 Malignant neoplasm of unspecified part of left bronchus or lung; B37.0 Candidal stomatitis; C78.7 Secondary malignant neoplasm of liver and intrahepatic bile duct; J44.9 Chronic obstructive pulmonary disease, unspecified; I25.10 Atherosclerotic heart disease of native coronary artery without angina pectoris; F32.9 Major depressive disorder, single episode, unspecified; E11.9 Type 2 diabetes mellitus without complications; K21.9 Gastro-esophageal reflux disease without esophagitis; M1A.3 Chronic gout due to renal impairment; Z96.649 Presence of unspecified artificial hip joint; N40.0 Benign prostatic hyperplasia without lower urinary tract symptoms; Z79.82 Long term (current) use of aspirin; Z92.3 Personal history of irradiation; G89.3 Neoplasm related pain (acute) (chronic); M54.17 Radiculopathy, lumbosacral region; M48.06 Spinal stenosis, lumbar region; Z87.891 Personal history of nicotine dependence; F03.90 Unspecified dementia, unspecified severity, without behavioral disturbance, psychotic disturbance, mood disturbance, and anxiety; Y92.009 Unspecified place in unspecified non-institutional (private) residence as the place of occurrence of the external cause

== ENCOUNTER 2016-12-25 12:09 | Inpatient (IN) | payer OTHER ==
[~2016-12-25] VITALS: Ht 182.9 cm; Wt 87.8 kg
[~2016-12-25 12:09] MED LIST changes: -GUAI100S16; +HLD1 PO; -HYDR25CA PO; -OXYC-57 PO; -RANI1TAB13 PO; -TRAZ50TA35 PO
[2016-12-25] MEDS ORDERED: PIPERACILLIN/TAZOBACTAM 4.5 GM/100ML D5W IV STA (12:13)
[2016-12-25] MEDS ORDERED: SODIUM CHLORIDE 0.9% 1000ML 1,000 ML IV STA ×2 (12:13→13:28)
[2016-12-25] MEDS ORDERED: SODIUM CHLORIDE 0.9% 500ML 500 ML IV STA (12:13)
[2016-12-25] MEDS ORDERED: DAPTOmycin IV 500 MG in SODIUM CHLORIDE 0.9% 50ML 50 ML IV STA (12:13)
--- NOTE | 2016-12-25 12:15 | EMERGENCY ROOM VISIT NOTE ---
History Report prepared by Maria Elena: Risa Luna Under the Supervision of: Dr. Jake De Leon M.D. First contact with patient: 12:06 Chief Complaint: FEVER Stated Complaint: SEPSIS History of Present Illness The patient is a 76 year old male who presents to the Emergency Room with complaints of a constant fever beginning earlier today. Per EMS, the patient is from [facility]. Yesterday he was diagnosed with E Coli UTI and put on Rocephin. This morning he was reported to be at his normal mental status. As the day continued he became febrile, confused, and short of breath. While en route he was febrile, hypoxic, alerted and unable to respond. He received IV fluids en route and a sepsis alter was called based on reported symptoms. Source of History: EMS Onset: earlier today Position: other (global) Quality: other (fever) Timing: constant Associated Symptoms: + SOB Note: The patient is confused, hypoxic, alerted and unable to respond. Review of Systems See HPI for pertinent positives & negatives. A total of 10 systems reviewed and were otherwise negative. Past Medical & Surgical Medical Problems: (1) ASTHMA, UNSPECIFIED (2) CHRONIC OBSTRUCTIVE ASTHMA, NOS (3) CHRONIC PAIN SYNDROME (4) CORONARY ATHEROSCLEROSIS OF [place] CORONARY VESSEL (5) DEPRESSIVE DISORDER NEC (6) DIAB W NEURO MANIFEST, TYPE II OR UNSPEC TYPE, NOT UNCNTRLD (7) DIVERTICULOSIS COLON (W/O MENT OF HEMORRHAGE) (8) ESOPHAGEAL REFLUX (9) HIP JOINT REPLACEMENT STATUS (10) HYPERTROPHY (BENIGN) OF PROSTATE W/O URINARY OBST & OTH LUTS (11) Intentional overdose of drug in tablet form (12) IRRITABLE BOWEL SYNDROME (13) Lumbar compression fracture (14) LUMBOSACRAL NEURITIS NOS (15) NEUROPATHY IN DIABETES (16) PURE HYPERCHOLESTEROLEM (17) SPINAL STENOSIS, LUMBAR REG, W/OUT NEUROGENIC CLAUDICATION (18) TOBACCO USE DISORDER Family History No pertinent family history Social History Smoking Status: Former Smoker Marital Status: Housing Status: group home Occupation Status: retired Current/Historical Medications Scheduled Aspirin (Aspirin Chewable), 81 MG PO DAILY Atorvastatin (Lipitor), 40 MG PO DAILY Bisacodyl (Dulcolax), 1 SUPP CO Q3DAYS Clopidogrel (Plavix), 75 MG PO DAILY Divalproex Sodium (Depakote Er), 250 MG PO HS Duloxetine HCl (Cymbalta), 30 MG PO BID Finasteride (Finasteride), 1 TAB PO DAILY Fluticasone Furoate-Vilanterol (Breo Ellipta), 1 INHA INH DAILY Gabapentin (Neurontin), 600 MG PO TID Home O2 Therapy (Oxygen), 2 LITERS NA CONTINOUS Ipratropium-Albuterol (Combivent Respimat), 1 PUFFS INH QID Lorazepam (Ativan), 0.5 MG PO TID Oxcarbazepine (Trileptal), 300 MG PO BID Pramipexole Dihydrochloride (Pramipexole Dihydrochlori), 0.5 MG PO HS Ranitidine (Zantac), 150 MG PO DAILY Sennosides (Senexon), 1-2 TAB PO BID Sodium Phosphate/Biphosphate (Fleet Enema), 1 EA CO Q4DAYS Tamsulosin HCl (Tamsulosin HCl), 0.4 MG PO HS Tiotropium [place] (Spiriva Handihaler), 1 CAP INH DAILY Scheduled PRN Acetaminophen (Tylenol), 650 MG PO Q6H PRN for Pain or Fever Haloperidol (Haldol), 2 MG PO Q6H PRN for Anxiety/Agitation Magnesium Hydroxide (Milk Of Magnesia), 30 ML PO DAILY PRN for Constipation Oxycodone Ir (Roxicodone Ir), 5 MG PO BID PRN for Pain Miscellaneous Medications Ceftriaxone Sod (Rocephin), 1 GM IM Allergies Coded Allergies: No Known Allergies (Unverified , 11/20/16) Physical Exam Vital Signs Date Time Temp Pulse Resp B/P (MAP) Pulse Ox O2 Delivery O2 Flow Rate FiO2 12/25/16 14:41 37.9 12/25/16 14:35 104 47 100 12/25/16 14:30 152/109 12/25/16 14:20 107 31 100 12/25/16 14:16 130/75 12/25/16 14:05 109 27 100 12/25/16 14:00 142/101 12/25/16 13:50 111 27 100 12/25/16 13:45 167/88 12/25/16 13:35 110 32 100 12/25/16 13:30 158/87 12/25/16 13:24 109 30 90 12/25/16 13:15 172/100 12/25/16 13:09 108 37 12/25/16 13:00 164/92 12/25/16 12:54 114 30 12/25/16 12:52 115 20 161/92 99 Non-Rebreather 12/25/16 12:46 161/92 12/25/16 12:39 124 32 12/25/16 12:29 176/141 12/25/16 12:24 118 27 99 12/25/16 12:17 38.8 120 20 171/100 99 Non-Rebreather 10.0 Physical Exam GENERAL: Patient is obtunded, altered, chronically unwell appearing. HEENT: No acute trauma, normocephalic atraumatic, mucous membranes moist, no nasal congestion, no scleral icterus. NECK: No stridor, no adenopathy, no meningismus, trachea is midline. LUNGS: Mild crackles bilateral in lower lobes, shallow respirations. HEART: Tachycardic rate and regular rhythm. No murmurs, rubs, gallops appreciated. ABDOMEN: Soft, nontender, bowel sounds positive, no masses appreciated, no peritonitis. BACK: No midline tenderness, no CVA tenderness EXTREMITIES: Normal motion all extremities, no cyanosis, no edema. NEUROLOGIC: Responsive to painful stimuli, moans periodically. SKIN: No rash, no jaundice, no diaphoresis. Large cellulitis over top of right hand. Medical Decision & Procedures ER Provider Diagnostic Interpretation: X ray results are stated below per my interpretation and the radiologist's interpretation. SINGLE VIEW CHEST CLINICAL HISTORY: Sepsis. History of lung cancer. FINDINGS: An AP, portable, upright chest radiograph is compared to study dated 11/27/2016 and correlated with chest CT dated 07/25/2016. The examination is degraded by portable technique and patient rotation. The heart is mildly enlarged and there is atherosclerotic calcification of the thoracic aorta. The pulmonary vasculature is noncongested. Emphysema and chronic interstitial thickening are similar to previous. There are low lung volumes with bibasilar airspace opacities. No large pleural effusion is seen. Apical scarring is observed. There is no pneumothorax. The skeletal structures are osteopenic. Degenerative change is noted throughout the thoracic spine. Fusion hardware is seen in the lower cervical spine. A Left shoulder arthroplasty is partially imaged. IMPRESSION: 1. Cardiomegaly and emphysema. 2. There are low lung volumes with bibasilar airspace opacities. This likely represents atelectasis. Correlate clinically for evidence of a superimposed infectious/inflammatory pneumonitis. Electronically signed by: Jay Jay Caro M.D. 12/25/2016 12:41 PM Dictated Date/Time: 12/25/2016 12:39 PM Laboratory Results 12/25/16 12:25 Red Blood Count 4.69, Mean Corpuscular Volume 87.8, Mean Corpuscular Hemoglobin 28.1, Mean Corpuscular Hemoglobin Concent 32.0, Mean Platelet Volume 9.3, Neutrophils (%) (Auto) 85.4, Lymphocytes (%) (Auto) 4.9, Monocytes (%) (Auto) 8.5, Eosinophils (%) (Auto) 0.1, Basophils (%) (Auto) 0.3, Neutrophils # (Auto) 17.04, Lymphocytes # (Auto) 0.97, Monocytes # (Auto) 1.69, Eosinophils # (Auto) 0.01, Basophils # (Auto) 0.05 12/25/16 12:25 Test 12/25/16 12:25 12/25/16 12:27 12/25/16 12:31 12/25/16 13:15 White Blood Count 19.92 K/uL (4.8-10.8) Red Blood Count 4.69 M/uL (4.7-6.1) Hemoglobin 13.2 g/dL (14.0-18.0) Hematocrit 41.2 % (42-52) Mean Corpuscular Volume 87.8 fL (80-100) Mean Corpuscular Hemoglobin 28.1 pg (25-34) Mean Corpuscular Hemoglobin Concent 32.0 g/dl (32-36) Platelet Count 226 K/uL (130-400) Mean Platelet Volume 9.3 fL (7.4-10.4) Neutrophils (%) (Auto) 85.4 % Lymphocytes (%) (Auto) 4.9 % Monocytes (%) (Auto) 8.5 % Eosinophils (%) (Auto) 0.1 % Basophils (%) (Auto) 0.3 % Neutrophils # (Auto) 17.04 K/uL (1.4-6.5) Lymphocytes # (Auto) 0.97 K/uL (1.2-3.4) Monocytes # (Auto) 1.69 K/uL (0.11-0.59) Eosinophils # (Auto) 0.01 K/uL (0-0.5) Basophils # (Auto) 0.05 K/uL (0-0.2) RDW Standard Deviation 61.2 fL (36.4-46.3) RDW Coefficient of Variation 19.1 % (11.5-14.5) Immature Granulocyte % (Auto) 0.8 % Immature Granulocyte # (Auto) 0.16 K/uL (0.00-0.02) Prothrombin Time 11.0 SECONDS (9.0-12.0) Prothromb Time International Ratio 1.0 (0.9-1.1) Est Creatinine Clear Calc Drug Dose 76.8 ml/min Estimated GFR () 95.8 Estimated GFR (Non- 82.7 BUN/Creatinine Ratio 15.7 (10-20) Calcium Level 9.0 mg/dl (8.5-10.1) Magnesium Level 2.2 mg/dl (1.8-2.4) Total Bilirubin 1.0 mg/dl (0.2-1) Direct Bilirubin 0.2 mg/dl (0-0.2) Aspartate Amino Transf (AST/SGOT) 37 U/L (15-37) Alanine Aminotransferase (ALT/SGPT) 25 U/L (12-78) Alkaline Phosphatase 73 U/L (45-117) Total Creatine Kinase 65 U/L (39-308) Creatine Kinase MB < 0.5 ng/ml (0.5-3.6) Creatine Kinase MB Ratio (0-3.0) Troponin I < 0.015 ng/ml (0-0.045) Total Protein 7.3 gm/dl (6.4-8.2) Albumin 3.0 gm/dl (3.4-5.0) Valproic Acid (Depakene) Level 26 mcg/ml (50-100) Bedside Lactic Acid Venous 1.32 mmol/L (0.90-1.70) Bedside Hemoglobin 13.3 g/dl (14.0-18.0) Bedside Hematocrit 39 % (42-52) Bedside Sodium 139 mEq/L (135-144) Bedside Potassium 3.6 mEq/L (3.3-5.0) Bedside Chloride 98 mEq/L (101-112) Bedside Total CO2 26 mEq/l (24-31) Anion Gap 19.0 mmol/L (16-25) Bedside Blood Urea Nitrogen 14 mg/dl (7-18) Bedside Creatinine 0.7 mg/dl (0.6-1.3) Bedside Glucose (other) 200 mg/dl (70-99) Bedside Ionized Calcium (Antonio) 1.13 mmol/l (1.12-1.32) Urine Color DK YELLOW Urine Appearance TURBID (CLEAR) Urine pH 5.5 (4.5-7.5) Urine Specific Roberts 1.025 (1.000-1.030) Urine Protein 2+ (NEG) Urine Glucose (UA) NEG (NEG) Urine Ketones 1+ (NEG) Urine Occult Blood 3+ (NEG) Urine Nitrite NEG (NEG) Urine Bilirubin NEG (NEG) Urine Urobilinogen NEG (NEG) Urine Leukocyte Esterase LARGE (NEG) Urine WBC (Auto) >30 /hpf (0-5) Urine RBC (Auto) 5-10 /hpf (0-4) Urine Hyaline Casts (Auto) /lpf (0-5) Urine Epithelial Cells (Auto) 5-10 /lpf (0-5) Urine Bacteria (Auto) NEG (NEG) Urine Renal Epithelial Cells 5-10 /lpf (0-5) Urine Pathogenic Casts /lpf (0) Urine Yeast (Auto) (NONE PRSENT) Laboratory results as reviewed by me. Medications Administered Medications (Trade) Dose Ordered Sig/Imtiaz Route Start Time Stop Time Status Last Admin Dose Admin Sodium Chloride 500 ml @ 999 mls/hr Q31M STAT IV 12/25/16 12:13 12/25/16 12:43 DC 12/25/16 12:57 999 MLS/HR Sodium Chloride 1,000 ml @ 999 mls/hr Q1H1M STAT IV 12/25/16 12:13 12/25/16 13:13 DC 12/25/16 12:56 999 MLS/HR Piperacillin Sod/ Tazobactam Sod (Zosyn Iv) 4.5 gm NOW STAT IV 12/25/16 12:13 12/25/16 12:16 DC 12/25/16 13:02 4.5 GM Daptomycin 500 mg/ Sodium Chloride 60 ml @ 100 mls/hr NOW STAT IV 12/25/16 12:13 12/25/16 12:48 DC 12/25/16 13:02 100 MLS/HR Acetaminophen (Tylenol Supp) 975 mg NOW STAT CO 12/25/16 12:17 12/25/16 12:18 DC 12/25/16 13:03 975 MG Sodium Chloride 1,000 ml @ 999 mls/hr Q1H1M STAT IV 12/25/16 13:28 12/25/16 14:28 DC 12/25/16 13:42 999 MLS/HR ECG Indication: other (unresponsive) Rate (beats per minute): 112 Rhythm: sinus tachycardia Findings: RBBB, no acute ischemic change, no ectopy, other (QTC 460) ED Course 1214: The patient was evaluated in room B1. A complete history and physical exam was performed. 1213: Daptomycin 500 mg/ Sodium Chloride 60 ml @ 100 mls/hr IV, Zosyn Iv 4.5 gm IV, Sodium Chloride 1,000 ml @ 999 mls/hr IV, Sodium Chloride 500 ml @ 999 mls/ hr IV, Tylenol Tab 975 mg CO. 1302: I checked on the patient. 1326: The patient has received both liters of fluid. He is much more awake and answering questions. The patient notes he is thirsty. His mucous membranes are dry. Lung sounds are clear at moment. 1326: Sodium Chloride 1,000 ml @ 999 mls/hr IV. 1404: Discussed the patient's case with Dr. Stacie Kunz [facility]. The patient will be evaluated for further treatment and disposition. 1426: I checked on the patient. He is much more awake. 1440: Upon reevaluation, the patient is hemodynamically stable. Discussed results and treatment plan with the patient. He verbalized understanding and agreement with the treatment plan. The patient will be evaluated for further management. Medical Decision Differential: Viral, Pharyngitis, Cellulitis, Pneumonia, Influenza, Meningitis, Sepsis, Bacteremia, UTI/Pyelonephritis, Endocrine, Toxicologic, amongst other pathologies entertained. Medication Reconciliation: I attest that I have personally reviewed the patient 's current medication list. Blood pressure screening: Patient was found to have an elevated blood pressure and was referred to their primary doctor for recheck and further treatment. 76 yr old male with known history of Ecoli UTI started on rocephin yesterday. He is septic with fever, obtunded, tachycardia and hypoxia. 2 IVs obtained with blood cultures sent. Lactic acid and BP are currently OK. CXR some mild congestion. Given 2 L NSS bolus which revealed much improvement in mental status and well as BP. Tolerating fluids well with actually improvement in his respirations and mental status thus felt given another 1 L reasonable with improvement in HR and mental status doing well. Breathing OK and patient in no distress. He is getting back to his baseline demented level but is not there yet per POA. Other notes are cellulitis top right hand. Multiple re- evaluations of patient and management of his sepsis. Consults Time Called: 1402 Consulting Physician: Dr. Quinones - [facility] [place] Returned Call: 1404 Discussed the patient's case. The patient will be evaluated for further treatment and disposition. Impression Primary Impression: Sepsis Additional Impressions: Altered mental status UTI (urinary tract infection) Cellulitis of hand without finger or thumb, right Critical Care I have personally spent greater than 45 minutes of critical care time in the direct management of this patient. This was a life/limb threatening event. This includes time spent evaluating patient, direct bedside care, chart review, placing orders, interpretation of diagnostic studies, discussion with consultants, patient, and family members, as well as other required patient management activities. This 45 minutes is in excess of all separately billable procedures. Scribe Attestation The scribe's documentation has been prepared under my direction and personally reviewed by me in its entirety. I confirm that the note above accurately reflects all work, treatment, procedures, and medical decision making performed by me. Departure Information Dispostion Being Evaluated By Hospitalist Problem Qualifiers
[2016-12-25 12:17] VITALS: Ht 182.9 cm; Wt 87.8 kg
[2016-12-25] MEDS ORDERED: ACETAMINOPHEN 325 MG SUPP PR STA (12:17)
[2016-12-25] MEDS ORDERED: CEFT1INJ57 IM (12:21)
[2016-12-25] MEDS ORDERED: IPRA1AER2 INH (12:24)
[2016-12-25] MEDS ORDERED: HALO0.5T9 PO (12:31)
[2016-12-25] MEDS ORDERED: BISA10SU38 PR (12:31)
[2016-12-25] MEDS ORDERED: OXYC1TAB3 PO (12:31)
[2016-12-25] MEDS ORDERED: ACET-1311 PO (12:31)
[2016-12-25] MEDS ORDERED: SODIENE PR (12:31)
--- NOTE | 2016-12-25 12:42 | DIAGNOSTIC IMAGING REPORT ---
SINGLE VIEW CHEST CLINICAL HISTORY: Sepsis. History of lung cancer. FINDINGS: An AP, portable, upright chest radiograph is compared to study dated 11/27/2016 and correlated with chest CT dated 07/25/2016. The examination is degraded by portable technique and patient rotation. The heart is mildly enlarged and there is atherosclerotic calcification of the thoracic aorta. The pulmonary vasculature is noncongested. Emphysema and chronic interstitial thickening are similar to previous. There are low lung volumes with bibasilar airspace opacities. No large pleural effusion is seen. Apical scarring is observed. There is no pneumothorax. The skeletal structures are osteopenic. Degenerative change is noted throughout the thoracic spine. Fusion hardware is seen in the lower cervical spine. A Left shoulder arthroplasty is partially imaged. IMPRESSION: 1. Cardiomegaly and emphysema. 2. There are low lung volumes with bibasilar airspace opacities. This likely represents atelectasis. Correlate clinically for evidence of a superimposed infectious/inflammatory pneumonitis. Electronically signed by: Jay Jay Caro M.D. 12/25/2016 12:41 PM Dictated Date/Time: 12/25/2016 12:39 PM
[2016-12-25 12:44] LABS: ISTAT CREATININE 0.7 mg/dl (0.6-1.3); ISTAT HEMOGLOBIN 13.3 g/dl (14.0-18.0); ISTAT IONIZED CALCIUM 1.13 mmol/l (1.12-1.32)
[2016-12-25 13:27] LABS: BASO % 0.3 %; BASO ABS # 0.05 K/uL (0-0.2); COMPLETE YES; EOS % 0.1 %; HEMATOCRIT 41.2 % (42-52); IG% 0.8 %; LYMPH % 4.9 %; LYMPH ABS # 0.97 K/uL (1.2-3.4); MEAN CELL VOLUME 87.8 fL (80-100); MEAN CORPUSCULAR HEMOGLOBIN 28.1 pg (25-34); MEAN PLATELET VOLUME 9.3 fL (7.4-10.4); MONO % 8.5 %; NEUT % 85.4 %; PLATELET COUNT 226 K/uL (130-400); RED BLOOD COUNT 4.69 M/uL (4.7-6.1); WHITE BLOOD COUNT 19.92 K/uL (4.8-10.8)
[2016-12-25 13:32] LABS: ALT/SGPT 25 U/L (12-78); BLOOD UREA NITROGEN 14 mg/dl (7-18); BUN/CREATININE RATIO 15.7 (10-20); CARBON DIOXIDE 26 mmol/L (21-32); CHLORIDE 102 mmol/L (98-107); CREATININE 0.87 mg/dl (0.60-1.40); GLUCOSE 187 mg/dl (70-99); MAGNESIUM 2.2 mg/dl (1.8-2.4); POTASSIUM 3.4 mmol/L (3.5-5.1); SODIUM 138 mmol/L (136-145)
[2016-12-25 13:40] LABS: ALKALINE PHOSPHATASE 73 U/L (45-117); AST/SGOT 37 U/L (15-37)
[2016-12-25 13:47] LABS: URINE APPEARANCE TURBID (CLEAR); URINE COLOR DK YELLOW; URINE NITRITE NEG (NEG); URINE PH 5.5 (4.5-7.5); URINE SPECIFIC GRAVITY 1.025 (1.000-1.030); UROBILINOGEN NEG (NEG); ZZUR CULT IF INDIC CLEAN CATCH YES
[2016-12-25 14:34] LABS: REVIEW REQ? YES
[2016-12-25 14:35] LABS: MANUAL MICROSCOPIC REQUIRED? NO; URINE BILIRUBIN NEG (NEG)
[2016-12-25] MEDS ORDERED: POLYETHYLENE (MIRALAX) 17 GM PACK PO PRN (16:15)
[2016-12-25] MEDS ORDERED: ONDANSETRON INJ 2 MG/ML 2 ML VIAL IV PRN (16:15)
[2016-12-25] MEDS ORDERED: LORAZEPAM 2 MG/ML 1 ML VIAL IV PRN (16:15)
[2016-12-25] MEDS ORDERED: HALOPERIDOL LACTATE 5 MG/ML 1 ML VIAL IM PRN (16:15)
[2016-12-25] MEDS ORDERED: ALUMINUM/MAGNESIUM/SIMETH (MAALOX MAX) 30 ML UDC PO PRN (16:15)
[2016-12-25] MEDS ORDERED: LEVALBUTEROL/IPRATROPIUM NEB INH PRN (16:15)
[2016-12-25] MEDS ORDERED: PIPERACILL/TAZOBAC CONSULT ACTIVE PRN (16:15)
[2016-12-25] MEDS ORDERED: ACETAMINOPHEN 650 MG SUPP PR PRN (16:15)
--- NOTE | 2016-12-25 16:36 | History and Physical ---
History & Physical Date & Time of Service: Dec 25, 2016 at 15:56 Chief Complaint: Sepsis Primary Care Physician: Bev Ac History of Present Illness Source: family, clinic records, hospital records This patient is a 76-year-old male, resident of [facility], sent emergency department today with complaints of altered mental status and fever. Most of the history is taken from the patient's cousin who is the POA. He is present at the bedside. EMS and nursing reports from the [facility] were also reviewed. The patient's cousin reports that he saw the patient 5 days ago. He was completely lucid at that point. He went back and visited the patient on Friday, 2 days ago. He noted the patient to be fairly confused. He was unsure of his own name. This prompted the staff to check a urinalysis. A urine culture was sent on 12/24. It was growing Escherichia coli. Sensitivities are pending. The patient was noted to be febrile prior to arrival. In route, the patient was hypotensive. He was resuscitated with IV fluids in route and in the emergency department. Broad-spectrum antibiotics with daptomycin and Zosyn were started. 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 COPD Coronary artery disease Anxiety Depression History of seizure disorder Spinal stenosis L2 fracture BPH Hypertension Diabetes type 2 Diabetic neuropathy Status post right knee replacement, right hip replacement and left shoulder arthroplasty Family History No pertinent family history Social History Smoking Status: Former Smoker Drug Use: none Marital Status: Housing status: [facility] ([facility]) Occupational Status: retired Immunizations History of Influenza Vaccine: N/A Influenza Vaccine Date: Jul 07, 2009 History of Tetanus Vaccine?: Yes Tetanus Immunization Date: Jan 17, 2009 History of Pneumococcal: Yes Pneumococcal Date: Jan 17, 2011 History of Hepatitis B Vaccine: No Allergies Coded Allergies: No Known Allergies (Unverified , 11/20/16) Home Medications Scheduled Aspirin (Aspirin Chewable), 81 MG PO DAILY Atorvastatin (Lipitor), 40 MG PO DAILY Bisacodyl (Dulcolax), 1 SUPP UT Q3DAYS Clopidogrel (Plavix), 75 MG PO DAILY Divalproex Sodium (Depakote Er), 250 MG PO HS Duloxetine HCl (Cymbalta), 30 MG PO BID Finasteride (Finasteride), 1 TAB PO DAILY Fluticasone Furoate-Vilanterol (Breo Ellipta), 1 INHA INH DAILY Gabapentin (Neurontin), 600 MG PO TID Home O2 Therapy (Oxygen), 2 LITERS NA CONTINOUS Ipratropium-Albuterol (Combivent Respimat), 1 PUFFS INH QID Lorazepam (Ativan), 0.5 MG PO TID Oxcarbazepine (Trileptal), 300 MG PO BID Pramipexole Dihydrochloride (Pramipexole Dihydrochlori), 0.5 MG PO HS Ranitidine (Zantac), 150 MG PO DAILY Sennosides (Senexon), 1-2 TAB PO BID Sodium Phosphate/Biphosphate (Fleet Enema), 1 EA UT Q4DAYS Tamsulosin HCl (Tamsulosin HCl), 0.4 MG PO HS Tiotropium [place] (Spiriva Hand[place]), 1 CAP INH DAILY Scheduled PRN Acetaminophen (Tylenol), 650 MG PO Q6H PRN for Pain or Fever Haloperidol (Haldol), 2 MG PO Q6H PRN for Anxiety/Agitation Magnesium Hydroxide (Milk Of Magnesia), 30 ML PO DAILY PRN for Constipation Oxycodone Ir (Roxicodone Ir), 5 MG PO BID PRN for Pain Miscellaneous Medications Ceftriaxone Sod (Rocephin), 1 GM IM Review of Systems Unable to perform due to altered mental state Physical Exam Vital Signs Date Time Temp Pulse Resp B/P (MAP) Pulse Ox O2 Delivery O2 Flow Rate FiO2 12/25/16 14:41 37.9 12/25/16 14:35 104 47 100 12/25/16 14:30 152/109 12/25/16 14:20 107 31 100 12/25/16 14:16 130/75 12/25/16 14:05 109 27 100 12/25/16 14:00 142/101 12/25/16 13:50 111 27 100 12/25/16 13:45 167/88 12/25/16 13:35 110 32 100 12/25/16 13:30 158/87 12/25/16 13:24 109 30 90 12/25/16 13:15 172/100 12/25/16 13:09 108 37 12/25/16 13:00 164/92 12/25/16 12:54 114 30 12/25/16 12:52 115 20 161/92 99 Non-Rebreather 12/25/16 12:46 161/92 12/25/16 12:39 124 32 12/25/16 12:29 176/141 12/25/16 12:24 118 27 99 12/25/16 12:17 38.8 120 20 171/100 99 Non-Rebreather 10.0 General Appearance: + mild distress (mild respiratory distress) Head: normocephalic Eyes: + pertinent finding (pupils pinpoint bilaterally) Neck: no JVD Respiratory/Chest: + pertinent finding (no wheezing or rhonchorous breath sounds auscultated. Tachypnea noted.) Cardiovascular: + pertinent finding (occasionally irregular. No murmur auscultated.) Abdomen/GI: soft, + pertinent finding (no significant tenderness elicited. Bowel sounds present) Extremities/Musculoskelatal: no pedal edema Neurologic/Psych: + pertinent finding (opens eyes to verbal stimuli, follow basic commands-->squeezes my hand) Skin: warm/dry Diagnostics Laboratory Results Results Past 24 Hours Test 12/25/16 12:25 12/25/16 12:27 12/25/16 12:31 12/25/16 13:15 Range/Units White Blood Count 19.92 4.8-10.8 K/uL Red Blood Count 4.69 4.7-6.1 M/uL Hemoglobin 13.2 14.0-18.0 g/dL Hematocrit 41.2 42-52 % Mean Corpuscular Volume 87.8 80-100 fL Mean Corpuscular Hemoglobin 28.1 25-34 pg Mean Corpuscular Hemoglobin Concent 32.0 32-36 g/dl Platelet Count 226 130-400 K/uL Mean Platelet Volume 9.3 7.4-10.4 fL Neutrophils (%) (Auto) 85.4 % Lymphocytes (%) (Auto) 4.9 % Monocytes (%) (Auto) 8.5 % Eosinophils (%) (Auto) 0.1 % Basophils (%) (Auto) 0.3 % Neutrophils # (Auto) 17.04 1.4-6.5 K/uL Lymphocytes # (Auto) 0.97 1.2-3.4 K/uL Monocytes # (Auto) 1.69 0.11-0.59 K/uL Eosinophils # (Auto) 0.01 0-0.5 K/uL Basophils # (Auto) 0.05 0-0.2 K/uL RDW Standard Deviation 61.2 36.4-46.3 fL RDW Coefficient of Variation 19.1 11.5-14.5 % Immature Granulocyte % (Auto) 0.8 % Immature Granulocyte # (Auto) 0.16 0.00-0.02 K/uL Prothrombin Time 11.0 9.0-12.0 SECONDS Prothromb Time International Ratio 1.0 0.9-1.1 Sodium Level 138 136-145 mmol/L Potassium Level 3.4 3.5-5.1 mmol/L Chloride Level 102 98-107 mmol/L Carbon Dioxide Level 26 21-32 mmol/L Anion Gap 10.0 19.0 16-25 mmol/L Blood Urea Nitrogen 14 7-18 mg/dl Creatinine 0.87 0.60-1.40 mg/dl Est Creatinine Clear Calc Drug Dose 76.8 ml/min Estimated GFR () 95.8 Estimated GFR (Non- 82.7 BUN/Creatinine Ratio 15.7 10-20 Random Glucose 187 70-99 mg/dl Calcium Level 9.0 8.5-10.1 mg/dl Magnesium Level 2.2 1.8-2.4 mg/dl Total Bilirubin 1.0 0.2-1 mg/dl Direct Bilirubin 0.2 0-0.2 mg/dl Aspartate Amino Transf (AST/SGOT) 37 15-37 U/L Alanine Aminotransferase (ALT/SGPT) 25 12-78 U/L Alkaline Phosphatase 73 45-117 U/L Total Creatine Kinase 65 39-308 U/L Creatine Kinase MB < 0.5 0.5-3.6 ng/ml Creatine Kinase MB Ratio 0-3.0 Troponin I < 0.015 0-0.045 ng/ml Total Protein 7.3 6.4-8.2 gm/dl Albumin 3.0 3.4-5.0 gm/dl Valproic Acid (Depakene) Level 26 50-100 mcg/ml Bedside Lactic Acid Venous 1.32 0.90-1.70 mmol/L Bedside Hemoglobin 13.3 14.0-18.0 g/dl Bedside Hematocrit 39 42-52 % Bedside Sodium 139 135-144 mEq/L Bedside Potassium 3.6 3.3-5.0 mEq/L Bedside Chloride 98 101-112 mEq/L Bedside Total CO2 26 24-31 mEq/l Bedside Blood Urea Nitrogen 14 7-18 mg/dl Bedside Creatinine 0.7 0.6-1.3 mg/dl Bedside Glucose (other) 200 70-99 mg/dl Bedside Ionized Calcium (Antonio) 1.13 1.12-1.32 mmol/l Urine Color DK YELLOW Urine Appearance TURBID CLEAR Urine pH 5.5 4.5-7.5 Urine Specific [place] 1.025 1.000-1.030 Urine Protein 2+ NEG Urine Glucose (UA) NEG NEG Urine Ketones 1+ NEG Urine Occult Blood 3+ NEG Urine Nitrite NEG NEG Urine Bilirubin NEG NEG Urine Urobilinogen NEG NEG Urine Leukocyte Esterase LARGE NEG Urine WBC (Auto) >30 0-5 /hpf Urine RBC (Auto) 5-10 0-4 /hpf Urine Hyaline Casts (Auto) 0-5 /lpf Urine Epithelial Cells (Auto) 5-10 0-5 /lpf Urine Bacteria (Auto) NEG NEG Urine Renal Epithelial Cells 5-10 0-5 /lpf Urine Pathogenic Casts 0 /lpf Urine Yeast (Auto) NONE PRSENT Microbiology Results 12/25/16 Blood Culture, Received Pending 12/25/16 Blood Culture, Received Pending Diagnostic Radiology Patient: LUCRETIA TORRES Address1: [address] [place] [address] Rec: [id number] Address2: Acct ID: [id number] [facility] Zip: [place] [id number] Date: 1940 Sex: M Room/Bed: Ref Phy: [employer] SC: MAX Att Phy: Report #: [id number] Nell Phy: [employer] Test: [id number] Admit Phy: Dairy Nutrition Specialist: THIERRY Interpreting Phy: Jay Jay Caro M.D. Diagnosis: SEPSIS Ordering Phy: Jake De Leon M.D. Service Date: 12/25/16 Admit Date: 12/25/16 MNE: [id number] CONF: DICTATED BY: Jay Jay Caro M.D.]] CC: [employer] Daniel F., M.D. Endcc: [~ rep ct add3]] SINGLE VIEW CHEST CLINICAL HISTORY: Sepsis. History of lung cancer. FINDINGS: An AP, portable, upright chest radiograph is compared to study dated 11/27/2016 and correlated with chest CT dated 07/25/2016. The examination is degraded by portable technique and patient rotation. The heart is mildly enlarged and there is atherosclerotic calcification of the thoracic aorta. The pulmonary vasculature is noncongested. Emphysema and chronic interstitial thickening are similar to previous. There are low lung volumes with bibasilar airspace opacities. No large pleural effusion is seen. Apical scarring is observed. There is no pneumothorax. The skeletal structures are osteopenic. Degenerative change is noted throughout the thoracic spine. Fusion hardware is seen in the lower cervical spine. A Left shoulder arthroplasty is partially imaged. IMPRESSION: 1. Cardiomegaly and emphysema. 2. There are low lung volumes with bibasilar airspace opacities. This likely represents atelectasis. Correlate clinically for evidence of a superimposed infectious/inflammatory pneumonitis. Electronically signed by: Jay Jay Caro M.D. EKG LUCRETIA TORRES ID:[id number] 25-DEC-2016 13:27:34 [facility] Sinus tachycardia Possible Left atrial enlargement Left axis deviation Right bundle branch block Abnormal ECG When compared with ECG of 28-NOV-2016 18:38, Vent. rate has increased BY 47 BPM Inverted T waves have replaced nonspecific T wave abnormality in Anterior leads Impression Assessment and Plan 76-year-old male sent to the emergency department with altered mental status and fever. Urine culture from yesterday growing greater than 100,000 colonies of Escherichia coli Metabolic encephalopathy likely secondary to UTI/sepsis -Admit to telemetry -Continue zosyn 3.375 mg IV q 8 h -follow up blood cx -repeat lactic acid -3 L NS bolus given in the ER-->-NS + 20 mEq KCl @ 100 cc/hr -insert Hernandez -monitor PRP, CBC Hx Seizure d/o -unable to take po at this point. Typical dose of depakote ER 250 mg po HS on hold. Change to depakote 125 mg IV BID -Continue Trileptal 300 mg po BID when taking po Anxiety/depression/mood d/o -Continue cymbalta 20 mg po BID (when taking oral meds) -Avoid benzos if possible but Ativan 0.5 mg IV q 12 prn will be available -Haldol 2.5 mg IM q 8 hr prn COPD/Metastatic lung CA -Xopenex/Atrovent nebulizer treatments every 6 hours as needed for difficulty breathing -Continue Breo daily -Continue Spiriva daily -On O2 3 L continuous diabetes mellitus -follow BSGs AC, HS and with meals -insulin sliding scale BPH -Flomax 0.4 mg daily, Finasteride 5 mg daily DVT prophylaxis -Lovenox 30 mg subQ daily -TEDS, SCDs CODE STATUS -LEVEL V DO NO RESUSCITATE Pt would probably benefit from a palliative care consult/POLST form. I had a long conversation with the patient's cousin, Blayne, who is POA. He wants minimal testing done. This chart was completed in part utilizing [employer] Speech Voice Recognition software. Attempts were made to minimize the grammatical errors, random word insertions, pronoun errors and incomplete sentences. Any formal questions or concerns about the content, text or information contained within the body of this dictation should be directly addressed to the provider for clarification. I personally and independently interviewed and examined the patient I reviewed labs and imaging I agree with above mentioned physical exam, History and ROS I discussed and formulated the assessment and plan with Mrs. Asencio 76-year-old male who was recently diagnosed with E coli UTI. declined today and presented with septic shock, metabolic encephalopathy and SOB ROS is unobtainable PE , all exam is negative except, metabolic encephalopathy, lethargic, moves all extremities, lungs, B/L decrease air entry, B/L Rhonchi, bibasal rales. assessment: Septic shock secondary to below Urosepsis POA metabolic encephalopathy Plan: continue zosyn awaiting sensitivity received CTXN as an out patient start lactinex to prevent C dif IVF hydration F/U Cx renal US r/O obstruction or perirenal abscess Luli [place] [facility] Hospitalist Level of Care Telemetry Resuscitation Status DO NOT RESUSCITATE VTE Prophylaxis VTE Risk Assessment Done? Y/N: Yes Risk Level: Low Given or contraindicated: Enoxaparin (Lovenox)SQ, T.E.D. Stockings, SCD's
[2016-12-25] MEDS ORDERED: GLUCAGON FOR INJ 1 MG VIAL SQ PRN (18:15)
[2016-12-25] MEDS ORDERED: IPRATROPIUM BROMIDE NEB SOLN 0.02% 2.5 ML VIAL INH PRN (18:15)
[2016-12-25] MEDS ORDERED: GLUCOSE 40% GEL 15 GM TUBE PO PRN (18:15)
[2016-12-25] MEDS ORDERED: DEXTROSE 50% 50 ML SYR IV PRN (18:15)
[2016-12-25] MEDS ORDERED: GLUCOSE 10 TABS/TUBE PO PRN (18:15)
[2016-12-25] MEDS ORDERED: LEVALBUTEROL 1.25MG/0.5ML NEB INH PRN (18:15)
--- NOTE | 2016-12-25 18:39 | DIAGNOSTIC IMAGING REPORT ---
EXAMINATION: RENAL ULTRASOUND CLINICAL HISTORY: Urinary tract infection. Septic shock. COMPARISON STUDY: 11/29/2016 FINDINGS: The right kidney measures 11.8 cm. The left kidney measures 11.7 cm. There is no evidence of hydronephrosis. There are no renal masses. No perinephric fluid collections are visualized. There is a small amount of dependent debris within the bladder. Neither ureteral jet was visualized. IMPRESSION : 1. No evidence of hydronephrosis. No perinephric fluid collections identified 2. Small amount of dependent debris within the bladder Electronically signed by: Eladio Gee M.D. 12/25/2016 6:38 PM Dictated Date/Time: 12/25/2016 6:37 PM
[2016-12-25] MEDS ORDERED: LORAZEPAM INJ 0.5 MG in SYRINGE 0.75 ML IV PRN (19:45)
[2016-12-25 20:15] VITALS: BP 156/90; PULSE 100; TEMP 36.7; O2SAT 95
[2016-12-25] MEDS: NSS + 20MEQ KCL 1000ML 1,000 ML IV SCH (20:18)
[2016-12-25] MEDS: ENOXAPARIN 30 MG/0.3 ML SYR SC SCH (20:20)
[2016-12-25] MEDS: PIPERACILL/TAZOBAC IV 3.375 GM in DEXTROSE 5% 100ML 100 ML IV SCH (20:24)
[2016-12-25] MEDS: INSULIN ASPART 100 UNITS/ML 3 ML PEN SC SCH (20:27)
[2016-12-25] MEDS: OXCARBAZEPINE 150 MG TAB PO SCH (20:28)
[2016-12-25] MEDS: VALPROATE SOD IV SCH (20:28)
[2016-12-25] MEDS: PRAMIPEXOLE DIHYDROCHLORIDE 0.5 MG TAB PO SCH (20:28)
[2016-12-25] MEDS: GABAPENTIN 600 MG TAB PO SCH (20:28)
[2016-12-25] MEDS: DEXTROSE 5% IV SCH (20:28)
[2016-12-25] MEDS: TAMSULOSIN HCL 0.4 MG CAP PO SCH (20:28)
[2016-12-25] MEDS: DULOXETINE (CYMBALTA) 30 MG CAP PO SCH (20:28)
[2016-12-25 20:29] VITALS: BP 143/84; PULSE 101; TEMP 36.9; O2SAT 98
--- NOTE | 2016-12-25 20:50 | Progress Note ---
Progress Note Date of Service Dec 25, 2016. Progress Note Called by pharmacy at 20:38 Notified of positive MRSA. Reviewed old nasal swab data, this is a new diagnosis of MRSA positivity. Reviewed EMR and meds; patient admitted for Urosepsis, currently on IV Zosyn only IV Vancomycin added Pharmacy consultation placed for renal dosing as needed.
[2016-12-25] MEDS ORDERED: VANCOMYCIN CONSULT ACTIVE PRN (21:15)
[2016-12-25] MEDS ORDERED: VANCOMYCIN INJ 2,100 MG in SODIUM CHLORIDE 0.9% 500ML 500 ML IV SCH (21:30)
[2016-12-25 23:44] VITALS: BP 147/73; PULSE 91; TEMP 36.5; O2SAT 96
[2016-12-26] MEDS: PIPERACILL/TAZOBAC IV 3.375 GM in DEXTROSE 5% 100ML 100 ML IV SCH (03:32)
[2016-12-26] MEDS: NSS + 20MEQ KCL 1000ML 1,000 ML IV SCH ×3 (03:34→15:44)
[2016-12-26 03:56] VITALS: BP 136/69; PULSE 88; TEMP 37.2; O2SAT 92
[2016-12-26 07:03] LABS: BASO % 0.2 %; BASO ABS # 0.03 K/uL (0-0.2); COMPLETE YES; EOS % 0.1 %; HEMATOCRIT 36.5 % (42-52); IG% 0.9 %; LYMPH % 7.8 %; LYMPH ABS # 1.24 K/uL (1.2-3.4); MEAN CORPUSCULAR HEMOGLOBIN 28.4 pg (25-34); MEAN CORPUSCULAR HGB CONC 32.3 g/dl (32-36); MEAN PLATELET VOLUME 9.3 fL (7.4-10.4); MONO % 7.9 %; NEUT % 83.1 %; PLATELET COUNT 212 K/uL (130-400); RED BLOOD COUNT 4.15 M/uL (4.7-6.1); WHITE BLOOD COUNT 15.91 K/uL (4.8-10.8)
[2016-12-26 07:15] VITALS: BP 151/63; PULSE 97; TEMP 36.7; O2SAT 92
[2016-12-26 07:24] LABS: BUN/CREATININE RATIO 16.9 (10-20); CALCIUM 8.2 mg/dl (8.5-10.1); CREATININE 0.6 mg/dl (0.60-1.40); MAGNESIUM 2.1 mg/dl (1.8-2.4)
[2016-12-26] MEDS: FINASTERIDE 5 MG TAB PO SCH (07:55)
[2016-12-26] MEDS: DULOXETINE (CYMBALTA) 30 MG CAP PO SCH ×2 (07:55→21:00)
[2016-12-26] MEDS: ATORVASTATIN 20 MG TAB PO SCH (07:55)
[2016-12-26] MEDS: LACTOBACILLUS ACIDOPHILUS 1 GM PACK PO SCH ×3 (07:56→17:09)
[2016-12-26] MEDS: GABAPENTIN 600 MG TAB PO SCH ×3 (07:56→21:00)
[2016-12-26] MEDS: CLOPIDOGREL BISULFATE 75 MG TAB PO SCH (07:56)
[2016-12-26] MEDS: RANITIDINE HCL 150 MG TAB PO SCH (07:57)
[2016-12-26] MEDS: OXCARBAZEPINE 150 MG TAB PO SCH ×2 (07:57→21:00)
[2016-12-26] MEDS: ASPIRIN 81 MG ECTAB PO SCH (07:57)
[2016-12-26] MEDS: TIOTROPIUM BROMIDE 5 PUFF/90 MCG INH INH SCH (07:58)
[2016-12-26] MEDS ORDERED: VANCOMYCIN INJ 1,250 MG in SODIUM CHLORIDE 0.9% 250ML 250 ML IV SCH (09:00)
[2016-12-26] MEDS: INSULIN ASPART 100 UNITS/ML 3 ML PEN SC SCH ×4 (09:13→20:59)
[2016-12-26] MEDS: VALPROATE SOD IV SCH ×2 (09:14→20:59)
[2016-12-26] MEDS: DEXTROSE 5% IV SCH ×2 (09:14→20:59)
--- NOTE | 2016-12-26 09:54 | Clinical Documentation Query ---
CLINICAL DOCUMENTATION QUERY Dr. GARCÍA, In your clinical opinion is this patient being managed for: ( ) Acute and chronic hypoxic respiratory failure with acute phase treated and improved ( ) Other explanation of clinical findings (Please Explain) ( ) Unable to determine (Please Define) ( ) Need to Discuss ( ) Not Agree The medical record reflects the following clinical findings, treatment, and risk factors. Clinical Indicators: 76 yo male presenting to the ER with sepsis from UTI. Hypoxic per EMS report. Arrived to ER tachypneic, requiring NRB mask to maintain O2 saturations. Resp rate 27-37, O2 sat 99% on NRB. Treatment: NRB mask, sepsis alert and treatment with NSS boluses, IV zosyn, IV daptomycin, IV rocephin, MO tylenol, tele, continue chronic home medications-spiriva, O2 support Risk Factors: COPD, lung cancer, sepsis Please clarify and document your clinical opinion in the progress notes and discharge summary. Terms such as "probable", "suspected", "likely", "questionable", "possible", or "still to be ruled out" are acceptable. IF IN AGREEMENT, YOU MUST DOCUMENT ABOVE DIAGNOSTIC STATEMENT IN DAILY PROGRESS NOTES AND DISCHARGE SUMMARY. This document is not part of the patient's record. Thank You, Madeline Saez, RN [phone]
[2016-12-26 11:38] VITALS: BP 131/74; PULSE 89; TEMP 36.5; O2SAT 95
[2016-12-26] MEDS: CEFTRIAXONE SOD INJ 1 GM in DEXTROSE 5% ADD-VANTAGE 50ML 50 ML IV SCH (13:01)
[2016-12-26] MEDS: POTASSIUM CHLORIDE 20 MEQ TABCR PO SCH ×2 (13:02→21:00)
[2016-12-26 14:51] VITALS: BP 139/75; PULSE 101; TEMP 36.7; O2SAT 96
--- NOTE | 2016-12-26 14:56 | Palliative Care Consultation ---
Consultation Date of Consultation: Dec 26, 2016. Requesting Physician: Mya Asencio PA-C Attending Physician: Dr. Jerez Reason for Consultation: Goals of care History of Present Illness This 76 year old male patient presented to the ED yesterday with c/o AMS and fever per half-way staff. History obtained from record as patient is confused and no family at bedside. 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 Per record, patient was febrile [employer] and became hypotensive en route. Resuscitated with IVF, broad spectrum abx started. Urine culture growing E. coli. Admitted with urosepsis Patient was initially quite lethargic and not doing well. Palliative care consulted. Met with patient who is much more alert today. Pleasantly confused and really could not offer me any history or discussion about goals of care. He did deny any complaints of pain for me. I called the cousin/POA Blayne. We discussed goals of care. At this point, the goal really is for comfort and no heroic measures. Blayne stated that patient would want to continue to come to the hospital for treatment. Our conversation was rather brief and Blayne stated he was not planning on coming to the hospital. Past Medical/Surgical History Medical History: Metastatic small cell lung cancer to liver status post chemoradiation COPD Coronary artery disease Anxiety Depression History of seizure disorder Spinal stenosis L2 fracture BPH Hypertension Diabetes type 2 Diabetic neuropathy Status post right knee replacement, right hip replacement and left shoulder arthroplasty Social History Smoking Status: Former Smoker History of Alcohol Use: No Drug Use: none Marital Status: Housing Status: half-way ([facility]) Occupation Status: retired Review of Systems Respiratory: No shortness of breath, No dyspnea on exertion Cardiac: No chest pain Abdomen: No pain, No nausea, No vomiting Psychiatric: No anxiety Allergies Coded Allergies: No Known Allergies (Unverified , 11/20/16) Medications Current Inpatient Medications Medications (Trade) Dose Ordered Sig/Imtiaz Route Start Time Stop Time Status Last Admin Dose Admin Potassium Chloride/Sodium Chloride 1,000 ml @ 100 mls/hr Q10H IV 12/25/16 20:00 01/24/17 19:59 12/26/16 09:17 100 MLS/HR Lorazepam (Ativan Inj) 0.5 mg BID PRN IV 12/25/16 16:15 01/24/17 16:14 12/26/16 00:40 0.5 MG Valproate Sodium 125 mg/Dextrose 51.25 ml @ 55 mls/hr BID IV 12/25/16 21:00 01/24/17 20:59 12/26/16 09:14 55 MLS/HR Haloperidol Lactate (Haldol Inj) 2.5 mg Q8H PRN IM 12/25/16 16:15 01/24/17 16:14 Aspirin (Ecotrin Tab) 81 mg DAILY PO 12/26/16 09:00 01/25/17 08:59 12/26/16 07:57 81 MG Atorvastatin Calcium (Lipitor Tab) 40 mg DAILY PO 12/26/16 09:00 01/25/17 08:59 12/26/16 07:55 40 MG Clopidogrel Bisulfate (plAVix TAB) 75 mg DAILY PO 12/26/16 09:00 01/25/17 08:59 12/26/16 07:56 75 MG Duloxetine HCl (Cymbalta Cap) 30 mg BID PO 12/25/16 21:00 01/24/17 20:59 12/26/16 07:55 30 MG Finasteride (Proscar Tab) 5 mg DAILY PO 12/26/16 09:00 01/25/17 08:59 12/26/16 07:55 5 MG Gabapentin (Neurontin Tab) 600 mg TID PO 12/25/16 21:00 01/24/17 20:59 12/26/16 13:02 600 MG Oxcarbazepine (Trileptal Tab) 300 mg BID PO 12/25/16 21:00 01/24/17 20:59 12/26/16 07:57 300 MG Pramipexole Dihydrochloride (miraPEX TAB) 0.5 mg HS PO 12/25/16 21:00 01/24/17 20:59 Ranitidine HCl (zANTac TAB) 150 mg DAILY PO 12/26/16 09:00 01/25/17 08:59 12/26/16 07:57 150 MG Tamsulosin HCl (Flomax Cap) 0.4 mg HS PO 12/25/16 21:00 01/24/17 20:59 Tiotropium [place] (Spiriva Handihaler Inhaler) 2 puff DAILY INH 12/26/16 09:00 01/25/17 08:59 12/26/16 07:58 2 PUFF Miscellaneous Information (Order Awaiting Action) 1 ea QS N/A 12/26/16 00:00 01/25/17 00:00 Enoxaparin Sodium (Lovenox Inj) 30 mg Q24H SC 12/25/16 22:00 01/24/17 21:59 12/25/16 20:20 30 MG Acetaminophen (Tylenol Tab) 650 mg Q4H PRN PO 12/25/16 16:15 01/24/17 16:14 Al Hydrox/Mg Hydrox/Simethicone (Maalox Max Susp) 15 ml Q4H PRN PO 12/25/16 16:15 01/24/17 16:14 Ondansetron HCl (Zofran Inj) 4 mg Q6H PRN IV 12/25/16 16:15 01/24/17 16:14 Polyethylene (Miralax Powder Packet) 17 gm DAILY PRN PO 12/25/16 16:15 01/24/17 16:14 Acetaminophen (Tylenol Supp) 650 mg Q6H PRN OH 12/25/16 16:15 01/24/17 16:14 Insulin Aspart (novoLOG ASPART) SLIDING SCALE G... ACHS SC 12/25/16 21:00 01/24/17 20:59 12/25/16 20:27 1 UNITS Lactobacillus Acidophilus (Lactinex Granules Pack) 1 gm TIDM PO 12/26/16 08:00 01/25/17 07:59 12/26/16 13:02 1 GM Ipratropium [place] (Atrovent 0.02% 0.5MG/2.5ML Neb) 0.5 mg Q6H PRN INH 12/25/16 18:15 01/24/17 18:14 Levalbuterol (Xopenex 1.25MG/ 0.5ML Neb) 1.25 mg Q6H PRN INH 12/25/16 18:15 01/24/17 18:14 Glucose (Glucose 40% Gel) 15-30 GRAMS 15 GRAMS... UD PRN PO 12/25/16 18:15 01/24/17 18:14 Glucose (Glucose Chew Tab) 4-8 Tablets 4 Tabl... UD PRN PO 12/25/16 18:15 01/24/17 18:14 Dextrose (Dextrose 50% 50ML Syringe) 25-50ML OF 50% DW IV FOR... UD PRN IV 12/25/16 18:15 01/24/17 18:14 Glucagon (Glucagon Inj) 1 mg UD PRN SQ 12/25/16 18:15 01/24/17 18:14 Lorazepam 0.5 mg/ Syringe 1 ml @ 1 mls/min BID PRN IV 12/25/16 19:45 01/24/17 19:44 Ceftriaxone Sodium 1 gm/ Dextrose 50 ml @ 100 mls/hr Q24H IV 12/26/16 10:00 01/05/17 09:59 12/26/16 13:01 100 MLS/HR Potassium Chloride (Klor-Con Tab) 40 meq BID PO 12/26/16 11:00 01/25/17 10:59 12/26/16 13:02 40 MEQ Physical Exam Date Time Temp Pulse Resp B/P (MAP) Pulse Ox O2 Delivery O2 Flow Rate FiO2 12/26/16 12:00 Nasal Cannula 4.0 12/26/16 11:38 36.5 89 20 131/74 (93) 95 Nasal Cannula 4.0 12/26/16 08:00 Nasal Cannula 4.0 12/26/16 07:15 36.7 97 20 151/63 (92) 92 Nasal Cannula 4.0 12/26/16 04:00 Oxymask 4.0 12/26/16 03:56 37.2 88 18 136/69 (91) 92 Nasal Cannula 4.0 12/26/16 00:00 Oxymask 4.0 12/25/16 23:44 36.5 91 20 147/73 (97) 96 Nasal Cannula 4.0 12/25/16 20:29 36.9 101 19 143/84 (103) 98 Oxymask Non-Rebreather 12/25/16 20:15 36.7 100 20 156/90 (112) 95 Nasal Cannula 4.0 12/25/16 20:00 Oxymask 4.0 12/25/16 17:44 103 20 136/50 96 Mask 4.0 12/25/16 17:15 98 20 140/84 99 Mask 4.0 12/25/16 16:17 102 12/25/16 16:10 102 20 160/75 100 Mask General Appearance: no apparent distress Neck: supple, no JVD Respiratory: lungs clear, no respiratory distress, no accessory muscle use Cardiovascular: regular rate, rhythm, no edema Abdomen: normal bowel sounds, non tender Neurologic/Psychiatric: alert, normal mood/affect, + disoriented Skin: normal color Laboratory Results Last 24 Hours Test 12/25/16 16:23 12/25/16 20:24 12/26/16 06:02 12/26/16 08:06 Lactic Acid Level 0.6 mmol/L Bedside Glucose 177 mg/dl 136 mg/dl White Blood Count 15.91 K/uL Red Blood Count 4.15 M/uL Hemoglobin 11.8 g/dL Hematocrit 36.5 % Mean Corpuscular Volume 88.0 fL Mean Corpuscular Hemoglobin 28.4 pg Mean Corpuscular Hemoglobin Concent 32.3 g/dl Platelet Count 212 K/uL Mean Platelet Volume 9.3 fL Neutrophils (%) (Auto) 83.1 % Lymphocytes (%) (Auto) 7.8 % Monocytes (%) (Auto) 7.9 % Eosinophils (%) (Auto) 0.1 % Basophils (%) (Auto) 0.2 % Neutrophils # (Auto) 13.22 K/uL Lymphocytes # (Auto) 1.24 K/uL Monocytes # (Auto) 1.26 K/uL Eosinophils # (Auto) 0.02 K/uL Basophils # (Auto) 0.03 K/uL RDW Standard Deviation 60.5 fL RDW Coefficient of Variation 18.7 % Immature Granulocyte % (Auto) 0.9 % Immature Granulocyte # (Auto) 0.14 K/uL Sodium Level 143 mmol/L Potassium Level 3.0 mmol/L Chloride Level 107 mmol/L Carbon Dioxide Level 29 mmol/L Anion Gap 7.0 mmol/L Blood Urea Nitrogen 10 mg/dl Creatinine 0.60 mg/dl Est Creatinine Clear Calc Drug Dose 111.4 ml/min Estimated GFR () 111.6 Estimated GFR (Non- 96.3 BUN/Creatinine Ratio 16.9 Random Glucose 127 mg/dl Calcium Level 8.2 mg/dl Magnesium Level 2.1 mg/dl Test 12/26/16 11:27 Bedside Glucose 148 mg/dl Assessment & Plan Problem list: Altered mental status/metabolic encephalopathy Weakness UTI/Urosepsis COPD Metastatic small cell lung CA Goals of care (Z51.5) Palliative care recommendations: discussed with patient, but he is quite confused, and cousin/POA Blayne Espinal. -Patient confirmed he is a DNR level 5. He really could not participate in goals of care conversation due to confusion/delirium. -Called patient's cousin/POA Blayne Espinal. He had little knowledge of patient's conditions and the conversation was rather brief. Blayne states that patient would not want invasive testing or procedures, but he is okay with continuing treatment here at the hospital with IV abx. He was very pleased to hear that patient seems to have turned the corner. -Asked Blayne if he knows the patient's wishes as far as how aggressively he wishes to be treated or what his goals of care may be. Blayne's goal would be for the patient to get back to [place] as soon as possible. Blayne believes that as long as patient has chance of improvement that he'd be okay with coming to the hospital for treatment, but avoiding heroic measures/ICU. -Offered to meet with Blayne to do POLST, but he wasn't planning to come to hospital. -Patient has no c/o pain or discomfort at this time, so nothing to add from a symptom management standpoint. Thank you kindly for this consult. Please contact me with any further palliative care needs or if there are any changes in patient condition.
[2016-12-26] MEDS: ACETAMINOPHEN 325 MG TAB PO PRN (17:18)
[2016-12-26 18:22] LABS: VEN BLD GAS O2 SATURATION 79.6 %; VEN BLOOD GAS BASE EXCESS 2.3 mmol/L
[2016-12-26 19:35] VITALS: BP 120/71; PULSE 91; TEMP 36.8; O2SAT 93
[2016-12-26] MEDS: ENOXAPARIN 30 MG/0.3 ML SYR SC SCH (21:00)
[2016-12-26] MEDS: PRAMIPEXOLE DIHYDROCHLORIDE 0.5 MG TAB PO SCH (21:00)
[2016-12-26] MEDS: TAMSULOSIN HCL 0.4 MG CAP PO SCH (21:00)
[2016-12-26 23:45] VITALS: BP 149/87; PULSE 91; TEMP 36.5; O2SAT 89
[2016-12-27] VITALS (10 sets, daily range): BP systolic 146–163; BP diastolic 74–96; PULSE 80–101; TEMP 36.4–36.9; O2SAT 93–96
[2016-12-27] MEDS: NSS + 20MEQ KCL 1000ML 1,000 ML IV SCH ×3 (02:06→21:31)
[2016-12-27] MEDS: INSULIN ASPART 100 UNITS/ML 3 ML PEN SC SCH ×4 (06:30→20:20)
[2016-12-27 06:48] LABS: BASO % 0.6 %; BASO ABS # 0.06 K/uL (0-0.2); COMPLETE YES; EOS % 1.5 %; HEMATOCRIT 37.1 % (42-52); IG% 3.2 %; LYMPH % 4.5 %; LYMPH ABS # 0.46 K/uL (1.2-3.4); MEAN CELL VOLUME 87.3 fL (80-100); MEAN CORPUSCULAR HEMOGLOBIN 28.5 pg (25-34); MEAN CORPUSCULAR HGB CONC 32.6 g/dl (32-36); MEAN PLATELET VOLUME 8.9 fL (7.4-10.4); MONO % 11.4 %; NEUT % 78.8 %; PLATELET COUNT 222 K/uL (130-400); RED BLOOD COUNT 4.25 M/uL (4.7-6.1); WHITE BLOOD COUNT 10.12 K/uL (4.8-10.8)
[2016-12-27 07:22] LABS: BUN/CREATININE RATIO 11.9 (10-20); CALCIUM 8.7 mg/dl (8.5-10.1); CREATININE 0.62 mg/dl (0.60-1.40); POTASSIUM 3.3 mmol/L (3.5-5.1)
[2016-12-27] MEDS: LACTOBACILLUS ACIDOPHILUS 1 GM PACK PO SCH ×3 (07:34→17:05)
[2016-12-27] MEDS: TIOTROPIUM BROMIDE 5 PUFF/90 MCG INH INH SCH (07:34)
[2016-12-27] MEDS: CLOPIDOGREL BISULFATE 75 MG TAB PO SCH (07:35)
[2016-12-27] MEDS: POTASSIUM CHLORIDE 20 MEQ TABCR PO SCH ×2 (07:35→20:34)
[2016-12-27] MEDS: FINASTERIDE 5 MG TAB PO SCH (07:35)
[2016-12-27] MEDS: GABAPENTIN 600 MG TAB PO SCH ×3 (07:36→20:35)
[2016-12-27] MEDS: DULOXETINE (CYMBALTA) 30 MG CAP PO SCH ×2 (07:36→20:36)
[2016-12-27] MEDS: RANITIDINE HCL 150 MG TAB PO SCH (07:36)
[2016-12-27] MEDS: ATORVASTATIN 20 MG TAB PO SCH (07:36)
[2016-12-27] MEDS: OXCARBAZEPINE 150 MG TAB PO SCH ×2 (07:36→20:37)
[2016-12-27] MEDS: ASPIRIN 81 MG ECTAB PO SCH (07:36)
--- NOTE | 2016-12-27 07:39 | Progress Note ---
Subjective Date of Service: late entry for visit Dec 26, 2016. Subjective Pt evaluation today including: conversation w/ patient, physical exam, chart review, lab review, review of studies (renal u/s, cxr), review of inpatient medication list Pain: "everywhere" - doesn't localize it; but says "my arthritis" PO Intake: very poor per staff Voiding: flores catheter in place patient very sleepy during my visit in fact, after talking for about 1 min, he fell asleep while I was washing my hands he woke up enough to tell me that he was having no issues except for arthritis pain ROS otherwise could not be obtained Problem List Medical Problems: (1) Altered mental status Status: Acute (2) Cellulitis of hand without finger or thumb, right Status: Acute (3) Change in mental status Status: Acute (4) Fall Status: Acute (5) Head injury Status: Acute (6) Intractable pain Status: Acute (7) Leg swelling Status: Acute (8) Leukocytosis Status: Acute (9) Pyelonephritis Status: Acute (10) Right flank pain Status: Acute (11) Sepsis Status: Acute (12) Thoracolumbar back pain Status: Acute (13) UTI (urinary tract infection) Status: Acute (14) Vertebral fracture Status: Acute Objective Vital Signs Date Time Temp Pulse Resp B/P (MAP) Pulse Ox O2 Delivery O2 Flow Rate FiO2 12/27/16 00:05 Nasal Cannula 4.0 12/26/16 23:45 36.5 91 16 149/87 (107) 89 Nasal Cannula 4.0 12/26/16 20:00 Nasal Cannula 4.0 12/26/16 19:35 36.8 91 22 120/71 (87) 93 Nasal Cannula 4.0 12/26/16 16:00 Nasal Cannula 4.0 12/26/16 14:51 36.7 101 20 139/75 (96) 96 4.0 12/26/16 12:00 Nasal Cannula 4.0 12/26/16 11:38 36.5 89 20 131/74 (93) 95 Nasal Cannula 4.0 12/26/16 08:00 Nasal Cannula 4.0 12/26/16 07:15 36.7 97 20 151/63 (92) 92 Nasal Cannula 4.0 12/26/16 04:00 Oxymask 4.0 12/26/16 03:56 37.2 88 18 136/69 (91) 92 Nasal Cannula 4.0 Physical Exam General Appearance: no apparent distress ENT: pharynx normal Neck: no JVD Respiratory/Chest: lungs clear, no respiratory distress, no accessory muscle use Cardiovascular: no gallop, no JVD, no murmur, + tachycardia Abdomen: normal bowel sounds, non tender, soft, no organomegaly Extremities: no pedal edema Neurologic/Psychiatric: + pertinent finding (drowsy/sleepy, a/o x 1, nonfocal motor exam - everything seems symmetric with strength of arms/legs; ?mild asterixis vs fine tremor) Laboratory Results Last 24 Hours Test 12/26/16 06:02 12/26/16 08:06 12/26/16 11:27 12/26/16 16:36 White Blood Count 15.91 K/uL Red Blood Count 4.15 M/uL Hemoglobin 11.8 g/dL Hematocrit 36.5 % Mean Corpuscular Volume 88.0 fL Mean Corpuscular Hemoglobin 28.4 pg Mean Corpuscular Hemoglobin Concent 32.3 g/dl Platelet Count 212 K/uL Mean Platelet Volume 9.3 fL Neutrophils (%) (Auto) 83.1 % Lymphocytes (%) (Auto) 7.8 % Monocytes (%) (Auto) 7.9 % Eosinophils (%) (Auto) 0.1 % Basophils (%) (Auto) 0.2 % Neutrophils # (Auto) 13.22 K/uL Lymphocytes # (Auto) 1.24 K/uL Monocytes # (Auto) 1.26 K/uL Eosinophils # (Auto) 0.02 K/uL Basophils # (Auto) 0.03 K/uL RDW Standard Deviation 60.5 fL RDW Coefficient of Variation 18.7 % Immature Granulocyte % (Auto) 0.9 % Immature Granulocyte # (Auto) 0.14 K/uL Sodium Level 143 mmol/L Potassium Level 3.0 mmol/L Chloride Level 107 mmol/L Carbon Dioxide Level 29 mmol/L Anion Gap 7.0 mmol/L Blood Urea Nitrogen 10 mg/dl Creatinine 0.60 mg/dl Est Creatinine Clear Calc Drug Dose 111.4 ml/min Estimated GFR () 111.6 Estimated GFR (Non- 96.3 BUN/Creatinine Ratio 16.9 Random Glucose 127 mg/dl Calcium Level 8.2 mg/dl Magnesium Level 2.1 mg/dl Bedside Glucose 136 mg/dl 148 mg/dl 122 mg/dl Test 12/26/16 18:08 12/26/16 20:45 Venous Blood pH 7.44 Venous Blood Partial Pressure CO2 40 mmHg Venous Blood Partial Pressure O2 42 mmHg Venous Blood HCO3 27 mmol/L Venous Blood Oxygen Saturation 79.6 % Venous Blood Base Excess 2.3 mmol/L Ammonia 35.0 umol/L Bedside Glucose 130 mg/dl Assessment and Plan 76yo male: 1. sepsis 2nd to UTI - MDR e. coli. Fortunately sensitive to some orals and rocephin. De-escalate antibiotics to once daily rocephin. Follow blood cultures. 2. metabolic encephalopathy - likely 2nd to #1 but check VBG to exclude hypercarbia and check ammonia to exclude hepatic encephalopathy. 3. acute/chronic hypoxic resp failure - stable on NC O2. acute component treated and improved. 4. stage 4 lung ca with liver mets - noted. 5. Metastatic small cell lung cancer to liver status post chemoradiation 6. COPD - w/o ongoing exacerbation. Continue inhalers, etc. 7. CAD - no ischemic symptoms at this time. 8. seizure disorder - IV depakote; level is acceptable. 9. 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 DVT proph - lovenox 11. hypokalemia - replace, BMP in am 12. BPH - cont finasteride and flomax. 13. HTN - controlled. 14. T2DM - sliding scale novolog for now; control acceptable. PT, OT when able Continued [facility] stay due to: multiple IV medications needed, other (altered MS) Discharge planning: [facility] facility
[2016-12-27] MEDS: DEXTROSE 5% IV SCH ×2 (07:47→20:29)
[2016-12-27] MEDS: LACTULOSE SYRUP 30 GM/45 ML UDP PO SCH (07:47)
[2016-12-27] MEDS: VALPROATE SOD IV SCH ×2 (07:47→20:29)
[2016-12-27] MEDS ORDERED: VANCOMYCIN TROUGH SCH (08:30)
[2016-12-27] MEDS: CEFTRIAXONE SOD INJ 1 GM in DEXTROSE 5% ADD-VANTAGE 50ML 50 ML IV SCH (10:11)
[2016-12-27] MEDS: PRAMIPEXOLE DIHYDROCHLORIDE 0.5 MG TAB PO SCH (20:35)
[2016-12-27] MEDS: TAMSULOSIN HCL 0.4 MG CAP PO SCH (20:36)
[2016-12-27] MEDS: ENOXAPARIN 30 MG/0.3 ML SYR SC SCH (20:38)
[2016-12-28] VITALS (9 sets, daily range): BP systolic 148–165; BP diastolic 91–99; PULSE 86–98; TEMP 36.3–36.5; O2SAT 93–97
[2016-12-28] MEDS: ACETAMINOPHEN 325 MG TAB PO PRN ×2 (03:50→17:11)
--- NOTE | 2016-12-28 05:58 | Progress Note ---
Subjective Date of Service: late entry for visit Dec 27, 2016. Subjective Pt evaluation today including: conversation w/ patient, physical exam, chart review, lab review Voiding: flores catheter in place per nursing staff - patient quite confused and was being sexually inappropriate with staff earlier today was agitated and trying to get out of bed received IM haldol without any effect then received IV ativan has been sleeping since during my visit he was difficult to arouse briefly opened eyes, said rose, then returned to sleep could not obtain ROS due to lethargy Problem List Medical Problems: (1) Altered mental status Status: Acute (2) Cellulitis of hand without finger or thumb, right Status: Acute (3) Change in mental status Status: Acute (4) Fall Status: Acute (5) Head injury Status: Acute (6) Intractable pain Status: Acute (7) Leg swelling Status: Acute (8) Leukocytosis Status: Acute (9) Pyelonephritis Status: Acute (10) Right flank pain Status: Acute (11) Sepsis Status: Acute (12) Thoracolumbar back pain Status: Acute (13) UTI (urinary tract infection) Status: Acute (14) Vertebral fracture Status: Acute Objective Vital Signs Date Time Temp Pulse Resp B/P (MAP) Pulse Ox O2 Delivery O2 Flow Rate FiO2 12/28/16 04:00 Nasal Cannula 4.0 12/28/16 04:00 36.5 98 20 161/99 (119) 97 4.0 12/28/16 00:00 Nasal Cannula 4.0 12/27/16 23:47 36.5 80 18 146/74 (98) 93 4.0 12/27/16 20:00 96 Nasal Cannula 4.0 12/27/16 19:37 36.9 92 18 156/94 (114) 96 Nasal Cannula 4.0 12/27/16 16:00 95 Nasal Cannula 4.0 12/27/16 15:11 36.4 95 18 154/93 (113) 95 Nasal Cannula 3.0 12/27/16 12:00 95 Nasal Cannula 4.0 12/27/16 11:41 36.5 101 20 160/95 (116) 93 Nasal Cannula 3.0 12/27/16 08:00 95 Nasal Cannula 4.0 12/27/16 07:04 36.7 93 20 163/96 (118) 95 Nasal Cannula 4.0 Physical Exam General Appearance: no apparent distress ENT: + pertinent finding (MM dry) Neck: no JVD Respiratory/Chest: lungs clear, normal breath sounds, no respiratory distress, no accessory muscle use Cardiovascular: regular rate, rhythm, no gallop, no murmur Abdomen: normal bowel sounds, non tender, soft, no organomegaly Extremities: no pedal edema Neurologic/Psychiatric: + pertinent finding (lethargic; left foot drop; b/l + babinski's) Laboratory Results Last 24 Hours Test 12/27/16 06:30 12/27/16 07:22 12/27/16 11:36 12/27/16 16:37 White Blood Count 10.12 K/uL Red Blood Count 4.25 M/uL Hemoglobin 12.1 g/dL Hematocrit 37.1 % Mean Corpuscular Volume 87.3 fL Mean Corpuscular Hemoglobin 28.5 pg Mean Corpuscular Hemoglobin Concent 32.6 g/dl Platelet Count 222 K/uL Mean Platelet Volume 8.9 fL Neutrophils (%) (Auto) 78.8 % Lymphocytes (%) (Auto) 4.5 % Monocytes (%) (Auto) 11.4 % Eosinophils (%) (Auto) 1.5 % Basophils (%) (Auto) 0.6 % Neutrophils # (Auto) 7.98 K/uL Lymphocytes # (Auto) 0.46 K/uL Monocytes # (Auto) 1.15 K/uL Eosinophils # (Auto) 0.15 K/uL Basophils # (Auto) 0.06 K/uL RDW Standard Deviation 58.1 fL RDW Coefficient of Variation 18.1 % Immature Granulocyte % (Auto) 3.2 % Immature Granulocyte # (Auto) 0.32 K/uL Sodium Level 141 mmol/L Potassium Level 3.3 mmol/L Chloride Level 103 mmol/L Carbon Dioxide Level 30 mmol/L Anion Gap 8.0 mmol/L Blood Urea Nitrogen 7 mg/dl Creatinine 0.62 mg/dl Est Creatinine Clear Calc Drug Dose 107.8 ml/min Estimated GFR () 110.1 Estimated GFR (Non- 95.0 BUN/Creatinine Ratio 11.9 Random Glucose 115 mg/dl Calcium Level 8.7 mg/dl Bedside Glucose 116 mg/dl 110 mg/dl 128 mg/dl Test 12/27/16 20:07 12/28/16 05:36 Bedside Glucose 130 mg/dl Assessment and Plan 76yo male: 1. sepsis 2nd to UTI - MDR e. coli. Fortunately sensitive to some orals and rocephin. Continues on daily rocephin. Blood cx's negative. Day #3 of abx. 2. metabolic encephalopathy - ongoing. likely 2nd to #1. cannot exclude element of hepatic encephalopathy (ammonia minimally elevated). cannot exclude toxic from ativan/haldol. CT head 3 weeks ago negative for lung ca mets low threshold for repeat head imaging if mental status fails to improve. 3. acute/chronic hypoxic resp failure - stable on NC O2. acute component treated and improved. 4. stage 4 lung ca with liver mets - noted. 5. Metastatic small cell lung cancer to liver status post chemoradiation 6. COPD - w/o ongoing exacerbation. Continue inhalers, etc. 7. CAD - no ischemic symptoms at this time. 8. seizure disorder - IV depakote; level is acceptable. Change back to PO depakote once oral intake is consistent. 9. 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 DVT proph - lovenox 11. hypokalemia - nearly normal today 12. BPH - cont finasteride and flomax. 13. HTN - controlled. 14. T2DM - sliding scale novolog for now; control acceptable. 15. ?hepatic encephalopathy - lactulose x 1 this am. PT, OT when able DNR Continued [facility] stay due to: multiple IV medications needed, other (altered MS) Discharge planning: [facility] facility
[2016-12-28 05:59] LABS: HEMATOCRIT 40.4 % (42-52); MEAN CELL VOLUME 85.8 fL (80-100); MEAN CORPUSCULAR HEMOGLOBIN 28.5 pg (25-34); MEAN CORPUSCULAR HGB CONC 33.2 g/dl (32-36); PLATELET COUNT 266 K/uL (130-400); RED BLOOD COUNT 4.71 M/uL (4.7-6.1); WHITE BLOOD COUNT 8.94 K/uL (4.8-10.8)
[2016-12-28 06:25] LABS: BUN/CREATININE RATIO 11.4 (10-20); CALCIUM 8.9 mg/dl (8.5-10.1); CREATININE 0.63 mg/dl (0.60-1.40); POTASSIUM 3.8 mmol/L (3.5-5.1)
[2016-12-28 06:26] LABS: BASO % 1.2 %; BASO ABS # 0.11 K/uL (0-0.2); COMPLETE YES; EOS % 1.6 %; IG% 7.6 %; LYMPH ABS # 0.36 K/uL (1.2-3.4); MONO % 13.4 %; NEUT % 72.2 %
[2016-12-28] MEDS: FINASTERIDE 5 MG TAB PO SCH (08:20)
[2016-12-28] MEDS: ASPIRIN 81 MG ECTAB PO SCH (08:20)
[2016-12-28] MEDS: DULOXETINE (CYMBALTA) 30 MG CAP PO SCH ×2 (08:21→20:45)
[2016-12-28] MEDS: ATORVASTATIN 20 MG TAB PO SCH (08:21)
[2016-12-28] MEDS: CLOPIDOGREL BISULFATE 75 MG TAB PO SCH (08:21)
[2016-12-28] MEDS: RANITIDINE HCL 150 MG TAB PO SCH (08:21)
[2016-12-28] MEDS: GABAPENTIN 600 MG TAB PO SCH ×3 (08:22→20:43)
[2016-12-28] MEDS: OXCARBAZEPINE 150 MG TAB PO SCH ×2 (08:22→20:46)
[2016-12-28] MEDS: LACTOBACILLUS ACIDOPHILUS 1 GM PACK PO SCH ×2 (08:22→13:40)
[2016-12-28] MEDS: TIOTROPIUM BROMIDE 5 PUFF/90 MCG INH INH SCH (08:24)
[2016-12-28] MEDS: LACTULOSE SYRUP 30 GM/45 ML UDP PO SCH (08:24)
[2016-12-28] MEDS: POTASSIUM CHLORIDE 20 MEQ TABCR PO SCH ×2 (08:25→20:44)
[2016-12-28] MEDS: INSULIN ASPART 100 UNITS/ML 3 ML PEN SC SCH ×4 (08:27→20:42)
[2016-12-28] MEDS: DEXTROSE 5% IV SCH ×2 (08:33→20:42)
[2016-12-28] MEDS: VALPROATE SOD IV SCH ×2 (08:33→20:42)
[2016-12-28] MEDS: NSS + 20MEQ KCL 1000ML 1,000 ML IV SCH ×2 (08:33→20:42)
[2016-12-28] MEDS: CEFTRIAXONE SOD INJ 1 GM in DEXTROSE 5% ADD-VANTAGE 50ML 50 ML IV SCH (11:31)
[2016-12-28] MEDS: LACTOBACILLUS ACIDOPHILUS (FLORANEX) TAB PO SCH (17:11)
[2016-12-28] MEDS ORDERED: HALOPERIDOL LACTATE 5 MG/ML 1 ML VIAL IM PRN (18:00)
[2016-12-28] MEDS: PRAMIPEXOLE DIHYDROCHLORIDE 0.5 MG TAB PO SCH (20:44)
[2016-12-28] MEDS: TAMSULOSIN HCL 0.4 MG CAP PO SCH (20:45)
[2016-12-28] MEDS: ENOXAPARIN 30 MG/0.3 ML SYR SC SCH (20:47)
[2016-12-28] MEDS: DIVALPROEX 500 MG EXTENDED RELEASE TAB PO SCH (21:45)
[2016-12-28] MEDS: CEPHALEXIN MONOHYDRATE 500 MG CAP PO SCH (21:56)
[2016-12-29] VITALS (10 sets, daily range): BP systolic 142–165; BP diastolic 81–102; PULSE 84–102; TEMP 36.5–36.7; O2SAT 93–99
--- NOTE | 2016-12-29 00:41 | Progress Note ---
Subjective Date of Service: late entry for visit Dec 28, 2016. Subjective Pt evaluation today including: conversation w/ patient, physical exam, chart review, lab review Pain: denied any pain during the visit PO Intake: fair at best Voiding: flores catheter in place patient much more awake & alert today he was able to carry on a conversation he was recounting much of his past medical history including his cancer history denied any dyspnea or cough Problem List Medical Problems: (1) Altered mental status Status: Acute (2) Cellulitis of hand without finger or thumb, right Status: Acute (3) Change in mental status Status: Acute (4) Fall Status: Acute (5) Head injury Status: Acute (6) Intractable pain Status: Acute (7) Leg swelling Status: Acute (8) Leukocytosis Status: Acute (9) Pyelonephritis Status: Acute (10) Right flank pain Status: Acute (11) Sepsis Status: Acute (12) Thoracolumbar back pain Status: Acute (13) UTI (urinary tract infection) Status: Acute (14) Vertebral fracture Status: Acute Review of Systems Constitutional: No fever Respiratory: No cough Cardiac: No chest pain, No orthopnea Abdomen: No pain Objective Vital Signs Date Time Temp Pulse Resp B/P (MAP) Pulse Ox O2 Delivery O2 Flow Rate FiO2 12/28/16 22:50 36.3 93 18 155/95 (115) 95 Nasal Cannula 4.0 12/28/16 20:00 93 Nasal Cannula 4.0 12/28/16 19:46 36.3 89 20 163/96 (118) 95 Nasal Cannula 4.0 12/28/16 16:10 93 Nasal Cannula 4.0 12/28/16 14:45 36.5 86 20 165/96 (119) 93 12/28/16 12:00 94 Nasal Cannula 4.0 12/28/16 08:00 93 Nasal Cannula 4.0 12/28/16 07:23 36.5 87 20 148/91 (110) 93 12/28/16 04:00 Nasal Cannula 4.0 12/28/16 04:00 36.5 98 20 161/99 (119) 97 4.0 Physical Exam General Appearance: no apparent distress ENT: pharynx normal Neck: no JVD Respiratory/Chest: lungs clear, no respiratory distress, no accessory muscle use Cardiovascular: regular rate, rhythm, no gallop, no murmur Abdomen: normal bowel sounds, non tender, soft, no organomegaly Extremities: no pedal edema Neurologic/Psychiatric: alert, + motor weakness (left foot drop) Laboratory Results Last 24 Hours Test 12/28/16 05:36 12/28/16 07:35 12/28/16 11:46 12/28/16 16:41 White Blood Count 8.94 K/uL Red Blood Count 4.71 M/uL Hemoglobin 13.4 g/dL Hematocrit 40.4 % Mean Corpuscular Volume 85.8 fL Mean Corpuscular Hemoglobin 28.5 pg Mean Corpuscular Hemoglobin Concent 33.2 g/dl Platelet Count 266 K/uL Mean Platelet Volume 9.0 fL Neutrophils (%) (Auto) 72.2 % Lymphocytes (%) (Auto) 4.0 % Monocytes (%) (Auto) 13.4 % Eosinophils (%) (Auto) 1.6 % Basophils (%) (Auto) 1.2 % Neutrophils # (Auto) 6.45 K/uL Lymphocytes # (Auto) 0.36 K/uL Monocytes # (Auto) 1.20 K/uL Eosinophils # (Auto) 0.14 K/uL Basophils # (Auto) 0.11 K/uL RDW Standard Deviation 56.7 fL RDW Coefficient of Variation 17.8 % Immature Granulocyte % (Auto) 7.6 % Immature Granulocyte # (Auto) 0.68 K/uL Red Blood Cell Morphology Unremarkable Sodium Level 137 mmol/L Potassium Level 3.8 mmol/L Chloride Level 101 mmol/L Carbon Dioxide Level 26 mmol/L Anion Gap 10.0 mmol/L Blood Urea Nitrogen 7 mg/dl Creatinine 0.63 mg/dl Est Creatinine Clear Calc Drug Dose 106.1 ml/min Estimated GFR () 109.4 Estimated GFR (Non- 94.4 BUN/Creatinine Ratio 11.4 Random Glucose 127 mg/dl Calcium Level 8.9 mg/dl Bedside Glucose 118 mg/dl 127 mg/dl 116 mg/dl Test 12/28/16 20:22 Bedside Glucose 140 mg/dl Assessment and Plan 76yo male: 1. sepsis 2nd to UTI - MDR e. coli. Fortunately sensitive to some orals and rocephin. Continues on daily rocephin. Blood cx's negative. Day #4 of abx. d/c rocephin, change to po keflex BID. plan 7-10 days of Rx. 2. metabolic encephalopathy - improved today. likely 2nd to #1. cannot exclude element of hepatic encephalopathy (ammonia was minimally elevated ). cannot exclude toxic from ativan/haldol. CT head 3 weeks ago negative for lung ca mets 3. acute/chronic hypoxic resp failure - stable on NC O2. acute component treated and improved. 4. stage 4 lung ca with liver mets - noted. 11/2016 liver u/s without evidence of mets. 5. 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 COPD - w/o ongoing exacerbation. Continue inhalers, etc. 7. CAD - no ischemic symptoms at this time. 8. seizure disorder - change to PO depakote. 9. 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 DVT proph - lovenox 11. hypokalemia - resolved. 12. BPH - cont finasteride and flomax. Remove flores tomorrow and perform spontaneous voiding trial. 13. HTN - controlled. 14. T2DM - sliding scale novolog for now; control acceptable. 15. ?hepatic encephalopathy - cont daily lactulose. PT, OT when able DNR progressing Continued [facility] stay due to: multiple IV medications needed, other (altered MS) Discharge planning: long term facility
[2016-12-29] MEDS: NSS + 20MEQ KCL 1000ML 1,000 ML IV SCH (04:00)
[2016-12-29 06:53] LABS: BUN/CREATININE RATIO 11.5 (10-20); CREATININE 0.51 mg/dl (0.60-1.40); POTASSIUM 4.4 mmol/L (3.5-5.1)
[2016-12-29] MEDS: GABAPENTIN 600 MG TAB PO SCH ×3 (09:37→21:32)
[2016-12-29] MEDS: DULOXETINE (CYMBALTA) 30 MG CAP PO SCH ×2 (09:38→21:34)
[2016-12-29] MEDS: ASPIRIN 81 MG ECTAB PO SCH (09:38)
[2016-12-29] MEDS: ATORVASTATIN 20 MG TAB PO SCH (09:38)
[2016-12-29] MEDS: RANITIDINE HCL 150 MG TAB PO SCH (09:39)
[2016-12-29] MEDS: CLOPIDOGREL BISULFATE 75 MG TAB PO SCH (09:39)
[2016-12-29] MEDS: OXCARBAZEPINE 150 MG TAB PO SCH ×2 (09:40→21:31)
[2016-12-29] MEDS: FINASTERIDE 5 MG TAB PO SCH (09:40)
[2016-12-29] MEDS: POTASSIUM CHLORIDE 20 MEQ TABCR PO SCH ×2 (09:41→21:35)
[2016-12-29] MEDS: CEPHALEXIN MONOHYDRATE 500 MG CAP PO SCH ×2 (09:42→21:33)
[2016-12-29] MEDS: LACTULOSE SYRUP 30 GM/45 ML UDP PO SCH (09:42)
[2016-12-29] MEDS: LACTOBACILLUS ACIDOPHILUS (FLORANEX) TAB PO SCH ×3 (09:42→17:28)
[2016-12-29] MEDS: TIOTROPIUM BROMIDE 5 PUFF/90 MCG INH INH SCH (09:43)
[2016-12-29] MEDS: INSULIN ASPART 100 UNITS/ML 3 ML PEN SC SCH ×4 (09:48→21:00)
[2016-12-29] MEDS: RASPBERRY SYRUP 5 ML UDP PO SCH ×3 (14:19→21:31)
[2016-12-29] MEDS: VANCOMYCIN HCL 125 MG/2.5ML SOLN PO SCH ×3 (14:20→21:31)
[2016-12-29] MEDS: SACCHAROMYCES BOUL (FLORASTOR) 250 MG CAP PO SCH (21:30)
[2016-12-29] MEDS: TAMSULOSIN HCL 0.4 MG CAP PO SCH (21:33)
[2016-12-29] MEDS: PRAMIPEXOLE DIHYDROCHLORIDE 0.5 MG TAB PO SCH (21:34)
[2016-12-29] MEDS: DIVALPROEX 500 MG EXTENDED RELEASE TAB PO SCH (21:34)
[2016-12-29] MEDS: ENOXAPARIN 30 MG/0.3 ML SYR SC SCH (21:37)
--- NOTE | 2016-12-29 21:55 | Progress Note ---
Subjective Date of Service: Dec 29, 2016. Subjective Pt evaluation today including: conversation w/ patient, physical exam, chart review, lab review, review of inpatient medication list Pain: denies abd pain PO Intake: improved today Voiding: flores catheter in place yesterday/today has had loose stool c. diff toxin returned positive denies any complaints for me today he continues to be fairly oriented/lucid has periods of fatigue and simply sleeps telemetry normal overnight Problem List Medical Problems: (1) Altered mental status Status: Acute (2) Cellulitis of hand without finger or thumb, right Status: Acute (3) Change in mental status Status: Acute (4) Fall Status: Acute (5) Head injury Status: Acute (6) Intractable pain Status: Acute (7) Leg swelling Status: Acute (8) Leukocytosis Status: Acute (9) Pyelonephritis Status: Acute (10) Right flank pain Status: Acute (11) Sepsis Status: Acute (12) Thoracolumbar back pain Status: Acute (13) UTI (urinary tract infection) Status: Acute (14) Vertebral fracture Status: Acute Review of Systems Respiratory: No dyspnea at rest Cardiac: No chest pain Abdomen: No pain Objective Vital Signs Date Time Temp Pulse Resp B/P (MAP) Pulse Ox O2 Delivery O2 Flow Rate FiO2 12/29/16 19:59 36.7 84 20 152/81 (104) 95 4.0 12/29/16 16:02 93 Nasal Cannula 4.0 12/29/16 15:29 36.5 93 19 156/98 (117) 99 Nasal Cannula 4.0 12/29/16 12:00 96 Nasal Cannula 4.0 12/29/16 11:44 36.6 102 20 165/97 (119) 96 Nasal Cannula 4.0 12/29/16 08:00 94 Nasal Cannula 4.0 12/29/16 07:06 36.6 97 18 142/83 (102) 94 Nasal Cannula 4.0 12/29/16 04:36 36.5 100 20 160/102 (121) 95 Nasal Cannula 4.0 12/29/16 00:37 93 Nasal Cannula 4.0 12/28/16 22:50 36.3 93 18 155/95 (115) 95 Nasal Cannula 4.0 Physical Exam General Appearance: no apparent distress ENT: pharynx normal (MMM) Neck: no JVD Respiratory/Chest: lungs clear, no respiratory distress, no accessory muscle use Cardiovascular: regular rate, rhythm, no edema, no gallop, no JVD, no murmur Abdomen: normal bowel sounds, non tender, soft, no organomegaly Extremities: no pedal edema Neurologic/Psychiatric: alert, + motor weakness (left foot drop ) Laboratory Results Last 24 Hours Test 12/29/16 05:56 12/29/16 07:34 12/29/16 11:36 12/29/16 16:35 Sodium Level 139 mmol/L Potassium Level 4.4 mmol/L Chloride Level 106 mmol/L Carbon Dioxide Level 26 mmol/L Anion Gap 7.0 mmol/L Blood Urea Nitrogen 6 mg/dl Creatinine 0.51 mg/dl Est Creatinine Clear Calc Drug Dose 131.0 ml/min Estimated GFR () 119.3 Estimated GFR (Non- 103.0 BUN/Creatinine Ratio 11.5 Random Glucose 123 mg/dl Calcium Level 9.0 mg/dl Bedside Glucose 129 mg/dl 149 mg/dl 124 mg/dl Test 12/29/16 20:49 Bedside Glucose 136 mg/dl Assessment and Plan 76yo male: 1. sepsis 2nd to MDR e. coli UTI - Blood cx's negative. Day #5 of abx; plan 7-10 days of Rx. Has transitioned to PO keflex BID. Would perform ADRIAN to r/o prostatitis -- if present then would need 14 days of Rx. 2. metabolic encephalopathy - resolved. likely 2nd to #1. CT head 3 weeks ago negative for lung ca mets 3. acute/chronic hypoxic resp failure - stable on NC O2. acute component treated and improved. 4. stage 4 lung ca with liver mets - noted. 11/2016 liver u/s without evidence of mets. 5. 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 COPD - w/o exacerbation. Continue inhalers, etc. 7. CAD - no ischemic symptoms at this time. 8. seizure disorder - depakote at HS; recent depakote level was acceptable 9. 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 DVT proph - lovenox 11. c. diff colitis - day #07/20 of vanco QID. 12. BPH - cont finasteride and flomax. Consider spontaneous voiding trial before discharge. 13. HTN - controlled. 14. T2DM - sliding scale novolog for now; control acceptable. 15. ?hepatic encephalopathy - lactulose d/c due to diarrhea from c. diff. PT, OT when able DNR dispo - [place] - likely next 48 hours Continued [facility] stay due to: multiple IV medications needed, other (altered MS) Discharge planning: nursing home facility
[2016-12-29] MEDS: LORAZEPAM 0.5 MG TAB PO SCH (22:16)
[2016-12-30 07:09] VITALS: BP 149/97; PULSE 90; TEMP 36.8; O2SAT 98
[2016-12-30 08:00] LABS: BUN/CREATININE RATIO 9.9 (10-20); CALCIUM 9.8 mg/dl (8.5-10.1); CREATININE 0.69 mg/dl (0.60-1.40); MAGNESIUM 2.1 mg/dl (1.8-2.4); POTASSIUM 4.7 mmol/L (3.5-5.1)
[2016-12-30] MEDS: TIOTROPIUM BROMIDE 5 PUFF/90 MCG INH INH SCH (08:19)
[2016-12-30] MEDS: DULOXETINE (CYMBALTA) 30 MG CAP PO SCH (08:20)
[2016-12-30] MEDS: POTASSIUM CHLORIDE 20 MEQ TABCR PO SCH (08:20)
[2016-12-30] MEDS: RASPBERRY SYRUP 5 ML UDP PO SCH ×2 (08:20→12:17)
[2016-12-30] MEDS: PRAMIPEXOLE DIHYDROCHLORIDE 0.5 MG TAB PO SCH (08:20)
[2016-12-30] MEDS: LACTOBACILLUS ACIDOPHILUS (FLORANEX) TAB PO SCH ×2 (08:20→12:17)
[2016-12-30] MEDS: CEPHALEXIN MONOHYDRATE 500 MG CAP PO SCH (08:20)
[2016-12-30] MEDS: OXCARBAZEPINE 150 MG TAB PO SCH (08:20)
[2016-12-30] MEDS: CLOPIDOGREL BISULFATE 75 MG TAB PO SCH (08:20)
[2016-12-30] MEDS: GABAPENTIN 600 MG TAB PO SCH ×2 (08:20→14:15)
[2016-12-30] MEDS: RANITIDINE HCL 150 MG TAB PO SCH (08:20)
[2016-12-30] MEDS: VANCOMYCIN HCL 125 MG/2.5ML SOLN PO SCH ×2 (08:21→12:17)
[2016-12-30] MEDS: SACCHAROMYCES BOUL (FLORASTOR) 250 MG CAP PO SCH (08:22)
[2016-12-30] MEDS: FINASTERIDE 5 MG TAB PO SCH (08:22)
[2016-12-30] MEDS: ASPIRIN 81 MG ECTAB PO SCH (08:23)
[2016-12-30] MEDS: INSULIN ASPART 100 UNITS/ML 3 ML PEN SC SCH ×2 (08:29→12:16)
[2016-12-30] MEDS: LORAZEPAM 0.5 MG TAB PO SCH (08:32)
[2016-12-30] MEDS ORDERED: NIFEdipine 30 MG CR TAB PO SCH (09:00)
[2016-12-30] MEDS ORDERED: ATORVASTATIN 40 MG TAB PO SCH (09:00)
--- NOTE | 2016-12-30 09:13 | Discharge Instructions ---
Discharge Instructions Date of Service Dec 30, 2016. Admission Reason for Admission: Sepsis Discharge Discharge Diagnosis / Problem: Sepsis; UTI; c.diff Discharge Goals Goal(s): Decrease discomfort, Improve function, Improve disease control, Learn about illness, Diagnostic testing, Therapeutic intervention, Prevent Disease Progression Activity Recommendations Activity Level: Assistance Required Therapies: Physical Therapy, Occupational Therapy . Additional Information Patient informed of condition: Yes Advance Directives: No DNR: Yes Level of Care: Skilled Communicable Disease: Yes Prognosis: Stable Oxygen at (LPM): 4L [place] Catheter: Yes Instructions / Follow-Up Instructions / Follow-Up Sepsis, secondary to MDR e.coli UTI: - Monitored on tele - Treated w/ IVF - BCx- NGTD - Renal US- No evidence of hydronephrosis. No perinephric fluid collections identified. Small amount of dependent debris within the bladder - Treated w/ IV Zosyn, Rocephin- transitioned to PO Keflex 500 mg BID- continue treatment x14 days for treatment of ?prostatitis (last day of treatment 01/07) Metabolic encephalopathy, likely secondary to above- RESOLVED: - Treated w/ antibiotics as above - CT head 3 weeks ago negative for lung ca mets C. diff colitis: Vancomycin QID (last day of treatment 01/11) Palliative care consultation: - DNR - Patient's cousin, Blayne (POA) states patient would NOT want invasive testing or procedures, but OK w/ continuing treatment in hospital w/ IV antibiotics. Patient would want to return to hospital for treatment, but avoid heroic measures/ICU - ALISA Barton tried to complete POLST, but Blayne did not come to hospital Acute on chronic hypoxic respiratory failure- acute component RESOLVED: - Continue O2 NC - DuoNebs PRN Stage 4 lung cancer w/ liver mets- noted: 11/2016 liver u/s without evidence of mets Metastatic small cell lung cancer to liver s/p chemoradiation COPD- STABLE: - On chronic O2 - Continue inhalers CAD- STABLE: ASA 81 mg daily, Plavix 75 mg daily, and Lipitor 40 mg daily HTN- CONTROLLED: Procardia 30 mg daily Anxiety/depression/history of seizures- STABLE: - Cymbalta 30 mg PO BID, and Trileptal 300 mg BID, Gabapentin 600 mg TID, MiraPEX 0.5 mg HS - Ativan 0.5 mg BID and Haldol 5 mg TID PRN - Depakote 250 mg HS increased to 500 mg HS -- Level checked on BPH: - Flomax 0.4 HS, Finasteride 5 mg daily - Continue Hernandez at discharge- [place] [facility] can do void trial ?hepatic encephalopathy: Initially treated w/ Lactulose but d/c'd due to diarrhea from c. diff infection Chronic pain syndrome, secondary to lumbar DJD T2DM- CONTROLLED: BSG ACHS w/ sliding insulin scale GI Prophylaxis: Zantac, Maalox PRN, IV Zofran PRN, Colace and/or Milk of Mag PRN DVT Prophylaxis: Lovenox Code Status: LEVEL V, DNR Dispo: Discharge to [place] [facility] Follow-Up: Please follow-up with [facility] provider within 24-48 hrs Please follow-up/keep all of your subspecialty appointments Current Hospital Diet Patient's current hospital diet: Diabetes Type 2 Diet Discharge Diet Recommended Diet: Diabetes Type 2 Diet Procedures Procedures Performed: Renal US CXR Pending Studies Studies pending at discharge: no Physician Orders On Transfer Special Precautions: Contact precautions- C.diff infection, positive nasal MRSA swab Fall precautions Dressing Changes: None IV Therapy: None Vital Signs: Routine POLST Discussion: without POLST completion Laboratory Results Last Resulted CBC 12/28/16 05:36 Red Blood Count 4.71, Mean Corpuscular Volume 85.8, Mean Corpuscular Hemoglobin 28.5, Mean Corpuscular Hemoglobin Concent 33.2, Mean Platelet Volume 9.0, Neutrophils (%) (Auto) 72.2, Lymphocytes (%) (Auto) 4.0, Monocytes (%) (Auto) 13.4, Eosinophils (%) (Auto) 1.6, Basophils (%) (Auto) 1.2, Neutrophils # (Auto ) 6.45, Lymphocytes # (Auto) 0.36, Monocytes # (Auto) 1.20, Eosinophils # (Auto ) 0.14, Basophils # (Auto) 0.11 Last Resulted BMP 12/30/16 07:16 Hemoglobin A1c Test 11/29/16 05:59 Range/Units Estimated Average Glucose 117 mg/dl Hemoglobin A1c 5.7 H 4.5-5.6 % Lipid Panel Test 11/29/16 05:59 Range/Units Triglycerides Level 150 0-150 mg/dl Cholesterol Level 148 0-200 mg/dl HDL Cholesterol 44 mg/dl Cholesterol/HDL Ratio 3.4 LDL Cholesterol, Calculated 74 mg/dl Medical Emergencies . Who to Call and When: Medical Emergencies: If at any time you feel your situation is an emergency, please call 911 immediately. . Non-Emergent Contact Non-Emergency issues call your: Primary Care Provider . . "Provider Documentation" section prepared by Wendy Appiah. . Core Measure Problem Core Measures: None
[2016-12-30] MEDS ORDERED: KFL500 PO (09:18)
[2016-12-30] MEDS ORDERED: DPKSR500 PO (09:18)
[2016-12-30] MEDS ORDERED: VNCS125 PO (09:18)
--- NOTE | 2016-12-30 11:05 | Discharge Summary ---
Discharge Summary Date of Service Dec 30, 2016. (Wendy Appiah, [place]) Discharge Summary Admission Date: Dec 25, 2016 at 16:35 Discharge Date: Dec 30, 2016 Discharge Disposition: [facility] facility Principal Diagnosis: Sepsis secondary to UTI Problems/Secondary Diagnoses: Metabolic encephalopathy C. diff colitis Acute on chronic hypoxic respiratory failure- acute component Stage 4 lung cancer w/ liver mets Metastatic small cell lung cancer to liver s/p chemoradiation COPD CAD HTN Anxiety/depression History of seizures BPH ?hepatic encephalopathy Chronic pain syndrome, secondary to lumbar DJD T2DM Immunizations: Have You Had Influenza Vaccine: N/A Influenza Vaccine Date: Jul 07, 2009 History of Tetanus Vaccine?: Yes Tetanus Immunization Date: Jan 17, 2009 History of Pneumococcal: Yes Pneumococcal Date: Jan 17, 2011 History of Hepatitis B Vaccine: No Procedures: SINGLE VIEW CHEST CLINICAL HISTORY: Sepsis. History of lung cancer. FINDINGS: An AP, portable, upright chest radiograph is compared to study dated 11/27/2016 and correlated with chest CT dated 07/25/2016. The examination is degraded by portable technique and patient rotation. The heart is mildly enlarged and there is atherosclerotic calcification of the thoracic aorta. The pulmonary vasculature is noncongested. Emphysema and chronic interstitial thickening are similar to previous. There are low lung volumes with bibasilar airspace opacities. No large pleural effusion is seen. Apical scarring is observed. There is no pneumothorax. The skeletal structures are osteopenic. Degenerative change is noted throughout the thoracic spine. Fusion hardware is seen in the lower cervical spine. A Left shoulder arthroplasty is partially imaged. IMPRESSION: 1. Cardiomegaly and emphysema. 2. There are low lung volumes with bibasilar airspace opacities. This likely represents atelectasis. Correlate clinically for evidence of a superimposed infectious/inflammatory pneumonitis. Electronically signed by: Jay Jay Caro M.D. 12/25/2016 12:41 PM Dictated Date/Time: 12/25/2016 12:39 PM The status of this report is Signed. Draft = Not yet reviewed or approved by Radiologist. Signed = Reviewed and approved by Radiologist. EXAMINATION: RENAL ULTRASOUND CLINICAL HISTORY: Urinary tract infection. Septic shock. COMPARISON STUDY: 11/29/2016 FINDINGS: The right kidney measures 11.8 cm. The left kidney measures 11.7 cm. There is no evidence of hydronephrosis. There are no renal masses. No perinephric fluid collections are visualized. There is a small amount of dependent debris within the bladder. Neither ureteral jet was visualized. IMPRESSION : 1. No evidence of hydronephrosis. No perinephric fluid collections identified 2. Small amount of dependent debris within the bladder Electronically signed by: Eladio Gee M.D. 12/25/2016 6:38 PM Dictated Date/Time: 12/25/2016 6:37 PM The status of this report is Signed. Draft = Not yet reviewed or approved by Radiologist. Signed = Reviewed and approved by Radiologist. Consultations: Palliative care (Wendy Appiah, [place]) Medication Reconciliation New Medications: Cephalexin Monohydrate (Cephalexin) 500 Mg Cap 500 MG PO BID for 9 Days, #18 CAP Divalproex Sodium (Divalproex Sodium ER) 500 Mg Tabcr 500 MG PO HS for 30 Days Vancomycin HCl (Vancomycin HCl) 125 Mg/2.5 Ml Susp 125 MG PO QID for 13 Days, #52 DOSE Continued Medications: Acetaminophen (Tylenol) 325 Mg Tab 650 MG PO Q6H PRN for Pain or Fever Aspirin (Aspirin Chewable) 81 Mg Chew 81 MG PO DAILY Atorvastatin (Lipitor) 40 Mg Tab 40 MG PO DAILY, TAB Bisacodyl (Dulcolax) 10 Mg Sup 1 SUPP GA Q3DAYS WITH NO B.M. Clopidogrel (Plavix) 75 Mg Tab 75 MG PO DAILY, TAB Duloxetine HCl (Cymbalta) 30 Mg Cap 30 MG PO BID, CAP Finasteride (Finasteride) 5 Mg Tab 1 TAB PO DAILY Fluticasone Furoate-Vilanterol (Breo Ellipta) 1 Inh Inh 1 INHA INH DAILY Gabapentin (Neurontin) 100 Mg Cap 600 MG PO TID, CAP Haloperidol (Haldol) 0.5 Mg Tab 2 MG PO Q6H PRN for Anxiety/Agitation Home O2 Therapy (Oxygen) Gas 2 LITERS NA CONTINOUS for 365 Days, #1 Ipratropium-Albuterol (Combivent Respimat) 1 Aer Aer 1 PUFFS INH QID Lorazepam (Ativan) 0.5 Mg Tab 0.5 MG PO TID, TAB Magnesium Hydroxide (Milk Of Magnesia) 30 Ml Susp 30 ML PO DAILY PRN for Constipation, ML Oxcarbazepine (Trileptal) 300 Mg Tab 300 MG PO BID, TAB Oxycodone Ir (Roxicodone Ir) 5 Mg Tab 5 MG PO BID PRN for Pain HOLD FOR EXCESSIVE SEDATION Pramipexole Dihydrochloride (Pramipexole Dihydrochlori) 0.5 Mg Tab 0.5 MG PO HS Ranitidine (Zantac) 150 Mg Tab 150 MG PO DAILY, TAB Sennosides (Senexon) 8.6 Mg Tab 1-2 TAB PO BID, #120 Sodium Phosphate/Biphosphate (Fleet Enema) Kristine 1 EA GA Q4DAYS WITH NO B.M. Tamsulosin HCl (Tamsulosin HCl) 0.4 Mg Cap 0.4 MG PO HS Tiotropium [place] (Spiriva Handihaler) 30 Puff/540 Mcg Aerp 1 CAP INH DAILY Discontinued Medications: Ceftriaxone Sod (Rocephin) 1 Gm Inj 1 GM IM ADMINISTER WITH LIDOCAINE 1% STARTED 12/24/16, LAST DOSE 12/29/16 Divalproex Sodium (Depakote Er) 250 Mg Tab 250 MG PO HS Discharge Exam Review of Systems: Constitutional: No fever, No chills, No sweats, No weakness, No fatigue Respiratory: No cough, No shortness of breath, No hemoptysis Cardiovascular: No chest pain, No edema, No palpitations Abdomen: No pain, No nausea, No vomiting, No diarrhea, No constipation Musculoskeletal: No joint pain, No muscle pain, No swelling, No calf pain Neurologic: No weakness, No numbness/tingling Psychiatric: No depression symptoms, No anxiety Integumentary: No rash, No itch, No new/changing skin lesions Physical Exam: General Appearance: no apparent distress Eyes: normal inspection, PERRL ENT: hearing grossly normal Neck: supple Respiratory/Chest: lungs clear, no respiratory distress, no accessory muscle use Cardiovascular: regular rate, rhythm Abdomen / GI: normal bowel sounds, non tender, soft Extremities: no calf tenderness, no pedal edema Neurologic/Psychiatric: alert, normal mood/affect, oriented x 3 Skin: normal color, warm/dry, no rash (Wendy Appiah, [place]) Hospital Course H&P on admission: This patient is a 76-year-old male, resident of [facility], sent emergency department today with complaints of altered mental status and fever. Most of the history is taken from the patient's cousin who is the POA. He is present at the bedside. EMS and nursing reports from the longterm were also reviewed. The patient's cousin reports that he saw the patient 5 days ago. He was completely lucid at that point. He went back and visited the patient on Friday, 2 days ago. He noted the patient to be fairly confused. He was unsure of his own name. This prompted the staff to check a urinalysis. A urine culture was sent on 12/24. It was growing Escherichia coli. Sensitivities are pending. The patient was noted to be febrile prior to arrival. In route, the patient was hypotensive. He was resuscitated with IV fluids in route and in the emergency department. Broad-spectrum antibiotics with daptomycin and Zosyn were started. Physical Exam Vital Signs Date Time Temp Pulse Resp B/P (MAP) Pulse Ox O2 Delivery O2 Flow Rate FiO2 12/25/16 14:41 37.9 12/25/16 14:35 104 47 100 12/25/16 14:30 152/109 12/25/16 14:20 107 31 100 12/25/16 14:16 130/75 12/25/16 14:05 109 27 100 12/25/16 14:00 142/101 12/25/16 13:50 111 27 100 12/25/16 13:45 167/88 12/25/16 13:35 110 32 100 12/25/16 13:30 158/87 12/25/16 13:24 109 30 90 12/25/16 13:15 172/100 12/25/16 13:09 108 37 12/25/16 13:00 164/92 12/25/16 12:54 114 30 12/25/16 12:52 115 20 161/92 99 Non-Rebreather 12/25/16 12:46 161/92 12/25/16 12:39 124 32 12/25/16 12:29 176/141 12/25/16 12:24 118 27 99 12/25/16 12:17 38.8 120 20 171/100 99 Non-Rebreather 10.0 General Appearance: + mild distress (mild respiratory distress) Head: normocephalic Eyes: + pertinent finding (pupils pinpoint bilaterally) Neck: no JVD Respiratory/Chest: + pertinent finding (no wheezing or rhonchorous breath sounds auscultated. Tachypnea noted.) Cardiovascular: + pertinent finding (occasionally irregular. No murmur auscultated.) Abdomen/GI: soft, + pertinent finding (no significant tenderness elicited. Bowel sounds present) Extremities/Musculoskelatal: no pedal edema Neurologic/Psych: + pertinent finding (opens eyes to verbal stimuli, follow basic commands-->squeezes my hand) Skin: warm/dry Sepsis, secondary to MDR e.coli UTI: - Monitored on tele - Treated w/ IVF - BCx- NGTD - Renal US- No evidence of hydronephrosis. No perinephric fluid collections identified. Small amount of dependent debris within the bladder - Treated w/ IV Zosyn, Rocephin- transitioned to PO Keflex 500 mg BID- continue treatment x14 days for treatment of ?prostatitis (last day of treatment 01/07) Metabolic encephalopathy, likely secondary to above- RESOLVED: - Treated w/ antibiotics as above - CT head 3 weeks ago negative for lung ca mets C. diff colitis: Vancomycin QID (last day of treatment 01/11) Palliative care consultation: - DNR - Patient's cousin, Blayne (POA) states patient would NOT want invasive testing or procedures, but OK w/ continuing treatment in hospital w/ IV antibiotics. Patient would want to return to hospital for treatment, but avoid heroic measures/ICU - AL[facility] Barton tried to complete POLST, but Blayne did not come to hospital Acute on chronic hypoxic respiratory failure- acute component RESOLVED: - Continue O2 NC - DuoNebs PRN Stage 4 lung cancer w/ liver mets- noted: 11/2016 liver u/s without evidence of mets Metastatic small cell lung cancer to liver s/p chemoradiation COPD- STABLE: - On chronic O2 - Continue inhalers CAD- STABLE: ASA 81 mg daily, Plavix 75 mg daily, and Lipitor 40 mg daily HTN- CONTROLLED: Procardia 30 mg daily Anxiety/depression/history of seizures- STABLE: - Cymbalta 30 mg PO BID, and Trileptal 300 mg BID, Gabapentin 600 mg TID, MiraPEX 0.5 mg HS - Ativan 0.5 mg BID and Haldol 5 mg TID PRN - Depakote 250 mg HS increased to 500 mg HS -- Level checked on 12/25- BPH: - Flomax 0.4 HS, Finasteride 5 mg daily - Continue Hernandez at discharge- [place] [facility] can do void trial ?hepatic encephalopathy: Initially treated w/ Lactulose but d/c'd due to diarrhea from c. diff infection Chronic pain syndrome, secondary to lumbar DJD T2DM- CONTROLLED: BSG ACHS w/ sliding insulin scale GI Prophylaxis: Zantac, Maalox PRN, IV Zofran PRN, Colace and/or Milk of Mag PRN DVT Prophylaxis: Lovenox Code Status: LEVEL V, DNR Dispo: Discharge to [place] [facility] Total Time Spent: Greater than 30 minutes This includes examination of the patient, discharge planning, medication reconciliation, and communication with other providers. (Wendy Appiah, PA-C) I personally examined pt and verified all guevara points w Daphne Appiah PA-C sleeping comfortably nad breathing unlabored no pallor or icterus UTI improving - stable for PO abx, transfer to SNF otherwise as above (Maldonado Hairston, D.O.) Discharge Instructions Please refer to the electronic Patient Visit Report (Discharge Instructions) for additional information. (Wendy Appiah, PA-C) Follow-Up Please follow-up with [place] [facility] provider within 24-48 hrs Please follow-up/keep all of your subspecialty appointments (Wendy Appiah PA-C) Additional Copies To [facility]
[2016-12-30 13:59] VITALS: BP 149/97; PULSE 90; TEMP 36.8; O2SAT 98
== END 2016-12-30 14:37 | DRG 871 ==
LOC: EDBD 12:09 → C.EDB 12:10 → C.MED 16:35 → ENRESERV 17:14
PROVIDERS: ADMIT Internal Medicine; ATTEND Family Medicine
DX: A41.9 Sepsis, unspecified organism (principal); G93.41 Metabolic encephalopathy; N39.0 Urinary tract infection, site not specified; C34.90 Malignant neoplasm of unspecified part of unspecified bronchus or lung; C78.7 Secondary malignant neoplasm of liver and intrahepatic bile duct; Z66 Do not resuscitate; J96.21 Acute and chronic respiratory failure with hypoxia; Z51.5 Encounter for palliative care; J45.909 Unspecified asthma, uncomplicated; J44.9 Chronic obstructive pulmonary disease, unspecified; G89.4 Chronic pain syndrome; I25.10 Atherosclerotic heart disease of native coronary artery without angina pectoris; K21.9 Gastro-esophageal reflux disease without esophagitis; N40.0 Benign prostatic hyperplasia without lower urinary tract symptoms; K58.9 Irritable bowel syndrome, unspecified; E11.40 Type 2 diabetes mellitus with diabetic neuropathy, unspecified; E78.00 Pure hypercholesterolemia, unspecified; F41.9 Anxiety disorder, unspecified; F32.9 Major depressive disorder, single episode, unspecified; Z96.641 Presence of right artificial hip joint; Z96.612 Presence of left artificial shoulder joint; Z96.651 Presence of right artificial knee joint; E87.6 Hypokalemia; G40.909 Epilepsy, unspecified, not intractable, without status epilepticus; Z79.82 Long term (current) use of aspirin; Z99.81 Dependence on supplemental oxygen; Z87.891 Personal history of nicotine dependence